=== PATIENT | female | born 1940 | race Caucasian/White ===

== ENCOUNTER 2016-08-05 13:33 | Outpatient (CLI) | payer MEDICARE, OTHER ==
[2016-08-05 14:03] LABS: #Basophils 0.1 thou/uL (0.0-0.2); #Eosinphils 0.2 thou/uL (0.0-0.7); #Lymphocytes 1.5 thou/uL (1.20-3.40); #Monocytes 0.4 thou/uL (0.11-0.59); #Neutrophils 3.6 thou/uL (1.40-6.50); %Basophils 1.1 % (0.0-1.0); %Eosinophils 3.8 % (0.0-10.0); %Lymphocytes 26.2 % (21.0-51.0); %Monocytes 6.4 % (0.0-10.0); Hematocrit 38.7 % (36.0-47.0); Mean Platelet Volume 9.3 fL (7.4-10.4); Red Blood Cell (RBC) Count 4.29 mill/uL (4.20-5.40); White Blood Cell (WBC) Count 5.8 thou/uL (4.8-10.8)
[2016-08-05 14:15] LABS: Hemoglobin A1c 6.7 % (4.0-6.0)
[2016-08-05 14:31] LABS: ALT (SGPT) 14 U/L (0-55); AST (SGOT) 14 U/L (5-34); Alkaline Phosphatase 155 U/L (40-150); Anion Gap 13 mmol/L (10-20); BUN (Urea Nitrogen) 18 mg/dL (9.8-20.1); Bilirubin, Total 0.6 mg/dL (0.2-1.2); Calc. Creatinine Clearance 0 mL/min (70-130); Calcium 8.8 mg/dL (7.8-10.44); Carbon Dioxide 26 mmol/L (23-31); Chloride 107 mmol/L (98-107); Estimated GFR-MDRD 50; Globulin 3.5 g/dL (2.4-3.5); Protein, Total 6.9 g/dL (5.8-8.1)
[2016-08-06 18:11] LABS: Microalbumin Urine 12.9 mg/dL (0.5-50.0)
== END 2016-08-05 13:34 | disposition home or self-care (01) ==
LOC: NAV LAB 13:33
PROVIDERS: ATTEND Internal Medicine Endocrinology, Diabetes & Metabolism
DX: E04.9 Nontoxic goiter, unspecified (principal); E11.9 Type 2 diabetes mellitus without complications; I10 Essential (primary) hypertension
CPT/HCPCS: 36415; 80053; 82043; 82570; 83036; 83880; 84439; 84443; 85025; 86376

== ENCOUNTER 2016-08-28 10:35 | Outpatient (CLI) | payer MEDICARE, OTHER ==
[2016-08-28 12:40] LABS: ALT (SGPT) 12 U/L (0-55); AST (SGOT) 12 U/L (5-34); Alkaline Phosphatase 148 U/L (40-150); Anion Gap 15 mmol/L (10-20); BUN (Urea Nitrogen) 23 mg/dL (9.8-20.1); Bilirubin, Direct 0.4 mg/dL (0.1-0.3); Bilirubin, Total 0.8 mg/dL (0.2-1.2); Calc. Creatinine Clearance 0 mL/min (70-130); Calcium 9.1 mg/dL (7.8-10.44); Carbon Dioxide 22 mmol/L (23-31); Chloride 107 mmol/L (98-107); Estimated GFR-MDRD 52; LDL Cholesterol, Calculated 77 mg/dL; Protein, Total 6.8 g/dL (5.8-8.1)
[2016-08-28 12:46] LABS: Hemoglobin A1c 6.8 % (4.0-6.0)
[2016-08-28 13:10] LABS: #Basophils 0.1 thou/uL (0.0-0.2); #Eosinphils 0.2 thou/uL (0.0-0.7); #Lymphocytes 1.7 thou/uL (1.20-3.40); #Monocytes 0.5 thou/uL (0.11-0.59); #Neutrophils 3.4 thou/uL (1.40-6.50); %Eosinophils 3.5 % (0.0-10.0); %Lymphocytes 28.9 % (21.0-51.0); %Monocytes 8.1 % (0.0-10.0); Hematocrit 38.7 % (36.0-47.0); Mean Platelet Volume 11.2 fL (7.4-10.4); Red Blood Cell (RBC) Count 4.37 mill/uL (4.20-5.40); White Blood Cell (WBC) Count 5.8 thou/uL (4.8-10.8)
== END 2016-08-28 10:36 | disposition home or self-care (01) ==
LOC: NAVSJIPCSP 10:35
PROVIDERS: ATTEND Family Medicine
DX: E78.5 Hyperlipidemia, unspecified (principal); I10 Essential (primary) hypertension; E11.65 Type 2 diabetes mellitus with hyperglycemia; Z79.899 Other long term (current) drug therapy
CPT/HCPCS: 36415; 80048; 80061; 80076; 83036; 84443; 85025

== ENCOUNTER 2016-09-01 14:57 | Outpatient (CLI) | payer MEDICARE, OTHER ==
[2016-09-01 22:20] LABS: Bilirubin Negative (Negative); Blood, Urine Trace (Negative); Glucose, Urine (Dipstick) Negative (Negative); Ketone, Urine Negative (Negative); Nitrite Positive (Negative); Protein, Urine (Dipstick) Negative (Neg-Trace)
[2016-09-01 22:30] LABS: Bacteria/HPF 4+ HPF (None Seen); RBC/HPF 0-3 HPF (0-3); WBC/HPF 0-3 HPF (0-3)
== END 2016-09-01 14:58 | disposition home or self-care (01) ==
LOC: NAVSJIPCSP 14:57
PROVIDERS: ATTEND Family Medicine
DX: E78.5 Hyperlipidemia, unspecified (principal); E11.65 Type 2 diabetes mellitus with hyperglycemia; I10 Essential (primary) hypertension; Z79.899 Other long term (current) drug therapy
CPT/HCPCS: 81003; 81015

== ENCOUNTER 2017-09-13 18:02 | Inpatient (IN) | payer MEDICARE, OTHER ==
[2017-09-13] MEDS ORDERED: Mag-Al 1200 mg/1200 mg/30 ML UDCUP PO PRN (20:32)
[2017-09-13] MEDS ORDERED: Loperamide HCl 2 MG CAP PO PRN (20:32)
[2017-09-13] MEDS ORDERED: Ondansetron ODT 4 MG TAB PO PRN (20:32)
[2017-09-13] MEDS ORDERED: Bisacodyl 10 MG SUPP PR PRN (20:32)
[2017-09-13] MEDS ORDERED: Nitroglycerin 0.4 MG TAB (25 Tab Bottle) SL PRN (20:32)
[2017-09-13] MEDS ORDERED: Milk Of Magnesia 30 ML UDCUP PO PRN (20:32)
[2017-09-13] MEDS ORDERED: Dextrose 5% in Water 1,000 ML IV PRN (20:48)
[2017-09-13] MEDS ORDERED: Dextrose 50% Abboject 50 ML SYRINGE SLOW IVP PRN (20:48)
[2017-09-13] MEDS ORDERED: Atorvastatin Calcium 10 MG TAB PO SCH (21:00)
[2017-09-13] MEDS: Levemir Flexpen 100 UNITS/ML PEN SC SCH (21:58)
[2017-09-13] MEDS: Atorvastatin Calcium 10 MG TAB PO SCH (22:00)
[2017-09-13] MEDS: Famotidine 20 MG TAB PO SCH (22:00)
[2017-09-13] MEDS: Ramipril 5 MG CAP PO SCH (22:00)
[2017-09-13] MEDS: Carvedilol 25 MG TAB PO SCH (22:03)
--- NOTE | 2017-09-14 00:19 | HP ---
DATE OF ADMISSION: Skilled Unit, 09/13/2017. HISTORY OF PRESENT ILLNESS: The patient is a very pleasant 77-year-old white female, patient of Dr. Michael with a history of hypertension, diabetes, and diastolic heart failure who presented to [facility] on 09/05/2017 with increasing shortness of breath, and was found to have a pulse ox of 84% at th e office and decreased to 75% when seen at home. She had not been using oxygen at home, but her husb and had noticed her sats to be this low previously. She also developed over the last month since the flu illness, increasing edema, increasing shortness of breath, inability to sleep, and constant leth argy. She was treated for diastolic heart failure with Lasix with diuresis, but required BiPAP to ma intain her saturations while this was being done. She did have an episode of bradycardia and subsequ ently was admitted to Medical Intensive Care Unit. There, she gently diuresed, was seen by Pulmonary and Cardiology, felt to have most likely obstructive sleep apnea, superimposed on diastolic heart fa ilure with subsequent pulmonary hypertension and most likely require constant CPAP; however, as she h as not had a sleep study, this was not able to be done and she was weaned down to just a nasal cannul a at 2 liters, was maintaining sat of 95-96% while awake. Her blood pressure remained stable at 148/ 57 with diuresis. She did develop subacute renal failure with creatinine increasing to 1.59, but thi s has normalized at 1.08 on discharge. At this time, she is taking medications of 40 mg of Lasix ora lly daily as well as ramipril 10 mg twice daily for longstanding hypertension, diastolic heart failur e, and carvedilol 12.5 mg twice daily. She also has a history of diabetes type 2, which has been wel l controlled in the hospital on her home medications of Levemir 28 units subcu twice daily and superi mposed mild sliding scale. She also has a history of occasional chest pain and angina, which has bee n followed by Dr. Dow and was seen by Dr. Black in the hospital and felt to be not related to a cute coronary artery syndrome with cardiac enzymes were normal. Her symptoms were more likely due to diastolic heart failure. She did have an elevated BNP of that time up to 533. She was treated empi rically for infection bronchial pneumonia, but it was felt this was not the case and that most likely underlying problems, which is just chronic hypoxic respiratory failure with subsequent pulmonary hyp ertension from obstructive sleep apnea, complicated by her chronic morbid obesity. She is transferre d to [facility] for PT and OT and hopefully wean off her oxygen and she did not require this p rior to 1 month ago and to eventually schedule her for an outpatient sleep study. PAST MEDICAL HISTORY: Remarkable also for history of hyperlipidemia, hypothyroidism, and distant his tory of a possible myocardial infarction. CURRENT MEDICATIONS: On transfer here include the above-mentioned carvedilol and ramipril, which she is also on amlodipine 10 mg daily, aspirin 81 daily, atorvastatin 10 daily, Plavix 75 daily, famotid ine 20 q.12 hours and also Lovenox 40 daily, hand-held nebulizer with DuoNeb as needed and routinely 4 times daily above-mentioned Levemir and KCl 10 mEq twice daily as well as Lasix 40 mg daily. ALLERGIES: PENICILLIN and SULFA. SOCIAL HISTORY: She lives with her . She is nonsmoker, nondrinker. PAST SURGICAL HISTORY: Positive for coronary artery bypass graft x3, bilateral total knee replacemen t, open reduction internal fixation of left femur fracture, cholecystectomy, and angiography prior to the in-stent coronary artery prior to the coronary artery bypass graft. REVIEW OF SYSTEMS: General: Her main complaints of lethargy and sleepiness with no change in her vi ayde or hearing, no hoarseness or sore throat. Pulmonary: She has had the above-mentioned cough and wheezing and probably infectious illness last month, but now is only having shortness of breath, whe ezing, cough with no fever or chills. Cardiovascular: She has had the above-mentioned chest pain wi th no palpitations, but does have dyspnea on exertion and orthopnea with dyspnea on exertion at proba fartun a half block. Gastrointestinal: She has good appetite. No abdominal pain, no nausea, vomiting, diarrhea. Genitourinary: Denies dysuria, hematuria, or nocturia. Musculoskeletal: Denies stiffne ss, swelling in joints or extremities. PHYSICAL EXAMINATION: GENERAL: Patient is an elderly white female, appears in no acute distress at this time on oxygen and oriented x3, cooperative. VITAL SIGNS: Blood pressure 167/77, respirations 21, pulse 64, O2 sats 96%, temperature 97.8. HEENT: Pupils are equal, round, and react to light and accommodation. Sclerae are anicteric, Conjun ctivae pale. Oral mucous membranes well hydrated. NECK: Obese, supple. No nodes or masses. JVP is not elevated. LUNGS: Show decreased breath sounds diffusely with no wheezes, rhonchi, or rales. CARDIAC: Shows regular rhythm, S4. No gallops or murmurs, otherwise. ABDOMEN: Obese and nontender. No masses or organomegaly. SKIN/EXTREMITIES: Show morbid obesity with only trace edema. No clubbing or cyanosis. NEUROLOGIC: Showed no focal findings. LABORATORY AND X-RAY FINDINGS: Most recent laboratory shows Accu-Cheks range from 165 to 209, BUN is 25, creatinine 1.08. Sodium 139, potassium 4.0, chloride 97, bicarbonate 36, white count 7400, chantelle tocrit 39, hemoglobin 12. ASSESSMENT AND PLAN: The patient is a 77-year-old white female with a long history of hypertension, hyperlipidemia, diabetes type 2, morbid obesity, who has apparently developed respiratory hypoxic hyp ercapnic failure over the last several months, possibly related to recent febrile illness causing exa cerbation, presenting to the hospital with severe respiratory failure. She was not oxygen dependent previously, but now is oxygen dependent and is admitted for PT and OT to hopefully be able to wean of f the oxygen and be able to maintain her activities of daily living at home where she can be set up f or outpatient sleep study. She is euvolemic at this time on 40 mg of Lasix will be continued on this with monitoring of the renal function closely as she did develop some acute renal failure with this. She will also be continued on her beta tommy, HUGH inhibitor, and amlodipine to control her blood pressure. She was hypertensive when she was hypoxic. She has chronic respiratory acidosis with meta bolic compensation with elevated bicarbonate and will need to be monitored closely for lethargy and i ncreased respiratory acidosis and hypercapnia. Finally, her diabetes has been fairly well controlled on her previous Levemir with mild sliding scale and this will be continued. Prognosis is somewhat g uarded because of her multiple underlying comorbidities, but she will be started on PT and OT and hop efully will improve enough to be discharged home.
[2017-09-14 05:48] LABS: ALT (SGPT) 13 U/L (8-55); AST (SGOT) 13 U/L (5-34); Alkaline Phosphatase 132 U/L (40-150); Anion Gap 11 mmol/L (10-20); BUN (Urea Nitrogen) 15 mg/dL (9.8-20.1); Bilirubin, Total 0.8 mg/dL (0.2-1.2); Calc. Creatinine Clearance 107 mL/min (70-130); Calcium 8.8 mg/dL (7.8-10.44); Carbon Dioxide 34 mmol/L (23-31); Chloride 100 mmol/L (98-107); Estimated GFR-MDRD 68; Glucose 91 mg/dL (83-110); Potassium 4.1 mmol/L (3.5-5.1); Sodium 141 mmol/L (136-145)
[2017-09-14 05:49] LABS: #Basophils 0.1 thou/uL (0.0-0.2); #Eosinphils 0.3 thou/uL (0.0-0.7); #Lymphocytes 1.3 thou/uL (1.20-3.40); #Monocytes 0.6 thou/uL (0.11-0.59); %Eosinophils 4.5 % (0.0-10.0); %Lymphocytes 20.8 % (21.0-51.0); %Monocytes 9.2 % (0.0-10.0); %Neutrophils 64.6 % (42.0-75.0); Hemoglobin 11.3 g/dL (12.0-16.0); Mean Corpuscular Volume 86.9 fl (81.0-99.0); Mean Platelet Volume 9.5 fL (7.4-10.4); PLT Morphology Comment Appears Decreased; Platelet Count 94 thou/uL (130-400); RBC Distribution Width 13.6 % (11.5-14.5); RBC Morphology Normal; Red Blood Cell (RBC) Count 4.18 mill/uL (4.20-5.40); White Blood Cell (WBC) Count 6.1 thou/uL (4.8-10.8)
[2017-09-14 05:54] LABS: MDiff Complete? YES; Manual Diff?? NO
[2017-09-14] MEDS: Enoxaparin Sodium 40 MG/0.4 ML SYRINGE SC SCH (09:02)
[2017-09-14] MEDS: Amlodipine 10 MG TAB PO SCH (09:02)
[2017-09-14] MEDS: Ramipril 5 MG CAP PO SCH ×2 (09:02→21:02)
[2017-09-14] MEDS: Aspirin 81 mg Enteric Coated Tablet PO SCH (09:03)
[2017-09-14] MEDS: Potassium Chloride 10 MEQ TAB PO SCH (09:03)
[2017-09-14] MEDS: Furosemide 40 MG TAB PO SCH (09:03)
[2017-09-14] MEDS: Famotidine 20 MG TAB PO SCH ×2 (09:03→21:01)
[2017-09-14] MEDS: FLUoxetine HCl 20 MG CAP PO SCH (09:03)
[2017-09-14] MEDS: Carvedilol 25 MG TAB PO SCH ×2 (09:04→21:01)
[2017-09-14] MEDS: Clopidogrel Bisulfate 75 MG TAB PO SCH (09:05)
[2017-09-14] MEDS: Levemir Flexpen 100 UNITS/ML PEN SC SCH ×2 (09:06→21:03)
--- NOTE | 2017-09-14 14:48 | PRG ---
DATE OF SERVICE: 09/14/2017 SUBJECTIVE: Ms. Gustafson is a pleasant 77-year-old white female, patient of mine, who presented to [facility] room with shortness of breath. She was noted to be hypoxic and had to be treated for heart fa ilure with Lasix, diuresis and BiPAP. She was admitted to the Intensive Care Unit, seen by Pulmonary and Cardiology and thought to have significant diastolic heart failure with pulmonary hypertension. She was diuresed and she did much better and was transferred to [facility] on 2 lite rs nasal cannula, maintaining O2 sats of 95% to 96%. PAST MEDICAL HISTORY: 1. Hypertension. 2. Diabetes type 2. 3. Diastolic heart failure. 4. Bradycardia. 5. Obstructive sleep apnea, most likely. 6. Pulmonary hypertension. 7. Subacute renal failure. 8. Angina. 9. Bronchopneumonia. 10. Chronic hypoxic respiratory failure. 11. Chronic morbid obesity. 12. Generalized weakness. 13. Hyperlipidemia. 14. Hypothyroidism. PRESENT MEDICATIONS: Reveal the patient is presently on the following: Carvedilol 6.25 mg b.i.d., R amipril every day, amlodipine 10 mg daily, atorvastatin 10 mg daily, Plavix 75 mg daily, famotidine 2 0 mg b.i.d., Lovenox 40 mg daily, aspirin 81 mg daily, hand-held nebulizer with DuoNebs q.i.d. and p. r.n., Lasix 40 mg every day, potassium chloride 10 mEq b.i.d., and Levemir 28 units subcutaneous b.i. d. and mild sliding scale. PHYSICAL EXAMINATION: GENERAL: This is a well-developed, well-nourished, morbidly obese white female in no apparent distre ss with respirations 20 at this time. She is getting a hand-held nebulizer and has slight wheeze. N o rales and no rhonchi are otherwise noted. HEENT: Reveals normocephalic, nontraumatic cranium. Pupils are equally round and reactive. Extraoc ular movements are intact. Nose and throat are well hydrated and moist. NECK: Supple, without masses, nodes or bruits. JVP is not able to be determined. LUNGS: Reveal distant breath sounds with occasional wheeze. No rhonchi, rales or crackles are heard at this time. CARDIOVASCULAR: Reveals a regular rate and rhythm. No murmurs, gallops or rubs are noted. ABDOMEN: Obese, soft, nontender. No organomegaly is noted. No rebound or guarding is noted. Gale l bowel sounds in all 4 quadrants. : Deferred. EXTREMITIES: Reveal morbid obesity with trace edema. ASSESSMENT: 1. Hypoxic hypercapnic failure. 2. Diabetes type 2. 3. Hypertension. 4. Hyperlipidemia. 5. Morbid obesity. 6. Diastolic heart failure. 7. Pulmonary hypertension. 8. Obstructive sleep apnea. PLAN: 1. Continue supportive care. 2. Continue slow diuresis. 3. Monitor the patient's respiratory status closely. 4. Monitor the patient's cardiac status and watch for signs and symptoms of congestive heart failure . 5. Stress ulcer prophylaxis. 6. Decubitus precautions. 7. Deep venous thrombosis prophylaxis. 8. Physical therapy and occupational therapy.
[2017-09-14] MEDS: Acetaminophen 325 MG TAB PO PRN (21:00)
[2017-09-14] MEDS: Senokot S 8.6-50 MG TAB PO PRN (21:00)
[2017-09-14] MEDS: Atorvastatin Calcium 10 MG TAB PO SCH (21:01)
[2017-09-15] MEDS: Enoxaparin Sodium 40 MG/0.4 ML SYRINGE SC SCH (08:10)
[2017-09-15] MEDS: Famotidine 20 MG TAB PO SCH ×2 (08:10→20:47)
[2017-09-15] MEDS: Potassium Chloride 10 MEQ TAB PO SCH (08:10)
[2017-09-15] MEDS: Ramipril 5 MG CAP PO SCH ×2 (08:11→20:46)
[2017-09-15] MEDS: Carvedilol 25 MG TAB PO SCH ×2 (08:11→20:46)
[2017-09-15] MEDS: FLUoxetine HCl 20 MG CAP PO SCH (08:11)
[2017-09-15] MEDS: Clopidogrel Bisulfate 75 MG TAB PO SCH (08:11)
[2017-09-15] MEDS: Furosemide 40 MG TAB PO SCH (08:11)
[2017-09-15] MEDS: Aspirin 81 mg Enteric Coated Tablet PO SCH (08:12)
[2017-09-15] MEDS: Amlodipine 10 MG TAB PO SCH (08:12)
[2017-09-15] MEDS: Levemir Flexpen 100 UNITS/ML PEN SC SCH ×2 (08:13→20:47)
[2017-09-15] MEDS: Senokot S 8.6-50 MG TAB PO PRN (20:46)
[2017-09-15] MEDS: Atorvastatin Calcium 10 MG TAB PO SCH (20:46)
--- NOTE | 2017-09-15 20:51 | PRG ---
DATE OF SERVICE: 09/15/2017 HISTORY OF PRESENT ILLNESS: Ms. Gustafson is a very pleasant, morbidly obese white female that had sign ificant hypoxemia and had to be treated with her heart failure with Lasix, diuresis and BiPAP. She e ventually stabilized by Pulmonary and Cardiology and was transferred to [facility] fo r physical therapy and occupational therapy. The patient states she did a little bit better today. She certainly looks a little better and has no raspy voice today. She has no complaints today. PHYSICAL EXAMINATION: VITAL SIGNS: Blood pressure this morning 160/72, pulse 66, respirations 19, O2 sat 95% on 2 liters n [place] cannula. T-max 96.1. LABORATORY DATA: This morning revealed a white count of 6100 with hemoglobin 11.3, hematocrit 36.3 a nd a platelet count of 94. Sodium 141, potassium 4.1, chloride 100, carbon dioxide 34. Creatinine is 0.82. The patient's point of care sugars ranged between 81 and 162. PHYSICAL EXAMINATION: GENERAL: This is a well-developed, well-nourished, morbidly obese white female in no apparent distre ss at this time. HEENT: Reveals normocephalic, nontraumatic cranium. Pupils are equally round and reactive. Extraoc ular movements are intact. Nose and throat are slightly dry. NECK: Supple, without masses, nodes or bruits. LUNGS: Chest is clear to auscultation. No rales, no rhonchi are heard today. The patient actually sounds much clear. No wheezes are heard. CARDIOVASCULAR: Reveals a regular rate and rhythm. No murmurs, gallops or rubs are noted. ABDOMEN: Soft, nontender, without organomegaly, normal bowel sounds are noted, is noted to be morbid ly obese. : Deferred. EXTREMITIES: Reveal trace edema, but morbid obesity. IMPRESSION: 1. Hypoxemic hypercapnic failure. 2. Diabetes type 2. 3. Hypertension. 4. Hyperlipidemia. 5. Morbid obesity. 6. Diastolic heart failure. 7. Pulmonary hypertension. 8. Obstructive sleep apnea. 9. Generalized weakness. PLAN: 1. Continue slow diuresis. 2. Monitor the patient's respiratory status closely. 3. Monitor the patient for signs and symptoms of congestive heart failure. 4. Stress ulcer prophylaxis. 5. Decubitus precautions. 6. Deep venous thrombosis prophylaxis. 7. Continue physical therapy and occupational therapy.
[2017-09-16] MEDS: Enoxaparin Sodium 40 MG/0.4 ML SYRINGE SC SCH (08:55)
[2017-09-16] MEDS: Potassium Chloride 10 MEQ TAB PO SCH (08:56)
[2017-09-16] MEDS: Ramipril 5 MG CAP PO SCH ×2 (08:56→21:44)
[2017-09-16] MEDS: Levemir Flexpen 100 UNITS/ML PEN SC SCH ×2 (08:56→21:45)
[2017-09-16] MEDS: FLUoxetine HCl 20 MG CAP PO SCH (08:57)
[2017-09-16] MEDS: Clopidogrel Bisulfate 75 MG TAB PO SCH (08:58)
[2017-09-16] MEDS: Famotidine 20 MG TAB PO SCH ×2 (08:58→21:42)
[2017-09-16] MEDS: Carvedilol 25 MG TAB PO SCH ×2 (08:58→21:42)
[2017-09-16] MEDS: Aspirin 81 mg Enteric Coated Tablet PO SCH (08:59)
[2017-09-16] MEDS: Amlodipine 10 MG TAB PO SCH (08:59)
[2017-09-16] MEDS: Furosemide 40 MG TAB PO SCH (08:59)
--- NOTE | 2017-09-16 19:23 | PRG ---
DATE OF SERVICE: 09/16/2017 HISTORY OF PRESENT ILLNESS: Ms. Gustafson is a 77-year-old white female with multiple medical problems when she presented to the emergency room with significant hypoxemia and treated with heart failure wi th Lasix, diuresis and BiPAP. She eventually was stabilized and transferred to [place] for physic al therapy and occupational therapy. SUBJECTIVE: The patient states she is doing well today. She is found lying in bed. I did encourage her to stay out of bed as much as possible. She states she did walk down the jain a little bit yest erday. Her voice is much clearer today. She seems somewhat stronger. She has no complaints of any shortness of breath. PHYSICAL EXAMINATION: VITAL SIGNS: Reveal blood pressure this morning was 177/71, pulse 64, respirations 20, O2 sat 93% on half liter to 2 liters. LABORATORY DATA: Laboratory yesterday revealed a white count of 6,000 with hemoglobin 11.3, hematocr it 36.3 and a platelet count of 94. Sugars have been actually much better ranging from 78 up to 152. PHYSICAL EXAMINATION: GENERAL: This is a well-developed, well-nourished, very pleasant, obese white female in no apparent distress at this time. HEENT: Reveals normocephalic, nontraumatic cranium. Pupils are equally round and reactive to light. Extraocular movements are intact. Nose and throat are slightly dry. NECK: Supple, without masses, nodes or bruits. CHEST: Clear to auscultation. No rales, no rhonchi are heard today. No wheezes are heard. Breath sounds are actually clear today. HEART: Reveals a regular rate and rhythm without murmurs, gallops or rubs. ABDOMEN: Obese, soft, nontender, without organomegaly, normal bowel sounds are noted. No rebound or guarding is noted. : Deferred. EXTREMITIES: Reveal trace edema. IMPRESSION: 1. Hypoxemic hypercapnic failure. 2. Diabetes type 2. 3. Hypertension. 4. Hyperlipidemia. 5. Morbid obesity. 6. Diastolic heart failure. 7. Pulmonary hypertension. 8. Obstructive sleep apnea. 9. Generalized weakness. PLAN: 1. Continue slow diuresis. 2. Monitor the patient's respiratory status slowly and closely. 3. Monitor the patient's signs and symptoms of congestive heart failure. 4. Stress ulcer prophylaxis. 5. Decubitus precautions. 6. Deep venous thrombosis prophylaxis. 7. Continue physical therapy and occupational therapy.
[2017-09-16] MEDS: Atorvastatin Calcium 10 MG TAB PO SCH (21:41)
[2017-09-17 06:15] LABS: ALT (SGPT) 12 U/L (8-55); AST (SGOT) 12 U/L (5-34); Alkaline Phosphatase 143 U/L (40-150); Anion Gap 10 mmol/L (10-20); BUN (Urea Nitrogen) 13 mg/dL (9.8-20.1); Bilirubin, Total 0.7 mg/dL (0.2-1.2); Calc. Creatinine Clearance 94 mL/min (70-130); Calcium 8.5 mg/dL (7.8-10.44); Carbon Dioxide 33 mmol/L (23-31); Chloride 103 mmol/L (98-107); Estimated GFR-MDRD 58; Globulin 2.9 g/dL (2.4-3.5); Glucose 94 mg/dL (83-110); Potassium 3.9 mmol/L (3.5-5.1); Protein, Total 5.9 g/dL (6.0-8.3); Sodium 142 mmol/L (136-145)
[2017-09-17 06:27] LABS: #Eosinphils 0.2 thou/uL (0.0-0.7); #Lymphocytes 1.1 thou/uL (1.20-3.40); #Monocytes 0.4 thou/uL (0.11-0.59); #Neutrophils 2.8 thou/uL (1.40-6.50); %Basophils 0.9 % (0.0-1.0); %Eosinophils 3.6 % (0.0-10.0); %Lymphocytes 25.1 % (21.0-51.0); %Monocytes 9.7 % (0.0-10.0); %Neutrophils 60.7 % (42.0-75.0); Hemoglobin 10.7 g/dL (12.0-16.0); Mean Corpuscular HGB CONC 31.4 g/dL (32.0-36.0); Mean Corpuscular Hemoglobin 27.1 pg (27.0-31.0); Mean Corpuscular Volume 86.2 fl (81.0-99.0); Mean Platelet Volume 12.4 fL (7.4-10.4); Platelet Count 83 thou/uL (130-400); RBC Distribution Width 13.4 % (11.5-14.5); Red Blood Cell (RBC) Count 3.94 mill/uL (4.20-5.40); White Blood Cell (WBC) Count 4.5 thou/uL (4.8-10.8)
[2017-09-17 06:28] LABS: Anisocytosis SLIGHT = 6-15 cells (100X) (0-5/hpf); Hypochromia SLIGHT = 6-15 cells (100X) (0-5/hpf); MDiff Complete? YES; PLT Morphology Comment Appears Decreased
[2017-09-17] MEDS: Levemir Flexpen 100 UNITS/ML PEN SC SCH ×2 (08:08→21:02)
[2017-09-17] MEDS: Enoxaparin Sodium 40 MG/0.4 ML SYRINGE SC SCH (08:09)
[2017-09-17] MEDS: Ramipril 5 MG CAP PO SCH ×2 (08:10→21:08)
[2017-09-17] MEDS: Amlodipine 10 MG TAB PO SCH (08:11)
[2017-09-17] MEDS: Clopidogrel Bisulfate 75 MG TAB PO SCH (08:11)
[2017-09-17] MEDS: Potassium Chloride 10 MEQ TAB PO SCH (08:11)
[2017-09-17] MEDS: Carvedilol 25 MG TAB PO SCH ×2 (08:12→21:07)
[2017-09-17] MEDS: Aspirin 81 mg Enteric Coated Tablet PO SCH (08:13)
[2017-09-17] MEDS: Furosemide 40 MG TAB PO SCH (08:13)
[2017-09-17] MEDS: Famotidine 20 MG TAB PO SCH ×2 (08:13→21:02)
[2017-09-17] MEDS: FLUoxetine HCl 20 MG CAP PO SCH (08:13)
[2017-09-17] MEDS: HumaLOG 300 UNITS/3 ML VIAL SC PRN (11:28)
--- NOTE | 2017-09-17 15:25 | PRG ---
DATE OF SERVICE: 09/17/2017 HISTORY OF PRESENT ILLNESS: Ms. Gustafson is a very pleasant 77-year-old white female who presented to emergency room with hypoxemia, treated for heart failure. She had diuresis and now had to be started on BiPAP. She eventually stabilized and then was gradually improved and was transferred to [facility] for physical therapy and occupational therapy. SUBJECTIVE: The patient is found sitting in her room which is the first time I have seen her out of bed. She states she is feeling much better and she is breathing much better. She states she has no complaints today. PHYSICAL EXAMINATION: VITAL SIGNS: Revealed blood pressure today was 144/66, pulse 65, respirations 18, O2 sat 94% on 2 li ters, T-max 98.1. GENERAL: This is a well-developed and well-nourished obese white female, in no apparent distress at this time. HEENT: Reveals normocephalic and nontraumatic cranium. Pupils are equal, round, and reactive. Extr aocular movements are intact. Nose and throat are slightly dry. NECK: Supple without masses or bruits. LUNGS: Chest is clear to auscultation. No rales, rhonchi, or wheezes are heard. CARDIOVASCULAR: Reveals a regular rate and rhythm without murmurs, gallops, or rubs. ABDOMEN: Obese, soft, nontender, without organomegaly. Normal bowel sounds are noted. No rebound o r guarding is noted. : Deferred. EXTREMITIES: Reveal no clubbing, cyanosis, or edema. LABORATORY DATA: Revealed white count this morning 4.5, hemoglobin 10.7, hematocrit 34.0, platelet c ount of 83,000. Chemistry revealed sodium 142, potassium 3.9, chloride 103, carbon dioxide 33 with a BUN of 13, creatinine 0.93 which is excellent for her. GFR is 58. Her point of care sugars are run letty from 125-195. Her BNP is down from 542 to 151. IMPRESSION: 1. Hypoxemic hypercapnic failure. 2. Diabetes type 2. 3. Hypertension. 4. Hyperlipidemia. 5. Morbid obesity. 6. Diastolic heart failure. 7. Pulmonary hypertension. 8. Obstructive sleep apnea. 9. Generalized weakness. PLAN: 1. Continue slow diuresis. 2. Continue to monitor the patient's respiratory status slowly and closely. 3. Continue to monitor patient's signs and symptoms of congestive heart failure. 4. Stress ulcer prophylaxis. 5. DVT prophylaxis. 6. Decubitus precautions. 7. Continue physical therapy and occupational therapy.
[2017-09-17] MEDS: Atorvastatin Calcium 10 MG TAB PO SCH (21:02)
[2017-09-18] MEDS: Enoxaparin Sodium 40 MG/0.4 ML SYRINGE SC SCH (08:43)
[2017-09-18] MEDS: Levemir Flexpen 100 UNITS/ML PEN SC SCH ×2 (08:43→21:23)
[2017-09-18] MEDS: Ramipril 5 MG CAP PO SCH ×2 (08:44→21:22)
[2017-09-18] MEDS: FLUoxetine HCl 20 MG CAP PO SCH (08:44)
[2017-09-18] MEDS: Famotidine 20 MG TAB PO SCH ×2 (08:45→21:23)
[2017-09-18] MEDS: Amlodipine 10 MG TAB PO SCH (08:46)
[2017-09-18] MEDS: Potassium Chloride 10 MEQ TAB PO SCH (08:46)
[2017-09-18] MEDS: Clopidogrel Bisulfate 75 MG TAB PO SCH (08:46)
[2017-09-18] MEDS: Furosemide 40 MG TAB PO SCH (08:46)
[2017-09-18] MEDS: Carvedilol 25 MG TAB PO SCH ×2 (08:47→21:23)
[2017-09-18] MEDS: Aspirin 81 mg Enteric Coated Tablet PO SCH (08:47)
--- NOTE | 2017-09-18 10:13 | PRG ---
DATE OF SERVICE: 09/18/2017 SUBJECTIVE: Ms. Gustafson is up in her chair. Denies any complaints. No family at the bedside. OBJECTIVE: VITAL SIGNS: She is afebrile, heart rate is 58, respirations are 21, oxygen saturation 93% on nasal cannula, blood pressure 158/67. CARDIOVASCULAR: S1, S2 plus. RESPIRATORY: Normal vesicular breath sounds. ABDOMEN: Soft, obese, nontender, bowel sounds heard in all quadrants. EXTREMITIES: Without cyanosis or clubbing. Chronic edema. CENTRAL NERVOUS SYSTEM: Generalized weakness. LABORATORY VALUES: Blood sugars are 159, 131, 133, and 96. IMPRESSION: 1. Resolving diastolic congestive heart failure. Her BNP is down to 151. 2. Diabetes mellitus type 2. 3. Hypertension. 4. Dyslipidemia. 5. Pulmonary hypertension and generalized weakness. PLAN: 1. Continue current medications. 2. An 1800 calorie Heart healthy ADA diet. 3. Accu-Cheks with sliding scale coverage. 4. Deep venous thrombosis and stress ulcer prophylaxis. 5. Decubitus precautions. 6. Monitor respiratory status. 7. Monitor cardiovascular status. 8. Routine laboratory values. Discussed with patient in detail and all questions answered.
[2017-09-18] MEDS: Acetaminophen 325 MG TAB PO PRN (10:37)
[2017-09-18] MEDS: HumaLOG 300 UNITS/3 ML VIAL SC PRN (12:07)
[2017-09-18] MEDS: Atorvastatin Calcium 10 MG TAB PO SCH (21:23)
[2017-09-19] MEDS: Enoxaparin Sodium 40 MG/0.4 ML SYRINGE SC SCH (08:31)
[2017-09-19] MEDS: Levemir Flexpen 100 UNITS/ML PEN SC SCH ×2 (08:31→20:50)
[2017-09-19] MEDS: Amlodipine 10 MG TAB PO SCH (08:32)
[2017-09-19] MEDS: Carvedilol 25 MG TAB PO SCH ×2 (08:32→20:49)
[2017-09-19] MEDS: Clopidogrel Bisulfate 75 MG TAB PO SCH (08:33)
[2017-09-19] MEDS: Ramipril 5 MG CAP PO SCH ×2 (08:33→20:50)
[2017-09-19] MEDS: FLUoxetine HCl 20 MG CAP PO SCH (08:33)
[2017-09-19] MEDS: Aspirin 81 mg Enteric Coated Tablet PO SCH (08:34)
[2017-09-19] MEDS: Famotidine 20 MG TAB PO SCH ×2 (08:34→20:50)
[2017-09-19] MEDS: Potassium Chloride 10 MEQ TAB PO SCH (08:34)
[2017-09-19] MEDS: Furosemide 40 MG TAB PO SCH (08:34)
[2017-09-19] MEDS: HumaLOG 300 UNITS/3 ML VIAL SC PRN ×2 (11:32→17:17)
--- NOTE | 2017-09-19 16:44 | PRG ---
DATE OF SERVICE: 09/19/2017 SUBJECTIVE: Ms. Gustafson is doing the same. Denies any complaints, resting comfortably. Discussed wi th nursing and no concerns. OBJECTIVE: VITAL SIGNS: She is afebrile, heart rate is 60, respirations 20, blood pressure 156/58, oxygen satur ation is 94% on 2 liters. CARDIOVASCULAR SYSTEM: S1, S2 plus. RESPIRATORY SYSTEM: Normal vesicular breath sounds heard in all lung vasquez. ABDOMEN: Soft, nontender, bowel sounds heard in all quadrants, obese. EXTREMITIES: Without cyanosis or clubbing. Chronic stasis dermatitis and venous insufficiency/lymph edema. LABORATORY VALUES: Blood sugars are 186, 135, 204, 120, and 207. IMPRESSION: 1. Resolving diastolic congestive heart failure. 2. Diabetes mellitus type 2, well controlled. 3. Hypertension, reasonable control. 4. Dyslipidemia. 5. Pulmonary hypertension. 6. Improving deconditioning. PLAN: 1. Continue current medications. 2. 1800-calorie heart healthy ADA diet. 3. Monitor cardiovascular status. 4. Monitor blood pressure and adjust medications. 5. DVT and stress ulcer prophylaxis. 6. Titrate oxygen. 7. Physical therapy. 8. No family at bedside.
[2017-09-19] MEDS: Atorvastatin Calcium 10 MG TAB PO SCH (20:50)
[2017-09-20] MEDS: Levemir Flexpen 100 UNITS/ML PEN SC SCH ×2 (08:33→20:44)
[2017-09-20] MEDS: Enoxaparin Sodium 40 MG/0.4 ML SYRINGE SC SCH (08:33)
[2017-09-20] MEDS: FLUoxetine HCl 20 MG CAP PO SCH (08:34)
[2017-09-20] MEDS: Carvedilol 25 MG TAB PO SCH ×2 (08:34→20:43)
[2017-09-20] MEDS: Potassium Chloride 10 MEQ TAB PO SCH (08:34)
[2017-09-20] MEDS: Furosemide 40 MG TAB PO SCH (08:35)
[2017-09-20] MEDS: Aspirin 81 mg Enteric Coated Tablet PO SCH (08:35)
[2017-09-20] MEDS: Clopidogrel Bisulfate 75 MG TAB PO SCH (08:35)
[2017-09-20] MEDS: Ramipril 5 MG CAP PO SCH ×2 (08:35→20:43)
[2017-09-20] MEDS: Amlodipine 10 MG TAB PO SCH (08:35)
[2017-09-20] MEDS: Famotidine 20 MG TAB PO SCH ×2 (08:35→20:43)
--- NOTE | 2017-09-20 11:15 | PRG ---
DATE OF SERVICE: 09/20/2017 Ms. Gustafson is doing well. Denies any complaints, resting comfortably, except for occasional cough. I advised her to use her incentive spirometer at least 10 times an hour. She denies any fever or chi lls. Denies any chest pain or shortness of breath. Denies any PND or orthopnea. OBJECTIVE: VITAL SIGNS: She is afebrile, heart rate 61, respirations 20, oxygen saturation 93% on 2 liters, blo od pressure 158/67. CARDIOVASCULAR SYSTEM: S1 and S2 plus. RESPIRATORY SYSTEM: Normal vesicular breath sounds. ABDOMEN: Soft, obese, nontender, bowel sounds heard in all quadrants. EXTREMITIES: Chronic venous insufficiency and lymphedema. CENTRAL NERVOUS SYSTEM: Generalized weakness. LABORATORY VALUES: Blood sugars are 120, 207, 196, 179, and 106. IMPRESSION: 1. Resolving diastolic congestive heart failure. 2. Diabetes mellitus, type 2, reasonable control. 3. Hypertension, reasonable control. 4. Dyslipidemia. 5. Pulmonary hypertension. 6. Deconditioning with slow improvement and hypoxemia. PLAN: 1. Continue current medications. 2. An 1800 calorie heart healthy ADA diet. 3. Titrate oxygen as tolerated. 4. Monitor for any decompensation of her heart failure. 5. DVT and stress ulcer prophylaxis. 6. Decubitus precautions. 7. Routine laboratory values. 8. Reinforced the need to use her incentive spirometry. 9. Dr. Angelina Michael back tonight.
[2017-09-20] MEDS: Atorvastatin Calcium 10 MG TAB PO SCH (20:43)
[2017-09-21] MEDS: Ramipril 5 MG CAP PO SCH ×2 (08:03→21:19)
[2017-09-21] MEDS: Carvedilol 25 MG TAB PO SCH ×2 (08:04→21:20)
[2017-09-21] MEDS: FLUoxetine HCl 20 MG CAP PO SCH (08:04)
[2017-09-21] MEDS: Furosemide 40 MG TAB PO SCH (08:05)
[2017-09-21] MEDS: Amlodipine 10 MG TAB PO SCH (08:05)
[2017-09-21] MEDS: Clopidogrel Bisulfate 75 MG TAB PO SCH (08:05)
[2017-09-21] MEDS: Famotidine 20 MG TAB PO SCH ×2 (08:05→21:19)
[2017-09-21] MEDS: Aspirin 81 mg Enteric Coated Tablet PO SCH (08:05)
[2017-09-21] MEDS: Enoxaparin Sodium 40 MG/0.4 ML SYRINGE SC SCH (08:06)
[2017-09-21] MEDS: Potassium Chloride 10 MEQ TAB PO SCH (08:06)
[2017-09-21] MEDS: Levemir Flexpen 100 UNITS/ML PEN SC SCH ×2 (08:08→21:21)
[2017-09-21] MEDS: Acetaminophen 325 MG TAB PO PRN (09:49)
--- NOTE | 2017-09-21 19:51 | PRG ---
DATE OF SERVICE: 09/21/2017 SUBJECTIVE: This patient is a very pleasant 77-year-old white female who presents to the emergency r oom with hypoxemia. She was treated for heart failure and was diuresed. She was started on BiPAP, e ventually stabilized and transferred to [facility] for physical therapy and occupatio nal therapy. The patient was found her in room sitting up and states she is somewhat tired this morning and did no t do very well. I did encourage her to get out of bed as much as possible to sit up in the chair so she would get stronger. PHYSICAL EXAMINATION: VITAL SIGNS: This morning reveal blood pressure 149/65, pulse 54, respirations 19, O2 sat 95% on 1-2 liters nasal cannula. GENERAL: This is a well-developed, well-nourished, morbidly obese white female, in no apparent distr ess at this time. HEENT: Reveals normocephalic, nontraumatic cranium. Pupils equally round and reactive. Extraocular movements intact. Nose and throat are slightly dry. NECK: Supple without masses, nodes or bruits. CHEST: Clear to auscultation. No rales, rhonchi or wheezes are heard. CARDIOVASCULAR: Reveals a regular rate and rhythm without murmurs, gallops or rubs. ABDOMEN: Obese, soft, nontender without organomegaly, normal bowel sounds are noted. No rebound or guarding is noted. : Deferred. EXTREMITIES: Reveal no clubbing, cyanosis, or edema. IMPRESSION: 1. Hypoxemic hypercapnic failure. 2. Diabetes type 2. 3. Hypertension. 4. Hyperlipidemia. 5. Morbid obesity. 6. Diastolic heart failure. 7. Pulmonary hypertension. 8. Obstructive sleep apnea. 9. Generalized weakness. 10. PICC line. PLAN: 1. Continue slow diuresis. 2. Continue to monitor the patient's respiratory status. 3. Monitor the patient's signs and symptoms of congestive heart failure. 4. Stress ulcer prophylaxis. 5. Deep venous thrombosis prophylaxis. 6. Decubitus precautions. 7. Continue physical therapy and occupational therapy. 8. We will continue PICC line at this time for a blood draw since the patient is a terrible hard sti ck. We will continue physical therapy and occupational therapy since the patient has continued to pr ogress.
[2017-09-21] MEDS: Atorvastatin Calcium 10 MG TAB PO SCH (21:20)
[2017-09-21] MEDS: Naproxen 500 MG TAB PO PRN (22:04)
[2017-09-21] MEDS: guaiFENesin ER 600 MG TAB PO SCH (22:05)
[2017-09-22] MEDS: Enoxaparin Sodium 40 MG/0.4 ML SYRINGE SC SCH (09:32)
[2017-09-22] MEDS: Levemir Flexpen 100 UNITS/ML PEN SC SCH ×2 (09:32→21:50)
[2017-09-22] MEDS: Ramipril 5 MG CAP PO SCH ×2 (09:34→21:48)
[2017-09-22] MEDS: FLUoxetine HCl 20 MG CAP PO SCH (09:34)
[2017-09-22] MEDS: guaiFENesin ER 600 MG TAB PO SCH ×2 (09:34→21:50)
[2017-09-22] MEDS: Clopidogrel Bisulfate 75 MG TAB PO SCH (09:34)
[2017-09-22] MEDS: Amlodipine 10 MG TAB PO SCH (09:35)
[2017-09-22] MEDS: Potassium Chloride 10 MEQ TAB PO SCH (09:35)
[2017-09-22] MEDS: Famotidine 20 MG TAB PO SCH ×2 (09:35→21:48)
[2017-09-22] MEDS: Furosemide 40 MG TAB PO SCH (09:35)
[2017-09-22] MEDS: Carvedilol 25 MG TAB PO SCH ×2 (09:36→21:49)
[2017-09-22] MEDS: Aspirin 81 mg Enteric Coated Tablet PO SCH (09:36)
[2017-09-22] MEDS: Acetaminophen 325 MG TAB PO PRN (12:43)
--- NOTE | 2017-09-22 19:09 | PRG ---
DATE OF SERVICE: 09/22/2017 SUBJECTIVE: Patient is a 77-year-old white female presented to the emergency room with hypoxemia. S he was treated with heart failure and diuresed. She was started on BiPAP, eventually stabilized, and transferred to [facility] for physical therapy and occupational therapy. The patient was found sitting in her chair this morning. She states she is a little tired, but she i s doing well. She did try to get up and do some walking this morning with therapy. She states she i s gradually getting a little stronger. Her sugar this morning was 99. Sugars yesterday were excelle nt. OBJECTIVE: VITAL SIGNS: Reveal blood pressure this morning was 142/62, pulse 55, respirations 17-18, O2 sat 94% on 2 liters nasal cannula. T-max was 97.8. GENERAL: This is a well-developed, well-nourished, very pleasant, obese white female in no apparent distress at this time. HEENT: Reveals normocephalic, nontraumatic cranium. Pupils are equal, round, and reactive. Extraoc ular muscle movements intact. Nose and throat are slightly dry, but clear. NECK: Supple without mass, nodes, or bruits. CHEST: Clear to auscultation. No rales, rhonchi, or wheezes are heard. CARDIOVASCULAR: Reveals a regular rate and rhythm without murmurs, gallops, or rubs. ABDOMEN: Obese, soft, nontender without organomegaly, normal bowel sounds are noted. No rebound or guarding is noted. : Deferred. EXTREMITIES: Reveal no clubbing, cyanosis, or edema. IMPRESSION: 1. Hypoxemic hypercapnic failure. 2. Diabetes, type 2. 3. Hypertension. 4. Hyperlipidemia. 5. Morbid obesity. 6. Diastolic congestive heart failure. 7. Pulmonary hypertension. 8. Obstructive sleep apnea. 9. Generalized weakness. 10. PICC line. PLAN: 1. Continue slow diuresis. 2. Continue to monitor patient's respiratory status. 3. Continue to monitor the patient for signs and symptoms of congestive heart failure. 4. Stress ulcer prophylaxis. 5. DVT prophylaxis. 6. Decubitus precautions. 7. Continue physical therapy and occupational therapy. 8. Continue PICC line for blood draws until closer to discharge.
[2017-09-22] MEDS: Atorvastatin Calcium 10 MG TAB PO SCH (21:48)
[2017-09-23] MEDS: Ramipril 5 MG CAP PO SCH ×2 (08:52→21:27)
[2017-09-23] MEDS: Carvedilol 25 MG TAB PO SCH ×2 (08:53→21:28)
[2017-09-23] MEDS: Potassium Chloride 10 MEQ TAB PO SCH (08:53)
[2017-09-23] MEDS: Famotidine 20 MG TAB PO SCH ×2 (08:53→21:28)
[2017-09-23] MEDS: Clopidogrel Bisulfate 75 MG TAB PO SCH (08:53)
[2017-09-23] MEDS: guaiFENesin ER 600 MG TAB PO SCH ×2 (08:53→21:28)
[2017-09-23] MEDS: Furosemide 40 MG TAB PO SCH (08:53)
[2017-09-23] MEDS: FLUoxetine HCl 20 MG CAP PO SCH (08:53)
[2017-09-23] MEDS: Aspirin 81 mg Enteric Coated Tablet PO SCH (08:53)
[2017-09-23] MEDS: Amlodipine 10 MG TAB PO SCH (08:53)
[2017-09-23] MEDS: Enoxaparin Sodium 40 MG/0.4 ML SYRINGE SC SCH (08:55)
[2017-09-23] MEDS: Levemir Flexpen 100 UNITS/ML PEN SC SCH ×2 (08:55→21:30)
--- NOTE | 2017-09-23 13:56 | PRG ---
DATE OF SERVICE: 09/23/2017 DATE OF ADMISSION: 09/13/2017 SUBJECTIVE: Ms. Gustafson is a very pleasant 77-year-old white female that was treated with heart failu re and pneumonia with diuresis and antibiotics. She eventually was stabilized and transferred to [facility] for physical therapy and occupational therapy. The patient is found lying in her room taking another nap. She states she is a little tired, but did very well. She complains that she continues to have cough. We will go ahead and get a chest x-ray on her. PHYSICAL EXAMINATION: VITAL SIGNS: This morning, revealed blood pressure was 132/58, pulse 61, respirations 16-19, O2 sat 95% on 2 liters, T-max 96.2. GENERAL: This is a well-developed, well-nourished, very pleasant, obese white female, in no apparent distress at this time. HEENT: Reveals normocephalic, nontraumatic cranium. Pupils equal, round, and reactive. Extraocular movements intact. Nose and throat are slightly dry. NECK: Supple, without mass, nodes, or bruits. CHEST: Clear to auscultation. No rales, rhonchi, or wheezes are heard. HEART: Reveals a regular rate and rhythm without murmurs, gallops, or rubs. ABDOMEN: Obese, soft, nontender, without organomegaly, normal bowel sounds are noted. No rebound or guarding is noted. EXAM: Deferred. EXTREMITIES: Reveal no clubbing, cyanosis, or edema. IMPRESSION: 1. Hypoxemic, hypercapnic failure, respiratory failure. 2. Diabetes, type 2, stable. 3. Hypertension. 4. Hyperlipidemia. 5. Diastolic congestive heart failure. 6. Pulmonary hypertension. 7. Obstructive sleep apnea. 8. PICC line present. 9. Generalized weakness. PLAN: 1. Continue slow diuresis. 2. Monitor patient's respiratory status. 3. Monitor the patient for signs and symptoms of congestive heart failure. 4. Stress ulcer prophylaxis. 5. DVT prophylaxis. 6. Decubitus precautions. 7. Continue physical therapy and occupational therapy. 8. Continue PICC line for blood draws as needed.
[2017-09-23] MEDS: Atorvastatin Calcium 10 MG TAB PO SCH (21:28)
[2017-09-23] MEDS: Naproxen 500 MG TAB PO PRN (21:31)
[2017-09-24 05:25] LABS: #Eosinphils 0.2 thou/uL (0.0-0.7); #Monocytes 0.3 thou/uL (0.11-0.59); #Neutrophils 1.6 thou/uL (1.40-6.50); %Basophils 0.9 % (0.0-1.0); %Eosinophils 5.7 % (0.0-10.0); %Lymphocytes 33.7 % (21.0-51.0); %Monocytes 8.2 % (0.0-10.0); %Neutrophils 51.5 % (42.0-75.0); Hemoglobin 10.9 g/dL (12.0-16.0); Large Platelets SLIGHT; MDiff Complete? YES; Mean Corpuscular HGB CONC 30.8 g/dL (32.0-36.0); Mean Corpuscular Hemoglobin 27.2 pg (27.0-31.0); Mean Corpuscular Volume 88.1 fl (81.0-99.0); Mean Platelet Volume 10.3 fL (7.4-10.4); PLT Morphology Comment Appears Decreased; Platelet Count 92 thou/uL (130-400); RBC Distribution Width 13.8 % (11.5-14.5); RBC Morphology Normal; Red Blood Cell (RBC) Count 4.02 mill/uL (4.20-5.40)
[2017-09-24 05:35] LABS: ALT (SGPT) 17 U/L (8-55); AST (SGOT) 15 U/L (5-34); Alkaline Phosphatase 168 U/L (40-150); Anion Gap 10 mmol/L (10-20); BUN (Urea Nitrogen) 20 mg/dL (9.8-20.1); Bilirubin, Total 0.5 mg/dL (0.2-1.2); Calc. Creatinine Clearance 92 mL/min (70-130); Calcium 8.8 mg/dL (7.8-10.44); Carbon Dioxide 34 mmol/L (23-31); Chloride 103 mmol/L (98-107); Estimated GFR-MDRD 58; Globulin 3.3 g/dL (2.4-3.5); Glucose 80 mg/dL (83-110); Potassium 4.2 mmol/L (3.5-5.1); Protein, Total 6.3 g/dL (6.0-8.3); Sodium 143 mmol/L (136-145)
[2017-09-24] MEDS: Levemir Flexpen 100 UNITS/ML PEN SC SCH ×2 (08:45→21:17)
[2017-09-24] MEDS: Enoxaparin Sodium 40 MG/0.4 ML SYRINGE SC SCH (08:47)
[2017-09-24] MEDS: Acetaminophen 325 MG TAB PO PRN (08:48)
[2017-09-24] MEDS: Carvedilol 25 MG TAB PO SCH ×2 (08:48→18:03)
[2017-09-24] MEDS: guaiFENesin ER 600 MG TAB PO SCH ×2 (08:49→21:17)
[2017-09-24] MEDS: FLUoxetine HCl 20 MG CAP PO SCH (08:49)
[2017-09-24] MEDS: Ramipril 5 MG CAP PO SCH ×2 (08:49→21:15)
[2017-09-24] MEDS: Aspirin 81 mg Enteric Coated Tablet PO SCH (08:50)
[2017-09-24] MEDS: Clopidogrel Bisulfate 75 MG TAB PO SCH (08:50)
[2017-09-24] MEDS: Famotidine 20 MG TAB PO SCH ×2 (08:50→21:16)
[2017-09-24] MEDS: Amlodipine 10 MG TAB PO SCH (08:50)
[2017-09-24] MEDS: Potassium Chloride 10 MEQ TAB PO SCH (08:50)
[2017-09-24] MEDS: Furosemide 40 MG TAB PO SCH (08:50)
--- NOTE | 2017-09-24 12:10 | RAD ---
CHEST ONE VIEW: History: Cough, fever, CHF. Comparison: 09-10-17 FINDINGS: There are extensive alveolar opacities throughout the lungs. There is a dense right basilar airspace opacity and a small to moderate right side effusion. Heart size is enlarged. Dense calcifications of the aorta. No acute osseous abnormality. IMPRESSION: Cardiomegaly with airspace opacities concerning for infection or congestive heart failure. Right basi lar airspace opacities become more confluent concerning for pneumonia superimposed on CHF. POS: [facility]
[2017-09-24] MEDS: Guaifenesin DM 100-10/5 ML UDCUP PO PRN (13:15)
--- NOTE | 2017-09-24 13:50 | PRG ---
DATE OF SERVICE: 09/24/2017 SUBJECTIVE: Ms. Gustafson is a 77-year-old white female that was initially admitted to [facility] with congestive heart failure, pneumonia, and had to be diuresed and placed on antibiotics. She eventually was stabilized and transferred to [facility] for physical therapy and occu pational therapy. The patient states she has begun to cough more and is concerned about her lungs. She states she is a little tired and she has a lot of congestion. We did get a chest x-ray and it reveals some opacitie s and may have some mild congestive heart failure. We will address that. OBJECTIVE: VITAL SIGNS: Reveal blood pressure this morning 161/75, pulse 52-59, respirations 18-20 and O2 sat 9 4% to 95% on 2 liters nasal cannula. I and O's reveal the patient has gained approximately 5 pounds of fluid weight since admission. GENERAL: Reveals a well-developed, well-nourished, somewhat obese white female in no apparent distre ss at this time. HEENT: Reveals normocephalic and nontraumatic cranium. Pupils are equal, round, and reactive. Extr aoculars movements are intact. Nose and throat are slightly dry, but clear. NECK: Supple, without mass, nodes or bruits. CHEST: Clear to auscultation. The patient does have coarse breath sounds, but no rales are heard. The patient has a loose cough. Occasional wheezes noted. HEART: Regular rate and rhythm without murmurs, gallops or rubs. ABDOMEN: Obese, soft and nontender, without organomegaly. Normal bowel sounds are noted. No reboun d or guarding is noted. GENITOURINARY: Deferred. EXTREMITIES: Reveal no clubbing, cyanosis or edema. IMPRESSION: 1. Hypoxemic hypercapnic failure with respiratory failure in the past. 2. Possible pneumonia according to a chest x-ray. 3. Congestive heart failure. 4. Diabetes type 2, stable. 5. Hypertension. 6. Hyperlipidemia. 7. History of diastolic congestive heart failure. 8. Pulmonary hypertension. 9. Obstructive sleep apnea. 10. PICC line present. 11. Generalized weakness. PLAN: 1. We would give the patient some IV Lasix at this time, 40 mg. 2. Monitor urinary output. 3. Continue daily weights. 4. DuoNebs q.4 hours p.r.n. 5. Start the patient most likely on Rocephin 1 gram IV q.24 hours. 6. Monitor the patient's respiratory status. Monitor the patient's signs and symptoms of congestive heart failure. 7. Stress ulcer prophylaxis. 8. Deep venous thrombosis prophylaxis. 9. Decubitus precautions. 10. Continue physical therapy and occupational therapy. 11. Continue PICC line.
[2017-09-24] MEDS ORDERED: cefTRIAXone\\ROCEPHIN 1 GM VIAL SLOW IVP SCH (15:00)
[2017-09-24] MEDS ORDERED: Furosemide 40 MG/4 ML VIAL SLOW IVP SCH (15:00)
[2017-09-24] MEDS: Sterile Water 10 ML VIAL FS SCH (15:08)
[2017-09-24] MEDS: Senokot S 8.6-50 MG TAB PO PRN (21:16)
[2017-09-24] MEDS: Atorvastatin Calcium 10 MG TAB PO SCH (21:16)
[2017-09-25] MEDS: Furosemide 40 MG/4 ML VIAL SLOW IVP SCH ×2 (06:09→12:58)
[2017-09-25] MEDS: Enoxaparin Sodium 40 MG/0.4 ML SYRINGE SC SCH (08:48)
[2017-09-25] MEDS: Carvedilol 25 MG TAB PO SCH ×2 (08:50→16:29)
[2017-09-25] MEDS: Potassium Chloride 10 MEQ TAB PO SCH (08:50)
[2017-09-25] MEDS: Amlodipine 10 MG TAB PO SCH (08:50)
[2017-09-25] MEDS: Famotidine 20 MG TAB PO SCH ×2 (08:50→20:44)
[2017-09-25] MEDS: FLUoxetine HCl 20 MG CAP PO SCH (08:51)
[2017-09-25] MEDS: Ramipril 5 MG CAP PO SCH ×2 (08:51→20:43)
[2017-09-25] MEDS: guaiFENesin ER 600 MG TAB PO SCH ×2 (08:51→20:44)
[2017-09-25] MEDS: Aspirin 81 mg Enteric Coated Tablet PO SCH (08:51)
[2017-09-25] MEDS: Clopidogrel Bisulfate 75 MG TAB PO SCH (08:51)
[2017-09-25] MEDS: Levemir Flexpen 100 UNITS/ML PEN SC SCH ×2 (08:52→20:43)
--- NOTE | 2017-09-25 09:51 | RAD ---
PORTABLE UPRIGHT FRONTAL CHEST RADIOGRAPH: Date: 09-25-17 Comparison: 09-24-17 History: Reevaluate lung parenchyma, pneumonia. FINDINGS: There is no pneumothorax. There is pulmonary vascular congestion and prominence of the cardiac silhou ette. There is focal density in the right lung base laterally with obscuration of the right hemidiaphragm a nd blunting of the right costophrenic angle. IMPRESSION: Focal opacity in the right lung base. This may signify pleural fluid with associated volume loss. Inf ectious pneumonitis or aspiration within the right lower lobe with associated pleural fluid is a poss ibility as well. Follow up following treatment to document resolution advised. POS: [facility]
--- NOTE | 2017-09-25 13:27 | PRG ---
DATE OF SERVICE: 09/25/2017 SUBJECTIVE: Ms. Gustafson is a very pleasant 77-year-old white female, who initially admitted to [facility] with congestive heart failure and pneumonia. She was diuresed and placed on IV antibio tics. She eventually was stabilized and transferred to [facility] for physical thera py and occupational therapy. The patient started coughing a couple days ago. We did a chest x-ray which revealed possible pneumon ia, but some pulmonary vascular congestion. She was given some IV Lasix and started on Rocephin. Sh e states she feels much improved today. She states she feels like she has pneumonia again. We will clinically continue her on the Rocephin for a full 10 days and we will continue her diuresis. We are getting daily weights also. OBJECTIVE: VITAL SIGNS: Today reveal blood pressure this morning 148/66, pulse 58-62, respirations 18-20, O2 sa t 93%-95% on 2 liters nasal cannula. T-max 96.4. Weight is 246 pounds which is down 6 pounds from . She put out 2675 mL with the Lasix. GENERAL: This is a well-developed, well-nourished, obese white female. HEENT: Reveals normocephalic, nontraumatic cranium. Pupils equal, round, reactive. Extraocular mov ements intact. Nose and throat are moist today and clear. The patient does have a loose type cough, but states she is not able to cough it up. NECK: Supple without masses, nodes or bruits. LUNGS: Chest is much clearer today. No rales are heard. The patient has a cough that sounds loose, but she states she is unable to cough anything up. She has no wheezes today. Still have a few crac kles in the left base. CARDIOVASCULAR: Heart reveals a regular rate and rhythm without murmurs, gallops or rubs. ABDOMEN: Obese, soft, nontender without organomegaly. Normal bowel sounds are noted. No rebound or guarding is noted. : Deferred. EXTREMITIES: Reveal no clubbing, cyanosis or edema. IMPRESSION: 1. Clinical pneumonia. 2. Hypoxemic hypercapnic failure with respiratory failure in the past. 3. Congestive heart failure. 4. Diabetes type 2, stable. 5. Hypertension. 6. Hyperlipidemia. 7. Diastolic congestive heart failure. 8. Pulmonary hypertension by history. 9. Obstructive sleep apnea. 10. PICC line still present. 11. Generalized weakness. PLAN: 1. Continue with IV Lasix at this time. 2. Rocephin. The patient has gotten 1 dose. We will continue for a full 10 days. 3. Continue monitoring output. 4. Continue to watch the patient's weight daily. 5. DuoNeb q.4 hours p.r.n. 6. Monitor the patient's respiratory status. 7. Stress ulcer prophylaxis. 8. DVT prophylaxis. 9. Decubitus precautions. 10. Continue PICC line flushes. 11. Physical therapy and occupational therapy.
[2017-09-25] MEDS: Acetaminophen 325 MG TAB PO PRN (13:42)
[2017-09-25] MEDS ORDERED: cefTRIAXone\\ROCEPHIN 1 GM in Sodium Chloride 0.9% 100 ML IVPB SCH (15:00)
[2017-09-25] MEDS: cefTRIAXone\\ROCEPHIN 1 GM VIAL SLOW IVP SCH (15:40)
[2017-09-25] MEDS: Sterile Water 10 ML VIAL FS SCH (15:40)
[2017-09-25] MEDS: HumaLOG 300 UNITS/3 ML VIAL SC PRN (16:25)
[2017-09-25] MEDS: Senokot S 8.6-50 MG TAB PO PRN (20:44)
[2017-09-25] MEDS: Atorvastatin Calcium 10 MG TAB PO SCH (20:44)
[2017-09-25] MEDS: guaiFENesin 100 MG/5 ML UDCUP PO PRN (23:21)
[2017-09-26] MEDS: Furosemide 40 MG/4 ML VIAL SLOW IVP SCH ×2 (05:36→14:52)
[2017-09-26] MEDS ORDERED: Dextrose 50% Abboject 50 ML SYRINGE SLOW IVP PRN (06:15)
[2017-09-26] MEDS ORDERED: Dextrose 5% in Water 1,000 ML IV PRN (06:15)
--- NOTE | 2017-09-26 07:49 | PRG ---
DATE OF SERVICE: 09/26/2017 DATE OF ADMISSION: 09/13/2017 HISTORY OF PRESENT ILLNESS: Ms. Gustafson is a very pleasant 77-year-old white female with congestive h eart failure and pneumonia. She was admitted and placed on IV antibiotics and diuresis at [facility]. She was eventually stabilized and transferred here to [facility] for PT and OT and to increase her strength and stamina. A couple of days ago, patient developed increased cough and congestion and we did a chest x-ray which revealed increased pulmonary vascular congestion and some infiltrates. She was diuresed and placed on Rocephin and has done she states fantastic. She states she is breathing somewhat better and feels so much better. She actually states she has no complaints today. PHYSICAL EXAMINATION: VITAL SIGNS: Reveal blood pressure 122/59, pulse 95-96, respirations 20, O2 sat 95%-96% on 2 liters nasal cannula, T-max 98.3. GENERAL: This is a well-developed, well-nourished, obese white female in no apparent distress at thi s time. HEENT: Reveals normocephalic, nontraumatic cranium. Pupils are equally round and reactive. Extraoc ular movements are intact. Nose and throat are slightly dry. NECK: Supple, without mass, nodes or bruits. CHEST: Clear to auscultation. No rales, rhonchi or wheezes are heard. HEART: Reveals a regular rate and rhythm without murmurs, gallops or rubs. ABDOMEN: Soft and nontender, without organomegaly. Normal bowel sounds are noted. No rebound or gu arding is noted. GENITOURINARY: Deferred. EXTREMITIES: Reveal no clubbing, cyanosis or edema. LABORATORY DATA: Today reveals blood sugar this morning 163, last night at bedtime 211, before suppe r 280, before lunch 178, fasting yesterday morning 101. I did have a long talk with the patient about her eating habits. We did increase her sliding scale H umalog to aggressive scale. She will remain on her Levemir b.i.d. IMPRESSION: 1. Clinical pneumonia, much improved. 2. Hypoxemic hypercapnic failure with respiratory failure in the recent past. 3. Congestive heart failure, diastolic, which is improved with diuresis. 4. Pulmonary hypertension. 5. Obstructive sleep apnea. 6. Diabetes type 2 which is slightly elevated and we did increase her to aggressive sliding scale. 7. Hypertension. 8. Hyperlipidemia. 9. Continue PICC line. 10. Generalized weakness. PLAN: 1. Continue Rocephin for 10 days. 2. Continue IV Lasix. 3. Continue to monitor output. 4. Watch patient's daily weights. 5. DuoNeb q.4 p.r.n. 6. Monitor the patient's respiratory status. 7. Increase the patient's sliding scale from mild to aggressive. 8. Stress ulcer prophylaxis. 9. DVT prophylaxis. 10. Decubitus precautions. 11. Physical therapy and occupational therapy.
[2017-09-26 07:55] LABS: #Eosinphils 0.2 thou/uL (0.0-0.7); #Lymphocytes 1.2 thou/uL (1.20-3.40); #Monocytes 0.3 thou/uL (0.11-0.59); #Neutrophils 2.1 thou/uL (1.40-6.50); %Basophils 0.6 % (0.0-1.0); %Eosinophils 4.8 % (0.0-10.0); %Lymphocytes 30.6 % (21.0-51.0); %Monocytes 8.6 % (0.0-10.0); %Neutrophils 55.3 % (42.0-75.0); Hemoglobin 11.1 g/dL (12.0-16.0); Mean Corpuscular HGB CONC 31.8 g/dL (32.0-36.0); Mean Corpuscular Hemoglobin 27.5 pg (27.0-31.0); Mean Corpuscular Volume 86.4 fl (81.0-99.0); Mean Platelet Volume 9.8 fL (7.4-10.4); PLT Morphology Comment Appears Decreased; Platelet Count 97 thou/uL (130-400); RBC Distribution Width 13.1 % (11.5-14.5); RBC Morphology Normal; Red Blood Cell (RBC) Count 4.05 mill/uL (4.20-5.40); White Blood Cell (WBC) Count 3.8 thou/uL (4.8-10.8)
[2017-09-26 07:56] LABS: MDiff Complete? YES; Manual Diff?? NO
[2017-09-26 08:01] LABS: Anion Gap 12 mmol/L (10-20); BUN (Urea Nitrogen) 27 mg/dL (9.8-20.1); Calc. Creatinine Clearance 68 mL/min (70-130); Calcium 8.9 mg/dL (7.8-10.44); Carbon Dioxide 36 mmol/L (23-31); Chloride 98 mmol/L (98-107); Estimated GFR-MDRD 42; Glucose 147 mg/dL (83-110); Potassium 3.9 mmol/L (3.5-5.1); Sodium 142 mmol/L (136-145)
[2017-09-26] MEDS: Aspirin 81 mg Enteric Coated Tablet PO SCH (09:00)
[2017-09-26] MEDS: Clopidogrel Bisulfate 75 MG TAB PO SCH (09:00)
[2017-09-26] MEDS: Levemir Flexpen 100 UNITS/ML PEN SC SCH ×2 (09:00→21:19)
[2017-09-26] MEDS: Amlodipine 10 MG TAB PO SCH (09:01)
[2017-09-26] MEDS: FLUoxetine HCl 20 MG CAP PO SCH (09:01)
[2017-09-26] MEDS: guaiFENesin ER 600 MG TAB PO SCH ×2 (09:01→21:18)
[2017-09-26] MEDS: Famotidine 20 MG TAB PO SCH ×2 (09:01→21:18)
[2017-09-26] MEDS: Ramipril 5 MG CAP PO SCH ×2 (09:01→21:19)
[2017-09-26] MEDS: Carvedilol 25 MG TAB PO SCH ×2 (09:02→17:45)
[2017-09-26] MEDS: Potassium Chloride 10 MEQ TAB PO SCH (09:02)
[2017-09-26] MEDS: Enoxaparin Sodium 40 MG/0.4 ML SYRINGE SC SCH (09:04)
[2017-09-26] MEDS: cefTRIAXone\\ROCEPHIN 1 GM VIAL SLOW IVP SCH (17:37)
[2017-09-26] MEDS: HumaLOG 300 UNITS/3 ML VIAL SC PRN (17:47)
[2017-09-26] MEDS: Atorvastatin Calcium 10 MG TAB PO SCH (21:18)
[2017-09-26] MEDS: Senokot S 8.6-50 MG TAB PO PRN (21:18)
[2017-09-27] MEDS: Furosemide 40 MG/4 ML VIAL SLOW IVP SCH (06:41)
--- NOTE | 2017-09-27 08:04 | PRG ---
DATE OF SERVICE: 09/27/2017 DATE OF ADMISSION: 09/13/2017 HISTORY OF PRESENT ILLNESS: Ms. Gustafson is a very pleasant 77-year-old white female that was admitted to the hospital with congestive heart failure and pneumonia. She was eventually stabilized on IV an tibiotics and diuresis at [facility]. She was then stabilized and transferred to [facility] for continued physical therapy and occupational therapy. She has no complaints toda y. She states she feels better and thinks the Rocephin and the IV Lasix have helped her tremendously . She has improved so much and we are ready to switch over her to oral Lasix today. PHYSICAL EXAMINATION: VITAL SIGNS: Reveal blood pressure this morning was 140/65, pulse 60-64, respirations 20, O2 sat 95% on 2 liters nasal cannula, T-max is 97.8. GENERAL: This is a well-developed, well-nourished, very pleasant, obese white female in no apparent distress at this time. HEENT: Reveals normocephalic, nontraumatic cranium. Pupils are equal, round, and reactive. Extraoc ular movements are intact. Nose and throat are slightly dry. NECK: Supple, without mass, nodes or bruits. CHEST: Clear with occasional raspy cough, but no rales are heard today. No rhonchi, no crackles are noted. HEART: Reveals a regular rate and rhythm without murmurs, gallops or rubs. ABDOMEN: Soft and nontender, without organomegaly. Normal bowel sounds are noted today. No rebound or guarding is noted. GENITOURINARY: Deferred. EXTREMITIES: Reveal no clubbing, cyanosis or edema. LABORATORY DATA: Reveal point of care sugars fasting yesterday morning was 63, before lunch 200, bef ore supper 201, before bedtime 124 and then fasting this morning is 113. IMPRESSION: 1. Clinical pneumonia, much improved. 2. Hypoxemic hypercapnic failure with respiratory failure in the recent past. 3. Congestive heart failure, diastolic, which is improved with diuresis. 4. Pulmonary hypertension. 5. Obstructive sleep apnea. 6. Diabetes type 2, which is elevated and we did increase her aggressive sliding scale which is slig htly improved. 7. Hypertension. 8. Hyperlipidemia. 9. Continue PICC line. 10. Generalized weakness. PLAN: 1. Continue Rocephin for a full 10 days. 2. IV Lasix has been stopped and we have switched the patient to 40 mg of Lasix orally each morning. 3. Continue to monitor the patient's output. 4. Daily weights. 5. DuoNeb q.4 hours. 6. Monitor the patient's respiratory status. 7. Increase the patient's sliding scale from mild to aggressive. 8. Stress ulcer prophylaxis. 9. DVT prophylaxis. 10. Decubitus precautions. 11. Physical therapy and occupational therapy.
[2017-09-27] MEDS: Aspirin 81 mg Enteric Coated Tablet PO SCH (08:38)
[2017-09-27] MEDS: guaiFENesin ER 600 MG TAB PO SCH ×2 (08:38→21:55)
[2017-09-27] MEDS: Ramipril 5 MG CAP PO SCH ×2 (08:39→21:55)
[2017-09-27] MEDS: Potassium Chloride 10 MEQ TAB PO SCH (08:39)
[2017-09-27] MEDS: Furosemide 40 MG TAB PO SCH (08:39)
[2017-09-27] MEDS: Carvedilol 25 MG TAB PO SCH ×2 (08:39→17:27)
[2017-09-27] MEDS: Amlodipine 10 MG TAB PO SCH (08:40)
[2017-09-27] MEDS: Clopidogrel Bisulfate 75 MG TAB PO SCH (08:40)
[2017-09-27] MEDS: FLUoxetine HCl 20 MG CAP PO SCH (08:40)
[2017-09-27] MEDS: Famotidine 20 MG TAB PO SCH ×2 (08:40→21:55)
[2017-09-27] MEDS: Enoxaparin Sodium 40 MG/0.4 ML SYRINGE SC SCH (08:43)
[2017-09-27] MEDS: Levemir Flexpen 100 UNITS/ML PEN SC SCH ×2 (08:44→21:55)
[2017-09-27] MEDS: cefTRIAXone\\ROCEPHIN 1 GM VIAL SLOW IVP SCH (15:37)
[2017-09-27] MEDS: Guaifenesin DM 100-10/5 ML UDCUP PO PRN (17:22)
[2017-09-27] MEDS: HumaLOG 300 UNITS/3 ML VIAL SC PRN (17:58)
[2017-09-27] MEDS: Senokot S 8.6-50 MG TAB PO PRN (21:54)
[2017-09-27] MEDS: Atorvastatin Calcium 10 MG TAB PO SCH (21:55)
[2017-09-28] MEDS: guaiFENesin ER 600 MG TAB PO SCH ×2 (08:53→21:04)
[2017-09-28] MEDS: Enoxaparin Sodium 40 MG/0.4 ML SYRINGE SC SCH (08:53)
[2017-09-28] MEDS: Aspirin 81 mg Enteric Coated Tablet PO SCH (08:53)
[2017-09-28] MEDS: Carvedilol 25 MG TAB PO SCH ×2 (08:54→17:14)
[2017-09-28] MEDS: FLUoxetine HCl 20 MG CAP PO SCH (08:54)
[2017-09-28] MEDS: Ramipril 5 MG CAP PO SCH ×2 (08:54→21:04)
[2017-09-28] MEDS: Famotidine 20 MG TAB PO SCH ×2 (08:55→21:05)
[2017-09-28] MEDS: Potassium Chloride 10 MEQ TAB PO SCH (08:55)
[2017-09-28] MEDS: Furosemide 40 MG TAB PO SCH (08:55)
[2017-09-28] MEDS: Amlodipine 10 MG TAB PO SCH (08:55)
[2017-09-28] MEDS: Clopidogrel Bisulfate 75 MG TAB PO SCH (08:55)
[2017-09-28] MEDS: Levemir Flexpen 100 UNITS/ML PEN SC SCH ×2 (08:56→21:03)
[2017-09-28] MEDS: Guaifenesin DM 100-10/5 ML UDCUP PO PRN (13:13)
[2017-09-28] MEDS: cefTRIAXone\\ROCEPHIN 1 GM VIAL SLOW IVP SCH (14:55)
[2017-09-28] MEDS: Atorvastatin Calcium 10 MG TAB PO SCH (21:05)
[2017-09-28] MEDS: Senokot S 8.6-50 MG TAB PO PRN (21:05)
--- NOTE | 2017-09-28 21:28 | PRG ---
DATE OF SERVICE: 09/28/2017 DATE OF ADMISSION: 09/13/2017 HISTORY OF PRESENT ILLNESS: Ms. Gustafson is a very pleasant 77-year-old white female that was admitted to the hospital with congestive heart failure and pneumonia. She eventually was stabilized and roche sferred to [facility], on IV antibiotics and diuresis. She was stabilized and was tr ansferred here for physical therapy and occupational therapy. The patient states she is doing well and has no complaints. She states she has less cough. She feel s like she is doing better and breathing better. She has no complaints today. PHYSICAL EXAMINATION: VITAL SIGNS: Reveal blood pressure this morning was 127/61, pulse 57, respirations 19, O2 sat 92% on 2 liters nasal cannula, T-max was 98.5. GENERAL: This is a well-developed, well-nourished, obese white female, in no apparent distress at th is time. HEENT: Reveals normocephalic, nontraumatic cranium. Pupils are equally round and reactive. Extraoc ular movements intact. Nose and throat are slightly dry. NECK: Supple, without mass, nodes, or bruits. LUNGS: The chest is clear to auscultation. No raspy cough is noted. No rales are heard today. No rhonchi or wheezes are heard. HEART: Reveals a regular rate and rhythm without murmurs, rubs, gallops, or rubs. ABDOMEN: Soft, nontender, without organomegaly, normal bowel sounds are noted. No rebound or guardi ng is noted. EXAM: Deferred. EXTREMITIES: Reveal no clubbing, cyanosis, or edema. IMPRESSION: 1. Clinical pneumonia, much improved. 2. Hypoxemic, hypercapnic respiratory failure in the past. 3. History of congestive heart failure, diastolic, which is improved with diuresis. 4. Pulmonary hypertension. 5. Obstructive sleep apnea. 6. Diabetes, type 2. 7. Hypertension. 8. Hyperlipidemia. 9. Continue PICC line. 10. Continue generalized weakness. PLAN: 1. Continue Rocephin for a full 10 days. 2. Continue IV Lasix. 3. Continue to monitor the patient's output. 4. Daily voids. 5. DuoNeb q.4 h. 6. Monitor the patient's respiratory status. 7. Increase the patient's sliding scale from mild to aggressive. 8. Stress ulcer prophylaxis. 9. DVT prophylaxis. 10. Decubitus precautions. 11. Continue physical therapy and occupational therapy.
[2017-09-29] MEDS: Carvedilol 25 MG TAB PO SCH ×2 (08:49→17:14)
[2017-09-29] MEDS: FLUoxetine HCl 20 MG CAP PO SCH (08:49)
[2017-09-29] MEDS: Levemir Flexpen 100 UNITS/ML PEN SC SCH ×2 (08:49→20:15)
[2017-09-29] MEDS: Potassium Chloride 10 MEQ TAB PO SCH (08:50)
[2017-09-29] MEDS: guaiFENesin ER 600 MG TAB PO SCH ×2 (08:50→20:14)
[2017-09-29] MEDS: Ramipril 5 MG CAP PO SCH ×2 (08:50→20:14)
[2017-09-29] MEDS: Clopidogrel Bisulfate 75 MG TAB PO SCH (08:50)
[2017-09-29] MEDS: Famotidine 20 MG TAB PO SCH ×2 (08:50→20:14)
[2017-09-29] MEDS: Furosemide 40 MG TAB PO SCH (08:50)
[2017-09-29] MEDS: Enoxaparin Sodium 40 MG/0.4 ML SYRINGE SC SCH (08:51)
[2017-09-29] MEDS: Amlodipine 10 MG TAB PO SCH (08:51)
[2017-09-29] MEDS: Aspirin 81 mg Enteric Coated Tablet PO SCH (08:51)
[2017-09-29] MEDS: Acetaminophen 325 MG TAB PO PRN (13:48)
[2017-09-29] MEDS: cefTRIAXone\\ROCEPHIN 1 GM VIAL SLOW IVP SCH (14:50)
--- NOTE | 2017-09-29 20:13 | PRG ---
DATE OF SERVICE: 09/29/2017 SUBJECTIVE: Ms. Gustafson is a very pleasant 77-year-old, obese white female that was admitted to [facility] with congestive heart failure and pneumonia. She eventually was started on IV Lasix a nd IV antibiotics. She was stabilized and transferred to [facility] to continue her IV antibiotics and diuresis. The patient states she feels better today. She has much less cough and although she was a little bit weaker and could not walk as far she did yesterday. She has no complaints today. Sugars, this morning fasting was 112; last night, it was 250. OBJECTIVE: VITAL SIGNS: Blood pressure was 118/59, pulse 64, respirations 19-20, O2 sat 94% on 2 liters. T-max is 97.0. GENERAL: Reveals a well-developed, obese white female in no apparent distress at this time. HEENT: Reveals normocephalic, nontraumatic cranium. Pupils equal, round, and reactive. Extraocular movements are intact. Nose and throat are slightly dry, but clear. NECK: Supple, without mass, nodes or bruits. LUNGS: Chest is clear to auscultation. No rales, rhonchi, wheezes or cough is heard. CARDIOVASCULAR: Reveals a regular rate and rhythm without murmurs, gallops or rubs. ABDOMEN: Soft, nontender, without organomegaly, normal bowel sounds are noted. No rebound or guardi ng is noted. : Deferred. EXTREMITIES: Reveal no clubbing, cyanosis or edema. IMPRESSION: 1. Clinical pneumonia, much improved. 2. Hypoxemic hypercapnic respiratory failure, stable. 3. History of congestive heart failure which is diastolic, improved. 4. Pulmonary hypertension. 5. Obstructive sleep apnea. 6. Diabetes type 2. 7. Hypertension. 8. Hyperlipidemia. 9. Continue PICC line. 10. Continued generalized weakness. PLAN: 1. Continue Rocephin for a full 10 days. 2. IV Lasix will be switched to oral each morning. 3. Continue to monitor the patient's output. 4. Daily voids. 5. DuoNebs q.4 hours p.r.n. 6. Monitor the patient's respiratory status. 7. Place the patient on sliding scale to aggressive which is improving. 8. Stress ulcer prophylaxis. 9. DVT prophylaxis. 10. Decubitus precautions. 11. Continue physical therapy and occupational therapy.
[2017-09-29] MEDS: Atorvastatin Calcium 10 MG TAB PO SCH (20:14)
[2017-09-29] MEDS: Senokot S 8.6-50 MG TAB PO PRN (20:14)
[2017-09-30] MEDS: Levemir Flexpen 100 UNITS/ML PEN SC SCH ×2 (09:06→20:27)
[2017-09-30] MEDS: FLUoxetine HCl 20 MG CAP PO SCH (09:07)
[2017-09-30] MEDS: Amlodipine 10 MG TAB PO SCH (09:08)
[2017-09-30] MEDS: Ramipril 5 MG CAP PO SCH ×2 (09:08→20:27)
[2017-09-30] MEDS: Famotidine 20 MG TAB PO SCH ×2 (09:08→20:26)
[2017-09-30] MEDS: Furosemide 40 MG TAB PO SCH (09:08)
[2017-09-30] MEDS: Carvedilol 25 MG TAB PO SCH ×2 (09:08→17:42)
[2017-09-30] MEDS: Clopidogrel Bisulfate 75 MG TAB PO SCH (09:08)
[2017-09-30] MEDS: guaiFENesin ER 600 MG TAB PO SCH ×2 (09:08→20:26)
[2017-09-30] MEDS: Aspirin 81 mg Enteric Coated Tablet PO SCH (09:08)
[2017-09-30] MEDS: Potassium Chloride 10 MEQ TAB PO SCH (09:08)
[2017-09-30] MEDS: Enoxaparin Sodium 40 MG/0.4 ML SYRINGE SC SCH (09:13)
[2017-09-30] MEDS: Acetaminophen 325 MG TAB PO PRN (11:37)
[2017-09-30] MEDS: cefTRIAXone\\ROCEPHIN 1 GM VIAL SLOW IVP SCH (15:52)
[2017-09-30] MEDS: Sterile Water 10 ML VIAL FS SCH (15:52)
--- NOTE | 2017-09-30 20:18 | PRG ---
DATE OF SERVICE: 09/30/2017 HISTORY OF PRESENT ILLNESS: Ms. Gustafson is a very pleasant 77-year-old morbidly obese white female that was initially seen at [facility] with congestive heart failure and pneumonia. She was started on IV Lasix and IV antibiotics. She eventually was stabilized and transferred to [facility] to continue IV antibiotics and diuresis and to participate in PT and OT.. Patient has been doing very well and was off antibiotics, but recently developed a cough and started to have some infiltrates in her lungs, so she was restarted on Rocephin this time and diuresis. She continues to do well and has no complaints today. She states her cough is much improved. She has not had any fever. She feels much better. Sugars reveal fasting this morning 109, last night 175, before supper 114. PHYSICAL EXAMINATION: VITAL SIGNS: This morning reveal blood pressure 133/62, pulse 64, respirations 24, O2 sat 95% on 2 liters. T-max 96.7. GENERAL: This is a well-developed, well-nourished, obese white female in no apparent distress. She states she is feeling much better today. She is sitting up in a wheelchair today. HEENT: Reveals normocephalic, nontraumatic cranium. Pupils are equally round and reactive. Extraocular movements are intact. Nose and throat are slightly dry, but clear. NECK: Supple, without mass, nodes or bruits. CHEST: Clear to auscultation. No rales, no rhonchi, no wheezes are heard. CARDIOVASCULAR: Reveals a regular rate and rhythm without murmurs, gallops or rubs. ABDOMEN: Soft, nontender, without organomegaly, normal bowel sounds are noted. No rebound or guarding is noted. : Deferred. EXTREMITIES: Reveal no clubbing, cyanosis or edema. IMPRESSION: 1. Clinical pneumonia, much improved. 2. Hypoxemic hypercapnic respiratory failure, stable. 3. History of congestive heart failure which is diastolic, which is improved. 4. Obstructive sleep apnea. 5. Diabetes type 2. 6. Hypertension. 7. Hyperlipidemia. 8. Pulmonary hypertension. 9. Generalized weakness. PLAN: 1. Continue Rocephin for a full 10 days. 2. Patient is presently on oral Lasix once a day. 3. Continue to monitor the patient's output. 4. DuoNeb continue that q.4 hours p.r.n. 5. Monitor the patient's respiratory status. 6. Continue aggressive sliding scale. 7. Stress ulcer prophylaxis. 8. DVT precautions. 9. Decubitus precautions. 10. Continue physical therapy and occupational therapy. MTDD
[2017-09-30] MEDS: Atorvastatin Calcium 10 MG TAB PO SCH (20:26)
[2017-09-30] MEDS: Guaifenesin DM 100-10/5 ML UDCUP PO PRN (20:28)
[2017-10-01] MEDS: Enoxaparin Sodium 40 MG/0.4 ML SYRINGE SC SCH (07:54)
[2017-10-01] MEDS: Levemir Flexpen 100 UNITS/ML PEN SC SCH ×2 (07:55→21:52)
[2017-10-01] MEDS: FLUoxetine HCl 20 MG CAP PO SCH (07:57)
[2017-10-01] MEDS: guaiFENesin ER 600 MG TAB PO SCH ×2 (07:57→21:51)
[2017-10-01] MEDS: Furosemide 40 MG TAB PO SCH (07:57)
[2017-10-01] MEDS: Famotidine 20 MG TAB PO SCH ×2 (07:57→21:51)
[2017-10-01] MEDS: Potassium Chloride 10 MEQ TAB PO SCH (07:58)
[2017-10-01] MEDS: Carvedilol 25 MG TAB PO SCH ×2 (07:58→17:39)
[2017-10-01] MEDS: Ramipril 5 MG CAP PO SCH ×2 (07:58→21:51)
[2017-10-01] MEDS: Aspirin 81 mg Enteric Coated Tablet PO SCH (07:59)
[2017-10-01] MEDS: Amlodipine 10 MG TAB PO SCH (07:59)
[2017-10-01] MEDS: Clopidogrel Bisulfate 75 MG TAB PO SCH (07:59)
[2017-10-01 11:34] LABS: Anion Gap 11 mmol/L (10-20); BUN (Urea Nitrogen) 20 mg/dL (9.8-20.1); Calc. Creatinine Clearance 94 mL/min (70-130); Calcium 8.5 mg/dL (7.8-10.44); Carbon Dioxide 31 mmol/L (23-31); Chloride 105 mmol/L (98-107); Estimated GFR-MDRD 61; Glucose 202 mg/dL (83-110); Potassium 4.6 mmol/L (3.5-5.1); Sodium 142 mmol/L (136-145)
[2017-10-01 11:36] LABS: #Eosinphils 0.2 thou/uL (0.0-0.7); #Monocytes 0.2 thou/uL (0.11-0.59); %Basophils 1.3 % (0.0-1.0); %Eosinophils 5.3 % (0.0-10.0); %Lymphocytes 29.9 % (21.0-51.0); %Monocytes 6.9 % (0.0-10.0); %Neutrophils 56.6 % (42.0-75.0); Hemoglobin 10.8 g/dL (12.0-16.0); Mean Corpuscular HGB CONC 31.8 g/dL (32.0-36.0); Mean Corpuscular Hemoglobin 27.8 pg (27.0-31.0); Mean Corpuscular Volume 87.3 fl (81.0-99.0); Mean Platelet Volume 12.3 fL (7.4-10.4); Platelet Count 42 thou/uL (130-400); RBC Distribution Width 13.3 % (11.5-14.5); Red Blood Cell (RBC) Count 3.89 mill/uL (4.20-5.40); White Blood Cell (WBC) Count 3.5 thou/uL (4.8-10.8)
[2017-10-01] MEDS: HumaLOG 300 UNITS/3 ML VIAL SC PRN (11:49)
--- NOTE | 2017-10-01 13:41 | PRG ---
DATE OF SERVICE: 10/01/2017 HISTORY OF PRESENT ILLNESS: Ms. Gustafson is a very pleasant 77-year-old morbidly obese white female se en at [facility] with congestive heart failure and pneumonia. She was started on IV antibio tics and IV Lasix. She eventually was stabilized and transferred to [facility] for c ontinued IV antibiotics and IV diuresis. She was transferred here mainly for physical therapy, occup ational therapy to increase her strength and her stamina. The patient developed acute onset of clini ruchi pneumonia and congestive heart failure again so she was reinitiated with increased IV diuretics a nd Rocephin. She has done very well since then today. Today, she states that cough is better, but s he feels for some reason more tired and she refused physical therapy this morning. She is lying in b ed which we encouraged her to get up and stay out of bed as much as possible so she can retain her st rength. VITAL SIGNS: This morning reveal blood pressure 161/68, pulse 67, respirations 22, O2 sat 93 95% on 2 liters, T-max 97.5. PHYSICAL EXAMINATION: GENERAL: This is a well-developed, well-nourished, obese white female in no apparent distress at thi s time. HEENT: Reveals normocephalic, nontraumatic cranium. Pupils equally round and reactive. Extraocular movements intact. Nose and throat are slightly dry. NECK: Supple, without mass, nodes or bruits. CHEST: Clear to auscultation. No rales, no rhonchi, no wheezes are heard. CARDIOVASCULAR: Reveals a regular rate and rhythm without murmurs, gallops or rubs. ABDOMEN: Soft, nontender, without organomegaly, normal bowel sounds are noted. No rebound or guardi ng is noted. : Deferred. EXTREMITIES: Reveal no clubbing, cyanosis or edema. IMPRESSION: 1. Clinical pneumonia, improved. 2. Hypoxemic hypercapnic respiratory failure, stable. 3. History of congestive heart failure, diastolic congestive heart failure, improved. 4. Obstructive sleep apnea, wears CPAP. 5. Diabetes type 2. 6. Hypertension. 7. Hyperlipidemia. 8. Pulmonary hypertension. 9. Generalized weakness. PLAN: 1. Continue Rocephin for a full 10 days. 2. Continue Lasix. 3. Continue to monitor the patient's output. 4. DuoNebs q.4h. p.r.n. 5. Daily weight. 6. Monitor patient's respiratory status. 7. Continue aggressive sliding scale. 8. Stress ulcer prophylaxis and DVT precautions. 9. Decubitus precautions. 10. Continue physical therapy and occupational therapy.
[2017-10-01] MEDS: Sterile Water 10 ML VIAL FS SCH (15:20)
[2017-10-01] MEDS: cefTRIAXone\\ROCEPHIN 1 GM VIAL SLOW IVP SCH (15:20)
[2017-10-01] MEDS: Atorvastatin Calcium 10 MG TAB PO SCH (21:51)
[2017-10-02] MEDS: guaiFENesin 100 MG/5 ML UDCUP PO PRN (02:00)
[2017-10-02] MEDS: Furosemide 40 MG TAB PO SCH (07:25)
[2017-10-02] MEDS: Potassium Chloride 10 MEQ TAB PO SCH (08:30)
[2017-10-02] MEDS: Carvedilol 25 MG TAB PO SCH ×2 (08:30→17:12)
[2017-10-02] MEDS: Acetaminophen 325 MG TAB PO PRN (08:30)
[2017-10-02] MEDS: Enoxaparin Sodium 40 MG/0.4 ML SYRINGE SC SCH (09:24)
[2017-10-02] MEDS: Levemir Flexpen 100 UNITS/ML PEN SC SCH ×2 (09:24→20:58)
[2017-10-02] MEDS: Ramipril 5 MG CAP PO SCH ×2 (09:26→20:56)
[2017-10-02] MEDS: Amlodipine 10 MG TAB PO SCH (09:27)
[2017-10-02] MEDS: FLUoxetine HCl 20 MG CAP PO SCH (09:27)
[2017-10-02] MEDS: Famotidine 20 MG TAB PO SCH ×2 (09:27→20:56)
[2017-10-02] MEDS: guaiFENesin ER 600 MG TAB PO SCH ×2 (09:27→20:57)
[2017-10-02] MEDS: Clopidogrel Bisulfate 75 MG TAB PO SCH (09:27)
[2017-10-02] MEDS: Aspirin 81 mg Enteric Coated Tablet PO SCH (09:28)
--- NOTE | 2017-10-02 10:16 | PRG ---
DATE OF SERVICE: 10/02/2017 SUBJECTIVE: The patient feels much better today with no dyspnea, shortness of breath and is asking w hen she can be discharged home. She has a history of recent pneumonia and hypoxic hypercapnic respir atory failure which has resolved as well as congestive heart failure which is greatly improved and st able obstructive sleep apnea. She is denying any shortness of breath or chest pain or cough at this time and has increased strength and will attempt physical therapy today. OBJECTIVE: VITAL SIGNS: Blood pressure 179/75, pulse 63, O2 sats 93% on 1 liter. LUNGS: Clear to auscultation and percussion. CARDIAC: Cardiac examination shows regular rhythm. SKIN AND EXTREMITIES: Skin and extremities showed no edema. ASSESSMENT: 1. Resolving congestive heart failure 2. Resolving pneumonia with antibiotics to finish 10/04/2017. 3. Stable obstructive sleep apnea. 4. Generalized weakness, improving greatly. PLAN: Discontinue [place]. Attempt to discontinue oxygen, continue PT, OT. Continue Rocephin until 0 10/04/2017.
[2017-10-02] MEDS: HumaLOG 300 UNITS/3 ML VIAL SC PRN (11:42)
[2017-10-02] MEDS: cefTRIAXone\\ROCEPHIN 1 GM VIAL SLOW IVP SCH (15:04)
[2017-10-02] MEDS: Atorvastatin Calcium 10 MG TAB PO SCH (20:56)
[2017-10-03] MEDS: Levemir Flexpen 100 UNITS/ML PEN SC SCH ×2 (08:06→21:30)
[2017-10-03] MEDS: Enoxaparin Sodium 40 MG/0.4 ML SYRINGE SC SCH (08:07)
[2017-10-03] MEDS: FLUoxetine HCl 20 MG CAP PO SCH (08:07)
[2017-10-03] MEDS: Ramipril 5 MG CAP PO SCH ×2 (08:07→21:27)
[2017-10-03] MEDS: Amlodipine 10 MG TAB PO SCH (08:08)
[2017-10-03] MEDS: Clopidogrel Bisulfate 75 MG TAB PO SCH (08:08)
[2017-10-03] MEDS: Carvedilol 25 MG TAB PO SCH ×2 (08:08→17:46)
[2017-10-03] MEDS: Aspirin 81 mg Enteric Coated Tablet PO SCH (08:09)
[2017-10-03] MEDS: Potassium Chloride 10 MEQ TAB PO SCH (08:09)
[2017-10-03] MEDS: Furosemide 40 MG TAB PO SCH (08:09)
[2017-10-03] MEDS: guaiFENesin ER 600 MG TAB PO SCH ×2 (08:09→21:27)
[2017-10-03] MEDS: Famotidine 20 MG TAB PO SCH ×2 (08:09→21:27)
--- NOTE | 2017-10-03 08:13 | PRG ---
DATE OF SERVICE: 10/03/2017 SUBJECTIVE: The patient is lying in bed, states that she is still coughing, feeling weak, not want t o discontinue her oxygen yesterday, had no fever, chills or chest pain. OBJECTIVE: LUNGS: Show few diffuse rhonchi. CARDIAC: Examination shows regular rhythm. VITAL SIGNS: Temperature is 96.6, pulse 62, respirations 24, O2 sats 96% on 2 liters, blood pressure 131/60. SKIN AND EXTREMITIES: Showed no edema. LABORATORY DATA: Accu-Cheks ranged 97-131. ASSESSMENT: 1. Resolving pneumonia, but with recurrent cough, weakness, and some dyspnea. We will get chest x-r ay and CBC again as well as BNP to evaluate for decompensation of congestive heart failure. 2. Diastolic heart failure, appears to be improving, but will check BNP today as well as chest x-ray . 3. Obstructive sleep apnea, on CPAP and we will stress compliance. 4. Diabetes type 2, controlled to goal. 5. Hypertension, controlled to followup goal. 6. Generalized weakness, persistent. PLAN: Chest x-ray, CBC, BMP, BNP today. Continue Rocephin, continue Lasix, continue DuoNebs. Monit or closely.
[2017-10-03 09:04] LABS: ALT (SGPT) 18 U/L (8-55); AST (SGOT) 18 U/L (5-34); Alkaline Phosphatase 161 U/L (40-150); Anion Gap 12 mmol/L (10-20); BUN (Urea Nitrogen) 19 mg/dL (9.8-20.1); Bilirubin, Total 0.4 mg/dL (0.2-1.2); Calc. Creatinine Clearance 95 mL/min (70-130); Calcium 8.8 mg/dL (7.8-10.44); Carbon Dioxide 29 mmol/L (23-31); Chloride 106 mmol/L (98-107); Estimated GFR-MDRD 62; Globulin 3.1 g/dL (2.4-3.5); Glucose 195 mg/dL (83-110); Potassium 4.6 mmol/L (3.5-5.1); Protein, Total 6.1 g/dL (6.0-8.3); Sodium 142 mmol/L (136-145)
[2017-10-03 09:11] LABS: #Eosinphils 0.1 thou/uL (0.0-0.7); #Lymphocytes 1.1 thou/uL (1.20-3.40); #Monocytes 0.3 thou/uL (0.11-0.59); #Neutrophils 2.1 thou/uL (1.40-6.50); %Basophils 1.4 % (0.0-1.0); %Eosinophils 3.6 % (0.0-10.0); %Lymphocytes 28.8 % (21.0-51.0); %Monocytes 8.5 % (0.0-10.0); %Neutrophils 57.6 % (42.0-75.0); Mean Corpuscular HGB CONC 30.8 g/dL (32.0-36.0); Mean Corpuscular Hemoglobin 26.9 pg (27.0-31.0); Mean Corpuscular Volume 87.5 fl (81.0-99.0); Mean Platelet Volume 10.9 fL (7.4-10.4); Platelet Count 61 thou/uL (130-400); RBC Distribution Width 13.4 % (11.5-14.5); Red Blood Cell (RBC) Count 4.08 mill/uL (4.20-5.40); White Blood Cell (WBC) Count 3.6 thou/uL (4.8-10.8)
[2017-10-03] MEDS: Naproxen 500 MG TAB PO PRN (10:07)
[2017-10-03] MEDS: Guaifenesin DM 100-10/5 ML UDCUP PO PRN ×2 (10:10→14:50)
[2017-10-03] MEDS: HumaLOG 300 UNITS/3 ML VIAL SC PRN (11:37)
[2017-10-03 12:12] LABS: Hypochromia SLIGHT = 6-15 cells (100X) (0-5/hpf); MDiff Complete? YES; PLT Morphology Comment Appears Adequate
[2017-10-03] MEDS: cefTRIAXone\\ROCEPHIN 1 GM VIAL SLOW IVP SCH (14:45)
--- NOTE | 2017-10-03 15:06 | RAD ---
PORTABLE CHEST: Date: 10/03/17 PROVIDED CLINICAL HISTORY: Pneumonia and CHF. COMPARISON: 10/01/17. FINDINGS: Evaluation is limited by patient body habitus. Cardiac silhouette remains enlarged. Lungs are hypoinf lated, accentuating pulmonary bronchovascular markings. Left lung base is poorly evaluated. Prominenc e of the pulmonary vasculature and pulmonary interstitium persists. Parenchymal opacity at the right lung base appears improved. IMPRESSION: Limited study with persistent vascular congestion. POS: MARCO ANTONIO
[2017-10-03] MEDS: Atorvastatin Calcium 10 MG TAB PO SCH (21:27)
[2017-10-04] MEDS: Potassium Chloride 10 MEQ TAB PO SCH (08:05)
[2017-10-04] MEDS: Ramipril 5 MG CAP PO SCH ×2 (08:05→21:05)
[2017-10-04] MEDS: Clopidogrel Bisulfate 75 MG TAB PO SCH (08:05)
[2017-10-04] MEDS: Furosemide 40 MG TAB PO SCH ×3 (08:05→13:43)
[2017-10-04] MEDS: Aspirin 81 mg Enteric Coated Tablet PO SCH (08:05)
[2017-10-04] MEDS: FLUoxetine HCl 20 MG CAP PO SCH (08:05)
[2017-10-04] MEDS: Amlodipine 10 MG TAB PO SCH (08:05)
[2017-10-04] MEDS: Famotidine 20 MG TAB PO SCH ×2 (08:06→21:06)
[2017-10-04] MEDS: Carvedilol 25 MG TAB PO SCH ×2 (08:06→16:39)
[2017-10-04] MEDS: guaiFENesin ER 600 MG TAB PO SCH ×2 (08:06→21:06)
[2017-10-04] MEDS: Levemir Flexpen 100 UNITS/ML PEN SC SCH ×2 (08:07→21:06)
[2017-10-04] MEDS: Enoxaparin Sodium 40 MG/0.4 ML SYRINGE SC SCH (08:08)
--- NOTE | 2017-10-04 10:05 | PRG ---
DATE OF SERVICE: 10/04/[address] Jim Michael. SUBJECTIVE: The patient lying in bed with breathing treatment and is asking why she is still coughin g and short of breath. I wonder she is still having pneumonia. Patient is still not able to ambulat e without significant dyspnea. OBJECTIVE: VITAL SIGNS: Shows blood pressure is 179/75, pulse 61, temperature 97, respirations 20, O2 sats 93% on 2 liters. LUNGS: Show diffuse inspiratory and expiratory wheezes with no rales. CARDIAC: Examination shows regular rhythm. No gallops or murmurs. ABDOMEN: Obese, nontender. SKIN AND EXTREMITIES: Showed no edema. ASSESSMENT AND PLAN: 1. Obstructive sleep apnea on continuous positive airway pressure with probable pulmonary hypertensi on, recurrent hypoxemia, respiratory distress requiring nebulizer treatments and chronic oxygen. 2. Diastolic heart failure, possible inadequate control on 40 of Lasix daily as chest x-ray still sh ows pulmonary congestion. BNP is elevated to 161 and we will increase furosemide to 40 twice daily a s her renal function is normal as are vital signs. 3. Morbid obesity, generalized weakness, improving only minimally. Continue stress therapy. 4. Diabetes type 2, controlled to goal. 5. Hypertension with inadequate control with recent elevated blood pressure on carvedilol, ramipril and amlodipine and hopefully we will improve with possible increased diuresis with furosemide.
[2017-10-04] MEDS: cefTRIAXone\\ROCEPHIN 1 GM VIAL SLOW IVP SCH (15:09)
[2017-10-04] MEDS: HumaLOG 300 UNITS/3 ML VIAL SC PRN (16:38)
[2017-10-04] MEDS: Atorvastatin Calcium 10 MG TAB PO SCH (21:06)
[2017-10-05 05:51] LABS: Anion Gap 12 mmol/L (10-20); BUN (Urea Nitrogen) 27 mg/dL (9.8-20.1); Calc. Creatinine Clearance 87 mL/min (70-130); Calcium 8.7 mg/dL (7.8-10.44); Carbon Dioxide 32 mmol/L (23-31); Chloride 103 mmol/L (98-107); Estimated GFR-MDRD 57; Glucose 158 mg/dL (83-110); Potassium 3.9 mmol/L (3.5-5.1); Sodium 143 mmol/L (136-145)
[2017-10-05] MEDS: Levemir Flexpen 100 UNITS/ML PEN SC SCH ×2 (08:51→21:20)
[2017-10-05] MEDS: Ramipril 5 MG CAP PO SCH ×2 (08:52→21:22)
[2017-10-05] MEDS: FLUoxetine HCl 20 MG CAP PO SCH (08:52)
[2017-10-05] MEDS: Enoxaparin Sodium 40 MG/0.4 ML SYRINGE SC SCH (08:52)
[2017-10-05] MEDS: Acetaminophen 325 MG TAB PO PRN ×2 (08:53→12:54)
[2017-10-05] MEDS: Famotidine 20 MG TAB PO SCH ×2 (08:53→21:22)
[2017-10-05] MEDS: guaiFENesin ER 600 MG TAB PO SCH ×2 (08:53→21:22)
[2017-10-05] MEDS: Clopidogrel Bisulfate 75 MG TAB PO SCH (08:53)
[2017-10-05] MEDS: Aspirin 81 mg Enteric Coated Tablet PO SCH (09:02)
[2017-10-05] MEDS: Furosemide 40 MG TAB PO SCH ×2 (09:02→12:52)
[2017-10-05] MEDS: Potassium Chloride 10 MEQ TAB PO SCH (09:02)
[2017-10-05] MEDS: Carvedilol 25 MG TAB PO SCH ×2 (09:03→17:53)
[2017-10-05] MEDS: Amlodipine 10 MG TAB PO SCH (09:04)
[2017-10-05] MEDS: guaiFENesin 100 MG/5 ML UDCUP PO PRN (12:55)
[2017-10-05] MEDS: HumaLOG 300 UNITS/3 ML VIAL SC PRN (12:55)
--- NOTE | 2017-10-05 14:00 | PRG ---
DATE OF SERVICE: 10/05/2017 HISTORY OF PRESENT ILLNESS: Ms. Gustafson is a well-developed, well-nourished, pleasant 77-year-old whi te female that was initially seen at [facility] with congestive heart failure and pneumonia. She was started on IV antibiotics and diuresed with IV Lasix. She was eventually stabilized and tr ansferred to [facility] for continued IV antibiotics and IV diuresis. She was also t ransferred here for physical therapy and occupational therapy. Over the weekend, she did fairly well. Dr. Tejada said she looked poorly on Thursday, but a little better on Thursday and better today. He thinks that she continues to have some difficulty with her pu lmonary hypertension. PHYSICAL EXAMINATION: OBJECTIVE: Vital signs this morning reveal blood pressure is 140/65, pulse 55-61, respirations 18, O 2 sat 94-95% on 2 liters nasal cannula. T-max is 98.4. GENERAL: This is a well-developed, well-nourished, very pleasant, obese white female in no apparent distress at this time. HEENT: Reveals normocephalic, nontraumatic cranium. Pupils equal, round, and reactive. Extraocular movements are intact. Nose and throat are slightly dry. NECK: Supple, without mass, nodes or bruits. LUNGS: Chest is clear to auscultation. No rales, no rhonchi, no wheezes are heard. The patient is still somewhat volume overload according to her chest x-ray. Her BNP is good for her at 161. ABDOMEN: Obese, soft, nontender, without organomegaly, normal bowel sounds are noted. HEART: Reveals a regular rate and rhythm without murmurs, gallops or rubs. : Deferred. EXTREMITIES: Reveal no clubbing, cyanosis or edema. ASSESSMENT: 1. Diastolic congestive heart failure. 2. Morbid obesity. 3. Diabetes type 2, well controlled. 4. Hypertension with slightly elevated blood pressure. 5. Obstructive sleep apnea on CPAP. 6. Hypertension. 7. Hyperlipidemia. 8. Pulmonary hypertension. 9. Generalized weakness. PLAN: 1. Lasix is now 40 mg b.i.d. 2. Continue to monitor the patient's blood pressure closely. 3. Continue to monitor the patient's renal indices. 4. Finish Rocephin in 10 days. 5. Monitor patient's respiratory status. 6. Continue aggressive sliding scale. 7. Stress ulcer prophylaxis and DVT precautions. 8. Decubitus precautions. 9. Continue physical therapy and occupational therapy.
[2017-10-05] MEDS: Atorvastatin Calcium 10 MG TAB PO SCH (21:22)
[2017-10-06] MEDS: Levemir Flexpen 100 UNITS/ML PEN SC SCH ×2 (08:28→20:59)
[2017-10-06] MEDS: Enoxaparin Sodium 40 MG/0.4 ML SYRINGE SC SCH (08:29)
[2017-10-06] MEDS: Carvedilol 25 MG TAB PO SCH ×2 (08:31→17:48)
[2017-10-06] MEDS: Furosemide 40 MG TAB PO SCH ×2 (08:31→12:32)
[2017-10-06] MEDS: Ramipril 5 MG CAP PO SCH ×2 (08:31→20:58)
[2017-10-06] MEDS: Potassium Chloride 10 MEQ TAB PO SCH (08:32)
[2017-10-06] MEDS: Clopidogrel Bisulfate 75 MG TAB PO SCH (08:32)
[2017-10-06] MEDS: FLUoxetine HCl 20 MG CAP PO SCH (08:32)
[2017-10-06] MEDS: Amlodipine 10 MG TAB PO SCH (08:32)
[2017-10-06] MEDS: Aspirin 81 mg Enteric Coated Tablet PO SCH (08:32)
[2017-10-06] MEDS: guaiFENesin ER 600 MG TAB PO SCH ×2 (08:32→20:58)
[2017-10-06] MEDS: Famotidine 20 MG TAB PO SCH ×2 (08:32→20:59)
[2017-10-06] MEDS: HumaLOG 300 UNITS/3 ML VIAL SC PRN (12:31)
[2017-10-06] MEDS: Acetaminophen 325 MG TAB PO PRN (13:46)
--- NOTE | 2017-10-06 19:15 | PRG ---
DATE OF SERVICE: 10/06/2017 SUBJECTIVE: Ms. Gustafson is a very pleasant 77-year-old white female initially seen at [facility] with congestive heart failure and pneumonia. She was diuresed with IV Lasix and started on IV a ntibiotics. She eventually was stabilized and transferred to [facility] for continue d antibiotics and Lasix. She has finished her IV antibiotics and IV Lasix and now she is on oral med ications. She was transferred here mainly for physical therapy and occupational therapy. This morning, the patient states she is very tired and feels like getting up and has not had a Physic al Therapy come in yet. She said she will try to get a little stronger. My concern is that she is lying in bed a lot and getting weaker, so we will have to make sure that ferny viramontes gets in a chair, sitting during the day and participates well with PT and OT. OBJECTIVE: VITAL SIGNS: This morning reveal blood pressure elevated 194/79 with a retake it was 140/66. Pulse 66-89, respirations 20, O2 sat 96-97% on 2 liters. LABORATORIES: Today reveal point of care sugar this morning was 125, last night 161, before supper 1 11, before lunch 228, before breakfast yesterday morning 157. Sodium yesterday was 143, potassium 3. 9, carbon dioxide 32 with a chloride 103, carbon dioxide 32. BUN was 27, creatinine 0.95. GFR is 57 . PHYSICAL EXAMINATION: GENERAL: This is a well-developed, well-nourished, obese white female in no apparent distress. She states she is tired, does not feel like waking up yet. HEENT: Reveals normocephalic, nontraumatic cranium. Pupils are equally round and reactive. Extraoc ular movements are intact. Nose and throat are slightly dry. NECK: Supple, without mass, nodes or bruits. LUNGS: Chest is clear to auscultation. No rales, no rhonchi, no wheezes are heard. The patient hancock s have a raspy type cough, which is somewhat loose, but she is unable to kick anything up. She denie s any fever or chills. HEART: Regular rate and rhythm without murmurs, gallops or rubs. ABDOMEN: Obese, soft, nontender, without organomegaly, normal bowel sounds are noted in all 4 quadra nts. GENITOURINARY: Deferred. EXTREMITIES: No clubbing, cyanosis or edema. ASSESSMENT: 1. Diastolic congestive heart failure. 2. Pulmonary hypertension. 3. Diabetes type 2, fairly well controlled. 4. Hypertension. 5. Obstructive sleep apnea on CPAP. 6. Hyperlipidemia. 7. Morbid obesity. 8. Generalized weakness. PLAN: 1. Continue Lasix 40 mg b.i.d. 2. Continue to monitor patient's blood pressure closely. 3. Continue to monitor he patient's renal indices. 4. Respiratory status. 5. Continue aggressive sliding scale. 6. Stress ulcer prophylaxis and DVT precautions. 7. Decubitus precautions. 8. Continue physical therapy and occupational therapy.
[2017-10-06] MEDS: Atorvastatin Calcium 10 MG TAB PO SCH (20:58)
[2017-10-07] MEDS: Ramipril 5 MG CAP PO SCH ×2 (08:53→20:56)
[2017-10-07] MEDS: Amlodipine 10 MG TAB PO SCH (08:53)
[2017-10-07] MEDS: Clopidogrel Bisulfate 75 MG TAB PO SCH (08:53)
[2017-10-07] MEDS: guaiFENesin ER 600 MG TAB PO SCH ×2 (08:53→20:56)
[2017-10-07] MEDS: Furosemide 40 MG TAB PO SCH ×2 (08:53→14:51)
[2017-10-07] MEDS: Naproxen 500 MG TAB PO PRN (08:54)
[2017-10-07] MEDS: Carvedilol 25 MG TAB PO SCH ×2 (08:54→17:11)
[2017-10-07] MEDS: Potassium Chloride 10 MEQ TAB PO SCH (08:54)
[2017-10-07] MEDS: FLUoxetine HCl 20 MG CAP PO SCH (08:54)
[2017-10-07] MEDS: Levemir Flexpen 100 UNITS/ML PEN SC SCH ×2 (08:55→20:57)
[2017-10-07] MEDS: Aspirin 81 mg Enteric Coated Tablet PO SCH (08:55)
[2017-10-07] MEDS: Famotidine 20 MG TAB PO SCH ×2 (08:55→20:56)
[2017-10-07] MEDS: Enoxaparin Sodium 40 MG/0.4 ML SYRINGE SC SCH (09:03)
[2017-10-07] MEDS: HumaLOG 300 UNITS/3 ML VIAL SC PRN (12:03)
--- NOTE | 2017-10-07 17:30 | PRG ---
DATE OF SERVICE: 10/07/2017 HISTORY OF PRESENT ILLNESS: Ms. Gustafson is a very pleasant 77-year-old morbidly obese white female th at had congestive heart failure and pneumonia. She was diuresed with IV Lasix and started on IV anti biotics. She eventually was stabilized and transferred to [facility] for continued a ntibiotics and Lasix. She has finished IV Lasix and IV antibiotics and she is on oral medications. The patient states she continues to feel tired. She states she did walk fairly well this morning, bu t she got tired, having a bowel movement this morning. PHYSICAL EXAMINATION: VITAL SIGNS: Blood pressure this morning was 127/59, pulse 60-65, respirations 16, O2 sat 95% on 1.5 liters. GENERAL: This is a well-developed, well-nourished, very obese white female in no apparent distress a t this time. HEENT: Reveals normocephalic, nontraumatic cranium. Pupils equal, round, reactive. Extraocular mov ements intact. Nose and throat are moist this morning. NECK: Supple, without mass, nodes or bruits. CHEST: Clear to auscultation. No rales, no rhonchi, no wheezes are heard. CARDIOVASCULAR: Heart reveals a regular rate and rhythm without murmurs, gallops or rubs. ABDOMEN: Obese, soft, nontender, without organomegaly, normal bowel sounds are noted. : Deferred. EXTREMITIES: Reveal no clubbing, cyanosis or edema. Weight this morning was 244 pounds and 4.8 ounc es; that is down 4 pounds in the last 4 days. ASSESSMENT: 1. Diastolic congestive heart failure. 2. Pulmonary hypertension. 3. Diabetes type 2. 4. Regular hypertension. 5. Obstructive sleep apnea on CPAP. 6. Hyperlipidemia. 7. Morbid obesity. 8. Generalized weakness. PLAN: 1. Continue Lasix orally 40 mg b.i.d. 2. Continue to monitor the patient's blood pressure closely. 3. Monitor the patient's renal indices. 4. Respiratory status. 5. We will continue aggressive sliding scale. 6. Stress ulcer prophylaxis and DVT precaution. 7. Decubitus precautions. 8. Continue physical therapy and occupational therapy.
[2017-10-07] MEDS: Atorvastatin Calcium 10 MG TAB PO SCH (20:56)
[2017-10-08 05:27] LABS: #Basophils 0.1 thou/uL (0.0-0.2); #Eosinphils 0.2 thou/uL (0.0-0.7); #Lymphocytes 1.2 thou/uL (1.20-3.40); #Monocytes 0.4 thou/uL (0.11-0.59); #Neutrophils 2.3 thou/uL (1.40-6.50); %Basophils 1.3 % (0.0-1.0); %Eosinophils 5.2 % (0.0-10.0); %Lymphocytes 28.8 % (21.0-51.0); %Monocytes 8.5 % (0.0-10.0); %Neutrophils 56.1 % (42.0-75.0); Hemoglobin 11.2 g/dL (12.0-16.0); Mean Corpuscular HGB CONC 32.2 g/dL (32.0-36.0); Mean Corpuscular Hemoglobin 27.7 pg (27.0-31.0); Mean Platelet Volume 11.9 fL (7.4-10.4); PLT Morphology Comment Appears Decreased; Platelet Count 77 thou/uL (130-400); RBC Distribution Width 13.3 % (11.5-14.5); RBC Morphology Normal; Red Blood Cell (RBC) Count 4.06 mill/uL (4.20-5.40); White Blood Cell (WBC) Count 4.2 thou/uL (4.8-10.8)
[2017-10-08 05:29] LABS: ALT (SGPT) 20 U/L (8-55); AST (SGOT) 18 U/L (5-34); Albumin 3.1 g/dL (3.4-4.8); Alkaline Phosphatase 160 U/L (40-150); Anion Gap 11 mmol/L (10-20); BUN (Urea Nitrogen) 34 mg/dL (9.8-20.1); Bilirubin, Total 0.4 mg/dL (0.2-1.2); Calc. Creatinine Clearance 71 mL/min (70-130); Calcium 8.9 mg/dL (7.8-10.44); Carbon Dioxide 33 mmol/L (23-31); Chloride 102 mmol/L (98-107); Estimated GFR-MDRD 45; Globulin 2.9 g/dL (2.4-3.5); Glucose 95 mg/dL (83-110); Potassium 3.8 mmol/L (3.5-5.1); Sodium 142 mmol/L (136-145)
[2017-10-08 05:40] LABS: MDiff Complete? YES; Manual Diff?? NO
[2017-10-08] MEDS: FLUoxetine HCl 20 MG CAP PO SCH (08:11)
[2017-10-08] MEDS: Levemir Flexpen 100 UNITS/ML PEN SC SCH ×2 (08:11→21:32)
[2017-10-08] MEDS: Carvedilol 25 MG TAB PO SCH ×2 (08:12→17:20)
[2017-10-08] MEDS: Furosemide 40 MG TAB PO SCH ×2 (08:12→14:22)
[2017-10-08] MEDS: Potassium Chloride 10 MEQ TAB PO SCH (08:12)
[2017-10-08] MEDS: Amlodipine 10 MG TAB PO SCH (08:12)
[2017-10-08] MEDS: Ramipril 5 MG CAP PO SCH ×2 (08:12→21:32)
[2017-10-08] MEDS: Aspirin 81 mg Enteric Coated Tablet PO SCH (08:12)
[2017-10-08] MEDS: guaiFENesin ER 600 MG TAB PO SCH ×2 (08:12→21:32)
[2017-10-08] MEDS: Famotidine 20 MG TAB PO SCH ×2 (08:12→21:32)
[2017-10-08] MEDS: Enoxaparin Sodium 40 MG/0.4 ML SYRINGE SC SCH (08:13)
[2017-10-08] MEDS: Clopidogrel Bisulfate 75 MG TAB PO SCH (08:13)
--- NOTE | 2017-10-08 19:52 | PRG ---
DATE OF ADMISSION: 09/13/2017 DATE OF SERVICE: 10/08/2017 HISTORY OF PRESENT ILLNESS: Ms. Gustafson is a very pleasant 77-year-old morbidly obese white female wi th congestive heart failure and pneumonia. She was diuresed at [facility] with IV Lasix and IV antibiotics were added because of her pneumonia. She eventually was stabilized and transferred t [facility] for continued care after physical therapy and occupational therapy. SUBJECTIVE: The patient states she feels a little bit better today and states she walked fairly well . She is actually fudges a little bit when she talks about how far she is walking. I did talk with physical therapy and they state that she is probably walking 40-60 feet with multiple rest, but has to have oxygen. We will have to get oxygen set up for her and okay for her to go home. Most likely she will be discharged Thursday or Thursday. We will discuss that with her and her tomorrow. OBJECTIVE: VITAL SIGNS: Reveal blood pressure this morning 168/73, pulse 60-66, respirations 18-20, O2 sat 95% to 96% on 2 liters nasal cannula. T-max 97.4. GENERAL: This is a well-developed, well-nourished, very pleasant, obese white female, in no apparent distress at this time. HEENT: Reveals normocephalic, nontraumatic cranium. Pupils are equally round and reactive. Extraoc ular movements are intact. Nose and throat are slightly dry. NECK: Supple, without mass, nodes or bruits. LUNGS: Chest is clear to auscultation. Coarse breath sounds, no cough is noted, but the patient has no rales, no rhonchi or no wheezes. CARDIOVASCULAR: Heart reveals a regular rate and rhythm without murmurs, gallops or rubs. ABDOMEN: Obese, soft, nontender, without organomegaly. Normal bowel sounds are noted. No rebound o r guarding is noted. : Deferred. LABORATORY DATA: Today reveals a white count of 4200 with hemoglobin 11.2, hematocrit 34.9 and no si gnificant shift. Sodium 142, potassium 3.8, chloride 102, carbon dioxide 33 with a BUN 34, creatinin e 1.16. A fasting sugar this morning of 100. Her BNP is 105.6. ASSESSMENT: 1. Diastolic congestive heart failure. 2. Pulmonary hypertension. 3. Diabetes, type 2. 4. Essential hypertension. 5. Obstructive sleep apnea on CPAP nightly. 6. Hyperlipidemia. 7. Morbid obesity. 8. Generalized weakness. 9. Oxygen-dependent. PLAN: 1. We need to set up oxygen for this patient. So, when she goes home, she will have it. 2. Continue Lasix orally 40 mg b.i.d. 3. Continue to monitor the patient's blood pressure closely. 4. Monitor the patient's renal indices. 5. Respiratory status needs to be monitored. 6. The patient will need to see her fibreglass lay up worker and meal cooker after discharge. 7. Continue aggressive sliding scale. 8. Stress ulcer prophylaxis. 9. DVT precautions. 10. Decubitus precautions. 11. Continue physical therapy and occupational therapy. 12. Expect discharge on Thursday or Thursday.
[2017-10-08] MEDS: Atorvastatin Calcium 10 MG TAB PO SCH (21:32)
--- NOTE | 2017-10-09 06:58 | PRG ---
DATE OF ADMISSION: 09/13/2017 DATE OF SERVICE: 10/09/2017 SUBJECTIVE: Ms. Gustafson is a very pleasant 77-year-old white female that was admitted to [facility] with congestive heart failure, COPD exacerbation and pneumonia. She was treated with IV Lasi x and antibiotics. She was also found to have significant pulmonary hypertension, diabetes type 2, o bstructive sleep apnea on CPAP nightly and morbid obesity. The patient was eventually stabilized and transferred to [facility] for physical education aide apy and occupational therapy and continue treatment. The patient has done very well and has reached maximum medical benefit. She is ready for discharge. We will have to set up for PT and OT and her home oxygen. She was to be discharged on Thursday romel viramontes her will have much more helped then. PHYSICAL EXAMINATION: VITAL SIGNS: This morning reveal blood pressure is pending, so last night, her blood pressure is 133 /62, pulse 63, respirations 18, O2 sat 95% on 2 liters nasal cannula. GENERAL: This is a well-developed, well-nourished, obese white female in no apparent distress at thi s time. HEENT: Reveals normocephalic, nontraumatic cranium. Pupils equally, round, and reactive. Extraocul ar movements intact. Nose and throat are slightly dry. NECK: Supple, without mass, nodes or bruits. CHEST: Clear to auscultation. No rales, rhonchi or wheezes are heard. CARDIOVASCULAR: Reveals a regular rate and rhythm without murmurs, gallops or rubs. ABDOMEN: Obese, soft, nontender, without organomegaly, normal bowel sounds are noted. No rebound or guarding is noted. : Deferred. EXTREMITIES: Reveal no clubbing, cyanosis or edema. ASSESSMENT: 1. Diastolic congestive heart failure. 2. Pulmonary hypertension. 3. Diabetes type 2. 4. Essential hypertension. 5. Chronic obstructive pulmonary disease. 6. Obstructive sleep apnea on CPAP nightly. 7. Hyperlipidemia. 8. Morbid obesity. 9. Generalized weakness. 10. Oxygen-dependent. PLAN: 1. Will wear the oxygen and will get that set up at home. 2. We have ordered PT and OT. We will get that set up. 3. The patient is expected to be discharged on Thursday. 4. Continue to monitor the patient's blood pressure closely. 5. Continue to monitor the patient's renal indices. 6. Monitor patient's respiratory status. 7. The patient will need to make appointment with the surface grinding machine hand, supervisor irrigation after discharge. 8. Continue aggressive sliding scale. 9. Stress ulcer prophylaxis. 10. Deep venous thrombosis precautions. 11. Decubitus precautions. 12. Continue physical therapy and occupational therapy. 13. Continue present medications.
[2017-10-09] MEDS: Carvedilol 25 MG TAB PO SCH ×2 (08:23→17:24)
[2017-10-09] MEDS: Famotidine 20 MG TAB PO SCH ×2 (08:24→21:08)
[2017-10-09] MEDS: Clopidogrel Bisulfate 75 MG TAB PO SCH (08:24)
[2017-10-09] MEDS: Enoxaparin Sodium 40 MG/0.4 ML SYRINGE SC SCH (08:24)
[2017-10-09] MEDS: Aspirin 81 mg Enteric Coated Tablet PO SCH (08:24)
[2017-10-09] MEDS: Furosemide 40 MG TAB PO SCH ×2 (08:24→13:09)
[2017-10-09] MEDS: FLUoxetine HCl 20 MG CAP PO SCH (08:24)
[2017-10-09] MEDS: Ramipril 5 MG CAP PO SCH ×2 (08:24→21:08)
[2017-10-09] MEDS: guaiFENesin ER 600 MG TAB PO SCH ×2 (08:24→21:08)
[2017-10-09] MEDS: Potassium Chloride 10 MEQ TAB PO SCH (08:24)
[2017-10-09] MEDS: Amlodipine 10 MG TAB PO SCH (08:25)
[2017-10-09] MEDS: Levemir Flexpen 100 UNITS/ML PEN SC SCH ×2 (08:25→21:09)
[2017-10-09] MEDS: Acetaminophen 325 MG TAB PO PRN ×2 (09:16→13:09)
[2017-10-09] MEDS: HumaLOG 300 UNITS/3 ML VIAL SC PRN (11:47)
[2017-10-09] MEDS: Atorvastatin Calcium 10 MG TAB PO SCH (21:08)
--- NOTE | 2017-10-10 07:50 | PRG ---
DATE OF SERVICE: 10/10/2017 DATE OF ADMISSION: 09/13/2017 HISTORY OF PRESENT ILLNESS: Ms. Gustafson is a very pleasant 77-year-old white female admitted to [facility] with congestive heart failure, COPD exacerbation, pulmonary hypertension, diabetes typ e 2, obstructive sleep apnea on CPAP nightly, morbid obesity, and pneumonia. She was started and bree ated with IV Lasix and antibiotics. She was transferred to [facility] for continued antibiotics, Lasix, and diuresis and physical therapy and occupational therapy. The patient has actually been doing very well and is walking much better. She is off of her IV antib iotics and IV Lasix. She has reached maximum medical benefit and be ready for discharge tomorrow debi saenz. We have a home oxygen setup for her, home PT and OT have been ordered. PHYSICAL EXAMINATION: VITAL SIGNS: Reveal blood pressure last night was 138/65, pulse 65, respirations 22, O2 sat 94% on 2 liters. GENERAL: This is a well-developed, well-nourished, morbidly obese white female in no apparent distre ss at this time. HEENT: Reveals normocephalic and nontraumatic cranium. Pupils are equally round and reactive. Extr aocular movements are intact. Nose and throat are moist this morning. NECK: Supple, without mass, nodes or bruits. CHEST: Clear to auscultation. No rales, no rhonchi, no wheezes are heard. No cough is noted. HEART: Reveals a regular rate and rhythm without murmurs, gallops or rubs. ABDOMEN: Obese, soft, nontender, without organomegaly, normal bowel sounds are noted. No rebound or guarding is noted. GENITOURINARY: Deferred. EXTREMITIES: Reveal no clubbing, cyanosis or edema. IMPRESSION: 1. Diastolic congestive heart failure. 2. Pulmonary hypertension. 3. Diabetes type 2. 4. Essential hypertension. 5. Chronic obstructive pulmonary disease. 6. Obstructive sleep apnea on continuous positive airway pressure every night. 7. Hyperlipidemia. 8. Oxygen-dependent. 9. Morbid obesity. 10. Generalized weakness. PLAN: 1. The patient is doing very well and has reached maximum medical benefit. 2. The patient will be discharged tomorrow morning. 3. Patient will have home oxygen which the patient states already delivered. 4. The patient will have home PT and OT. 5. The patient will continue to be monitored for respiratory status, renal indices and blood pressur e. 6. The patient is encouraged to make an appointment with their industrial waste treatment technician and machine strap buckler after discharge. 7. Continue aggressive sliding scale. 8. Stress ulcer prophylaxis. 9. Deep venous thrombosis precautions. 10. Decubitus precautions. 11. Continue physical therapy and occupational therapy. 12. Continue present medications.
[2017-10-10] MEDS: Levemir Flexpen 100 UNITS/ML PEN SC SCH ×2 (08:34→21:04)
[2017-10-10] MEDS: Enoxaparin Sodium 40 MG/0.4 ML SYRINGE SC SCH (08:34)
[2017-10-10] MEDS: Carvedilol 25 MG TAB PO SCH ×2 (08:36→17:49)
[2017-10-10] MEDS: Aspirin 81 mg Enteric Coated Tablet PO SCH (08:37)
[2017-10-10] MEDS: Amlodipine 10 MG TAB PO SCH (08:37)
[2017-10-10] MEDS: FLUoxetine HCl 20 MG CAP PO SCH (08:37)
[2017-10-10] MEDS: Potassium Chloride 10 MEQ TAB PO SCH (08:37)
[2017-10-10] MEDS: Ramipril 5 MG CAP PO SCH ×2 (08:37→21:04)
[2017-10-10] MEDS: Famotidine 20 MG TAB PO SCH ×2 (08:38→21:05)
[2017-10-10] MEDS: Clopidogrel Bisulfate 75 MG TAB PO SCH (08:38)
[2017-10-10] MEDS: guaiFENesin ER 600 MG TAB PO SCH ×2 (08:38→21:05)
[2017-10-10] MEDS: Furosemide 40 MG TAB PO SCH ×2 (08:38→13:33)
[2017-10-10] MEDS: Acetaminophen 325 MG TAB PO PRN (10:03)
[2017-10-10] MEDS: Atorvastatin Calcium 10 MG TAB PO SCH (21:05)
[2017-10-11 06:30] VITALS: BMI 39.6
--- NOTE | 2017-10-11 08:09 | PRG ---
DATE OF SERVICE: 10/11/2017 DATE OF ADMISSION: 09/13/2017 HISTORY OF PRESENT ILLNESS: Ms. Gustafson is a very pleasant 77-year-old female that presented to the e mergency room at [facility] with congestive heart failure, COPD, exacerbation, pulmonary hyp ertension, diabetes type 2 out of control, obstructive sleep apnea on CPAP nightly, morbid obesity, a nd pneumonia. She was treated emergently with IV Lasix and IV antibiotics. She eventually was stabi lized and then transferred to [facility] for continued antibiotics, continued Lasix d iuresis and physical therapy and occupational therapy. The patient has maxed out her medical benefits and has basically plateaued on her physical therapy an d occupational therapy. She is ready for discharge. DISCHARGE MEDICATIONS: Will include the following; 1. Tylenol 500 mg 1-2 q.4 p.r.n. 2. Maalox p.r.n. 3. DuoNebs 3 mL as needed shortness of breath and prescription for DuoNebs and nebulizer been given. 4. Amlodipine 10 mg daily. 5. Aspirin 81 mg daily. 6. Atorvastatin, which is a new drug. Prescription given 10 mg at bedtime. 7. Dulcolax p.r.n. 8. Carvedilol 12.5 mg twice a day which has been her old medication for a long time. 9. New medication, Plavix or Clopidogrel 75 mg daily. 10. Fluoxetine 40 mg daily. 11. Lasix 40 mg b.i.d., which is a new dosing schedule. 12. Robitussin DM p.r.n. cough and congestion. 13. Levemir 28 units subcutaneous b.i.d. 14. Sliding scale aggressive p.r.n. 15. Isosorbide mononitrate or Imdur ER 60 mg once a day and thus a new medication prescription has b een given. 16. Milk of Magnesia p.r.n. 17. Nitroglycerin which is a new medicine 0.4 mg sublingual p.r.n. chest pain. The patient has been given instruction on how to take that. 18. Potassium chloride 10 mEq each morning. 19. Ramipril 10 mg twice daily. 20. Senokot over the counter p.r.n. PHYSICAL EXAMINATION: VITAL SIGNS: This morning reveal blood pressure 141/64, pulse 66, respirations 18, O2 sat 93%-94% on room air, but at night it goes down to 88 and if she walks at all more than 10 feet, it goes down to 84-82. She qualifies for oxygen. GENERAL: This is a well-developed, well-nourished, morbidly obese white female in no apparent distre ss at this time. HEENT: Reveals normocephalic, nontraumatic cranium. Pupils are equal, round, reactive. Extraocular movements are intact. Nose and throat are moist this morning. NECK: Supple, without mass, nodes, bruits. CHEST: Clear to auscultation. No rales, no rhonchi, no wheezes are heard. No cough is noted. HEART: Reveals a regular rate and rhythm without murmurs, gallops or rubs. ABDOMEN: Obese, soft, nontender, without organomegaly. Bowel sounds are normal in all 4 quadrants. No rebound or guarding is noted. GENITOURINARY: Deferred. Ellington catheter is out. She is tolerating that well. EXTREMITIES: Reveal no clubbing, cyanosis or edema. IMPRESSION: 1. Diastolic congestive heart failure. 2. Pulmonary hypertension. 3. Diabetes type 2. 4. Chronic obstructive pulmonary disease. 5. Essential hypertension. 6. Obstructive sleep apnea on continuous positive airway pressure every night. 7. Hyperlipidemia. 8. Oxygen-dependent. 9. Morbid obesity. 10. Generalized weakness. PLAN: 1. The patient has done very well and is ready for discharge this morning. Her will be pick ing her up this morning. 2. Patient has home oxygen at home which was ordered several days ago. 3. Patient will have physical therapy and occupational therapy. 4. I have given the patient prescriptions for; nebulizer, albuterol hand-held nebulizer with DuoNebs , atorvastatin 10 mg at bedtime, Plavix 75 mg daily, Lasix 40 mg b.i.d., insulin 28 units b.i.d., iso sorbide 60 mg daily, Nitrostat 0.4 mg sublingual every 5 minutes p.r.n. We have gone over all the bouchra sandoval's medications with her. 5. The patient will be seen by me in follow up within the next week or so. 6. The patient is to call my office tomorrow morning for an appointment. 7. The patient will be discharged this morning where her can pick her up.
[2017-10-11 08:36] VITALS: BP 152/70; TEMP 96.3
[2017-10-11] MEDS: FLUoxetine HCl 20 MG CAP PO SCH (08:38)
[2017-10-11] MEDS: Amlodipine 10 MG TAB PO SCH (08:38)
[2017-10-11] MEDS: Ramipril 5 MG CAP PO SCH (08:39)
[2017-10-11] MEDS: Potassium Chloride 10 MEQ TAB PO SCH (08:39)
[2017-10-11] MEDS: Aspirin 81 mg Enteric Coated Tablet PO SCH (08:39)
[2017-10-11] MEDS: Clopidogrel Bisulfate 75 MG TAB PO SCH (08:39)
[2017-10-11] MEDS: guaiFENesin ER 600 MG TAB PO SCH (08:39)
[2017-10-11] MEDS: Furosemide 40 MG TAB PO SCH ×2 (08:39→15:00)
[2017-10-11] MEDS: Enoxaparin Sodium 40 MG/0.4 ML SYRINGE SC SCH (08:40)
[2017-10-11] MEDS: Carvedilol 25 MG TAB PO SCH (08:40)
[2017-10-11] MEDS: Famotidine 20 MG TAB PO SCH (08:42)
[2017-10-11] MEDS: Levemir Flexpen 100 UNITS/ML PEN SC SCH (08:47)
[2017-10-11] MEDS: HumaLOG 300 UNITS/3 ML VIAL SC PRN (12:28)
== END 2017-10-11 15:10 | disposition home health service (06) | DRG 189 ==
LOC: NAV ACUTE 18:02
PROVIDERS: ADMIT Internal Medicine; ATTEND Family Medicine
DX: J96.11 Chronic respiratory failure with hypoxia (principal); J18.9 Pneumonia, unspecified organism; E87.2 Acidosis; I27.20 Pulmonary hypertension, unspecified; I11.0 Hypertensive heart disease with heart failure; Z99.81 Dependence on supplemental oxygen; E66.01 Morbid (severe) obesity due to excess calories; I50.32 Chronic diastolic (congestive) heart failure; J96.12 Chronic respiratory failure with hypercapnia; E11.9 Type 2 diabetes mellitus without complications; G47.33 Obstructive sleep apnea (adult) (pediatric); E78.5 Hyperlipidemia, unspecified; E03.9 Hypothyroidism, unspecified; R53.1 Weakness; J44.9 Chronic obstructive pulmonary disease, unspecified; Z68.39 Body mass index [BMI] 39.0-39.9, adult; Z88.0 Allergy status to penicillin; Z88.2 Allergy status to sulfonamides; Z79.02 Long term (current) use of antithrombotics/antiplatelets; Z79.82 Long term (current) use of aspirin; Z79.4 Long term (current) use of insulin; Z79.899 Other long term (current) drug therapy; Z95.1 Presence of aortocoronary bypass graft; Z96.653 Presence of artificial knee joint, bilateral
CPT/HCPCS: 36415; 36416; 71045; 80048; 80053; 83880; 85025; 94640; A4216; G8978-GP-CJ; G8979-GP-CI; J0696; J1650; J1815; J1940; J7620

== ENCOUNTER 2018-02-22 19:41 | Inpatient (IN) | payer MEDICARE, OTHER ==
[2018-02-22] MEDS ORDERED: Nitroglycerin 0.4 MG TAB (25 Tab Bottle) SL PRN (20:31)
[2018-02-22] MEDS ORDERED: Milk Of Magnesia 30 ML UDCUP PO PRN (20:43)
[2018-02-22] MEDS ORDERED: Loperamide HCl 2 MG CAP PO PRN (20:43)
[2018-02-22] MEDS ORDERED: Dextrose 5% in Water 1,000 ML IV PRN (21:06)
[2018-02-22] MEDS ORDERED: Dextrose 50% Abboject 50 ML SYRINGE SLOW IVP PRN (21:06)
[2018-02-22] MEDS: Ramipril 5 MG CAP PO SCH (21:41)
[2018-02-22] MEDS: Carvedilol 6.25 MG TAB PO SCH (21:41)
[2018-02-22] MEDS: Atorvastatin Calcium 10 MG TAB PO SCH (21:41)
[2018-02-22] MEDS: Levemir Flexpen 100 UNITS/ML PEN SC SCH (22:11)
--- NOTE | 2018-02-23 04:45 | HP ---
DATE OF ADMISSION: 02/22/2018 HISTORY OF PRESENT ILLNESS: The patient is a very pleasant 77-year-old white female that became shor t of breath and was admitted to [facility] on 02/19/2018. She was placed on BiPA P and diuresed. She is thought to have pneumonia and started on IV antibiotics. Over the last coupl e days, she has diuresed well and is feeling much better. This reached it is felt that she met [facility] medical benefits, therefore transferred to [facility] for physical therapy, occupa tional therapy, adjustment of her medications and continuation of Levaquin 500 mg daily for 4 more da ys. PAST MEDICAL HISTORY: Positive for hypertension; diabetes, uncontrolled; hyperlipidemia; neuropathy; GERD; hypothyroidism; coronary artery disease; COPD; chronic diastolic congestive heart failure; hyp erlipidemia; arthritis; noncompliance. PAST SURGICAL HISTORY: 1. Bilateral total knee replacement. 2. Left femur ORIF. 3. Right foot surgery. 4. Cholecystectomy. 5. Coronary angiogram, status post PTCA and stents x3. 6. Cholecystectomy. FAMILY HISTORY: Reveals patient's father with diabetes. The patient has a son who has liver di sease. ALLERGIES: Reveal the patient is allergic to PENICILLIN, which gives her angioedema and BACTRIM, whi ch gives her a rash. She states she is also allergic to IODINE. SOCIAL HISTORY: The patient does not smoke, does not drink, is . Does not exercise. REVIEW OF SYSTEMS: The patient presently denies fever, chills, night sweats. She does state she is extremely weak and fatigued. She denies headaches, head injury. Denies any visual changes. Denies any hearing changes. States her cough is back to normal. Denies cough, cold, congestion, hemoptysis or sputum changes. Denies any chest pain, dyspnea on exertion, orthopnea, or claudication. She hancock s admit to edema. Denies any nausea, vomiting, diarrhea or constipation, bloody or black or tarry st ools. Denies nocturia, hematuria, urgency, frequency, dysuria, or incontinence. Denies any musculos keletal problems besides weakness. She does not have any significant joint swelling or joint pains o r lesions. Denies any rashes, jaundice. She has not done very well with her endocrine system includ ing not caring for her diabetes, which she is supposed to be on sliding scale. She takes 28 units of long-acting insulin and only checks her sugars a couple of times a week if that. She does not utili ze her sliding scale. Denies any neurological problems including dizziness, syncope, paralysis, atax ia. She just has generalized weakness. Denies any past mental illness, but admits to fluoxetine for depression. PHYSICAL EXAMINATION: VITAL SIGNS: Reveal blood pressure 142/63, pulse 61, respirations 18, O2 sat 93% on 2 liters, weight has not been done yet. GENERAL: This is a well-developed, well-nourished, morbidly obese white female, in no apparent distr ess at this time. HEENT: Reveals normocephalic, nontraumatic cranium. Pupils are equally round and reactive. Extraoc ular movements intact. Nose and throat are dry, but clear. NECK: Supple, without masses, nodes or bruits. Trachea is midline. Thyroid within normal limits. LUNGS: Chest is clear to auscultation, but the breath sounds are distant. She has no rales, rhonchi , wheezes or rubs at this time. HEART: Reveals a regular rate and rhythm without murmurs, gallops or rubs. ABDOMEN: Soft, morbidly obese. Nontender. Normal bowel sounds are noted in all 4 quadrants. Organ omegaly is not able to be distinguished because of her morbid obesity. No CVA tenderness is noted. : Deferred. EXTREMITIES: Reveal no clubbing, cyanosis with 1+ edema. NEUROLOGIC: She is grossly unremarkable. ASSESSMENT: 1. History of pneumonia with 4 more days of Levaquin. 2. History of recent diastolic chronic congestive heart failure with good diuresis. 3. Hypertension. 4. Diabetes, uncontrolled. 5. Hyperlipidemia. 6. Noncompliance. 7. Neuropathy. 8. Gastroesophageal reflux disease. 9. Hypothyroidism. 10. Generalized weakness. PLAN: 1. The patient has been admitted to swing bed. We will consult physical therapy and occupational th monika to increase her strength and stamina. We will monitor her diabetes with Accu-Cheks a.c. and at bedtime. 2. We will monitor her congestive heart failure for signs and symptoms of congestive heart failure. 3. Continue to monitor blood pressure closely. 4. Monitor the labs. 5. Stress ulcer prophylaxis. 6. Decubitus precautions. 7. DVT prophylaxis per primary. 8. Physical therapy and occupational therapy.
[2018-02-23] MEDS: Furosemide 40 MG TAB PO SCH ×2 (05:37→13:04)
[2018-02-23 05:47] LABS: ALT (SGPT) 26 U/L (8-55); AST (SGOT) 19 U/L (5-34); Albumin 2.9 g/dL (3.4-4.8); Alkaline Phosphatase 118 U/L (40-150); Anion Gap 13 mmol/L (10-20); BUN (Urea Nitrogen) 24 mg/dL (9.8-20.1); Bilirubin, Total 0.5 mg/dL (0.2-1.2); Calc. Creatinine Clearance 90 mL/min (70-130); Calcium 8.5 mg/dL (7.8-10.44); Carbon Dioxide 28 mmol/L (23-31); Chloride 103 mmol/L (98-107); Estimated GFR-MDRD 56; Globulin 2.6 g/dL (2.4-3.5); Glucose 97 mg/dL (83-110); Potassium 3.5 mmol/L (3.5-5.1); Protein, Total 5.5 g/dL (6.0-8.3); Sodium 140 mmol/L (136-145)
[2018-02-23 06:09] LABS: #Eosinphils 0.2 thou/uL (0.0-0.7); #Lymphocytes 1.2 thou/uL (1.20-3.40); #Monocytes 0.4 thou/uL (0.11-0.59); #Neutrophils 2.5 thou/uL (1.40-6.50); %Eosinophils 3.6 % (0.0-10.0); %Lymphocytes 28.6 % (21.0-51.0); %Monocytes 8.6 % (0.0-10.0); %Neutrophils 58.3 % (42.0-75.0); Hemoglobin 10.5 g/dL (12.0-16.0); Mean Corpuscular HGB CONC 31.4 g/dL (32.0-36.0); Mean Corpuscular Hemoglobin 27.3 pg (27.0-31.0); Mean Corpuscular Volume 86.7 fL (78.0-98.0); Mean Platelet Volume 8.8 fL (7.4-10.4); PLT Morphology Comment Appears Decreased; Platelet Count 81 thou/uL (130-400); RBC Distribution Width 11.6 % (11.5-14.5); RBC Morphology Normal; Red Blood Cell (RBC) Count 3.84 mill/uL (4.20-5.40); White Blood Cell (WBC) Count 4.3 thou/uL (4.8-10.8)
[2018-02-23] MEDS: Potassium Chloride 10 MEQ TAB PO SCH (09:00)
[2018-02-23] MEDS: Aspirin 81 mg Enteric Coated Tablet PO SCH (09:01)
[2018-02-23] MEDS: Amlodipine 10 MG TAB PO SCH (09:01)
[2018-02-23] MEDS: FLUoxetine HCl 20 MG CAP PO SCH (09:02)
[2018-02-23] MEDS: Clopidogrel Bisulfate 75 MG TAB PO SCH (09:02)
[2018-02-23] MEDS: Carvedilol 6.25 MG TAB PO SCH ×2 (09:02→20:29)
[2018-02-23] MEDS: Levemir Flexpen 100 UNITS/ML PEN SC SCH ×2 (09:03→20:29)
[2018-02-23] MEDS: Ramipril 5 MG CAP PO SCH ×2 (09:04→20:29)
[2018-02-23] MEDS: NABUMETONE 500 MG PO SCH (11:05)
[2018-02-23] MEDS: HumaLOG 300 UNITS/3 ML VIAL SC PRN ×2 (11:46→16:20)
[2018-02-23 12:49] LABS: Bilirubin Negative (Negative); Blood, Urine Negative (Negative); Clarity Clear (Clear); Glucose, Urine (Dipstick) Negative (Negative); Leukocyte Small (Negative); Nitrite Negative (Negative); Protein, Urine (Dipstick) Negative (Neg-Trace); Specific Gravity, Urine 1.015 (1.005-1.030); Urobilinogen 0.2 mg/dL (0.2-1.0)
[2018-02-23 12:58] VITALS: BMI 42.8
[2018-02-23] MEDS: Acetaminophen 325 MG TAB PO PRN (13:04)
[2018-02-23 13:13] LABS: Bacteria/HPF 1+ HPF (None Seen); RBC/HPF 0-3 HPF (0-3); Squamous Epithelial 0-3 HPF (0-3)
[2018-02-23] MEDS: Atorvastatin Calcium 10 MG TAB PO SCH (20:29)
--- NOTE | 2018-02-23 22:16 | PRG ---
DATE OF SERVICE: 02/23/2018 DATE OF ADMISSION: 02/22/2018 HISTORY OF PRESENT ILLNESS: Ms. Gustafson is a very pleasant 77-year-old white female that was short of breath and seen in the emergency room at [facility]. She had to be placed on Bi PAP and was diuresed with IV diuretics. She was thought to have pneumonia and started on IV antibiot ics. She diuresed well and is feeling much better and was transferred to [facility] because she was so weak. She was transferred here for physical therapy and occupational therapy. Sh e is to continue on Levaquin 500 mg for 3 more days. SUBJECTIVE: The patient states she feels really good this morning, but this afternoon she was very w eak and ached all over. PHYSICAL EXAMINATION: VITAL SIGNS: Today reveal blood pressure 133/60, pulse 67-94, respirations 18, O2 sat 94% on 2 liter s, T-max 97.7. GENERAL: She is a well-developed, well-nourished, morbidly obese white female in no apparent distres s at this time. HEENT: Reveals normocephalic, nontraumatic cranium. The pupils equal, round, and reactive. Extraoc ular movements are intact. Nose and throat are clear and moist. NECK: Supple, without mass, nodes or bruits. LUNGS: Chest is clear to auscultation. Breath sounds are distant. The patient has no rales, rhonch i, wheezes heard today. HEART: Reveals a regular rate and rhythm without murmurs, gallops or rubs. ABDOMEN: Obese, soft, and nontender. Normal bowel sounds are noted. No rebound or guarding is note d. : Deferred. EXTREMITIES: Reveal no clubbing, cyanosis with 1+ edema still. NEUROLOGIC: The patient is grossly intact. ASSESSMENT: 1. Pneumonia with 3 more days of Levaquin. 2. Diastolic congestive heart failure with diuresis. 3. Hypertension. 4. Diabetes, uncontrolled, much improved today. 5. Hyperlipidemia. 6. Noncompliance. 7. Neuropathy. 8. Gastroesophageal reflux disease. 9. Hypothyroidism. 10. Generalized weakness. PLAN: 1. Continue 3 more days of Levaquin. 2. Follow patient for signs and symptoms of congestive heart failure. 3. Continue to monitor the patient diabetes closely. 4. Monitor the patient's hypertension closely. 5. Monitor the patient's labs which are actually very good. 6. Stress ulcer prophylaxis. 7. Decubitus precautions. 8. Deep venous thrombosis prophylaxis. 9. Continue physical therapy and occupational therapy.
[2018-02-24] MEDS: Furosemide 40 MG TAB PO SCH ×2 (05:54→19:27)
[2018-02-24] MEDS: Levemir Flexpen 100 UNITS/ML PEN SC SCH ×2 (08:47→21:03)
[2018-02-24] MEDS: Aspirin 81 mg Enteric Coated Tablet PO SCH (08:48)
[2018-02-24] MEDS: Ramipril 5 MG CAP PO SCH ×2 (08:48→21:04)
[2018-02-24] MEDS: Carvedilol 6.25 MG TAB PO SCH ×2 (08:48→21:03)
[2018-02-24] MEDS: Clopidogrel Bisulfate 75 MG TAB PO SCH (08:49)
[2018-02-24] MEDS: Potassium Chloride 10 MEQ TAB PO SCH (08:49)
[2018-02-24] MEDS: Amlodipine 10 MG TAB PO SCH (08:49)
[2018-02-24] MEDS: FLUoxetine HCl 20 MG CAP PO SCH (08:49)
[2018-02-24] MEDS: NABUMETONE 500 MG PO SCH (08:50)
[2018-02-24] MEDS: Acetaminophen 325 MG TAB PO PRN ×2 (08:57→21:04)
[2018-02-24] MEDS: Atorvastatin Calcium 10 MG TAB PO SCH (21:03)
--- NOTE | 2018-02-24 21:07 | PRG ---
DATE OF SERVICE: 02/24/2018 DATE OF ADMISSION: 02/22/2018 HISTORY OF PRESENT ILLNESS: Patient is a 77-year-old white female that presented to the [facility] ER with shortness of breath. She was placed on BiPAP and diuresed with IV antibio tics. She was found to have congestive heart failure along with pneumonia. She has diuresed well. Eventually stabilized and transferred to [facility] because of her weakness. She was transferred here for PT and OT. She has 2 more days of Levaquin. SUBJECTIVE: Patient states she feels much better today. She had a much better day today than she di d yesterday. She is not as achy or having as much pain in her upper extremities. PHYSICAL EXAMINATION: VITAL SIGNS: Today reveal blood pressure this morning 153/68. Second blood pressure 147/65. Pulse 63 to 65, respirations 16, O2 sat 97% on 2 liters. T-max afebrile. GENERAL: She is a well-developed, well-nourished, morbidly obese white female in no apparent distres s at this time. HEENT: Reveals normocephalic, nontraumatic cranium. Pupils equal, round, and reactive. Extraocular movements intact. Nose and throat are moist today. NECK: Supple, without mass, nodes, bruits. LUNGS: Chest is clear. Breath sounds are distant. No rales, rhonchi, or wheezes are heard today. No cough is noted today. CARDIOVASCULAR: Reveals a regular rate and rhythm without murmurs, gallops, or rubs. ABDOMEN: Obese, soft, nontender. Normal bowel sounds are noted in all 4 quadrants. No rebound or g uarding is noted. : Deferred. EXTREMITIES: Reveal no clubbing, cyanosis with trace edema today. NEUROLOGIC: Patient is grossly intact. IMPRESSION: 1. Pneumonia with 2 more days of Levaquin to finish out. 2. Diastolic congestive heart failure. Continue diuresis. 3. Hypertension. 4. Diabetes uncontrolled, which is much improved today. 5. Hyperlipidemia. 6. Noncompliance. 7. Diabetic neuropathy. 8. Gastroesophageal reflux disease. 9. Hypothyroidism. 10. Generalized weakness. PLAN: 1. Continue 2 more days of Levaquin 500 mg daily. 2. Continue to follow the patient closely for signs and symptoms of congestive heart failure. 3. Continue to monitor patient's diabetes with Accu-Cheks a.c. and at bedtime. 4. Continue to monitor the patient's blood pressure closely. 5. Follow patient's labs and her sugars are much improved with all the sugars today being less than 200. 6. Stress ulcer prophylaxis. 7. Decubitus precautions. 8. Deep venous thrombosis prophylaxis. 9. Continue physical therapy and occupational therapy.
[2018-02-25] MEDS: Acetaminophen 325 MG TAB PO PRN ×3 (05:30→20:04)
[2018-02-25] MEDS: Furosemide 40 MG TAB PO SCH ×2 (06:26→14:20)
[2018-02-25] MEDS: HumaLOG 300 UNITS/3 ML VIAL SC PRN (06:26)
[2018-02-25] MEDS: Potassium Chloride 10 MEQ TAB PO SCH (08:13)
[2018-02-25] MEDS: FLUoxetine HCl 20 MG CAP PO SCH (09:12)
[2018-02-25] MEDS: Levemir Flexpen 100 UNITS/ML PEN SC SCH ×2 (09:12→20:03)
[2018-02-25] MEDS: Carvedilol 6.25 MG TAB PO SCH ×2 (09:12→20:03)
[2018-02-25] MEDS: Ramipril 5 MG CAP PO SCH ×2 (09:13→20:04)
[2018-02-25] MEDS: Clopidogrel Bisulfate 75 MG TAB PO SCH (09:13)
[2018-02-25] MEDS: Amlodipine 10 MG TAB PO SCH (09:13)
[2018-02-25] MEDS: Aspirin 81 mg Enteric Coated Tablet PO SCH (09:13)
[2018-02-25] MEDS: NABUMETONE 500 MG PO SCH (09:14)
--- NOTE | 2018-02-25 10:05 | PRG ---
DATE OF SERVICE: 02/25/2018 DATE OF ADMISSION: 02/22/2018 HISTORY OF PRESENT ILLNESS: Ms. Gustafson is a very pleasant 77-year-old white female that presented to the emergency room at [facility] with shortness of breath. She was placed on Bi PAP and diuresed with IV Lasix and IV antibiotics. She was found to have congestive heart failure al devaughn with pneumonia. Eventually, she was stabilized and transferred to [facility] for physical therapy and occupational therapy. She is also on antibiotics and has 1 more day of Levaqui n. SUBJECTIVE: The patient states she is doing well and is actually walking very well. She walked 40 f eet before she had to stop and rest. OBJECTIVE: VITAL SIGNS: This morning reveal blood pressure 147/65, pulse 58-60, O2 sat 88%-99%, T-max 97.7. GENERAL: This is a well-developed, well-nourished, obese white female in no apparent distress at thi s time. HEENT: Reveals normocephalic, nontraumatic cranium. Pupils are equally round and reactive. Extraoc ular movements are intact. Nose and throat are slightly dry. NECK: Supple, without mass, nodes or bruits. CHEST: Clear but breath sounds are distant. No rales, rhonchi, wheezes or cough is heard today. HEART: Reveals a regular rate and rhythm without murmurs, gallops or rubs. ABDOMEN: Obese, soft, nontender. Normal bowel sounds are noted in all 4 quadrants. The patient has no rebound or guarding noted. GENITOURINARY: Deferred. EXTREMITIES: Reveal no clubbing, cyanosis with 1+ edema today. IMPRESSION: 1. Pneumonia. Will have 1 more day of Levaquin to finish out. 2. Diastolic congestive heart failure. Continue diuresis. 3. Hypertension. 4. Diabetes, uncontrolled. We did increase her Levemir to 32 units b.i.d. 5. Hyperlipidemia. 6. Noncompliance. 7. Diabetic neuropathy. 8. Gastroesophageal reflux disease. 9. Hypothyroidism. 10. Generalized weakness. PLAN: 1. We will give the patient another day of Levaquin 500 mg. 2. Continue to monitor the patient closely for signs and symptoms of congestive heart failure. 3. Continue to monitor the patient's diabetes with Accu-Cheks a.c. and at bedtime. 4. Monitor the patient's blood pressure closely. 5. Follow the patient's labs and sugars, which are not as good today. 6. Stress ulcer prophylaxis. 7. Decubitus precautions. 8. Deep venous thrombosis prophylaxis. 9. Continue physical therapy and occupational therapy.
[2018-02-25] MEDS: Atorvastatin Calcium 10 MG TAB PO SCH (20:03)
[2018-02-26] MEDS: Furosemide 40 MG TAB PO SCH ×2 (05:57→13:16)
[2018-02-26] MEDS: Acetaminophen 325 MG TAB PO PRN ×3 (05:57→14:34)
[2018-02-26] MEDS: HumaLOG 300 UNITS/3 ML VIAL SC PRN ×3 (05:58→16:33)
[2018-02-26] MEDS: Levemir Flexpen 100 UNITS/ML PEN SC SCH ×2 (08:33→20:42)
[2018-02-26] MEDS: Carvedilol 6.25 MG TAB PO SCH ×2 (08:38→20:40)
[2018-02-26] MEDS: Aspirin 81 mg Enteric Coated Tablet PO SCH (08:43)
[2018-02-26] MEDS: Ramipril 5 MG CAP PO SCH ×2 (08:43→20:39)
[2018-02-26] MEDS: Amlodipine 10 MG TAB PO SCH (08:47)
[2018-02-26] MEDS: Potassium Chloride 10 MEQ TAB PO SCH (08:48)
[2018-02-26] MEDS: Clopidogrel Bisulfate 75 MG TAB PO SCH (08:58)
[2018-02-26] MEDS: FLUoxetine HCl 20 MG CAP PO SCH (08:58)
[2018-02-26] MEDS: NABUMETONE 500 MG PO SCH (09:50)
[2018-02-26] MEDS ORDERED: Nabumetone 500 MG TAB PO SCH (15:45)
--- NOTE | 2018-02-26 19:56 | PRG ---
DATE OF SERVICE: 02/26/2018 DATE OF ADMISSION: 02/22/2018 HISTORY OF PRESENT ILLNESS: Ms. Gustafson is a 77-year-old white female that presented to the Emergency Room at [facility] with a chief complaint of shortness of breath. She immediate ly was placed on BiPAP and x-rays were done which revealed possible pneumonia, but also congestive he art failure. She was IV diuresed with Lasix and she received IV antibiotics. She eventually was sta bilized and then she was transferred down to [facility] for PT and OT. The patient is on IV antibiotics and her last dose I believe tomorrow morning. SUBJECTIVE: The patient states she is doing well. She did well with physical therapy this morning, but this afternoon she had too much pain. She is supposed to start on Relafen tomorrow. OBJECTIVE: VITAL SIGNS: Reveal blood pressure this morning was 133/59, pulse 62-72, respirations 20, O2 sat 97% to 98% on 2 liters nasal cannula. GENERAL: Reveals a well-developed, well-nourished, somewhat obese white female, in no apparent distr ess at this time. She has found standing at her bedside, getting ready to lie down in bed. HEENT: Reveals normocephalic, nontraumatic cranium. The pupils are equally round and reactive. Ext raocular movements are intact. Nose and throat this evening are moist. NECK: Supple, without mass, nodes or bruits. LUNGS: The chest is clear, but the breath sounds are distant. No rales, rhonchi, wheezes or cough i s heard. CARDIOVASCULAR: Heart reveals a regular rate and rhythm without murmurs, gallops or rubs. ABDOMEN: Obese and nontender. Normal bowel sounds are noted. No rebound or guarding is noted. : Deferred. EXTREMITIES: Reveal no clubbing, cyanosis with still 1+ edema. IMPRESSION: 1. Pneumonia, finish the last day of Levaquin tomorrow. 2. Diastolic congestive heart failure. 3. Continue diuresis. 4. Hypertension. 5. Diabetes, still uncontrolled. We will increase her Levemir to 40 units b.i.d. 6. Hyperlipidemia. 7. Noncompliance. 8. Diabetic neuropathy. 9. Gastroesophageal reflux disease. 10. Hypothyroidism. 11. Generalized weakness. PLAN: 1. The patient is to finish her Levaquin 500 mg daily. 2. Continue to monitor the patient closely for signs and symptoms of congestive heart failure. 3. We will continue to monitor the patient diabetes with Accu-Cheks a.c. and at bedtime. 4. We will increase her Levemir to 40 units b.i.d. 5. Continue to monitor the patient's blood pressure closely. 6. Stress ulcer prophylaxis. 7. Decubitus precautions. 8. Deep venous thrombosis prophylaxis. 9. Continue physical therapy and occupational therapy.
[2018-02-26] MEDS: Atorvastatin Calcium 10 MG TAB PO SCH (20:40)
[2018-02-27] MEDS: Furosemide 40 MG TAB PO SCH ×2 (05:20→14:09)
[2018-02-27] MEDS: HumaLOG 300 UNITS/3 ML VIAL SC PRN ×3 (05:20→17:20)
--- NOTE | 2018-02-27 07:06 | PRG ---
DATE OF SERVICE: 02/27/2018 DATE OF ADMISSION: 02/22/2018 HISTORY OF PRESENT ILLNESS: Ms. Gustafson is a very pleasant 77-year-old white female that presented to the [facility] with shortness of breath. She was found to need immediate BiPAP. X-rays were done which revealed possible pneumonia and congestive heart failure. She had IV diures is and IV antibiotics, eventually she was stabilized and transferred to [facility]. She is here for physical therapy and occupational therapy. The patient is sleepy this morning. She does arouse and I told her that she was doing well with her sugars, but they could be better. I did increase her insulin yesterday. She is sleeping, said she j ust wanted to sleep today. She knows it is Thursday and she likes to sleep in. PHYSICAL EXAMINATION: VITAL SIGNS: Today reveal blood pressure pending, pulse 68, respirations 20, O2 saturation 97% on ro om air, T-max 97.9. GENERAL: This is a well-developed, well-nourished, obese white female in no apparent distress at thi s time. She is resting well. HEENT: Reveals normocephalic, nontraumatic cranium. Nose and throat are slightly dry. NECK: Supple, without mass, nodes or bruits. LUNGS: Chest is clear to auscultation. Breath sounds are distant. No rales, rhonchi, wheezes or co ugh is heard. HEART: Reveals a regular rate and rhythm without murmurs, gallops or rubs. ABDOMEN: Soft, nontender, without organomegaly. Obese. Normal bowel sounds are noted. No rebound or guarding is noted. Organomegaly cannot be appreciated because of obesity. : Deferred. EXTREMITIES: Reveal no clubbing, cyanosis. Trace edema. IMPRESSION: 1. Pneumonia, finished her last dose of Levaquin today. 2. Diastolic congestive heart failure. 3. Continued Lasix. 4. Hypertension. 5. Diabetes, still uncontrolled, Levemir is at 40. We will watch at day and then probably increase this morning. 6. Hyperlipidemia. 7. Noncompliance. 8. Diabetic neuropathy. 9. Gastroesophageal reflux disease. 10. Hypothyroidism. 11. Generalized weakness. PLAN: 1. Patient has finished with her Levaquin. 2. Monitor the patient for signs and symptoms of congestive heart failure. 3. Monitor the patient's diabetes with Accu-Cheks a.c. and at bedtime. 4. Continue Levemir at 40 b.i.d., may increase that tomorrow or the next day. 5. Continue to monitor the patient's blood pressure closely. 6. Stress ulcer prophylaxis. 7. Decubitus precautions. 8. Deep venous thrombosis prophylaxis. 9. Continue physical therapy and occupational therapy.
[2018-02-27] MEDS: Potassium Chloride 10 MEQ TAB PO SCH (08:47)
[2018-02-27] MEDS: Amlodipine 10 MG TAB PO SCH (08:48)
[2018-02-27] MEDS: Carvedilol 6.25 MG TAB PO SCH ×2 (08:48→20:55)
[2018-02-27] MEDS: Aspirin 81 mg Enteric Coated Tablet PO SCH (08:48)
[2018-02-27] MEDS: Clopidogrel Bisulfate 75 MG TAB PO SCH (08:48)
[2018-02-27] MEDS: FLUoxetine HCl 20 MG CAP PO SCH (08:49)
[2018-02-27] MEDS: Levemir Flexpen 100 UNITS/ML PEN SC SCH (08:50)
[2018-02-27] MEDS: Ramipril 5 MG CAP PO SCH ×2 (08:50→20:55)
[2018-02-27] MEDS: Nabumetone 500 MG TAB PO SCH (08:50)
[2018-02-27] MEDS: Atorvastatin Calcium 10 MG TAB PO SCH (20:55)
[2018-02-27] MEDS: Insulin Glargine 100 UNIT/ML 3 ML PEN SQ SCH (20:57)
[2018-02-28] MEDS: HumaLOG 300 UNITS/3 ML VIAL SC PRN ×4 (06:07→20:49)
[2018-02-28] MEDS: Furosemide 40 MG TAB PO SCH ×2 (06:07→14:08)
[2018-02-28] MEDS ORDERED: Dextrose 5% in Water 1,000 ML IV PRN (06:45)
[2018-02-28] MEDS ORDERED: Dextrose 50% Abboject 50 ML SYRINGE SLOW IVP PRN (06:45)
--- NOTE | 2018-02-28 07:56 | PRG ---
DATE OF SERVICE: 02/28/2018 DATE OF ADMISSION: 02/22/2018 HISTORY OF PRESENT ILLNESS: Janay is a 77-year-old white female that presented to the emergency suresh m at [facility] with shortness of breath. She was immediately placed on BiPAP. X-rays were done which revealed possible pneumonia and CHF. She had IV diuresis and IV antibiotics a nd was admitted to the hospital. She eventually was stabilized and transferred to [facility] for physical therapy and occupational therapy to increase her strength and her stamina. The patient is awake this morning, states she is achy in her shoulders because she had to pull hersel f up in bed yesterday. Her sugars are higher again always in the 200s and so therefore we increased her insulin again today. PHYSICAL EXAMINATION: VITAL SIGNS: Reveal blood pressure 134/63, pulse 61, respirations 20, O2 sat 98% on 2 liters, T-max 98.0. GENERAL: This is a well-developed, well-nourished, obese white female that complains of shoulder ach iness today. HEENT: Reveals normocephalic, nontraumatic cranium. The pupils are equally round and reactive. Ext raocular movements are intact. Nose and throat are slightly moist this morning. NECK: Supple, without mass, nodes or bruits. CHEST: Clear to auscultation. No rales, no rhonchi, no wheezes are heard. No cough is noted. The breath sounds are distant. HEART: Reveals a regular rate and rhythm without murmurs, gallops or rubs. ABDOMEN: Soft, obese, nontender, without organomegaly. Normal bowel sounds are noted in all 4 quadr ants. No rebound or guarding is noted. GENITOURINARY: Deferred. EXTREMITIES: Reveal no clubbing, cyanosis with trace edema again. IMPRESSION: 1. Pneumonia. The patient has finished her Levaquin, resolved. 2. Diastolic congestive heart failure. 3. Continue Lasix. 4. Hypertension. 5. Diabetes, uncontrolled. We bumped her Levemir to 45 units b.i.d. 6. Hyperlipidemia. 7. Noncompliance. 8. Diabetic neuropathy. 9. Esophageal reflux disease. 10. Hypothyroidism. 11. Generalized weakness. 12. Encourage the patient not to snack. She has a load of peanut butter crackers and other snacks i n the room. PLAN: 1. Patient has finished with Levaquin. 2. Encourage the patient to get out of bed as much as possible today. 3. Continue to watch the patient for signs and symptoms of congestive heart failure. 4. Accu-Cheks a.c. and at bedtime. 5. Levemir has been increased to 45 units b.i.d. 6. Monitor the patient's blood pressure closely. 7. Stress ulcer prophylaxis. 8. Decubitus precautions. 9. Deep venous thrombosis prophylaxis. 10. Continue PT and OT.
[2018-02-28] MEDS: Potassium Chloride 10 MEQ TAB PO SCH (08:44)
[2018-02-28] MEDS: Carvedilol 6.25 MG TAB PO SCH ×2 (08:44→20:44)
[2018-02-28] MEDS: Amlodipine 10 MG TAB PO SCH (08:44)
[2018-02-28] MEDS: Aspirin 81 mg Enteric Coated Tablet PO SCH (08:44)
[2018-02-28] MEDS: Clopidogrel Bisulfate 75 MG TAB PO SCH (08:45)
[2018-02-28] MEDS: FLUoxetine HCl 20 MG CAP PO SCH (08:45)
[2018-02-28] MEDS: Insulin Glargine 100 UNIT/ML 3 ML PEN SQ SCH ×2 (08:46→20:45)
[2018-02-28] MEDS: Levemir Flexpen 100 UNITS/ML PEN SC SCH ×2 (08:48→20:46)
[2018-02-28] MEDS: Nabumetone 500 MG TAB PO SCH (08:49)
[2018-02-28] MEDS: Ramipril 5 MG CAP PO SCH ×2 (08:49→20:44)
[2018-02-28] MEDS: Acetaminophen 325 MG TAB PO PRN (10:39)
[2018-02-28] MEDS: Nystatin Powder 15 GM BOT TOP PRN ×2 (12:53→20:56)
[2018-02-28] MEDS: Atorvastatin Calcium 10 MG TAB PO SCH (20:44)
[2018-03-01] MEDS: Furosemide 40 MG TAB PO SCH ×2 (05:34→12:55)
[2018-03-01] MEDS: Nabumetone 500 MG TAB PO SCH (09:08)
[2018-03-01] MEDS: FLUoxetine HCl 20 MG CAP PO SCH (09:08)
[2018-03-01] MEDS: Carvedilol 6.25 MG TAB PO SCH ×2 (09:08→20:09)
[2018-03-01] MEDS: Nystatin Powder 15 GM BOT TOP PRN (09:08)
[2018-03-01] MEDS: Aspirin 81 mg Enteric Coated Tablet PO SCH (09:09)
[2018-03-01] MEDS: Ramipril 5 MG CAP PO SCH ×2 (09:09→20:10)
[2018-03-01] MEDS: Potassium Chloride 10 MEQ TAB PO SCH (09:09)
[2018-03-01] MEDS: Clopidogrel Bisulfate 75 MG TAB PO SCH (09:09)
[2018-03-01] MEDS: Amlodipine 10 MG TAB PO SCH (09:09)
[2018-03-01] MEDS: Insulin Glargine 100 UNIT/ML 3 ML PEN SQ SCH ×2 (09:10→20:09)
--- NOTE | 2018-03-01 10:07 | PRG ---
DATE OF SERVICE: 03/01/2018 HISTORY OF PRESENT ILLNESS: Ms. Gustafson is a 77-year-old white female who presented to the emergency room at [facility] with shortness of breath. She was evaluated and placed on BiP AP. She was found to have a possible pneumonia along with acute congestive heart failure. She was d iuresed and started on IV antibiotics. She was eventually stabilized and then transferred to [facility]. She is here for physical therapy and occupational therapy to increase her stren gth and stamina. The patient states she did very well this morning, walked a long way. She could not remember how jade g. She is actually doing very well. She has no complaints today. VITAL SIGNS: Today reveal blood pressure this morning was 144/65, pulse 67, respirations 20, O2 sat on room air was 94%. PHYSICAL EXAMINATION: GENERAL: This is a well-developed, well-nourished, obese white female in no apparent distress at thi s time. HEENT: Reveals normocephalic, nontraumatic cranium. Pupils are equal, round, reactive. Extraocular movements intact. Nose and throat are dry this morning. NECK: Supple, without mass, nodes or bruits. LUNGS: Chest is clear to auscultation. No rales, no rhonchi, no wheezes are heard. No cough is hea rd. Breath sounds are very distant. CARDIOVASCULAR: Heart reveals a regular rate and rhythm without murmurs, gallops or rubs. ABDOMEN: Soft, nontender, without organomegaly. Normal bowel sounds are noted in all 4 quadrants. No rebound or guarding is noted. GENITOURINARY: Deferred. EXTREMITIES: Reveal no clubbing, cyanosis with continued trace edema. IMPRESSION: 1. Pneumonia, resolved. 2. Diastolic congestive heart failure, much improved. 3. Hypertension. 4. Diabetes, uncontrolled, which is much better this morning with a fasting sugar 105. 5. Hyperlipidemia. 6. Noncompliance. 7. Diabetic neuropathy. 8. Gastroesophageal reflux. 9. Hypothyroidism. 10. Generalized weakness. PLAN: 1. The patient's Accu-Cheks are most likely out of balance because she continues with peanut butter crackers snacks all day. 2. Continue to encourage the patient to participate well with physical therapy and occupational therapy teacher apy. 3. Continue to watch for signs and symptoms of congestive heart failure. 4. Accu-Cheks a.c. and at bedtime. 5. Levemir is presently 45 units b.i.d. We will continue to follow that as it is. 6. Monitor the patient's blood pressure closely. 7. Stress ulcer prophylaxis. 8. Decubitus precautions. 9. Deep venous thrombosis prophylaxis. 10. Continue physical therapy and occupational therapy.
[2018-03-01] MEDS: HumaLOG 300 UNITS/3 ML VIAL SC PRN (11:07)
[2018-03-01] MEDS: Acetaminophen 325 MG TAB PO PRN ×2 (12:55→20:10)
[2018-03-01] MEDS: Atorvastatin Calcium 10 MG TAB PO SCH (20:09)
[2018-03-02] MEDS: Furosemide 40 MG TAB PO SCH ×2 (05:31→13:01)
[2018-03-02 05:57] LABS: #Eosinphils 0.1 thou/uL (0.0-0.7); #Monocytes 0.3 thou/uL (0.11-0.59); #Neutrophils 2.6 thou/uL (1.40-6.50); %Basophils 1.2 % (0.0-1.0); %Eosinophils 2.3 % (0.0-10.0); %Lymphocytes 25.7 % (21.0-51.0); %Monocytes 6.7 % (0.0-10.0); %Neutrophils 64.1 % (42.0-75.0); Hemoglobin 10.6 g/dL (12.0-16.0); Mean Corpuscular HGB CONC 32.2 g/dL (32.0-36.0); Mean Corpuscular Volume 86.7 fL (78.0-98.0); Mean Platelet Volume 10.1 fL (7.4-10.4); PLT Morphology Comment Appears Decreased; Platelet Count 87 thou/uL (130-400); RBC Distribution Width 12.4 % (11.5-14.5); RBC Morphology Normal
[2018-03-02 06:05] LABS: ALT (SGPT) 25 U/L (8-55); AST (SGOT) 15 U/L (5-34); Alkaline Phosphatase 151 U/L (40-150); Anion Gap 11 mmol/L (10-20); BUN (Urea Nitrogen) 24 mg/dL (9.8-20.1); Bilirubin, Total 0.5 mg/dL (0.2-1.2); Calc. Creatinine Clearance 94 mL/min (70-130); Calcium 8.8 mg/dL (7.8-10.44); Carbon Dioxide 31 mmol/L (23-31); Chloride 105 mmol/L (98-107); Estimated GFR-MDRD 59; Globulin 2.7 g/dL (2.4-3.5); Glucose 218 mg/dL (83-110); Potassium 3.8 mmol/L (3.5-5.1); Protein, Total 5.7 g/dL (6.0-8.3); Sodium 143 mmol/L (136-145)
[2018-03-02 06:14] LABS: MDiff Complete? YES; Manual Diff?? NO
[2018-03-02] MEDS: HumaLOG 300 UNITS/3 ML VIAL SC PRN ×3 (06:23→20:48)
[2018-03-02] MEDS: Nystatin Powder 15 GM BOT TOP PRN (09:19)
[2018-03-02] MEDS: Insulin Glargine 100 UNIT/ML 3 ML PEN SQ SCH ×2 (09:20→20:45)
[2018-03-02] MEDS: Clopidogrel Bisulfate 75 MG TAB PO SCH (09:21)
[2018-03-02] MEDS: FLUoxetine HCl 20 MG CAP PO SCH (09:21)
[2018-03-02] MEDS: Nabumetone 500 MG TAB PO SCH (09:22)
[2018-03-02] MEDS: Ramipril 5 MG CAP PO SCH ×2 (09:22→20:46)
[2018-03-02] MEDS: Amlodipine 10 MG TAB PO SCH (09:22)
[2018-03-02] MEDS: Acetaminophen 325 MG TAB PO PRN ×3 (09:23→20:46)
[2018-03-02] MEDS: Potassium Chloride 10 MEQ TAB PO SCH (09:23)
[2018-03-02] MEDS: Carvedilol 6.25 MG TAB PO SCH ×2 (09:23→17:40)
[2018-03-02] MEDS: Aspirin 81 mg Enteric Coated Tablet PO SCH (09:23)
--- NOTE | 2018-03-02 09:55 | PRG ---
DATE OF SERVICE: 03/02/2018 HISTORY OF PRESENT ILLNESS: Ms. Gustafson is a very pleasant 77-year-old white female that presented wi th shortness of breath to [facility] Emergency Room. She was evaluated and found to have acute congestive heart failure on top of possible pneumonia. She was treated with IV diures is and IV antibiotics. She eventually was stabilized and then was transferred to [facility]. She was here for PT, OT to increase her strength and her stamina. The patient states she is doing well and has no complaints today. VITAL SIGNS: Today reveal blood pressure this morning was 152/65, pulse 61, respirations 20, O2 sat 95% on 2 liters, T-max 97.8. LABORATORY: Today reveals sodium 143, potassium 3.8, chloride 105, carbon dioxide 31 with a BUN of 2 4 and creatinine 0.92. Her point of care sugars reveal yesterday morning fasting 105, before lunch 2 19, before supper 143, before bedtime 258, which are all much improved. Sugar this morning was 218. BNP was 149, which is much improved. The patient typically runs between 100 and 800. Mainly in the 160s. CBC reveals a white count 4000 with hemoglobin 10.6, hematocrit 32.9 and a platelet count of 87,000, which were all stable or improved. PHYSICAL EXAMINATION: GENERAL: This is a well-developed, somewhat obese white female in no apparent distress at this time. HEENT: Reveals normocephalic, nontraumatic cranium. The pupils are equally round and reactive. Ext raocular movements intact. Nose and throat are slightly dry. NECK: Supple, without mass, nodes or bruits. CHEST: Clear to auscultation. CARDIOVASCULAR: Reveals a regular rate and rhythm without murmurs, gallops or rubs. ABDOMEN: Soft, nontender, without organomegaly. Normal bowel sounds are noted. No rebound or guard ing is noted. : Deferred. EXTREMITIES: Reveal no clubbing, cyanosis or edema. NEUROLOGIC: The patient is getting stronger. IMPRESSION: 1. Pneumonia, resolved. 2. Diastolic congestive heart failure, much improved. 3. Hypertension. 4. Diabetes, still uncontrolled. Continue to increase her Lantus. 5. Hyperlipidemia. 6. Noncompliance. 7. Diabetic neuropathy. 8. Gastroesophageal reflux. 9. Hypothyroidism. 10. Generalized weakness. PLAN: 1. Continue Accu-Cheks a.c. and at bedtime. 2. Continue to encourage the patient to participate well with therapy. 3. Watch for signs and symptoms of congestive heart failure. 4. Continue Levemir at 50 units b.i.d. 5. Monitor the patient's blood pressure closely. 6. Stress ulcer prophylaxis. 7. Decubitus precautions. 8. Deep venous thrombosis prophylaxis. 9. Continue PT and OT.
[2018-03-02] MEDS: Atorvastatin Calcium 10 MG TAB PO SCH (20:45)
[2018-03-03] MEDS: Furosemide 40 MG TAB PO SCH ×2 (05:54→13:06)
[2018-03-03] MEDS: HumaLOG 300 UNITS/3 ML VIAL SC PRN ×3 (06:04→17:17)
[2018-03-03] MEDS: Acetaminophen 325 MG TAB PO PRN ×3 (06:08→20:21)
[2018-03-03] MEDS: Carvedilol 6.25 MG TAB PO SCH ×2 (08:43→17:17)
[2018-03-03] MEDS: Aspirin 81 mg Enteric Coated Tablet PO SCH (08:43)
[2018-03-03] MEDS: Amlodipine 10 MG TAB PO SCH (08:43)
[2018-03-03] MEDS: Potassium Chloride 10 MEQ TAB PO SCH (08:43)
[2018-03-03] MEDS: Insulin Glargine 100 UNIT/ML 3 ML PEN SQ SCH ×2 (08:44→20:20)
[2018-03-03] MEDS: FLUoxetine HCl 20 MG CAP PO SCH (08:44)
[2018-03-03] MEDS: Clopidogrel Bisulfate 75 MG TAB PO SCH (08:44)
[2018-03-03] MEDS: Ramipril 5 MG CAP PO SCH ×2 (08:45→20:21)
[2018-03-03] MEDS: Nabumetone 500 MG TAB PO SCH (08:45)
[2018-03-03] MEDS: Atorvastatin Calcium 10 MG TAB PO SCH (20:20)
--- NOTE | 2018-03-03 21:21 | PRG ---
DATE OF SERVICE: 03/03/2018 SUBJECTIVE: Ms. Gustafson is a 77-year-old white female who presented with shortness of breath to [facility] Emergency Room. She was found to have acute congestive heart failure on to p of pneumonia. She was treated with IV diuretics and IV antibiotics. She eventually stabilized and transferred to [facility]. She was here for PT and OT to increase her strength and her stamina. The patient states she is doing well and has no complaints, and she walked well yesterday. OBJECTIVE: VITAL SIGNS: Today reveal, blood pressure 137/62, pulse 80-93, respirations 18, O2 sat 93% on room a ir, T-max 98.1. GENERAL: This is a well-developed, well-nourished, very pleasant white female in no apparent distres s at this time. HEENT: Reveals normocephalic, nontraumatic cranium. The pupils are equally round and reactive to li ght. Extraocular movements are intact. Nose and throat are moist this morning. NECK: Supple without masses, nodes, or bruits. Good range of motion is noted. CHEST: Clear to auscultation. HEART: Reveals a regular rate and rhythm without murmurs, gallops, or rubs. ABDOMEN: Soft and nontender without organomegaly. Normal bowel sounds are noted. No rebound or gua rding is noted. GENITOURINARY: Deferred. EXTREMITIES: Revealed no clubbing, cyanosis, or edema. NEUROLOGIC: The patient neurologically is getting somewhat stronger. IMPRESSION: 1. Diastolic congestive heart failure, stable. 2. Pneumonia, resolved. 3. Hypertension. 4. Diabetes control is slightly better with her sugars down a little bit, but we did increase her in sulin to 50 b.i.d. 5. Hyperlipidemia. 6. Diabetic neuropathy. 7. Gastroesophageal reflux disease. 8. Hypothyroidism. 9. Noncompliance. 10. Generalized weakness. PLAN: 1. Continue Accu-Chek before meals and at bedtime. 2. Encourage the patient to participate with therapy. 3. Continue to watch the patient for signs and symptoms of congestive heart failure. 4. Continue Levemir 50 b.i.d. 5. Monitor the patient's blood pressure closely. 6. Stress ulcer prophylaxis. 7. Decubitus precautions. 8. Deep venous thrombosis prophylaxis. 9. Continue physical therapy and occupational therapy.
[2018-03-04] MEDS: Furosemide 40 MG TAB PO SCH ×2 (05:02→13:16)
[2018-03-04] MEDS: HumaLOG 300 UNITS/3 ML VIAL SC PRN ×3 (05:02→17:50)
[2018-03-04] MEDS: Acetaminophen 325 MG TAB PO PRN ×2 (05:06→14:10)
[2018-03-04] MEDS: Carvedilol 6.25 MG TAB PO SCH ×2 (09:01→17:37)
[2018-03-04] MEDS: Potassium Chloride 10 MEQ TAB PO SCH (09:02)
[2018-03-04] MEDS: Aspirin 81 mg Enteric Coated Tablet PO SCH (09:02)
[2018-03-04] MEDS: Clopidogrel Bisulfate 75 MG TAB PO SCH (09:03)
[2018-03-04] MEDS: Insulin Glargine 100 UNIT/ML 3 ML PEN SQ SCH ×2 (09:03→20:11)
[2018-03-04] MEDS: FLUoxetine HCl 20 MG CAP PO SCH (09:03)
[2018-03-04] MEDS: Nabumetone 500 MG TAB PO SCH (09:04)
[2018-03-04] MEDS: Ramipril 5 MG CAP PO SCH ×2 (09:05→20:11)
[2018-03-04] MEDS: Amlodipine 10 MG TAB PO SCH (10:02)
--- NOTE | 2018-03-04 10:45 | PRG ---
DATE OF SERVICE: 03/04/2018 DATE OF ADMISSION: 02/23/2018 HISTORY OF PRESENT ILLNESS: Ms. Gustafson is a 77-year-old white female who presented with shortness of breath to [facility] Emergency Room. She was found to have acute congestive hea rt failure on top of pneumonia. She was treated with IV diuretics and IV antibiotics. She was stabi lized, did very well and was transferred to [facility] to help increase her strength and stamina with physical therapy and occupational therapy. The patient is actually doing very well. She walked the loop inside the hospital yesterday and her b alance is much improved. She is scheduled to go home tomorrow after lunch. PHYSICAL EXAMINATION: VITAL SIGNS: Today reveal blood pressure this morning is 126/59, pulse 60, respirations 22, O2 sat 9 3% on nasal cannula, temperature 97.7. GENERAL: This is a well-developed, well-nourished, very pleasant white female in no apparent distres s at this time. HEENT: Reveals normocephalic, nontraumatic cranium. Pupils are equally round and reactive. Extraoc ular movements are intact. Nose and throat are slightly dry. NECK: Supple, without mass, nodes or bruits. CHEST: Clear to auscultation. No rales, rhonchi or wheezes are heard. HEART: Reveals a regular rate and rhythm without murmurs, gallops or rubs. ABDOMEN: Soft, nontender, without organomegaly. Normal bowel sounds are noted. No rebound or guard ing is noted. : Deferred. EXTREMITIES: Reveal no clubbing, cyanosis or edema. NEUROLOGIC: Patient is stable and has no neurological deficits. IMPRESSION: 1. Diastolic congestive heart failure, stable. 2. Pneumonia, resolved. 3. Hypertension. 4. Diabetes control, continues to slowly improve. 5. Hyperlipidemia. 6. Diabetic neuropathy. 7. Gastroesophageal reflux disease. 8. Hypothyroidism. 9. Noncompliance. 10. Generalized weakness. PLAN: 1. Continue Accu-Cheks a.c. and at bedtime. 2. Continue to monitor the patient's blood pressure. 3. Watch the patient for signs and symptoms of congestive heart failure. 4. Continue Levemir 50 mg twice a day. 5. Stress ulcer prophylaxis. 6. Decubitus precautions. 7. Deep venous thrombosis prophylaxis. 8. Continue physical therapy and occupational therapy. 9. Plan on discharge tomorrow after lunch.
[2018-03-04] MEDS: Atorvastatin Calcium 10 MG TAB PO SCH (20:12)
[2018-03-05] MEDS: HumaLOG 300 UNITS/3 ML VIAL SC PRN ×2 (06:19→11:59)
[2018-03-05] MEDS: Furosemide 40 MG TAB PO SCH ×2 (06:20→13:40)
[2018-03-05] MEDS: Carvedilol 6.25 MG TAB PO SCH (08:55)
[2018-03-05] MEDS: Clopidogrel Bisulfate 75 MG TAB PO SCH (09:45)
[2018-03-05] MEDS: Amlodipine 10 MG TAB PO SCH (09:50)
[2018-03-05] MEDS: Ramipril 5 MG CAP PO SCH (09:50)
[2018-03-05] MEDS: Potassium Chloride 10 MEQ TAB PO SCH (09:50)
[2018-03-05] MEDS: Aspirin 81 mg Enteric Coated Tablet PO SCH (09:55)
[2018-03-05] MEDS: Nabumetone 500 MG TAB PO SCH (09:55)
[2018-03-05] MEDS: FLUoxetine HCl 20 MG CAP PO SCH (09:55)
[2018-03-05] MEDS: Acetaminophen 325 MG TAB PO PRN (10:22)
[2018-03-05] MEDS: Insulin Glargine 100 UNIT/ML 3 ML PEN SQ SCH (10:23)
[2018-03-05 10:51] VITALS: BP 130/62
[2018-03-05 15:05] VITALS: TEMP 98
--- NOTE | 2018-03-05 20:16 | DIS ---
DATE OF ADMISSION: 02/22/2018 DATE OF DISCHARGE: 03/05/2018 HOSPITAL COURSE: Ms. Gustafson is a 77-year-old white female that presented herself to the [facility] Emergency Room with shortness of breath. She was found to be in acute on chronic congestive heart failure along with pneumonia. She was treated with IV diuretics and IV antibiotics. She was stabilized, did very well, and was transferred to [facility]. She was roche sferred here to increase her strength and stamina. She has been partaking in physical therapy and oc cupational therapy here. The patient has actually done very well, has reached maximum medical benefit at this time. She is re kiesha for discharge. PHYSICAL EXAMINATION: VITAL SIGNS: This morning revealed blood pressure 130/62, pulse 73 to 62, respirations 16, O2 sat 97 % on room air. GENERAL: This is a well-developed, well-nourished, somewhat obese white female in no apparent distre ss at this time. HEENT: Normocephalic, nontraumatic cranium. Pupils are equally round and reactive. Extraocular mov ements intact. Nose and throat are slightly dry. NECK: Supple without mass, nodes, or bruits. CHEST: Clear to auscultation. No rales, no rhonchi, no wheezes are heard. HEART: Regular rate and rhythm without murmurs, gallops, or rubs. ABDOMEN: Soft, nontender without organomegaly. Normal bowel sounds are noted. No rebound or guardi ng is noted. GENITOURINARY: Deferred. EXTREMITIES: No clubbing, cyanosis, or edema. NEUROLOGIC: The patient is stable. She has no neurological deficits. DISCHARGE MEDICATIONS: 1. Nitroglycerin 0.4 mg sublingual q.5 minutes p.r.n. 2. Ipratropium 3 mL nebulizer q.i.d. 3. Relafen 500 mg daily with food. 4. Lasix 40 mg b.i.d. 5. Isosorbide mononitrate, which is Imdur 60 mg daily, which the patient is not sure if she has, so I wrote her a prescription. 6. Carvedilol 12.5 mg b.i.d. 7. Amlodipine 10 mg p.o. daily. 8. Ramipril 10 mg b.i.d. 9. Levemir 50 units subcutaneously b.i.d. 10. Prozac 40 mg a day. 11. Atorvastatin 10 mg at bedtime. 12. Aspirin 81 mg a day. 13. Potassium chloride 10 mEq once a day with meals. 14. Plavix 75 mg daily, which the patient is not sure if she has, so I wrote her a prescription for that. IMPRESSION: 1. Diastolic congestive heart failure, stable. 2. Pneumonia, resolved. 3. Hypertension. 4. Diabetes control, which is much improved. 5. Hyperlipidemia. 6. Diabetic neuropathy. 7. Gastroesophageal reflux disease. 8. Hypothyroidism. 9. Noncompliance. 10. Generalized weakness. PLAN: 1. The patient has been discharged and we have gone over all of her medicines personally with this p atient and I have reconciled her medications. 2. Continue Accu-Cheks before meals and at bedtime at home. To follow her sugars closely. 3. Continue to monitor the patient's blood pressure closely. 4. Continue to watch the patient for signs and symptoms of congestive heart failure, which mainly in clude shortness of breath. 5. Continue Levemir 50 units subcutaneously twice a day. 6. Stress ulcer prophylaxis. 7. Decubitus precautions. 8. Deep venous thrombosis prophylaxis. 9. Continue outpatient physical therapy and home health through either [facility] or [facility], which the patient has already had. 10. Discharge.
== END 2018-03-05 18:50 | disposition home health service (06) | DRG 948 ==
LOC: NAV ACUTE 19:41
PROVIDERS: ADMIT Family Medicine; ATTEND Family Medicine
DX: R53.1 Weakness (principal); I50.32 Chronic diastolic (congestive) heart failure; Z87.01 Personal history of pneumonia (recurrent); I11.0 Hypertensive heart disease with heart failure; E78.5 Hyperlipidemia, unspecified; E11.40 Type 2 diabetes mellitus with diabetic neuropathy, unspecified; K21.9 Gastro-esophageal reflux disease without esophagitis; E03.9 Hypothyroidism, unspecified; I25.10 Atherosclerotic heart disease of native coronary artery without angina pectoris; J44.9 Chronic obstructive pulmonary disease, unspecified; M19.90 Unspecified osteoarthritis, unspecified site; Z91.19 Patient's noncompliance with other medical treatment and regimen; Z95.5 Presence of coronary angioplasty implant and graft
CPT/HCPCS: 36415; 36416; 80053; 81001; 83880; 85025; 94640; J1815; J7620

== ENCOUNTER 2018-12-22 14:25 | Inpatient (IN) | payer MEDICARE, OTHER ==
[2018-12-22] MEDS ORDERED: Budesonide 0.5 MG/2 ML NEB NEB PRN (17:51)
[2018-12-22] MEDS ORDERED: Nitroglycerin 0.4 MG TAB (25 Tab Bottle) SL PRN (17:51)
[2018-12-22] MEDS: Carvedilol 3.125 MG TAB PO SCH (20:14)
[2018-12-22] MEDS: Ramipril 5 MG CAP PO SCH (20:14)
[2018-12-22] MEDS: Atorvastatin Calcium 10 MG TAB PO SCH (20:14)
[2018-12-22] MEDS: HumaLOG 300 UNITS/3 ML VIAL SC PRN (20:14)
--- NOTE | 2018-12-22 21:25 | HP ---
HISTORY OF PRESENT ILLNESS: Ms. Gustafson is a pleasant 78-year-old white female who initially presented to [facility] with epistaxis. She was noted to be extremely ill and anemic and she had nasal bleeding for several days. She required a unit of blood and had an ENT for cauterization of her nasal bleed. She was stabilized and now is transferred to [facility] for physical therapy and occupational therapy to increase her strength and her stamina. PAST MEDICAL HISTORY: Positive for; 1. Chronic diastolic congestive heart failure. 2. Coronary artery disease. 3. Diabetes type 2, uncontrolled. 4. Hyperlipidemia. 5. Edema. 6. Hypothyroidism. 7. Myalgia. 8. Arthritis. 9. Epistaxis. 10. Acute on chronic renal insufficiency. 11. Hypertension. 12. Obstructive sleep apnea. 13. Chronic respiratory failure with hypoxemia. 14. Noncompliance PAST SURGICAL HISTORY: 1. Bilateral total knee replacements. 2. Left femur ORIF. 3. Right foot surgery. 4. Cholecystectomy. 5. PTCA with stents x3. 6. Bilateral cataract surgery. FAMILY HISTORY: Reveals the patient's father is and had significant diabetes. SOCIAL HISTORY: Reveals the patient does not smoke, does not drink, does not use drugs. She is to her . She gets no exercise and lays around the house mostly. She has a scooter and a lift chair. ALLERGIES: REVEAL THE PATIENT IS ALLERGIC TO PENICILLIN WITH ANGIOEDEMA AND BACTRIM DS GIVES HER A RASH. MEDICATIONS: Present medications or transfer medications reveal she is on the following. 1. Tylenol 650 q.8 hours p.r.n. 2. DuoNeb p.r.n. 3. Aspirin 81 mg a day. 4. Lipitor 10 mg at bedtime. 5. Pulmicort neb treatment p.r.n. 6. Carvedilol 3.25 b.i.d. 7. Lasix 40 b.i.d. 8. 26 units of 70/30 insulin. 9. Sliding scale lispro. 10. Isosorbide mononitrate 120 mg daily. 11. Zaroxolyn 2.5 mg daily. 12. Nitrostat 0.4 mg sublingual q.5 minutes p.r.n. chest pain. 13. Protonix 40 mg a day. 14. Potassium chloride 20 mEq daily. 15. Ramipril 10 mg b.i.d. 16. Zoloft 50 mg a day. REVIEW OF SYSTEMS: CONSTITUTIONAL: The patient is positive for weakness and fatigue and noncompliance. Negative for fever, chills, night sweats, headache, and weight change. HEAD: Reveals negative for headaches and head injury. EYES: Reveal negative for visual changes. ENT: Negative for hearing loss and positive for congestion and rhinorrhea. RESPIRATORY: Negative for cough, dyspnea, hemoptysis, or sputum changes. CARDIOVASCULAR: Negative for chest pain, dyspnea on exertion, PND, or claudication. Positive for edema. GASTROENTEROLOGY: Negative for nausea, vomiting, diarrhea, melena, or dysphagia. : Negative for nocturia, hematuria, urgency, frequency, or dysuria. MUSCULOSKELETAL: Positive for muscle weakness, stiffness, and generalized weakness. SKIN: Negative for skin rashes, skin lesions, or jaundice. PHYSICAL EXAMINATION: GENERAL: This is a well-developed, morbidly obese, 78-year-old white female, who is found lying in bed. She denies and states she cannot get up to go to the bathroom to go urinate by herself. HEENT: Reveals normocephalic and nontraumatic cranium. Pupils are equal, round , and reactive. Extraocular movements are intact. Nose and throat are dry. NECK: Supple without masses, nodes, or bruits. CHEST: Clear to auscultation with distant breath sounds secondary to obesity. HEART: Reveals a regular rate and rhythm, which is also distant. No murmurs, gallops, or rubs are noted. ABDOMEN: Morbidly obese, soft, nontender with normal bowel sounds. Masses are unable to be palpated. No guarding or rebound are noted. No CVA tenderness noted. : Unremarkable. EXTREMITY: Reveals no clubbing or cyanosis. The patient's pulses are distant. The patient has 1+ pedal edema. generalized weakness. NEUROLOGIC: Grossly unremarkable. ASSESSMENT: 1. Generalized weakness. 2. Epistaxis with bleed out requiring 1 unit of transfused packed red blood cells and ear, nose, and throat consultation for cauterization of her nasal bleed. 3. Acute on chronic renal insufficiency. 4. Hyperlipidemia. 5. Restrictive lung disease. 6. Acute on chronic diastolic congestive heart failure. 7. Diabetes type 2, uncontrolled. 8. Hypertension. 9. Coronary artery disease. 10. Obstructive sleep apnea. 11. Chronic respiratory failure. 12. Neuropathy. 13. Gastroesophageal reflux disease. 14. Noncompliance. PLAN: 1. The patient will continue on her present medications. 2. Continue to encourage the patient to participate well with physical therapy and occupational therapy. 3. Continue to monitor the patient for anemia. 4. Continue to monitor the patient's diabetes with Accu-Cheks a.c. and at bedtime and adjust as needed. 5. Continue to monitor the patient's blood pressure and adjust medications as needed. 6. Supportive care. 7. Physical therapy and occupational therapy. Job ID: [id number] MTDD
[2018-12-23] MEDS: Acetaminophen 325 MG TAB PO PRN ×2 (00:29→10:29)
[2018-12-23] MEDS: HumaLOG 300 UNITS/3 ML VIAL SC PRN ×2 (05:03→11:24)
[2018-12-23] MEDS: Furosemide 40 MG TAB PO SCH ×2 (05:03→13:52)
[2018-12-23] MEDS: HumuLIN 70/30 (300 UNITS/3 ML VIAL) SC SCH ×2 (08:20→17:16)
[2018-12-23] MEDS: Potassium Chloride 20 MEQ TAB PO SCH (08:20)
[2018-12-23] MEDS: Carvedilol 3.125 MG TAB PO SCH ×2 (08:21→20:32)
[2018-12-23] MEDS: Metolazone 5 MG TAB PO SCH ×2 (08:21→08:52)
[2018-12-23] MEDS: Ramipril 5 MG CAP PO SCH ×2 (08:22→20:31)
--- NOTE | 2018-12-23 10:35 | PRG ---
DATE OF SERVICE: 12/23/2018 SUBJECTIVE: Ms. Gustafson is a very pleasant 78-year-old white female, who presented to [facility] with epistaxis. She had been having nosebleed for several days and required a unit of blood. It did not stop and her ENT saw her in the hospital and cauterized her nose. Since then, she has done much better. She did receive a unit of blood and was transferred to [facility] for PT and OT to increase her strength and stamina. The patient states she did well last night, slept well, and ate a good breakfast this morning. She had Occupational Therapy evaluate her yesterday and Physical Therapy evaluate her this morning. She states she is going to try to work hard to get stronger, so she will become more independent at home. OBJECTIVE: VITAL SIGNS: Today reveal blood pressure this morning slightly elevated at 181/72. She has not had her blood pressure medicine yet. Pulse is 63, respirations 16, O2 saturation 99% to 100% on 2 L and we will try to wean that, and T-max is 96.4. GENERAL: This is a well-developed, well-nourished, morbidly obese white female, in no apparent distress at this time. HEENT: Reveals normocephalic and nontraumatic cranium. Pupils are equally round and reactive. Extraocular movements are intact. Nose and throat are clear and moist. NECK: Supple without masses, nodes, or bruits. CHEST: Clear to auscultation. Breath sounds are noted to be distant. No rales, no rhonchi, no wheezes, and no cough is noted. HEART: Reveals a regular rate and rhythm, which is also distant. No murmurs, gallops, or rubs are able to be noted. ABDOMEN: Morbidly obese, soft, and nontender without organomegaly. Normal bowel sounds are noted. No rebound or guarding is noted. GENITOURINARY: Deferred. EXTREMITIES: Reveal no clubbing or cyanosis with 1+ edema. The patient complains of generalized weakness and would not get out of bed last night to go to the bathroom. NEUROLOGIC: She is grossly unremarkable and no focal deficits. LABORATORY DATA: Her laboratories so far are not back, but her point of care sugars revealed at supper last night 286, at bedtime 299, and this morning 256. We will follow that for another day and then adjust her insulin as needed. ASSESSMENT: 1. Generalized weakness. 2. Recent epistaxis of blood, requiring 1 unit transfused packed red blood cells. 3. Recent ENT consultation for cauterization of the nasal bleed. 4. Acute on chronic renal insufficiency. 5. Hyperlipidemia. 6. Restrictive lung disease. 7. Acute on chronic diastolic congestive heart failure. 8. Diabetes type 2, uncontrolled. 9. Hypertension. 10. Coronary artery disease. 11. Obstructive sleep apnea on continuous positive airway pressure. 12. Chronic respiratory failure. 13. Neuropathy. 14. Gastroesophageal reflux disease. 15. Noncompliance. PLAN: 1. The patient will continue present medications. 2. We will encourage her to get some diabetic teaching while she is here. Encouraged her to correct her diet. 3. Encourage the patient to be compliant with the therapy and her medications. 4. Continue to monitor the patient for anemia. 5. Continue to monitor the patient's renal indices. 6. Continue to monitor the patient's diabetes with Accu-Cheks before meals and at bedtime. 7. Monitor the patient's blood pressure and adjust medications as needed. 8. Supportive care. 9. Continue physical therapy and occupational therapy. 10. Labs for this morning are already pending. Job ID: [id number]
[2018-12-23] MEDS: Atorvastatin Calcium 10 MG TAB PO SCH (20:32)
[2018-12-24 06:08] LABS: ALT (SGPT) 14 U/L (8-55); AST (SGOT) 19 U/L (5-34); Albumin 3.2 g/dL (3.4-4.8); Alkaline Phosphatase 128 U/L (40-150); Anion Gap 17 mmol/L (10-20); BUN (Urea Nitrogen) 28 mg/dL (9.8-20.1); Bilirubin, Total 0.5 mg/dL (0.2-1.2); Calc. Creatinine Clearance 60 mL/min (70-130); Calcium 9.4 mg/dL (7.8-10.44); Carbon Dioxide 28 mmol/L (23-31); Chloride 100 mmol/L (98-107); Estimated GFR-MDRD 35; Glucose 213 mg/dL (83-110); Potassium 3.8 mmol/L (3.5-5.1); Protein, Total 6.2 g/dL (6.0-8.3); Sodium 141 mmol/L (136-145)
[2018-12-24] MEDS: HumaLOG 300 UNITS/3 ML VIAL SC PRN ×4 (06:15→20:33)
[2018-12-24] MEDS: Furosemide 40 MG TAB PO SCH ×2 (06:15→14:16)
[2018-12-24 06:49] LABS: #Basophils 0.1 thou/uL (0.0-0.2); #Eosinphils 0.2 thou/uL (0.0-0.7); #Lymphocytes 1.3 thou/uL (1.20-3.40); #Monocytes 0.4 thou/uL (0.11-0.59); #Neutrophils 3.3 thou/uL (1.40-6.50); %Basophils 1.2 % (0.0-1.0); %Eosinophils 3.7 % (0.0-10.0); %Lymphocytes 24.8 % (21.0-51.0); %Monocytes 7.2 % (0.0-10.0); %Neutrophils 63.1 % (42.0-75.0); Hypochromia MODERATE=16-30 cells (100X) (0-5/hpf); MDiff Complete? YES; Mean Corpuscular HGB CONC 29.9 g/dL (32.0-36.0); Mean Corpuscular Volume 83.6 fL (78.0-98.0); Mean Platelet Volume 7.5 fL (7.4-10.4); Platelet Count 94 thou/uL (130-400); Platelet Morphology Comment Appears Decreased; RBC Distribution Width 14.9 % (11.5-14.5); Red Blood Cell (RBC) Count 3.19 mill/uL (4.20-5.40); White Blood Cell (WBC) Count 5.3 thou/uL (4.8-10.8)
[2018-12-24] MEDS: HumuLIN 70/30 (300 UNITS/3 ML VIAL) SC SCH ×2 (07:48→17:25)
[2018-12-24] MEDS: Potassium Chloride 20 MEQ TAB PO SCH (07:51)
[2018-12-24] MEDS: Acetaminophen 325 MG TAB PO PRN (08:49)
[2018-12-24] MEDS: Carvedilol 3.125 MG TAB PO SCH ×2 (09:02→20:31)
[2018-12-24] MEDS: Metolazone 5 MG TAB PO SCH (09:04)
[2018-12-24] MEDS: Ramipril 5 MG CAP PO SCH ×2 (09:05→20:31)
[2018-12-24] MEDS: Aspirin 81 mg Enteric Coated Tablet PO SCH (09:13)
[2018-12-24 13:12] VITALS: BMI 42.7
--- NOTE | 2018-12-24 14:15 | PRG ---
DATE OF SERVICE: 12/24/2018 SUBJECTIVE: Ms. Gustafson is a pleasant 78-year-old white female, who had epistaxis and had to have 2 units of blood and had her nose cauterized while she is at [facility]. She complained of increased weakness and so she was transferred to [facility] for PT and OT to increase her strength and stamina. The patient states she did well, but her left foot is hurting, and she says it is a diabetic pain. She was unable to do very much therapy today and I told her it is important that she does some therapy, because if she refuses 3 times, she may not be able to stay and may have to be transferred to elsewhere. OBJECTIVE: VITAL SIGNS: Today reveal blood pressure 107/58 and 146/68. Pulse 65, respirations 16, and O2 sat 96% on 1.5 L. T-max 97.8. GENERAL: This is a well-developed, morbidly obese white female, in no apparent distress at this time. HEENT: Normocephalic and nontraumatic cranium. Pupils equally round and reactive. Extraocular movements are intact. Nose and throat are slightly dry. NECK: Supple without masses, nodes or bruits. CHEST: Clear to auscultation. No rales, rhonchi, wheezes or cough is heard. HEART: Regular rate and rhythm without murmurs, gallops or rubs. It is noted to be distant. ABDOMEN: Morbidly obese, soft, nontender without organomegaly. Normal bowel sounds are noted. No rebound or guarding is noted. : Deferred. EXTREMITIES: No clubbing or cyanosis with 1+ edema. The patient complains of left foot pain, but is not red, it is not warm, it is not inflamed, and she says it is a diabetic pain, but she does not describe it as a neuropathy type pain. LABORATORY DATA: Laboratories are back and they are excellent, much improved from the hospital. ASSESSMENT: 1. Generalized weakness. 2. Recent epistaxis, with a unit of transfused packed red blood cells. 3. ENT consultation for cauterization of the nasal bleed. 4. Acute on chronic renal insufficiency. 5. Hyperlipidemia. 6. Restrictive lung disease. 7. Acute on chronic diastolic congestive heart failure. 8. Diabetes type 2, uncontrolled. 9. Hypertension. 10. Coronary artery disease. 11. Obstructive sleep apnea with CPAP. 12. Chronic respiratory failure. 13. Neuropathy. 14. Gastroesophageal reflux disease. 15. Noncompliance. PLAN: 1. The patient will continue present medications. 2. Encourage the patient to work hard with therapy and do the best she can. 3. Continue to monitor the patient for anemia. 4. Monitor the patient's renal disease. 5. Continue to monitor the patient's diabetes with Accu-Cheks a.c. and at bedtime. 6. Monitor the patient's blood pressure and adjust medications as needed. 7. Encourage the patient to do her physical therapy. Job ID: [id number]
[2018-12-24] MEDS: Atorvastatin Calcium 10 MG TAB PO SCH (20:31)
[2018-12-25] MEDS: Furosemide 40 MG TAB PO SCH ×2 (06:06→13:58)
[2018-12-25] MEDS: HumuLIN 70/30 (300 UNITS/3 ML VIAL) SC SCH ×2 (08:37→17:14)
[2018-12-25] MEDS: Gabapentin 100 MG CAP PO SCH ×2 (08:38→21:14)
[2018-12-25] MEDS: Acetaminophen 325 MG TAB PO PRN (08:39)
[2018-12-25] MEDS: Aspirin 81 mg Enteric Coated Tablet PO SCH (08:40)
[2018-12-25] MEDS: Carvedilol 3.125 MG TAB PO SCH ×2 (08:40→21:14)
[2018-12-25] MEDS: Potassium Chloride 20 MEQ TAB PO SCH (08:40)
[2018-12-25] MEDS: Metolazone 5 MG TAB PO SCH (08:40)
[2018-12-25] MEDS: Ramipril 5 MG CAP PO SCH ×2 (08:43→21:14)
--- NOTE | 2018-12-25 10:28 | PRG ---
DATE OF SERVICE: 12/25/2018 SUBJECTIVE: Ms. Gustafson is a 78-year-old morbidly obese, white female, who have epistaxis and received blood transfusions. She was seen in consultation by ENT and had her nose cauterized. She was noted to be very weak and was transferred to [facility] for PT and OT to increase her strength and stamina. Also, her is not at home because he is having urology surgery. The patient states she is feeling good, but she complains of left diabetic foot pain and we will start her on low dose of gabapentin 100 mg twice a day this morning. She is reluctant to do her therapy because of her foot pain. We will try to address that with her gabapentin this weekend and hopefully she will be able to participate in therapy much better next week. OBJECTIVE: VITAL SIGNS: Today reveal blood pressure 131/58, pulse 70, respirations 20, O2 saturation 96% on 1 L, T-max 97.6. GENERAL: This is a well-developed, morbidly obese, white female, in no apparent distress at this time. HEENT: Reveals a normocephalic and nontraumatic cranium. Pupils are equal, round, reactive. Extraocular movements are intact. Nose and throat are dry. NECK: Supple without masses, nodes, or bruits. CHEST: Clear to auscultation. No rales, rhonchi, or wheezes are heard. No cough is noted. HEART: Reveals a regular rate and rhythm without murmurs, gallops, or rubs. ABDOMEN: Morbidly obese. Soft, nontender. Normal bowel sounds are noted. No rebound or guarding is noted. : Deferred. EXTREMITIES: Reveal trace edema this morning. The patient continues to complain of some left neuropathy type pain again. Her foot is not red, warm, or inflamed. ASSESSMENT: 1. Recent epistaxis with transfused blood. 2. ENT consultation for cauterization of nasal bleed. 3. Pxdky-vb-rchjzks renal insufficiency. 4. Hyperlipidemia. 5. Restrictive lung disease. 6. Mlzas-km-xlpcklm diastolic congestive heart failure. 7. Diabetes type 2, uncontrolled. We will increase Novolin 70/30 from 26 units b.i.d. to 28 units. 8. Hypertension. 9. Coronary artery disease. 10. Obstructive sleep apnea, on CPAP. 11. Chronic respiratory failure. 12. Neuropathy. 13. Gastroesophageal reflux disease. 14. Noncompliance. PLAN: 1. Encourage the patient to be out of bed, sitting in a wheelchair today as much as possible. 2. Continue to monitor the patient for anemia. We will do labs tomorrow. 3. Monitor the patient's renal disease. 4. Monitor the patient's diabetes with Accu-Cheks a.c. and at bedtime. 5. Monitor the patient's blood pressure. Adjust medications as needed. 6. Continue to encourage the patient to participate in therapy. 7. Stress ulcer prophylaxis. 8. Decubitus precautions. 9. DVT prophylaxis. Job ID: [id number]
[2018-12-25] MEDS: HumaLOG 300 UNITS/3 ML VIAL SC PRN ×2 (10:33→17:14)
[2018-12-25] MEDS: Atorvastatin Calcium 10 MG TAB PO SCH (21:14)
[2018-12-26] MEDS: Furosemide 40 MG TAB PO SCH ×2 (04:52→14:34)
[2018-12-26] MEDS: Acetaminophen 325 MG TAB PO PRN ×2 (04:52→17:00)
[2018-12-26] MEDS: Metolazone 5 MG TAB PO SCH (08:45)
[2018-12-26] MEDS: Potassium Chloride 20 MEQ TAB PO SCH (08:45)
[2018-12-26] MEDS: Ramipril 5 MG CAP PO SCH ×2 (08:46→20:51)
[2018-12-26] MEDS: Gabapentin 100 MG CAP PO SCH ×2 (08:46→20:51)
[2018-12-26] MEDS: Aspirin 81 mg Enteric Coated Tablet PO SCH (08:46)
[2018-12-26] MEDS: Carvedilol 3.125 MG TAB PO SCH ×2 (08:46→20:51)
[2018-12-26] MEDS: HumuLIN 70/30 (300 UNITS/3 ML VIAL) SC SCH ×2 (08:47→16:59)
--- NOTE | 2018-12-26 10:10 | PRG ---
DATE OF SERVICE: 12/26/2018 SUBJECTIVE: Ms. Gustafson is a 78-year-old morbidly obese white female, who had significant epistaxis and had to go to [facility] in [place] for cauterization by ENT and blood transfusion. She was stable, but very weak and transferred to [facility] for PT and OT to increase her strength and stamina. Her has had urological surgery and is unable to care for her at home. The patient states she had a fair day yesterday, but slept most of the day. She states she did not get in a wheelchair or sit in a chair, but sat on the side of the bed for short period of time. She states her foot pain is stable. I encouraged her to get out of bed and to sit up in a wheelchair as much as possible. I feel like she is not motivated and not willing to work much in physical therapy as is her custom. OBJECTIVE: VITAL SIGNS: Reveal blood pressure 121/57, and at late last night, she was slightly agitated and was 181/72. Pulse was 68, respirations 18, O2 saturation 97% to 100% on 1 L nasal cannula, and T-max was 98. GENERAL: This is a well-developed, well-nourished, morbidly obese white female, lying in bed and eating her breakfast. HEENT: Reveals normocephalic and nontraumatic cranium. Pupils equally round. Extraocular movements are intact. Nose and throat are moist. NECK: Supple without masses, nodes, or bruits. CHEST: Clear to auscultation. No rales, rhonchi, wheezes, or cough is heard. HEART: Reveals a regular rate and rhythm without murmurs, gallops, or rubs. ABDOMEN: Morbidly obese, soft, and nontender. No rebound or guarding is noted. : Deferred. EXTREMITIES: Reveal again trace edema. The patient's foot is not red, warm, inflamed, or tender to touch. She complains of diabetic pain in that foot still. ASSESSMENT: 1. Recent severe epistaxis with blood transfuse. 2. ENT consultation, cauterized for nasal bleed. 3. Acute on chronic renal insufficiency. 4. Hyperlipidemia. 5. Restrictive lung disease. 6. Acute on chronic diastolic congestive heart failure. 7. Diabetes type 2, uncontrolled at home in the past. 8. Hypertension. 9. Coronary artery disease. 10. Obstructive sleep apnea, on CPAP at night. 11. Chronic respiratory failure. 12. Neuropathy. 13. Gastroesophageal reflux. 14. Noncompliance. PLAN: 1. The patient's 70/30 has been increased to 28 units b.i.d. and her sugar this morning is 117. 2. Continue to monitor the patient for anemia. 3. Continue to monitor the patient's diabetes with Accu-Cheks a.c. and at bedtime. 4. Continue to encourage the patient to get out of bed and sit in a wheelchair today as much as possible. 5. Continue to monitor the patient's blood pressure and adjust medications as needed. 6. Encourage the patient to participate in therapy. 7. Stress ulcer prophylaxis. 8. Decubitus precautions. 9. DVT prophylaxis. 10. Continue PT and OT. Job ID: [id number]
[2018-12-26] MEDS: HumaLOG 300 UNITS/3 ML VIAL SC PRN ×2 (11:43→16:59)
[2018-12-26] MEDS: Atorvastatin Calcium 10 MG TAB PO SCH (20:51)
[2018-12-27] MEDS: Furosemide 40 MG TAB PO SCH ×2 (06:10→14:22)
[2018-12-27] MEDS: HumuLIN 70/30 (300 UNITS/3 ML VIAL) SC SCH ×2 (08:20→17:02)
[2018-12-27] MEDS: Potassium Chloride 20 MEQ TAB PO SCH (08:21)
[2018-12-27] MEDS: Carvedilol 3.125 MG TAB PO SCH ×2 (08:21→21:16)
[2018-12-27] MEDS: Gabapentin 100 MG CAP PO SCH ×2 (08:21→21:16)
[2018-12-27] MEDS: Aspirin 81 mg Enteric Coated Tablet PO SCH (08:21)
[2018-12-27] MEDS: Metolazone 5 MG TAB PO SCH (08:22)
[2018-12-27] MEDS: Ramipril 5 MG CAP PO SCH ×2 (08:22→21:16)
[2018-12-27] MEDS: Acetaminophen 325 MG TAB PO PRN (09:15)
[2018-12-27] MEDS ORDERED: HumuLIN 70/30 (300 UNITS/3 ML VIAL) SC SCH (10:30)
--- NOTE | 2018-12-27 10:33 | PRG ---
DATE OF SERVICE: 12/27/2018 SUBJECTIVE: Ms. Gustafson is a well-developed, well-nourished, morbidly obese 78-year-old white female, who has significant epistaxis somewhat in [facility]. She had to have an ENT cauterize that area and she had to have blood transfusion. Postoperatively, she is very weak, transferred to [facility] for PT and OT. She is here to increase her strength and stamina. The patient states she is too weak to get up and stand, although she is able to stand, but she is not motivated at all. She will take 2 steps and then states I cannot do anymore. Unfortunately, she has had problems with motivation in the past. If she is not able to do any better, then PT and OT are not able to help her here. We will have to find a nursing care facility for her. I will call her and discuss this problem with him. OBJECTIVE: VITAL SIGNS: Today reveal blood pressure 136/75, pulse 78, respirations 18, and O2 saturation 96% to 100% on 1 L nasal cannula. GENERAL: This is a well-developed, well-nourished, morbidly obese white female, in no apparent distress at this time. HEENT: Reveals normocephalic and nontraumatic cranium. Pupils equal, round, and reactive. Extraocular movements are intact. Nose and throat are slightly dry. NECK: Supple without masses, nodes, or bruits. CHEST: Clear to auscultation. No rales, rhonchi, wheezes, or cough is heard. HEART: Reveals a regular rate and rhythm without murmurs, gallops, or rubs. ABDOMEN: Morbidly obese, soft, and nontender. No rebound or guarding is noted. : Deferred. EXTREMITIES: Reveal trace edema. The patient states she is just too weak to do anything. She has no complaints of pain today. ASSESSMENT: 1. Recent severe epistaxis with blood transfusion. 2. ENT consultation, cauterization. 3. Acute on chronic renal insufficiency. 4. Hyperlipidemia. 5. Restrictive lung disease. 6. Acute on chronic diastolic congestive heart failure. 7. Diabetes type 2, uncontrolled in the past. 8. Hypertension. 9. Coronary artery disease. 10. Obstructive sleep apnea with CPAP at night. 11. Chronic respiratory failure. 12. Neuropathy. 13. Gastroesophageal reflux disease. 14. Noncompliance. PLAN: 1. The patient's sugars are fair, but could be a bit better. We increased her 70/30 to 30 units b.i.d. 2. Continue to monitor the patient for anemia. 3. Encourage the patient to participate better with PT and OT. 4. Monitor the patient's diabetes with Accu-Cheks before meals and at bedtime. 5. Keep the patient out of bed as much as possible in the wheelchair. 6. Monitor the patient's blood pressure and adjust medications as needed. 7. Again encourage the patient to participate in therapy. 8. Stress ulcer prophylaxis. 9. Decubitus precautions. 10. Continue PT and OT. Job ID: [id number]
[2018-12-27] MEDS: HumaLOG 300 UNITS/3 ML VIAL SC PRN ×2 (11:16→17:03)
[2018-12-27] MEDS: Atorvastatin Calcium 10 MG TAB PO SCH (21:16)
[2018-12-28] MEDS: Furosemide 40 MG TAB PO SCH ×2 (05:50→14:50)
[2018-12-28] MEDS: Acetaminophen 325 MG TAB PO PRN ×2 (07:36→17:09)
[2018-12-28] MEDS: Potassium Chloride 20 MEQ TAB PO SCH (08:32)
[2018-12-28] MEDS: HumuLIN 70/30 (300 UNITS/3 ML VIAL) SC SCH ×2 (08:32→17:09)
[2018-12-28] MEDS: Aspirin 81 mg Enteric Coated Tablet PO SCH (08:33)
[2018-12-28] MEDS: Carvedilol 3.125 MG TAB PO SCH ×2 (08:33→21:04)
[2018-12-28] MEDS: Gabapentin 100 MG CAP PO SCH ×2 (08:33→21:04)
[2018-12-28] MEDS: Ramipril 5 MG CAP PO SCH ×2 (08:34→21:04)
[2018-12-28] MEDS: Metolazone 5 MG TAB PO SCH (08:34)
--- NOTE | 2018-12-28 10:46 | PRG ---
DATE OF SERVICE: 12/28/2018 SUBJECTIVE: Ms. Gustafson is a very pleasant 78-year-old white female, who had significant nosebleed. Presented to the ER at [facility] and had to have ENT cauterized. She had to receive a unit of packed red blood cells. Postoperatively, she has been very weak and transferred to [facility] for PT and OT. She is here to increase her strength and stamina. The patient had OT this morning and had to have a shower, but again was barely able to stand and cannot take any steps. She had to be moved up from her bed to the shower in a wheelchair and transferred. She had a shower now. She states she is exhausted. She complains of pain in her left foot, but it is not red, not swollen, does not look like gout. She states she did not hurt it or twist it. OBJECTIVE: VITAL SIGNS: This morning reveal blood pressure 126/59, pulse 89 to 93, respirations 16, O2 saturation 93% on 1.5 L nasal cannula, and T-max 100.8. GENERAL: This is a well-developed, well-nourished, very pleasant, morbidly obese white female, in no apparent distress at this time. HEENT: Reveals normocephalic and nontraumatic cranium. Pupils equal, round, and reactive. Extraocular movements are intact. Nose and throat are clear and moist. NECK: Supple without masses, nodes, or bruits. CHEST: Clear to auscultation. No rales, rhonchi, or wheezes are heard. HEART: Reveals a regular rate and rhythm without murmurs, gallops, or rubs. ABDOMEN: Morbidly obese, soft, and nontender. No rebound or guarding is noted today. : Deferred. EXTREMITIES: Reveal continued trace edema. Left foot is the patient states painful, but she can flex it and extend it without pain. It is not red. It is not warm. It is not fluctuant. It has no signs of swelling. ASSESSMENT: 1. Severe epistaxis with blood transfusion. 2. Anemia. 3. ENT consultation to cauterize. 4. Acute on chronic renal insufficiency. 5. Hyperlipidemia. 6. Restrictive lung disease. 7. Acute on chronic diastolic congestive heart failure. 8. Diabetes type 2, uncontrolled in the past. 9. Hypertension. 10. Coronary artery disease. 11. Obstructive sleep apnea with CPAP at night. 12. Neuropathy. 13. Gastroesophageal reflux. 14. Noncompliance. PLAN: 1. The patient is encouraged to participate well in therapy, but she is somewhat lackadaisical about that. 2. We did increase her insulin 70/30 to 30 units b.i.d. 3. Continue to monitor the patient's anemia. 4. Continue to monitor patient's sugars. 5. Continue to encourage the patient to participate well PT and OT. 6. Keep the patient out of bed as much as possible. 7. Monitor the patient's blood pressure and adjust medications as needed. 8. Encourage the patient to again participate in therapy. 9. Stress ulcer prophylaxis. 10. Decubitus precautions. 11. Continue PT and OT. Job ID: [id number]
[2018-12-28] MEDS: Atorvastatin Calcium 10 MG TAB PO SCH (21:04)
[2018-12-29] MEDS: Furosemide 40 MG TAB PO SCH ×2 (06:05→14:21)
[2018-12-29] MEDS: HumuLIN 70/30 (300 UNITS/3 ML VIAL) SC SCH ×2 (08:41→17:15)
[2018-12-29] MEDS: Ramipril 5 MG CAP PO SCH ×2 (08:42→21:35)
[2018-12-29] MEDS: Metolazone 5 MG TAB PO SCH (08:42)
[2018-12-29] MEDS: Carvedilol 3.125 MG TAB PO SCH ×2 (08:42→21:35)
[2018-12-29] MEDS: Aspirin 81 mg Enteric Coated Tablet PO SCH (08:43)
[2018-12-29] MEDS: Gabapentin 100 MG CAP PO SCH ×2 (08:43→21:35)
[2018-12-29] MEDS: Potassium Chloride 20 MEQ TAB PO SCH (08:44)
--- NOTE | 2018-12-29 19:48 | PRG ---
DATE OF SERVICE: 12/29/2018 SUBJECTIVE: Ms. Gustafson is a very pleasant 78-year-old morbidly obese, white female, who presented to the ER with epistaxis. She had an ENT called out for consultation that cauterized her bleeder. She ended up having a packed unit of red blood cells. Postoperatively, she was very weak and was transferred to [facility] for physical therapy and occupational therapy. She is here to increase her strength and stamina. The patient has been followed by PT and OT and has difficulty doing any PT and OT, states she is just too weak and her arms are too heavy and she cannot do it. Unfortunately, if she is unable to participate in therapy, she is unable to stay here. The patient's came today and he did get training on how to transfer her. After discussion, the patient states she would like to go home on Thursday because her family can pick her up and help her into the house. OBJECTIVE: VITAL SIGNS: Today reveal blood pressure 108/52, pulse 98, respirations 18, O2 saturation 95% on room air, 98% on 2 L nasal cannula. T-max 97.4. GENERAL: This is a well-developed, morbidly obese, white female, in no apparent distress at this time. HEENT: Reveals normocephalic, nontraumatic cranium. Pupils are equal, round, and reactive. Extraocular movements are intact. Nose and throat are slightly dry. NECK: Supple without masses, nodes, or bruits. CHEST: Clear to auscultation. No rales, no rhonchi, no wheezes are heard. HEART: Reveals a regular rate and rhythm without murmurs, gallops, or rubs. ABDOMEN: Morbidly obese, soft, nontender. No rebound or guarding is noted. : Deferred. EXTREMITIES: Reveal trace edema, left foot. She is not complaining of any pain today, but states she is just weak and cannot lift her arms. ASSESSMENT: 1. Severe epistaxis with blood transfusion. 2. Anemia. 3. ENT consultation to cauterize her nose. 4. Zxjhd-pm-osijabs renal insufficiency. 5. Hyperlipidemia. 6. Restrictive lung disease. 7. Hvguq-tv-viuatof diastolic congestive heart failure. 8. Diabetes type 2, uncontrolled in the past. 9. Hypertension. 10. Coronary artery disease. 11. Obstructive sleep apnea with CPAP at night. 12. Neuropathy. 13. Gastroesophageal reflux. 14. Noncompliance. PLAN: 1. Unfortunately, the patient is unable to participate well in therapy to continue her therapy here. She states that if she has to go home, she would like to go home on Thursday because her family from [place] are used to come and help her to get her into the house. 2. Continue to monitor the patient for anemia. 3. Lab work tomorrow morning. 4. Continue to monitor the patient's sugars. 5. Encourage the patient to participate well with PT and OT if possible. 6. Encourage the patient to stay out of bed as much as possible. She spends 99% of her time in bed and will not come out of bed and sit in a chair. 7. Encourage the patient to follow her blood pressure at home. 8. Stress ulcer prophylaxis. 9. Decubitus precautions. 10. Continue physical therapy and occupational therapy. 11. Expect discharge on Thursday. Job ID: [id number]
[2018-12-29] MEDS: Atorvastatin Calcium 10 MG TAB PO SCH (21:35)
[2018-12-30 05:32] LABS: Chloride 94 mmol/L (98-107); Potassium 3.9 mmol/L (3.5-5.1); Sodium 139 mmol/L (136-145)
[2018-12-30 05:41] LABS: #Eosinphils 0.1 thou/uL (0.0-0.7); #Lymphocytes 1.2 thou/uL (1.20-3.40); #Monocytes 0.4 thou/uL (0.11-0.59); #Neutrophils 2.7 thou/uL (1.40-6.50); %Eosinophils 3.3 % (0.0-10.0); %Lymphocytes 26.4 % (21.0-51.0); %Neutrophils 61.3 % (42.0-75.0); Anisocytosis SLIGHT = 6-15 cells (100X) (0-5/hpf); Hemoglobin 7.4 g/dL (12.0-16.0); Hypochromia SLIGHT = 6-15 cells (100X) (0-5/hpf); MDiff Complete? YES; Mean Corpuscular HGB CONC 30.4 g/dL (32.0-36.0); Mean Corpuscular Hemoglobin 25.1 pg (27.0-31.0); Mean Corpuscular Volume 82.4 fL (78.0-98.0); Mean Platelet Volume 9.7 fL (7.4-10.4); Microcytosis SLIGHT = 6-15 cells (100X) (0-5/hpf); Platelet Count 92 thou/uL (130-400); Platelet Morphology Comment Appears Decreased; RBC Distribution Width 15.3 % (11.5-14.5); Red Blood Cell (RBC) Count 2.93 mill/uL (4.20-5.40); White Blood Cell (WBC) Count 4.4 thou/uL (4.8-10.8)
[2018-12-30 05:45] LABS: ALT (SGPT) 18 U/L (8-55); AST (SGOT) 20 U/L (5-34); Albumin 3.1 g/dL (3.4-4.8); Alkaline Phosphatase 195 U/L (40-150); BUN (Urea Nitrogen) 69 mg/dL (9.8-20.1); Bilirubin, Total 0.3 mg/dL (0.2-1.2); Calc. Creatinine Clearance 40 mL/min (70-130); Calcium 8.9 mg/dL (7.8-10.44); Carbon Dioxide 31 mmol/L (23-31); Estimated GFR-MDRD 22; Globulin 3.8 g/dL (2.4-3.5); Glucose 115 mg/dL (83-110); Protein, Total 6.9 g/dL (6.0-8.3)
[2018-12-30 06:09] LABS: Anion Gap 18 mmol/L (10-20)
[2018-12-30] MEDS: HumuLIN 70/30 (300 UNITS/3 ML VIAL) SC SCH ×2 (08:35→17:28)
[2018-12-30] MEDS: Potassium Chloride 20 MEQ TAB PO SCH (08:36)
[2018-12-30] MEDS: Metolazone 5 MG TAB PO SCH (08:36)
[2018-12-30] MEDS: Ramipril 5 MG CAP PO SCH ×2 (08:36→20:39)
[2018-12-30] MEDS: Carvedilol 3.125 MG TAB PO SCH ×2 (08:37→20:38)
[2018-12-30] MEDS: Aspirin 81 mg Enteric Coated Tablet PO SCH (08:37)
[2018-12-30] MEDS: Gabapentin 100 MG CAP PO SCH ×2 (08:37→13:41)
--- NOTE | 2018-12-30 15:21 | PRG ---
DATE OF SERVICE: 12/30/2018 ADDENDUM: Mr. Gustafson was concerned about the patient's somnolence and I reviewed her medications and the only medicine that popped up, which was not in her home med list was gabapentin, and I checked with the spouse and he said that she does not take it at home. I did advise him that sometimes can cause somnolence, so he wanted it discontinued. I also informed him now about her renal function is getting worse and her Lasix was discontinued yesterday. I advised him to encourage p.o. liquid intake and may be worthwhile for him to not give her the metolazone when he takes her home tomorrow through the weekend and resume it on Thursday. I also advised him to recheck her kidney functions with her PCP on Thursday. The patient's spouse voiced understanding. Job ID: [id number]
--- NOTE | 2018-12-30 20:29 | PRG ---
DATE OF SERVICE: 12/30/2018 SUBJECTIVE: Ms. Gustafson is sitting up in her chair. She hardly ate any of her lunch. Her spouse is in the room. She apparently has not participated with therapy or done any activity since admission, but therapy has discharged her, and states if she can take her home tomorrow. He is not sure how long he will be able to take care of her at home, and I advised him to discuss with her PCP as to future plans and possible placement issues. He states that currently he does not want to consider [facility] placement and wants to take her home. OBJECTIVE: VITAL SIGNS: She is afebrile. Heart rate 84, respirations 20, oxygen saturation 93% on 2 L, and blood pressure is 127/60. CARDIOVASCULAR SYSTEM: S1 and S2 plus. RESPIRATORY SYSTEMS: Normal vesicular breath sounds. ABDOMEN: Soft, obese, nontender. Bowel sounds in all quadrants. EXTREMITIES: Chronic lymphedema. CENTRAL NERVOUS SYSTEM: Awake and responsive. Cranial nerves 2 through 12 grossly intact. Significant deconditioning. LABORATORY VALUES: Show white count of 4.4, H/H 7.4/24.2. Sodium 139, potassium 3.9, and BUN and creatinine 69 and 2.16. Blood sugars are 136, 113, and 165. Her BUN and creatinine were 28 and 1.43 about a week ago. Her diuretic Lasix was discontinued on 12/29. Due to worsening renal insufficiency, I will hold her metolazone. If it does not continue to improve, I will recheck it again tomorrow. Also advised to make sure he has it rechecked on Thursday with Dr. Michael. PLAN: 1. Continue current medications. 2. Nutritional support. 3. Encourage the patient to participate with therapy. 4. Discharge planning. 5. Poor long-term prognosis. Job ID: [id number]
[2018-12-30] MEDS: Atorvastatin Calcium 10 MG TAB PO SCH (20:38)
[2018-12-31 06:15] LABS: Anion Gap 17 mmol/L (10-20); BUN (Urea Nitrogen) 76 mg/dL (9.8-20.1); Calc. Creatinine Clearance 40 mL/min (70-130); Calcium 8.7 mg/dL (7.8-10.44); Carbon Dioxide 29 mmol/L (23-31); Chloride 95 mmol/L (98-107); Estimated GFR-MDRD 22; Glucose 117 mg/dL (83-110); Sodium 137 mmol/L (136-145)
[2018-12-31] MEDS: Potassium Chloride 20 MEQ TAB PO SCH (08:55)
[2018-12-31] MEDS: HumuLIN 70/30 (300 UNITS/3 ML VIAL) SC SCH ×2 (08:59→17:44)
[2018-12-31] MEDS: Metolazone 5 MG TAB PO SCH (09:02)
[2018-12-31] MEDS: Ramipril 5 MG CAP PO SCH ×2 (09:06→20:39)
[2018-12-31] MEDS: Carvedilol 3.125 MG TAB PO SCH ×2 (09:08→20:39)
[2018-12-31] MEDS: Aspirin 81 mg Enteric Coated Tablet PO SCH (09:08)
--- NOTE | 2018-12-31 09:51 | DIS ---
DATE OF ADMISSION: 12/22/2018 DATE OF DISCHARGE: 12/31/2018 PRINCIPAL DIAGNOSES: 1. Chronic diastolic congestive heart failure. 2. Coronary artery disease. 3. Uncontrolled diabetes mellitus, type 2. 4. Dyslipidemia. 5. Hypothyroidism. 6. Hypertension. 7. Obstructive sleep apnea. 8. Chronic respiratory failure with hypoxemia. 9. Longstanding history of medical noncompliance. COMPLICATIONS: None. ADVERSE REACTIONS: None. PROCEDURES: None. CONSULTATIONS: PT and OT. HOSPITAL COURSE: The patient was admitted by Dr. Tommy Michael on 12/22, after having episodes of epistaxis requiring a unit of blood and cauterization. She was felt to be a candidate for therapy and transferred here. Unfortunately, she really has not participate with therapy and has been discharged from therapy. She does not meet criteria to stay in [facility], and wants to take her home. He apparently has been trained on assisting her with transfers. She was somnolent yesterday, and was concerned. When I reviewed the medications, the only new medicine I found was gabapentin, so I discontinued it this morning. The patient is looking and feeling much better. is not here. Discussed with nursing. I advised her that when the comes and if he is comfortable taking her home, he can take her today or he can wait till tomorrow, but I do not think that is going to make any difference. PHYSICAL EXAMINATION: VITAL SIGNS: She is afebrile. Heart rate 64, respirations 19, oxygen saturation 98% on room air, blood pressure 150/68. CARDIOVASCULAR: S1 and S2 plus. RESPIRATORY: Normal vesicular breath sounds. ABDOMEN: Soft, obese, and nontender. Bowel sounds heard in all quadrants EXTREMITIES: Chronic venous insufficiency and possible lymphedema. CENTRAL NERVOUS SYSTEM: Awake and responsive. Cranial nerves 2 through 12 intact and generalized weakness. LABORATORY VALUES: Laboratory values done today show a sodium of 137, potassium 4.0, BUN and creatinine are 76 and 2.13. Blood sugars are 118, 134, and 124. DISCHARGE MEDICATIONS: Discharge medications are same as admission except I advised the to hold her metolazone for the next 3 days as her renal functions are worsening and to recheck her renal functions on Thursday. Discharge medications are: 1. Tylenol 650 q.8 p.r.n. 2. Ecotrin 81 mg daily. 3. Lipitor 10 mg daily. 4. Pulmicort nebulized solution p.r.n. 5. Carvedilol 3.125 mg b.i.d. 6. Humulin 70/30 of 30 units b.i.d. 7. Imdur ER 120 daily. 8. Zaroxolyn 2.5 mg daily, which is going to be held till Thursday. 9. Protonix 40 mg daily. 10. Potassium 20 mEq daily. Advised her spouse to hold the potassium too while the metolazone is being held. 11. Altace 10 mg b.i.d. 12. Zoloft 50 mg daily. DIET: Heart-healthy 1800-calorie ADA diet. ACTIVITY: As tolerated. Fall precautions. Recheck BMP on Thursday. Hold both metolazone and potassium Thursday, Thursday, and Thursday. The patient was advised to contact us through the on-call line with any concerns. She is to follow up with her PCP in 5 to 7 days. She states that she does not need any prescriptions, and I checked with her spouse as well yesterday. Job ID: [id number]
[2018-12-31] MEDS: HumaLOG 300 UNITS/3 ML VIAL SC PRN (12:48)
[2018-12-31] MEDS: Atorvastatin Calcium 10 MG TAB PO SCH (20:39)
[2019-01-01] MEDS: HumuLIN 70/30 (300 UNITS/3 ML VIAL) SC SCH (08:28)
[2019-01-01] MEDS: Aspirin 81 mg Enteric Coated Tablet PO SCH (08:29)
[2019-01-01] MEDS: Potassium Chloride 20 MEQ TAB PO SCH (08:29)
[2019-01-01] MEDS: Carvedilol 3.125 MG TAB PO SCH (08:29)
[2019-01-01] MEDS: Metolazone 5 MG TAB PO SCH (08:30)
[2019-01-01] MEDS: Ramipril 5 MG CAP PO SCH (08:30)
[2019-01-01 09:35] VITALS: BP 144/67; TEMP 96.9
--- NOTE | 2019-01-03 07:29 | DIS ---
DATE OF ADMISSION: 12/22/2018 DATE OF DISCHARGE: 01/01/2019 ADDENDUM: The patient was supposed to be discharged home, but apparently spouse could not make it. He came back today and picked her up. The patient is doing well, much more awake and alert, same as yesterday since stopping the gabapentin. No other concerns or questions. was advised to hold her metolazone and potassium until he rechecks the lab work tomorrow. PHYSICAL EXAMINATION: VITAL SIGNS: On the day of discharge, she is afebrile, heart rate 67, respirations 20, oxygen saturation 95% on 2 L, and blood pressure 144/67. CARDIOVASCULAR SYSTEM: S1 and S2 plus. RESPIRATORY SYSTEM: Normal vesicular breath sounds. ABDOMEN: Soft, obese, and nontender. Bowel sounds heard in all quadrants. EXTREMITIES: Without cyanosis or clubbing. Chronic lymphedema and stasis dermatitis. CENTRAL NERVOUS SYSTEM: AAO x3. Generalized weakness. Medications and instructions all remain the same. Job ID: [id number]
== END 2019-01-01 12:30 | disposition home health service (06) | DRG 151 ==
LOC: NAV ACUTE 14:25
PROVIDERS: ADMIT Family Medicine; ATTEND Family Medicine
DX: R04.0 Epistaxis (principal); I50.32 Chronic diastolic (congestive) heart failure; I13.0 Hypertensive heart and chronic kidney disease with heart failure and stage 1 through stage 4 chronic kidney disease, or unspecified chronic kidney disease; J96.11 Chronic respiratory failure with hypoxia; N18.9 Chronic kidney disease, unspecified; E78.5 Hyperlipidemia, unspecified; E11.22 Type 2 diabetes mellitus with diabetic chronic kidney disease; I25.10 Atherosclerotic heart disease of native coronary artery without angina pectoris; G47.33 Obstructive sleep apnea (adult) (pediatric); E11.40 Type 2 diabetes mellitus with diabetic neuropathy, unspecified; K21.9 Gastro-esophageal reflux disease without esophagitis; J98.4 Other disorders of lung; M19.90 Unspecified osteoarthritis, unspecified site; D64.9 Anemia, unspecified; E03.9 Hypothyroidism, unspecified; Z96.653 Presence of artificial knee joint, bilateral; Z90.49 Acquired absence of other specified parts of digestive tract; Z91.19 Patient's noncompliance with other medical treatment and regimen; Z98.41 Cataract extraction status, right eye; Z98.42 Cataract extraction status, left eye; Z88.0 Allergy status to penicillin; Z88.1 Allergy status to other antibiotic agents; Z79.82 Long term (current) use of aspirin
CPT/HCPCS: 36415; 36416; 80048; 80053; 83880; 85025; J1815

== ENCOUNTER 2019-01-26 18:11 | Inpatient (IN) | payer MEDICARE, OTHER ==
[2019-01-26] MEDS ORDERED: ACETAMINOPHEN 650 MG PO PRN (18:55)
[2019-01-26] MEDS ORDERED: Nitroglycerin 0.4 MG TAB (25 Tab Bottle) SL PRN (18:55)
[2019-01-26] MEDS ORDERED: HumaLOG 300 UNITS/3 ML VIAL SC PRN ×2 (18:55→19:45)
[2019-01-26] MEDS ORDERED: Budesonide 0.5 MG/2 ML NEB NEB PRN (18:55)
[2019-01-26] MEDS ORDERED: Dextrose 5% in Water 1,000 ML IV PRN (19:01)
[2019-01-26] MEDS ORDERED: Loperamide HCl 2 MG CAP PO PRN ×2 (19:01)
[2019-01-26] MEDS ORDERED: Senokot S 8.6-50 MG TAB PO PRN (19:01)
[2019-01-26] MEDS ORDERED: Ondansetron ODT 4 MG TAB PO PRN (19:01)
[2019-01-26] MEDS ORDERED: Dextrose 50% Abboject 50 ML SYRINGE SLOW IVP PRN (19:01)
[2019-01-26] MEDS: Amiodarone 200 MG TAB PO SCH (20:50)
[2019-01-26] MEDS: Carvedilol 6.25 MG TAB PO SCH (20:51)
[2019-01-26] MEDS: Atorvastatin Calcium 10 MG TAB PO SCH (20:51)
[2019-01-26] MEDS ORDERED: Ibuprofen 200 MG TAB PO SCH (21:00)
[2019-01-27 05:29] LABS: #Basophils 0.1 thou/uL (0.0-0.2); #Eosinphils 0.1 thou/uL (0.0-0.7); #Lymphocytes 1.1 thou/uL (1.20-3.40); #Monocytes 0.4 thou/uL (0.11-0.59); #Neutrophils 3.2 thou/uL (1.40-6.50); %Lymphocytes 22.5 % (21.0-51.0); %Monocytes 8.6 % (0.0-10.0); Hemoglobin 8.6 g/dL (12.0-16.0); Mean Corpuscular HGB CONC 31.2 g/dL (32.0-36.0); Mean Corpuscular Hemoglobin 25.4 pg (27.0-31.0); Mean Corpuscular Volume 81.4 fL (78.0-98.0); Platelet Count 84 thou/uL (130-400); RBC Distribution Width 15.9 % (11.5-14.5)
[2019-01-27 05:38] LABS: ALT (SGPT) 12 U/L (8-55); AST (SGOT) 12 U/L (5-34); Albumin 3.4 g/dL (3.4-4.8); Alkaline Phosphatase 136 U/L (40-150); Anion Gap 13 mmol/L (10-20); BUN (Urea Nitrogen) 54 mg/dL (9.8-20.1); Bilirubin, Total 0.5 mg/dL (0.2-1.2); Calc. Creatinine Clearance 37 mL/min (70-130); Calcium 9.1 mg/dL (7.8-10.44); Carbon Dioxide 28 mmol/L (23-31); Chloride 99 mmol/L (98-107); Estimated GFR-MDRD 21; Globulin 2.5 g/dL (2.4-3.5); Glucose 158 mg/dL (83-110); Potassium 4.3 mmol/L (3.5-5.1); Protein, Total 5.9 g/dL (6.0-8.3); Sodium 136 mmol/L (136-145)
[2019-01-27 05:47] LABS: Bilirubin Small (Negative); Blood, Urine Trace (Negative); Clarity Clear (Clear); Glucose, Urine (Dipstick) Negative (Negative); Leukocyte Trace (Negative); Nitrite Negative (Negative); Protein, Urine (Dipstick) Negative (Neg-Trace)
[2019-01-27 05:51] LABS: RBC/HPF 0-3 HPF (0-3)
[2019-01-27 05:52] LABS: Bacteria/HPF 1+ HPF (None Seen)
--- NOTE | 2019-01-27 07:41 | PRG ---
DATE OF SERVICE: 01/27/2019 Ms. Gustafson is a 78-year-old morbidly obese white female with multiple problems including congestive heart failure, restrictive lung disease, anemia, diabetes mellitus 2, and chronic kidney disease, stage 4. Unfortunately, she was at home when she fell off her bedside commode, hitting her left hip. She was taken to the emergency room and found to be anemic. She was given a unit of blood but refused colonoscopy. It was felt that she may be able to rehabilitate and go back home. Otherwise, she will have to have fpc placement. She was transferred to [facility] for physical therapy and occupational therapy. SUBJECTIVE: The patient states she had a good night, is not having problems today. She states that she feels pretty good and has no complaints today. OBJECTIVE: VITAL SIGNS: Today reveal blood pressure 119/53, pulse 54, respirations 18, O2 saturation 99% on room air, temperature max is 97.8. GENERAL: This is a well-developed, well-nourished, morbidly obese white female, in no apparent distress at this time. HEENT: Reveals normocephalic and nontraumatic cranium. Pupils are equally round and reactive. Extraocular movements are intact. Nose and throat are slightly dry. NECK: Supple without masses, nodes, or bruits. CHEST: Clear to auscultation. No rales, no rhonchi, no wheezes. No cough is noted. HEART: Reveals a regular rate and rhythm without murmurs, gallops, or rubs. ABDOMEN: Soft, nontender, morbidly obese. No masses can be appreciated. No rebound or guarding is noted. GENITOURINARY: Deferred. EXTREMITIES: Reveal no clubbing, cyanosis, with no edema. The patient has decreased motor strength probably 3/5 bilaterally. LABORATORY DATA: Lab from this morning reveals white count is 5000 with a hemoglobin 8.6, hematocrit 27.7, and platelet count 84,000. Sodium is 136, potassium 4.3, chloride 99, and carbon dioxide 28. BUN is 54 and creatinine is 2.27, which is increased from yesterday. The patient has not been drinking very much, and she has been instructed to drink more liquids. Sugar this morning was 158. Urinalysis was unremarkable with 4 to 6 wbc's per high-power field. ASSESSMENT: 1. Dehydration, acute renal dehydration on chronic kidney disease, stage 4. 2. Anemia. 3. Diabetes type 2. 4. Congestive heart failure. 5. Restrictive lung disease. 6. Hypercholesterolemia. 7. Hypertension. 8. Coronary artery disease. 9. Acute on chronic diastolic congestive heart failure. 10. Acute respiratory failure with hypoxemia and hypercapnia. 11. Chronic respiratory failure. 12. Hyperlipidemia. 13. Morbid obesity. PLAN: 1. We will encourage the patient to drink more liquids. 2. We will continue to encourage the patient to eat a healthy heart diet. 3. Continue to monitor the patient's electrolytes, renal indices, and anemia indices. 4. Continue supportive care. 5. Physical therapy and occupational therapy. Job ID: [id number]
[2019-01-27] MEDS: Amiodarone 200 MG TAB PO SCH ×2 (08:32→20:29)
[2019-01-27] MEDS: Metolazone 5 MG TAB PO SCH (08:33)
[2019-01-27] MEDS: Potassium Chloride 20 MEQ TAB PO SCH (08:33)
[2019-01-27] MEDS: Amlodipine 5 MG TAB PO SCH (08:36)
[2019-01-27] MEDS: Ibuprofen 200 MG TAB PO SCH ×2 (08:36→17:37)
[2019-01-27] MEDS: Aspirin 81 mg Enteric Coated Tablet PO SCH (08:37)
[2019-01-27] MEDS: Carvedilol 6.25 MG TAB PO SCH (08:38)
[2019-01-27] MEDS: Folic Acid 1 MG TAB PO SCH (08:39)
[2019-01-27] MEDS: HumuLIN 70/30 (300 UNITS/3 ML VIAL) SC SCH ×2 (08:47→17:39)
[2019-01-27] MEDS ORDERED: RAMIPRIL 2.5 MG PO SCH (09:00)
[2019-01-27] MEDS: HumaLOG 300 UNITS/3 ML VIAL SC PRN ×2 (11:53→17:35)
[2019-01-27] MEDS: Carvedilol 3.125 MG TAB PO SCH (20:30)
[2019-01-27] MEDS: Atorvastatin Calcium 10 MG TAB PO SCH (20:30)
[2019-01-28 05:17] LABS: #Eosinphils 0.2 thou/uL (0.0-0.7); #Lymphocytes 0.9 thou/uL (1.20-3.40); #Monocytes 0.4 thou/uL (0.11-0.59); #Neutrophils 2.9 thou/uL (1.40-6.50); %Basophils 1.1 % (0.0-1.0); %Eosinophils 3.9 % (0.0-10.0); %Lymphocytes 21.1 % (21.0-51.0); %Neutrophils 65.9 % (42.0-75.0); Hemoglobin 8.3 g/dL (12.0-16.0); Mean Corpuscular HGB CONC 31.3 g/dL (32.0-36.0); Mean Corpuscular Hemoglobin 25.5 pg (27.0-31.0); Mean Corpuscular Volume 81.5 fL (78.0-98.0); Mean Platelet Volume 8.3 fL (7.4-10.4); Platelet Count 91 thou/uL (130-400); Platelet Morphology Comment Appears Decreased; RBC Distribution Width 15.7 % (11.5-14.5); RBC Morphology Normal; Red Blood Cell (RBC) Count 3.24 mill/uL (4.20-5.40); White Blood Cell (WBC) Count 4.4 thou/uL (4.8-10.8)
[2019-01-28 05:18] LABS: Manual Diff?? NO
[2019-01-28 05:19] LABS: MDiff Complete? YES
[2019-01-28 05:31] LABS: Anion Gap 15 mmol/L (10-20); BUN (Urea Nitrogen) 66 mg/dL (9.8-20.1); Calc. Creatinine Clearance 33 mL/min (70-130); Carbon Dioxide 26 mmol/L (23-31); Chloride 100 mmol/L (98-107); Estimated GFR-MDRD 18; Glucose 139 mg/dL (83-110); Potassium 4.5 mmol/L (3.5-5.1); Sodium 136 mmol/L (136-145)
[2019-01-28] MEDS: HumuLIN 70/30 (300 UNITS/3 ML VIAL) SC SCH ×2 (07:48→17:01)
[2019-01-28] MEDS: pyridOXINE 50 MG (B6) TAB PO SCH (07:50)
[2019-01-28] MEDS: Lisinopril 5 MG TAB PO SCH (07:50)
[2019-01-28] MEDS: Cyanocobalamin (Vitamin B-12) 1,000 MCG TAB PO SCH (07:50)
[2019-01-28] MEDS: Folic Acid 1 MG TAB PO SCH ×2 (07:50→07:53)
[2019-01-28] MEDS: Potassium Chloride 20 MEQ TAB PO SCH (07:51)
[2019-01-28] MEDS: Amiodarone 200 MG TAB PO SCH ×2 (07:53→20:52)
[2019-01-28] MEDS: Carvedilol 3.125 MG TAB PO SCH ×2 (07:54→20:52)
[2019-01-28] MEDS: Amlodipine 5 MG TAB PO SCH (07:57)
[2019-01-28] MEDS: Metolazone 5 MG TAB PO SCH ×2 (07:57→10:46)
[2019-01-28] MEDS: Aspirin 81 mg Enteric Coated Tablet PO SCH (07:58)
--- NOTE | 2019-01-28 08:02 | HP ---
HISTORY OF PRESENT ILLNESS: The patient is a very pleasant 78-year-old white female, who was sitting on a bedside commode and fell over. She injured her hip, and she was brought to the hospital. She was found to be very anemic and admitted. She was worked up, but declined to have colonoscopy. She did receive a unit of blood and was stabilized and now was transferred to inpatient rehab for physical therapy and occupational therapy. The patient states she has not gotten out of bed since she has been in the hospital. She states she is basically bed bound. She was able to get up and transfer last time she was here. PAST MEDICAL HISTORY: Significant for, 1. Chronic diastolic congestive heart failure. 2. Coronary artery disease. 3. Diabetes, type 2, uncontrolled. 4. Hyperlipidemia. 5. Edema. 6. Hypothyroidism. 7. History of myalgias. 8. Arthritis. 9. History of recent epistaxis that required hospitalization. 10. Acute on chronic renal insufficiency. 11. Hypertension. 12. Obstructive sleep apnea. 13. Chronic respiratory failure with hypoxemia. 14. Folic acid deficiency. 15. B12 deficiency. 16. Noncompliant with medical regimen. PAST SURGICAL HISTORY: 1. Bilateral total knee replacement. 2. Left femur ORIF. 3. Right foot surgery. 4. Cholecystectomy. 5. PTCA with stents x3. 6. Bilateral cataract surgery. FAMILY HISTORY: Reveals the patient's father in his 70s of a stroke. The patient's mother at age 71 with diabetes and complication. The patient had a brother, who with stomach problems at age 75. The patient had a sister, who with cancer in her 40s, thought to be female cancer. The patient has actually three sons and one daughter. The patient's children are healthy, except one son, who had to have a liver transplant for nonalcoholic cirrhosis of the liver. SOCIAL HISTORY: Reveals the patient does not smoke and does not drink. She has her for enumerable years. She does not exercise and pretty much laze around the house mostly. She has a scooter and a lift chair at home. 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 ALLERGIES: REVEAL THE PATIENT IS ALLERGIC TO FOLLOWING, 1. PENICILLIN. 2. BACTRIM. MEDICATIONS: The patient is on the following medications and was transferred to [facility] with the following medications; 1. Acetaminophen 650 q.8 hours p.r.n. 2. Amiodarone 400 mg b.i.d. 3. Amlodipine 5 mg daily. 4. Aspirin 81 mg a day. 5. Atorvastatin 10 mg a day. 6. B12 with Levomefolate calcium and B6 one tablet each day, which is FOLBIC RF. 7. Budesonide in a handheld nebulizer p.r.n. 8. Carvedilol 6.25 b.i.d. 9. Folic acid 1 mg daily. 10. Humalog sliding scale a.c. and at bedtime. 11. Humulin 70/30, 26 units b.i.d. 12. DuoNebs one ampule p.r.n. 13. Isosorbide mononitrate 60 mg pills, the patient takes 120 mg once a day. 14. Metolazone daily. 15. Nitroglycerin 0.4 sublingual q.5 minutes p.r.n. chest pain. 16. Pantoprazole 40 mg daily. 17. Potassium chloride 20 mEq once a day with meals. 18. Ramipril 2.5 mg daily. 19. Sertraline 50 mg daily. REVIEW OF SYSTEMS: CONSTITUTIONAL: The patient states she has weakness, but no fever, chills, or night sweats. HEAD: The patient denies headaches or head injury. EYES: The patient denies any significant visual changes. ENT: The patient denies any hearing changes, but she does admit to allergy problems and nasal congestion. RESPIRATORY: The patient denies cough, cold, congestion, shortness of breath, coughing up blood, or any changes in her sputum. HEART: Reveals the patient denies chest pain, shortness of breath, dyspnea on exertion, PND, or claudication. The patient does admit to having edema quite frequently. GI: Reveals the patient denies nausea, vomiting, diarrhea, or constipation. Denies melena or dysphagia. : The patient denies nocturia, hematuria, frequency, urgency, or dysuria. MUSCULOSKELETAL: The patient admits to muscle weakness and stiffness and generalized achiness in all of her joints. SKIN: Denies skin rashes, skin lesions, or jaundice. PHYSICAL EXAMINATION: GENERAL: This is a well-developed, morbidly obese, 78-year-old white female, in no apparent distress at this time. She is found lying in bed and states she is bed bound. She states she cannot get up to go and urinate by herself. HEENT: Reveals normocephalic and nontraumatic cranium. Pupils are equally round and reactive. Extraocular movements are intact. Nose and throat are dry. NECK: Supple without masses, nodes, or bruits. CHEST: Clear to auscultation without rales, rhonchi, or wheezes. Breath sounds are distant. HEART: Reveals a regular rate and rhythm without murmurs, gallops, or rubs. They are also distant. ABDOMEN: Morbidly obese, soft, nontender. I cannot palpate any organomegaly. No guarding or rebound is noted. No CVA tenderness is noted. : Deferred. EXTREMITIES: Reveal no clubbing or cyanosis. The patient does have 1+ edema. NEUROLOGIC: The patient is oriented x3, and the patient has no focal deficits. ASSESSMENT: 1. Anemia secondary to gastrointestinal bleed and the patient refused and denied colonoscopy. 2. Acute on chronic renal insufficiency. 3. Hyperlipidemia. 4. Restrictive lung disease. 5. Acute on chronic diastolic congestive heart failure. 6. Diabetes, typically out of control. 7. Hypertension. 8. Coronary artery disease. 9. Obstructive sleep apnea. 10. Chronic respiratory problems, failure. 11. Neuropathy. 12. Gastroesophageal reflux. 13. B12 deficiency. 14. Folic acid deficiency. 15. Anemia. 16. Noncompliance. PLAN: 1. The patient is admitted. We will adjust her medications. We will consult Physical Therapy and Occupational Therapy. 2. We will try to get the patient motivated to get out of bed and to be able to walk and transfer. 3. If that does not happen, we will get the patient referred to a placement facility. Job ID: [id number]
--- NOTE | 2019-01-28 08:09 | PRG ---
DATE OF SERVICE: 01/28/2019 Ms. Gustafson is a 78-year-old morbidly obese white female with multiple problems including CHF, restrictive lung disease, anemia, diabetes, chronic kidney disease, stage 4. She was at home when she fell off her bedside, hitting her left hip and she was taken to the emergency room and found to be very anemic. She was given a unit of blood, but refused a colonoscopy. She was stabilized and felt that she would benefit from rehab, so she was transferred to [facility] for PT and OT. SUBJECTIVE: The patient states she slept well, and had a good night yesterday. I did address her increasing creatinine, which yesterday was 2.27, this morning was 2.53. I asked her to drink a lot more liquids yesterday and she said she forgot. She also was not doing much in physical therapy and if she refuses, she most likely will have to be placed in a nursing care facility. OBJECTIVE: VITAL SIGNS: Today reveal blood pressure 101/52, pulse 59, respirations 20, O2 saturation 100% on 2 L nasal cannula. LABORATORY DATA: Today reveals WBC 4,400 with a hemoglobin that has dropped from 8.6 to 8.3 today and from hematocrit 27.7 to 26.4 today. I also told her that if she continues to drop her H and H, we end up giving her blood. We most likely will send her back to [facility] because she really does need a colonoscopy, which she has refused in the recent past. GENERAL: On physical exam, this is a well-developed, well-nourished, morbidly obese white female, who has no complaints today. HEENT: Reveals normocephalic and nontraumatic cranium. Pupils are equal, round, and reactive. Extraocular movements are intact. Nose and throat are still dry. NECK: Supple without masses, nodes, or bruits. CHEST: Clear to auscultation. No rales, rhonchi, or wheezes. No cough is heard. HEART: Reveals a regular rate and rhythm without murmurs, gallops, or rubs. ABDOMEN: Soft, nontender, morbidly obese. No rebound or guarding. GENITOURINARY: Deferred. EXTREMITIES: Reveal no clubbing, cyanosis, or edema. The patient has decreased motor strength, but states she stood yesterday and transferred to the wheelchair. ASSESSMENT: 1. Acute renal secondary to dehydration and poor oral intake. 2. Chronic kidney disease, stage 4. 3. Anemia, increasing. 4. Diabetes type 2, stable. 5. Congestive heart failure. 6. Obstructive lung disease. 7. Hypercholesterolemia. 8. Hypertension. 9. Coronary artery disease. 10. Acute on chronic diastolic congestive heart failure. 11. Hyperlipidemia. 12. Morbid obesity. 13. Generalized weakness. PLAN: 1. We will encourage the patient to drink 60 to 80 ounces liquids today. 2. We will encourage the patient to eat a healthy heart diet. 3. Continue to monitor the patient's electrolytes, renal indices, and anemia indices. 4. Labs tomorrow. 5. Supportive care. 6. Continue physical therapy and occupational therapy. Job ID: [id number]
[2019-01-28] MEDS: Acetaminophen 325 MG TAB PO PRN (10:34)
[2019-01-28] MEDS: HumaLOG 300 UNITS/3 ML VIAL SC PRN ×2 (12:42→17:03)
[2019-01-28] MEDS: Atorvastatin Calcium 10 MG TAB PO SCH (20:51)
[2019-01-29 05:49] LABS: Anion Gap 15 mmol/L (10-20); BUN (Urea Nitrogen) 57 mg/dL (9.8-20.1); Calc. Creatinine Clearance 40 mL/min (70-130); Calcium 9.3 mg/dL (7.8-10.44); Carbon Dioxide 26 mmol/L (23-31); Chloride 103 mmol/L (98-107); Estimated GFR-MDRD 23; Glucose 145 mg/dL (83-110); Potassium 4.7 mmol/L (3.5-5.1); Sodium 139 mmol/L (136-145)
[2019-01-29 05:50] LABS: Band 2 % (5-11); Eosinophils 2 % (0-10); Hemoglobin 8.6 g/dL (12.0-16.0); Hypochromia SLIGHT = 6-15 cells (100X) (0-5/hpf); Lymphocytes 30 % (21-51); MDiff Complete? YES; Mean Corpuscular HGB CONC 30.5 g/dL (32.0-36.0); Mean Corpuscular Hemoglobin 25.1 pg (27.0-31.0); Mean Corpuscular Volume 82.2 fL (78.0-98.0); Mean Platelet Volume 8.6 fL (7.4-10.4); Monocytes 4 % (0-10); Neutrophil 62 % (42-75); Platelet Count 91 thou/uL (130-400); Platelet Morphology Comment Appears Decreased; RBC Distribution Width 15.7 % (11.5-14.5); Red Blood Cell (RBC) Count 3.45 mill/uL (4.20-5.40); Target Cells SLIGHT = 2-5 cells (100X) (0-1/hpf); White Blood Cell (WBC) Count 4.1 thou/uL (4.8-10.8)
[2019-01-29] MEDS: Acetaminophen 325 MG TAB PO PRN (06:38)
[2019-01-29] MEDS: Metolazone 5 MG TAB PO SCH (08:36)
[2019-01-29] MEDS: Potassium Chloride 20 MEQ TAB PO SCH (08:36)
[2019-01-29] MEDS: Amlodipine 5 MG TAB PO SCH (08:38)
[2019-01-29] MEDS: Lisinopril 5 MG TAB PO SCH (08:39)
[2019-01-29] MEDS: Folic Acid 1 MG TAB PO SCH ×2 (08:40)
[2019-01-29] MEDS: pyridOXINE 50 MG (B6) TAB PO SCH (08:41)
[2019-01-29] MEDS: Amiodarone 200 MG TAB PO SCH ×2 (08:42→21:05)
[2019-01-29] MEDS: Cyanocobalamin (Vitamin B-12) 1,000 MCG TAB PO SCH (08:43)
[2019-01-29] MEDS: Aspirin 81 mg Enteric Coated Tablet PO SCH (08:43)
[2019-01-29] MEDS: Carvedilol 3.125 MG TAB PO SCH ×2 (08:43→21:05)
[2019-01-29] MEDS: HumuLIN 70/30 (300 UNITS/3 ML VIAL) SC SCH ×2 (08:44→16:35)
[2019-01-29] MEDS: HumaLOG 300 UNITS/3 ML VIAL SC PRN ×2 (12:20→16:38)
--- NOTE | 2019-01-29 14:10 | PRG ---
DATE OF SERVICE: 01/29/2019 SUBJECTIVE: Ms. Gustafson is doing the same. Denies any complaints. Her son is in the room. OBJECTIVE: VITAL SIGNS: She is afebrile. Heart rate is 60, respirations 20, oxygen saturation 98% on 2 L, and blood pressure 175/71. CARDIOVASCULAR SYSTEM: S1 and S2 plus. RESPIRATORY SYSTEM: Normal vesicular breath sounds, ABDOMEN: Soft, obese, and nontender. Bowel sounds heard in all quadrants. EXTREMITIES: Without cyanosis or clubbing. Peripheral pulses are palpable, but decreased. CENTRAL NERVOUS SYSTEM: Awake and responsive. Cranial nerves 2 through 12 intact. Generalized weakness. LABORATORY DATA: White count is 4.1, H and H are 8.6 and 28.3. Sodium 139, potassium 4.7, BUN and creatinine are 57 and 2.09. Blood sugars are 195, 153, 145, and 196. IMPRESSION: 1. History of gastrointestinal bleed with stable hemoglobin. 2. Worsening renal function, but improved today, likely prerenal since she has been drinking plenty of water, again encouraged her to continue to drink more water. 3. Morbid obesity. 4. Diabetes mellitus, type 2. 5. Hypertension. 6. Dyslipidemia. 7. Coronary artery disease. 8. Chronic diastolic congestive heart failure. PLAN: 1. Continue current medications. 2. 1800 calorie heart healthy ADA diet. 3. Encourage p.o. fluid intake. 4. Monitor for any decomposition of heart failure. 5. Monitor for any recurrence of GI bleeding. 6. Routine laboratory values. 7. Physical therapy. 8. Accu-Cheks with sliding scale coverage. Job ID: [id number]
[2019-01-29] MEDS: Atorvastatin Calcium 10 MG TAB PO SCH (21:05)
[2019-01-30] MEDS: Folic Acid 1 MG TAB PO SCH ×2 (08:30→08:31)
[2019-01-30] MEDS: Cyanocobalamin (Vitamin B-12) 1,000 MCG TAB PO SCH (08:32)
[2019-01-30] MEDS: Lisinopril 5 MG TAB PO SCH (08:32)
[2019-01-30] MEDS: Amlodipine 5 MG TAB PO SCH (08:32)
[2019-01-30] MEDS: Amiodarone 200 MG TAB PO SCH ×2 (08:33→21:13)
[2019-01-30] MEDS: Metolazone 5 MG TAB PO SCH (08:33)
[2019-01-30] MEDS: Potassium Chloride 20 MEQ TAB PO SCH (08:34)
[2019-01-30] MEDS: pyridOXINE 50 MG (B6) TAB PO SCH (08:35)
[2019-01-30] MEDS: Aspirin 81 mg Enteric Coated Tablet PO SCH (08:35)
[2019-01-30] MEDS: Carvedilol 3.125 MG TAB PO SCH ×2 (08:36→21:13)
[2019-01-30] MEDS: HumuLIN 70/30 (300 UNITS/3 ML VIAL) SC SCH ×2 (08:36→17:28)
[2019-01-30] MEDS: Acetaminophen 325 MG TAB PO PRN (11:39)
[2019-01-30] MEDS: HumaLOG 300 UNITS/3 ML VIAL SC PRN (11:39)
--- NOTE | 2019-01-30 14:41 | PRG ---
DATE OF SERVICE: 01/30/2019 SUBJECTIVE: Ms. Gustafson is sleeping in bed, but arousable. She just finished her lunch. She denies any questions or concerns. No family at bedside. OBJECTIVE: VITAL SIGNS: She is afebrile. Heart rate is 51, respirations are 16, oxygen saturation 99% on 2 L, blood pressure 167/67. CARDIOVASCULAR SYSTEM: S1 and S2 plus. RESPIRATORY SYSTEM: Normal vesicular breath sounds. ABDOMEN: Soft, obese, nontender. Bowel sounds heard in all quadrants. EXTREMITIES: Without cyanosis or clubbing. CENTRAL NERVOUS SYSTEM: Awake and responsive. Cranial nerves 2 through 12 grossly intact. Generalized weakness. IMPRESSION: 1. Gastrointestinal bleed with stable hemoglobin. 2. Diabetes mellitus type 2. 3. Hypertension. 4. Dyslipidemia. 5. Coronary artery disease. 6. Chronic diastolic congestive heart failure. 7. Renal insufficiency. LABORATORY DATA: Her blood sugars are 196, 182, 93, 142, 173. PLAN: 1. Recheck BMP in the morning. 2. Continue current medications. 3. Nutritional support with heart healthy ADA diet. 4. Accu-Cheks with sliding scale coverage. 5. DVT and stress ulcer prophylaxis. 6. Physical Therapy. 7. Dr. Tommy Michael will assume care at 9:00 p.m. lawrence. Job ID: [id number]
[2019-01-30] MEDS: Atorvastatin Calcium 10 MG TAB PO SCH (21:13)
[2019-01-31 05:19] LABS: #Eosinphils 0.1 thou/uL (0.0-0.7); #Lymphocytes 1.1 thou/uL (1.20-3.40); #Monocytes 0.4 thou/uL (0.11-0.59); #Neutrophils 2.2 thou/uL (1.40-6.50); %Basophils 0.9 % (0.0-1.0); %Eosinophils 3.1 % (0.0-10.0); %Lymphocytes 29.7 % (21.0-51.0); %Monocytes 9.6 % (0.0-10.0); %Neutrophils 56.7 % (42.0-75.0); Hemoglobin 8.6 g/dL (12.0-16.0); Manual Diff?? NO; Mean Corpuscular HGB CONC 30.4 g/dL (32.0-36.0); Mean Corpuscular Hemoglobin 25.1 pg (27.0-31.0); Mean Corpuscular Volume 82.7 fL (78.0-98.0); Mean Platelet Volume 7.7 fL (7.4-10.4); Platelet Count 111 thou/uL (130-400); RBC Distribution Width 15.5 % (11.5-14.5); White Blood Cell (WBC) Count 3.8 thou/uL (4.8-10.8)
[2019-01-31 05:20] LABS: MDiff Complete? YES
[2019-01-31 05:32] LABS: Anion Gap 13 mmol/L (10-20); BUN (Urea Nitrogen) 52 mg/dL (9.8-20.1); Calc. Creatinine Clearance 47 mL/min (70-130); Carbon Dioxide 28 mmol/L (23-31); Chloride 104 mmol/L (98-107); Estimated GFR-MDRD 28; Glucose 113 mg/dL (83-110); Potassium 5.2 mmol/L (3.5-5.1); Sodium 140 mmol/L (136-145)
[2019-01-31] MEDS: HumuLIN 70/30 (300 UNITS/3 ML VIAL) SC SCH ×2 (08:35→17:38)
[2019-01-31] MEDS: Amlodipine 5 MG TAB PO SCH (08:37)
[2019-01-31] MEDS: Folic Acid 1 MG TAB PO SCH ×2 (08:38→08:39)
[2019-01-31] MEDS: Metolazone 5 MG TAB PO SCH (08:39)
[2019-01-31] MEDS: Carvedilol 3.125 MG TAB PO SCH ×2 (08:40→21:02)
[2019-01-31] MEDS: pyridOXINE 50 MG (B6) TAB PO SCH (08:40)
[2019-01-31] MEDS: Aspirin 81 mg Enteric Coated Tablet PO SCH (08:41)
[2019-01-31] MEDS: Amiodarone 200 MG TAB PO SCH ×2 (08:41→21:02)
[2019-01-31] MEDS: Potassium Chloride 20 MEQ TAB PO SCH (08:41)
[2019-01-31] MEDS: Lisinopril 5 MG TAB PO SCH (08:42)
[2019-01-31] MEDS: Cyanocobalamin (Vitamin B-12) 1,000 MCG TAB PO SCH (08:42)
[2019-01-31] MEDS: Acetaminophen 325 MG TAB PO PRN (09:21)
--- NOTE | 2019-01-31 10:45 | PRG ---
DATE OF SERVICE: 01/31/2019 SUBJECTIVE: Ms. Gustafson is a 78-year-old white female, who presented to the ER with multiple problems including congestive heart failure, restrictive lung disease, anemia, diabetes, and chronic kidney disease which was stage 4. She was taken to the emergency room, was very anemic, was given a couple units of blood. She did refuse colonoscopy. She was stabilized and felt that she would benefit from rehab, so she was transferred to [facility] for PT and OT. The patient states she has felt well and she walked 17 feet this morning with PT and OT. We did increase her oral intake and her creatinine is pending. OBJECTIVE: VITAL SIGNS: Today reveal blood pressure 132/63, pulse 56, respirations 20, O2 saturation 98% to 99% on 2 L nasal cannula, T-max 97.6. Creatinine improved to 1.76. GENERAL: This is a well-developed, morbidly obese, white female, in no apparent distress at this time. HEENT: Normocephalic, nontraumatic cranium. Pupils are equal, round, reactive. Extraocular movements are intact. Nose and throat are slightly dry, but clear. NECK: Supple without masses, nodes, or bruits. CHEST: Clear to auscultation. No rales, no rhonchi, no wheezes are heard. ABDOMEN: Morbidly obese, soft, nontender without organomegaly. Normal bowel sounds are noted in all 4 quadrants. No rebound or guarding is noted. : Deferred. EXTREMITIES: Revealed no clubbing, cyanosis, or edema. The patient is oriented to person, place, and time. IMPRESSION: 1. Gastrointestinal bleed with stable hemoglobin. 2. Diabetes type 2, improved. 3. Hypertension. 4. Hyperlipidemia. 5. Coronary artery disease. 6. Chronic diastolic congestive heart failure. 7. Renal insufficiency. 8. [id number] diastolic congestive heart failure. 9. Morbid obesity. 10. Generalized weakness. PLAN: 1. Continue present medications. 2. Continue to monitor the patient's electrolytes, renal indices, anemia indices. 3. Stress ulcer prophylaxis. 4. Decubitus precautions. 5. Encourage the patient to be out of bed as much as possible. 6. Continue PT and OT. Job ID: [id number]
[2019-01-31] MEDS: HumaLOG 300 UNITS/3 ML VIAL SC PRN (12:56)
[2019-01-31] MEDS: Acetaminophen 500 MG TAB PO PRN (17:38)
[2019-01-31] MEDS: Atorvastatin Calcium 10 MG TAB PO SCH (21:02)
[2019-02-01] MEDS: HumuLIN 70/30 (300 UNITS/3 ML VIAL) SC SCH ×2 (08:09→16:56)
[2019-02-01] MEDS: Metolazone 5 MG TAB PO SCH (08:10)
[2019-02-01] MEDS: Potassium Chloride 20 MEQ TAB PO SCH (08:10)
[2019-02-01] MEDS: Carvedilol 3.125 MG TAB PO SCH ×2 (08:10→21:14)
[2019-02-01] MEDS: Folic Acid 1 MG TAB PO SCH ×2 (08:11→08:14)
[2019-02-01] MEDS: Amlodipine 5 MG TAB PO SCH (08:11)
[2019-02-01] MEDS: Aspirin 81 mg Enteric Coated Tablet PO SCH (08:12)
[2019-02-01] MEDS: Lisinopril 5 MG TAB PO SCH (08:12)
[2019-02-01] MEDS: Amiodarone 200 MG TAB PO SCH ×2 (08:12→21:14)
[2019-02-01] MEDS: pyridOXINE 50 MG (B6) TAB PO SCH (08:13)
[2019-02-01] MEDS: Acetaminophen 500 MG TAB PO PRN ×2 (08:13→16:55)
[2019-02-01] MEDS: Cyanocobalamin (Vitamin B-12) 1,000 MCG TAB PO SCH (08:13)
[2019-02-01] MEDS ORDERED: Melatonin 3 MG TAB PO PRN (10:12)
[2019-02-01] MEDS: HumaLOG 300 UNITS/3 ML VIAL SC PRN ×2 (13:44→16:56)
--- NOTE | 2019-02-01 19:33 | PRG ---
DATE OF SERVICE: 02/01/2019 SUBJECTIVE: Ms. Gustafson is a very pleasant 78-year-old white female who was brought to the emergency room with multiple problems. She was found to be in congestive heart failure with restrictive lung disease, anemia, diabetes, chronic kidney disease, stage 4. She was taken to the emergency room, noted to be very anemic and required 2 units of packed red blood cells. She refused colonoscopy. She was stabilized and felt that she would benefit from rehab, so she was transferred to [facility] for PT and OT. The patient states she has walked 17 feet yesterday, but therapy has not been in yet today. The nurses state she did not sleep very well last night and they are surprised that she got up and ate breakfast. OBJECTIVE: VITAL SIGNS: Today reveal blood pressure 132/63, pulse 58, respirations 22, O2 saturation 98% to 100% on 2 L, and T-max 97.9. GENERAL: This is a well-developed, morbidly obese white female, in no apparent distress at this time. HEENT: Reveals normocephalic, nontraumatic cranium. Pupils are equally round and reactive. Extraocular movements are intact. Nose and throat are dry, but clear. NECK: Supple without masses, nodes, or bruits. CHEST: Clear to auscultation. No rales, no rhonchi, no wheezes are heard. HEART: Reveals a regular rate and rhythm without murmurs, gallops, or rubs. ABDOMEN: Morbidly obese, soft, nontender without organomegaly. Normal bowel sounds are noted. No rebound or guarding is noted. : Deferred. EXTREMITIES: Reveal no clubbing or cyanosis with trace edema. NEUROLOGIC: The patient is oriented to person, place, and time today. LABORATORY DATA: Accu-Cheks reveal this morning, fasting 131, before lunch 164, before supper 156. Her sugars are much improved. IMPRESSION: 1. Gastrointestinal bleed with stable hemoglobin. 2. Diabetes type 2. 3. Hypertension. 4. Hyperlipidemia. 5. Coronary artery disease. 6. Chronic diastolic congestive heart failure. 7. Renal insufficiency. 8. Morbid obesity. 9. Generalized weakness. PLAN: 1. Continue present medication. 2. Continue to encourage the patient to participate fully in physical therapy and occupational therapy. 3. Stress ulcer prophylaxis. 4. Decubitus precautions. 5. Encourage the patient to be out of bed as much as possible. 6. Continue PT and OT. Job ID: [id number]
[2019-02-01] MEDS: Atorvastatin Calcium 10 MG TAB PO SCH (21:14)
[2019-02-02] MEDS: Metolazone 5 MG TAB PO SCH (08:29)
[2019-02-02] MEDS: Potassium Chloride 20 MEQ TAB PO SCH (08:33)
[2019-02-02] MEDS: pyridOXINE 50 MG (B6) TAB PO SCH (08:34)
[2019-02-02] MEDS: Amiodarone 200 MG TAB PO SCH ×2 (08:34→21:41)
[2019-02-02] MEDS: Folic Acid 1 MG TAB PO SCH ×2 (08:35→08:36)
[2019-02-02] MEDS: Cyanocobalamin (Vitamin B-12) 1,000 MCG TAB PO SCH (08:35)
[2019-02-02] MEDS: Amlodipine 5 MG TAB PO SCH (08:37)
[2019-02-02] MEDS: Carvedilol 3.125 MG TAB PO SCH ×2 (08:38→21:42)
[2019-02-02] MEDS: Aspirin 81 mg Enteric Coated Tablet PO SCH (08:38)
[2019-02-02] MEDS: Lisinopril 5 MG TAB PO SCH (08:38)
[2019-02-02] MEDS: HumuLIN 70/30 (300 UNITS/3 ML VIAL) SC SCH ×2 (08:41→17:38)
[2019-02-02] MEDS ORDERED: Nitroglycerin 0.4 MG TAB (25 Tab Bottle) SL PRN (11:34)
[2019-02-02] MEDS ORDERED: Budesonide 0.5 MG/2 ML NEB NEB PRN (11:34)
[2019-02-02] MEDS ORDERED: Dextrose 5% in Water 1,000 ML IV PRN (11:35)
[2019-02-02] MEDS ORDERED: Dextrose 50% Abboject 50 ML SYRINGE SLOW IVP PRN (11:35)
[2019-02-02] MEDS ORDERED: Senokot S 8.6-50 MG TAB PO PRN (11:36)
[2019-02-02] MEDS ORDERED: Ondansetron ODT 4 MG TAB PO PRN (11:36)
[2019-02-02] MEDS ORDERED: Loperamide HCl 2 MG CAP PO PRN (11:36)
[2019-02-02] MEDS ORDERED: HumaLOG 300 UNITS/3 ML VIAL SC PRN (11:36)
[2019-02-02] MEDS ORDERED: Melatonin 3 MG TAB PO PRN (11:38)
--- NOTE | 2019-02-02 19:56 | PRG ---
DATE OF SERVICE: 02/02/2019 Ms. Gustafson is a very pleasant 78-year-old white female, who was brought to the emergency room with multiple problems. She was found to be in congestive heart failure, had respiratory failure with restrictive lung disease, had anemia, had diabetes out of control, had chronic kidney disease stage 4. She was very anemic and had 2 units of packed red blood cells transfused. She refused colonoscopy because she thought it maybe dangerous. She felt that she would benefit from rehab, so she was transferred to [facility] for PT and OT. SUBJECTIVE: The patient states she had a good day yesterday and she walked a little bit. She is feeling a little bit stronger. She did not sleep very well last night again, but she was up eating her breakfast. OBJECTIVE: VITAL SIGNS: Today reveal blood pressure 131/60, pulse 54 to 61, respirations 16, O2 saturation 94% to 98% on room air, and on nasal cannula. GENERAL: This is a well-developed, well-nourished, morbidly obese white female, in no apparent distress at this time. HEENT: Reveals normocephalic and nontraumatic cranium. Pupils are equal, round, reactive. Extraocular movements are intact. Nose and throat are slightly dry. NECK: Supple without masses, nodes, or bruits. CHEST: Clear to auscultation. No rales, no rhonchi, no wheezes are heard. HEART: Reveals a regular rate and rhythm without murmurs, gallops, or rubs. ABDOMEN: Morbidly obese. It is nontender without organomegaly. It is soft. Normal bowel sounds are noted in all 4 quadrants. No rebound or guarding is noted. GENITOURINARY: Deferred. EXTREMITIES: Reveal no clubbing, cyanosis, or edema. The patient is oriented to person, place, and time today. IMPRESSION: 1. Gastrointestinal bleed with stable hemoglobin at this time. 2. Diabetes type 2. 3. Hypertension. 4. Hyperlipidemia. 5. Coronary artery disease. 6. Chronic diastolic congestive heart failure. 7. Renal insufficiency. 8. Morbid obesity. 9. Generalized weakness. PLAN: 1. Continue present medications. 2. Encourage the patient to participate fully in PT and OT. 3. Stress ulcer prophylaxis. 4. Decubitus precautions. 5. Encourage the patient to be out of bed as much as possible. 6. Continue PT and OT. Job ID: [id number]
[2019-02-02] MEDS: Atorvastatin Calcium 10 MG TAB PO SCH (21:41)
[2019-02-03 05:59] LABS: #Eosinphils 0.1 thou/uL (0.0-0.7); #Lymphocytes 1.2 thou/uL (1.20-3.40); #Monocytes 0.4 thou/uL (0.11-0.59); #Neutrophils 2.7 thou/uL (1.40-6.50); %Eosinophils 2.5 % (0.0-10.0); %Lymphocytes 27.2 % (21.0-51.0); %Neutrophils 61.2 % (42.0-75.0); Hemoglobin 8.7 g/dL (12.0-16.0); Mean Corpuscular HGB CONC 30.6 g/dL (32.0-36.0); Mean Corpuscular Hemoglobin 25.2 pg (27.0-31.0); Mean Corpuscular Volume 82.2 fL (78.0-98.0); Mean Platelet Volume 8.4 fL (7.4-10.4); Platelet Count 108 thou/uL (130-400); Platelet Morphology Comment Appears Adequate; RBC Morphology Normal; Red Blood Cell (RBC) Count 3.45 mill/uL (4.20-5.40); White Blood Cell (WBC) Count 4.4 thou/uL (4.8-10.8)
[2019-02-03 06:02] LABS: MDiff Complete? YES; Manual Diff?? NO
[2019-02-03 06:20] LABS: ALT (SGPT) 20 U/L (8-55); AST (SGOT) 21 U/L (5-34); Albumin 3.4 g/dL (3.4-4.8); Alkaline Phosphatase 182 U/L (40-150); Anion Gap 13 mmol/L (10-20); BUN (Urea Nitrogen) 42 mg/dL (9.8-20.1); Bilirubin, Total 0.4 mg/dL (0.2-1.2); Calc. Creatinine Clearance 55 mL/min (70-130); Calcium 9.4 mg/dL (7.8-10.44); Carbon Dioxide 25 mmol/L (23-31); Chloride 106 mmol/L (98-107); Estimated GFR-MDRD 33; Glucose 97 mg/dL (83-110); Potassium 5.1 mmol/L (3.5-5.1); Protein, Total 6.4 g/dL (6.0-8.3); Sodium 139 mmol/L (136-145)
[2019-02-03] MEDS: HumuLIN 70/30 (300 UNITS/3 ML VIAL) SC SCH ×2 (08:38→17:31)
[2019-02-03] MEDS: Potassium Chloride 20 MEQ TAB PO SCH (08:39)
[2019-02-03] MEDS: pyridOXINE 50 MG (B6) TAB PO SCH (08:41)
[2019-02-03] MEDS: Folic Acid 1 MG TAB PO SCH ×2 (08:45)
[2019-02-03] MEDS: Metolazone 5 MG TAB PO SCH (08:54)
[2019-02-03] MEDS: Amlodipine 5 MG TAB PO SCH (08:56)
[2019-02-03] MEDS: Lisinopril 5 MG TAB PO SCH (08:57)
[2019-02-03] MEDS: Cyanocobalamin (Vitamin B-12) 1,000 MCG TAB PO SCH (09:30)
[2019-02-03] MEDS: Carvedilol 3.125 MG TAB PO SCH ×2 (09:30→21:37)
[2019-02-03] MEDS: Aspirin 81 mg Enteric Coated Tablet PO SCH (09:30)
[2019-02-03] MEDS: Amiodarone 200 MG TAB PO SCH ×2 (09:30→21:37)
[2019-02-03] MEDS: Atorvastatin Calcium 10 MG TAB PO SCH (21:37)
[2019-02-04] MEDS: Amiodarone 200 MG TAB PO SCH ×2 (08:14→21:48)
[2019-02-04] MEDS: Potassium Chloride 20 MEQ TAB PO SCH (08:14)
[2019-02-04] MEDS: Metolazone 5 MG TAB PO SCH (08:14)
[2019-02-04] MEDS: Folic Acid 1 MG TAB PO SCH ×2 (08:15)
[2019-02-04] MEDS: Lisinopril 5 MG TAB PO SCH (08:15)
[2019-02-04] MEDS: Aspirin 81 mg Enteric Coated Tablet PO SCH (08:16)
[2019-02-04] MEDS: Carvedilol 3.125 MG TAB PO SCH ×2 (08:16→21:48)
[2019-02-04] MEDS: pyridOXINE 50 MG (B6) TAB PO SCH (08:16)
[2019-02-04] MEDS: Cyanocobalamin (Vitamin B-12) 1,000 MCG TAB PO SCH (08:16)
[2019-02-04] MEDS: Amlodipine 5 MG TAB PO SCH (08:16)
[2019-02-04] MEDS: HumuLIN 70/30 (300 UNITS/3 ML VIAL) SC SCH ×2 (12:16→16:14)
--- NOTE | 2019-02-04 13:05 | PRG ---
DATE OF SERVICE: 02/04/2019 SUBJECTIVE: Ms. Gustafson is a very pleasant 78-year-old white female, brought to the emergency room with multiple problems. She was found to be in significant congestive heart failure and had respiratory failure with restrictive lung disease. She also had anemia; diabetes, out of control; and chronic kidney disease stage 4. She received 2 units of packed red blood cells, but refused colonoscopy to find the etiology of her bleeding. It was felt that she would benefit from rehab, so she was transferred to [facility] for PT and OT. The patient has had a good day again yesterday. She did walk 20 feet, then 10 feet, then 20 feet. She states she is doing better and is eating a little bit better. She has no complaints today. OBJECTIVE: VITAL SIGNS: Revealed blood pressure 147/65, pulse 54, respirations 20, O2 saturation 99% on 2 L nasal cannula, and T-max 97.6. GENERAL: This is a well-developed, well-nourished, very pleasant, obese, white female, in no apparent distress at this time. HEENT: Reveals normocephalic and nontraumatic cranium. Pupils are equal, round, and reactive. Extraocular movements are intact. Nose and throat are slightly dry. NECK: Supple without masses, nodes, or bruits. CHEST: Clear to auscultation. No rales, rhonchi, wheezes, or cough is heard. HEART: Reveals a regular rate and rhythm without murmurs, gallops, or rubs. ABDOMEN: Morbidly obese. Abdomen is also soft and nontender without organomegaly. Normal bowel sounds are noted. No rebound or guarding is noted. GENITOURINARY: Deferred. EXTREMITIES: Revealed no clubbing or cyanosis with trace edema. The patient is oriented to person, place, and time today. IMPRESSION: 1. Gastrointestinal bleed. We will check hemoglobin sometime this week. 2. Diabetes type 2. 3. Hypertension. 4. Hyperlipidemia. 5. Coronary artery disease. 6. Chronic diastolic congestive heart failure. 7. Renal insufficiency. 8. Morbid obesity. 9. Generalized weakness. PLAN: 1. Continue present medication. 2. Continue monitoring the patient's anemia closely. 3. Stress ulcer prophylaxis. 4. Decubitus precautions. 5. Encourage the patient to be out of bed as much as possible. 6. Continue PT and OT. Job ID: [id number]
[2019-02-04] MEDS: Atorvastatin Calcium 10 MG TAB PO SCH (21:47)
[2019-02-05] MEDS: Acetaminophen 500 MG TAB PO PRN (08:57)
[2019-02-05] MEDS: Aspirin 81 mg Enteric Coated Tablet PO SCH (08:59)
[2019-02-05] MEDS: Amiodarone 200 MG TAB PO SCH ×2 (08:59→21:08)
[2019-02-05] MEDS: Metolazone 5 MG TAB PO SCH (08:59)
[2019-02-05] MEDS: Lisinopril 5 MG TAB PO SCH (09:00)
[2019-02-05] MEDS: Folic Acid 1 MG TAB PO SCH ×2 (09:01→09:03)
[2019-02-05] MEDS: Amlodipine 5 MG TAB PO SCH (09:01)
[2019-02-05] MEDS: pyridOXINE 50 MG (B6) TAB PO SCH (09:02)
[2019-02-05] MEDS: Potassium Chloride 20 MEQ TAB PO SCH (09:02)
[2019-02-05] MEDS: Carvedilol 3.125 MG TAB PO SCH ×2 (09:02→21:08)
[2019-02-05] MEDS: Cyanocobalamin (Vitamin B-12) 1,000 MCG TAB PO SCH (09:02)
[2019-02-05] MEDS: HumuLIN 70/30 (300 UNITS/3 ML VIAL) SC SCH ×2 (09:03→17:34)
[2019-02-05] MEDS: Atorvastatin Calcium 10 MG TAB PO SCH (21:08)
[2019-02-06 05:50] LABS: #Basophils 0.1 thou/uL (0.0-0.2); #Eosinphils 0.1 thou/uL (0.0-0.7); #Lymphocytes 1.3 thou/uL (1.20-3.40); #Monocytes 0.3 thou/uL (0.11-0.59); #Neutrophils 2.6 thou/uL (1.40-6.50); %Basophils 1.3 % (0.0-1.0); %Eosinophils 3.3 % (0.0-10.0); %Lymphocytes 28.6 % (21.0-51.0); %Monocytes 7.7 % (0.0-10.0); Hemoglobin 8.2 g/dL (12.0-16.0); Mean Corpuscular HGB CONC 29.7 g/dL (32.0-36.0); Mean Corpuscular Hemoglobin 25.2 pg (27.0-31.0); Mean Corpuscular Volume 84.7 fL (78.0-98.0); Platelet Count 64 thou/uL (130-400); RBC Distribution Width 16.4 % (11.5-14.5); Red Blood Cell (RBC) Count 3.26 mill/uL (4.20-5.40); White Blood Cell (WBC) Count 4.4 thou/uL (4.8-10.8)
[2019-02-06 05:58] LABS: ALT (SGPT) 20 U/L (8-55); AST (SGOT) 19 U/L (5-34); Albumin 3.2 g/dL (3.4-4.8); Alkaline Phosphatase 165 U/L (40-150); Anion Gap 13 mmol/L (10-20); BUN (Urea Nitrogen) 37 mg/dL (9.8-20.1); Bilirubin, Total 0.4 mg/dL (0.2-1.2); Calc. Creatinine Clearance 56 mL/min (70-130); Calcium 8.7 mg/dL (7.8-10.44); Carbon Dioxide 25 mmol/L (23-31); Chloride 107 mmol/L (98-107); Estimated GFR-MDRD 34; Globulin 2.7 g/dL (2.4-3.5); Glucose 101 mg/dL (83-110); Potassium 4.7 mmol/L (3.5-5.1); Protein, Total 5.9 g/dL (6.0-8.3); Sodium 140 mmol/L (136-145)
[2019-02-06 06:04] LABS: MDiff Complete? YES
[2019-02-06] MEDS: Amiodarone 200 MG TAB PO SCH ×2 (08:28→20:15)
[2019-02-06] MEDS: HumuLIN 70/30 (300 UNITS/3 ML VIAL) SC SCH ×2 (08:28→17:31)
[2019-02-06] MEDS: Folic Acid 1 MG TAB PO SCH ×2 (08:29)
[2019-02-06] MEDS: Aspirin 81 mg Enteric Coated Tablet PO SCH (08:30)
[2019-02-06] MEDS: pyridOXINE 50 MG (B6) TAB PO SCH (08:30)
[2019-02-06] MEDS: Cyanocobalamin (Vitamin B-12) 1,000 MCG TAB PO SCH (08:31)
[2019-02-06] MEDS: Metolazone 5 MG TAB PO SCH (08:31)
[2019-02-06] MEDS: Lisinopril 5 MG TAB PO SCH (08:31)
[2019-02-06] MEDS: Amlodipine 5 MG TAB PO SCH (08:31)
[2019-02-06] MEDS: Potassium Chloride 20 MEQ TAB PO SCH (08:32)
[2019-02-06] MEDS: Acetaminophen 500 MG TAB PO PRN (08:32)
[2019-02-06] MEDS: Carvedilol 3.125 MG TAB PO SCH ×2 (09:14→20:15)
--- NOTE | 2019-02-06 20:15 | PRG ---
DATE OF SERVICE: 02/06/2019 SUBJECTIVE: The patient lying in bed, feels well with no complaints and resting, watching TV, having no shortness of breath, chest pain at rest. She has been eating well and maintaining her diet, had no evidence of melena, hematemesis, nausea, or vomiting. OBJECTIVE: VITAL SIGNS: Shows blood pressure of 130/60, temperature is 98, pulse 48, respirations 18, and O2 saturation is 97% on room air. LUNGS: Clear. CARDIAC: Examination showed regular rhythm. ABDOMEN: Obese and nontender. No masses or organomegaly. SKIN/EXTREMITIES: Displayed no edema, clubbing, or cyanosis. NEUROLOGICAL: Shows no focal findings. LABORATORY DATA: White count is 4400, hematocrit 27, and hemoglobin 8.2. Sodium is 140, potassium 4.7, chloride 107, bicarb 25, BUN 37, and creatinine 1.48, which is improved from admission of 1.76, and glucose is 101. Accu-Cheks range from 75 to 176. Albumin went up to 3.2. ASSESSMENT: 1. Resolved gastrointestinal bleed of unknown source. We will repeat CBC in the a.m. 2. Diabetes type 2, controlled to goal. 3. Hypertension, controlled to goal. 4. Coronary artery disease, asymptomatic. 5. Diastolic congestive heart failure, compensated. 6. Chronic kidney disease stage 3, improved since admission. PLAN: Repeat CBC and basic metabolic profile in the a.m. Continue monitoring vital signs closely. Continue stress ulcer prophylaxis. Continue PT, OT. Job ID: [id number]
[2019-02-06] MEDS: Atorvastatin Calcium 10 MG TAB PO SCH (20:16)
--- NOTE | 2019-02-07 08:06 | PRG ---
DATE OF SERVICE: 02/05/2019 SUBJECTIVE: The patient is a very pleasant 78-year-old white female with a past history of congestive heart failure, respiratory failure, restrictive lung disease, anemia, diabetes, chronic kidney disease stage 4, who has been found to have significant anemia requiring transfusion of 2 units of packed cells. She has refused evaluation with colonoscopy, but has improved with the transfusion and therefore is admitted into [facility] for PT and OT. She is doing fairly well, feeling well at rest, cooperating with therapy, has noticed no further bleeding, weakness, or anemia. As mentioned above, her diabetes has been poorly controlled in the past as she has developed complications of chronic kidney disease stage 4, but Accu-Cheks have been stable here with 78 to 181. LABORATORY DATA: Also shows her creatinine improved to 1.51 from 2.53 earlier in admission with a GFR of 33. Sodium is 139, potassium 5.1, chloride 106, bicarb 25, BUN 42. OBJECTIVE: LUNGS: Clear. CARDIAC: Showed regular rhythm. ABDOMEN: Soft and nontender. NEUROLOGIC: Intact. ASSESSMENT: The patient is a 78-year-old white female with multiple medical problems including chronic kidney disease stage 4, diabetes type 2, uncontrolled coronary artery disease, chronic diastolic congestive heart failure, hypertension, obstructive sleep apnea with respiratory failure and hypoxemia and noncompliance, who presented with anemia of unknown etiology, but with refusal of evaluation but improvement in her symptoms after transfusion. She is now at her baseline with no symptoms of dyspnea, chest pain, shortness of breath at rest, and is cooperating with therapy. She has noticed no change in her bowel movements. No nausea, vomiting, melena. 1. Anemia of unknown etiology. We will monitor closely for recurrent bleed. 2. Diabetes type 2 with previous poor control, now controlled to goal in the hospital. 3. Hypertension, controlled to goal. 4. Diastolic heart failure appears to be compensated. 5. Obstructive sleep apnea with noncompliance to medication. 6. Restrictive lung disease, possibly due from the obstructive sleep apnea. 7. Chronic kidney disease stage 4 stable. 8. Coronary artery disease, asymptomatic. PLAN: 1. Continue PT/OT. 2. Monitor vital signs with therapy. 3. Continue to monitor for signs of GI bleed and repeat CBC in the a.m. 4. Continue Accu-Cheks to monitor and titrate and control diabetes. 5. Continue prehospitalization medications. Job ID: [id number]
[2019-02-07] MEDS: HumuLIN 70/30 (300 UNITS/3 ML VIAL) SC SCH ×2 (08:35→17:30)
[2019-02-07] MEDS: Folic Acid 1 MG TAB PO SCH ×2 (08:37)
[2019-02-07] MEDS: Amiodarone 200 MG TAB PO SCH ×2 (08:38→21:31)
[2019-02-07] MEDS: Potassium Chloride 20 MEQ TAB PO SCH (08:39)
[2019-02-07] MEDS: Aspirin 81 mg Enteric Coated Tablet PO SCH (08:40)
[2019-02-07] MEDS: Carvedilol 3.125 MG TAB PO SCH ×2 (08:40→21:31)
[2019-02-07] MEDS: Metolazone 5 MG TAB PO SCH (08:41)
[2019-02-07] MEDS: Cyanocobalamin (Vitamin B-12) 1,000 MCG TAB PO SCH (08:41)
[2019-02-07] MEDS: Acetaminophen 500 MG TAB PO PRN (08:51)
[2019-02-07] MEDS: Amlodipine 5 MG TAB PO SCH (08:54)
[2019-02-07] MEDS: Lisinopril 5 MG TAB PO SCH (08:55)
[2019-02-07] MEDS: pyridOXINE 50 MG (B6) TAB PO SCH (09:00)
[2019-02-07] MEDS: Atorvastatin Calcium 10 MG TAB PO SCH (21:31)
--- NOTE | 2019-02-07 21:46 | PRG ---
DATE OF SERVICE: 02/07/2019 SUBJECTIVE: Ms. Gutsafson is a 78-year-old white female brought to the emergency room with multiple problems. She was found to have respiratory failure with restrictive lung disease, congestive heart failure, anemia, diabetes, out of control, and chronic kidney disease, stage 4. She did receive 2 units of packed red blood cells, but refused colonoscopy because of her anemia. It was felt that the patient will most likely benefit from rehab, so she was transferred to [facility] for PT and OT. The patient states she had a fairly good weekend. Her came to visit her. She is gradually doing better, walking. She has no concerns or complaints today. OBJECTIVE: VITAL SIGNS: Today revealed blood pressure 139/61, pulse 52 to 60, respirations 20, O2 saturation 96% to 97% on room air, and T-max 98.3. GENERAL: On physical exam, this is a well-developed, well-nourished, morbidly obese white female, in no apparent distress at this time. HEENT: Reveals normocephalic and nontraumatic cranium. Pupils are equal, round, and reactive. Extraocular movements are intact. Nose and throat are slightly dry. NECK: Supple without masses, nodes, or bruits. CHEST: Clear to auscultation. No rales, rhonchi, wheezes, or rebound is noted. HEART: Reveals a regular rate and rhythm without murmurs, gallops, or rubs. ABDOMEN: Soft, nontender without organomegaly. Normal bowel sounds are noted. No rebound or guarding is noted. GENITOURINARY: Deferred. EXTREMITIES: Revealed no clubbing or cyanosis with still trace edema. The patient is oriented to person, place, and time again. IMPRESSION: 1. Gastrointestinal bleed. 2. Diabetes type 2. 3. Hypertension. 4. Hyperlipidemia. 5. Coronary artery disease. 6. Chronic diastolic congestive heart failure. 7. Renal insufficiency. 8. Morbid obesity. 9. Generalized weakness. PLAN: 1. Continue present medications. 2. Continue monitoring the patient's anemia closely. 3. Stress ulcer prophylaxis. 4. Decubitus precautions. 5. Encourage the patient to be out of bed as much as possible. 6. Continue physical therapy and occupational therapy. Job ID: [id number]
[2019-02-08] MEDS: Metolazone 5 MG TAB PO SCH (08:18)
[2019-02-08] MEDS: Folic Acid 1 MG TAB PO SCH ×2 (08:20)
[2019-02-08] MEDS: Potassium Chloride 20 MEQ TAB PO SCH (08:20)
[2019-02-08] MEDS: Carvedilol 3.125 MG TAB PO SCH ×2 (08:21→20:46)
[2019-02-08] MEDS: pyridOXINE 50 MG (B6) TAB PO SCH (08:22)
[2019-02-08] MEDS: Amlodipine 5 MG TAB PO SCH (08:22)
[2019-02-08] MEDS: Cyanocobalamin (Vitamin B-12) 1,000 MCG TAB PO SCH (08:22)
[2019-02-08] MEDS: Amiodarone 200 MG TAB PO SCH ×2 (08:23→20:46)
[2019-02-08] MEDS: Lisinopril 5 MG TAB PO SCH (08:23)
[2019-02-08] MEDS: Aspirin 81 mg Enteric Coated Tablet PO SCH (08:23)
[2019-02-08] MEDS: HumuLIN 70/30 (300 UNITS/3 ML VIAL) SC SCH ×2 (08:28→16:41)
[2019-02-08] MEDS: Acetaminophen 500 MG TAB PO PRN (09:52)
--- NOTE | 2019-02-08 19:34 | PRG ---
DATE OF SERVICE: 02/08/2019 SUBJECTIVE: Ms. Gustafson is a 78-year-old white female, brought to the emergency room with multiple problems. She was found to have respiratory failure with restrictive lung disease; congestive heart failure; anemia; diabetes, out of control; and chronic kidney disease, stage 4. She received 2 units of packed red blood cells for her anemia. She refused colonoscopy. It was felt that the patient would benefit from rehab, so she was transferred to [facility] in [place] for PT and OT. The patient has actually been participating fairly well with therapy, but this morning complained of foot pain and basically did not have any therapy this morning. OBJECTIVE: VITAL SIGNS: Today, reveal blood pressure 131/72, pulse 58 to 60, respirations 22, O2 saturation 98% on 2 L nasal cannula, and T-max 98.3. GENERAL: This is a well-developed, well-nourished, morbidly obese white female, in no apparent distress at this time. HEENT: Reveals normocephalic and nontraumatic cranium. Pupils are equal, round, and reactive. Extraocular movements are intact. Nose and throat are slightly dry, but clear. NECK: Supple without masses, nodes, or bruits. CHEST: Clear to auscultation. No rales, no rhonchi, no wheezes are noted. Cough is not noted. HEART: Reveals a regular rate and rhythm without murmurs, gallops, or rubs. ABDOMEN: Soft and nontender without organomegaly. Normal bowel sounds are noted in all 4 quadrants. No rebound or guarding is noted. : Deferred. EXTREMITIES: Reveal no clubbing or cyanosis with continued trace edema. NEUROLOGIC: The patient is oriented to person, place, and time. ASSESSMENT: 1. Gastrointestinal bleed, unknown etiology. 2. Diabetes, type 2. 3. Hypertension. 4. Hyperlipidemia. 5. Coronary artery disease. 6. Chronic diastolic congestive heart failure. 7. Renal insufficiency. 8. Morbid obesity. 9. Generalized weakness. PLAN: 1. Continue present medications. 2. Continue to encourage the patient to participate in PT and OT. 3. Continue stress ulcer prophylaxis. 4. Decubitus precautions. 5. Continue to monitor the patient's anemia closely. 6. Encourage the patient to be out of bed as much as possible. 7. The patient will drop out of OT on [place], but hopefully will continue to PT if she is able to participate. Job ID: [id number]
[2019-02-08] MEDS: Atorvastatin Calcium 10 MG TAB PO SCH (20:46)
[2019-02-09] MEDS: Acetaminophen 500 MG TAB PO PRN ×2 (02:31→10:00)
[2019-02-09] MEDS: HumuLIN 70/30 (300 UNITS/3 ML VIAL) SC SCH ×2 (08:42→17:53)
[2019-02-09] MEDS: Lisinopril 5 MG TAB PO SCH (08:43)
[2019-02-09] MEDS: Metolazone 5 MG TAB PO SCH (08:43)
[2019-02-09] MEDS: Folic Acid 1 MG TAB PO SCH ×2 (08:44)
[2019-02-09] MEDS: Potassium Chloride 20 MEQ TAB PO SCH (08:45)
[2019-02-09] MEDS: Aspirin 81 mg Enteric Coated Tablet PO SCH (08:45)
[2019-02-09] MEDS: Amiodarone 200 MG TAB PO SCH ×2 (08:45→19:45)
[2019-02-09] MEDS: Amlodipine 5 MG TAB PO SCH (08:45)
[2019-02-09] MEDS: Cyanocobalamin (Vitamin B-12) 1,000 MCG TAB PO SCH (08:45)
[2019-02-09] MEDS: pyridOXINE 50 MG (B6) TAB PO SCH (08:45)
[2019-02-09] MEDS: Carvedilol 3.125 MG TAB PO SCH ×2 (08:46→19:45)
--- NOTE | 2019-02-09 16:19 | PRG ---
DATE OF SERVICE: 02/09/2019 SUBJECTIVE: Ms. Gustafson is a very pleasant 78-year-old white female brought to the emergency room with multiple problems. She was found to have respiratory failure with restrictive lung disease, congestive heart failure, anemia, diabetes out of control, and chronic kidney disease, stage 4. She received 2 units of packed red blood cells for her anemia, but refused colonoscopy. It was felt that the patient would benefit from rehab, so she was transferred to [facility] in [place] for PT and OT. She has been participating very well except the last couple of days. She is not wanting to get out of the bed, is now peeing in her diaper and also pooping in her diaper. She got to where she does not want to do anything as much with her therapy. Occupational Therapy will be signing off on Thursday. I told her that most likely we would send her home on Thursday. OBJECTIVE: VITAL SIGNS: This morning reveals blood pressure 163/66, pulse 52 to 54, respirations 16 to 22, O2 saturation 97% to 98% on room air, and T-max 97.8. GENERAL: This is a well-developed, well-nourished, morbidly obese white female, in no apparent distress at this time. HEENT: Reveals normocephalic and nontraumatic cranium. Pupils are equal, round, and reactive. Extraocular movements are intact. Nose and throat are clear and still dry. NECK: Supple without masses, nodes, or bruits. CHEST: Clear to auscultation. No rales, rhonchi, wheezes, or cough is heard. HEART: Reveals a regular rate and rhythm without murmurs, gallops, or rubs. ABDOMEN: Soft, nontender without organomegaly. Normal bowel sounds are noted. No rebound or guarding is noted. GENITOURINARY: Deferred. EXTREMITIES: Reveal no clubbing, cyanosis, or edema. The patient does have significant weakness bilaterally but is not working well with that. NEUROLOGIC: The patient is oriented to person, place, and time. ASSESSMENT: 1. Gastrointestinal bleed, unknown etiology without esophagogastroduodenoscopy or colonoscopy. 2. Diabetes, type 2. 3. Hypertension. 4. Hyperlipidemia. 5. Coronary artery disease. 6. Chronic diastolic congestive heart failure. 7. Renal insufficiency. 8. Morbid obesity. 9. Generalized weakness. PLAN: 1. Continue present medication. 2. Encourage the patient to participate better in PT and OT. 3. Continue stress ulcer prophylaxis. 4. Decubitus precautions. 5. Monitor the patient's anemia closely. 6. Help the patient to get out of bed as much as possible. 7. The patient will finish OT on Thursday. 8. If the patient does not improve her participation, she would most likely be discharged on Thursday. Job ID: [id number]
[2019-02-09] MEDS: Atorvastatin Calcium 10 MG TAB PO SCH (19:45)
[2019-02-10 05:57] LABS: ALT (SGPT) 18 U/L (8-55); AST (SGOT) 21 U/L (5-34); Albumin 3.1 g/dL (3.4-4.8); Alkaline Phosphatase 176 U/L (40-150); Anion Gap 16 mmol/L (10-20); BUN (Urea Nitrogen) 38 mg/dL (9.8-20.1); Bilirubin, Total 0.3 mg/dL (0.2-1.2); Calc. Creatinine Clearance 51 mL/min (70-130); Calcium 8.6 mg/dL (7.8-10.44); Carbon Dioxide 19 mmol/L (23-31); Chloride 110 mmol/L (98-107); Estimated GFR-MDRD 33; Globulin 2.9 g/dL (2.4-3.5); Glucose 70 mg/dL (83-110); Potassium 5.3 mmol/L (3.5-5.1); Sodium 140 mmol/L (136-145)
[2019-02-10 06:08] LABS: #Basophils 0.1 thou/uL (0.0-0.2); #Eosinphils 0.1 thou/uL (0.0-0.7); #Monocytes 0.4 thou/uL (0.11-0.59); %Basophils 1.4 % (0.0-1.0); %Eosinophils 2.1 % (0.0-10.0); %Lymphocytes 22.5 % (21.0-51.0); %Monocytes 7.9 % (0.0-10.0); %Neutrophils 66.1 % (42.0-75.0); Hemoglobin 8.1 g/dL (12.0-16.0); Hypochromia SLIGHT = 6-15 cells (100X) (0-5/hpf); MDiff Complete? YES; Mean Corpuscular HGB CONC 30.1 g/dL (32.0-36.0); Mean Corpuscular Hemoglobin 25.2 pg (27.0-31.0); Mean Corpuscular Volume 83.5 fL (78.0-98.0); Mean Platelet Volume 8.2 fL (7.4-10.4); Platelet Clumps MODERATE; Platelet Count 16 thou/uL (130-400); Platelet Morphology Comment Appears Decreased; RBC Distribution Width 16.8 % (11.5-14.5); White Blood Cell (WBC) Count 4.6 thou/uL (4.8-10.8)
[2019-02-10 07:13] LABS: Platelet Count 105 thou/uL (130-400)
[2019-02-10] MEDS: HumuLIN 70/30 (300 UNITS/3 ML VIAL) SC SCH ×2 (08:05→17:17)
[2019-02-10] MEDS: pyridOXINE 50 MG (B6) TAB PO SCH (08:34)
[2019-02-10] MEDS: Aspirin 81 mg Enteric Coated Tablet PO SCH (08:35)
[2019-02-10] MEDS: Potassium Chloride 20 MEQ TAB PO SCH (08:36)
[2019-02-10] MEDS: Lisinopril 5 MG TAB PO SCH (08:37)
[2019-02-10] MEDS: Carvedilol 3.125 MG TAB PO SCH ×2 (08:39→20:52)
[2019-02-10] MEDS: Cyanocobalamin (Vitamin B-12) 1,000 MCG TAB PO SCH (08:39)
[2019-02-10] MEDS: Amlodipine 5 MG TAB PO SCH (08:40)
[2019-02-10] MEDS: Acetaminophen 500 MG TAB PO PRN (08:41)
[2019-02-10] MEDS: Metolazone 5 MG TAB PO SCH (08:42)
[2019-02-10] MEDS: Amiodarone 200 MG TAB PO SCH ×2 (08:43→20:51)
[2019-02-10] MEDS: Folic Acid 1 MG TAB PO SCH ×2 (08:44)
--- NOTE | 2019-02-10 10:17 | PRG ---
DATE OF SERVICE: 02/10/2019 HISTORY OF PRESENT ILLNESS: Ms. Gustafson is a very pleasant 78-year-old white female who presented to the emergency room with respiratory failure with restrictive lung disease; congestive heart failure; anemia; diabetes, out of control; and chronic kidney disease, stage 4. She received 2 units of packed red blood cells for her anemia, but refused colonoscopy. It was felt that the patient would benefit from rehab, so she was transferred to [facility] and now started for PT and OT. SUBJECTIVE: The patient states yesterday she had a little therapy in the morning, but then sat up for several hours, became extremely cold. She went back to bed, could not warm up, so Therapy, came in. She was unable to do therapy because she was too cold and shaking. OBJECTIVE: VITAL SIGNS: Today reveal blood pressure 139/57, pulse 53, respirations 16, O2 saturation 99% on 2L nasal cannula, and T-max was 98.1. GENERAL: This is a well-developed, well-nourished, very pleasant, obese white female, in no apparent distress at this time. HEENT: Normocephalic and nontraumatic cranium. Pupils are equal, round, and reactive. Extraocular movements are intact. Nose and throat are slightly dry. NECK: Supple without masses, nodes, or bruits. CHEST: Clear to auscultation. No rales, rhonchi, wheezes, or cough is heard. HEART: Regular rate and rhythm without murmurs, gallops, or rubs. ABDOMEN: Soft and nontender without organomegaly. Normal bowel sounds are noted. No rebound or guarding is noted. : Deferred. EXTREMITIES: No clubbing, cyanosis, or edema. The patient is oriented to person, place, and time. ASSESSMENT: 1. Gastrointestinal bleed. 2. Esophagogastroduodenoscopy, not done. 3. Diabetes, type 2. 4. Hypertension. 5. Hyperlipidemia. 6. Coronary artery disease. 7. Chronic diastolic congestive heart failure. 8. Renal insufficiency. 9. Morbid obesity. 10. Generalized weakness. PLAN: 1. Continue present medications. 2. Continue to urge the patient to participate better in PT and OT. 3. Stress ulcer prophylaxis. 4. Decubitus precautions. 5. Monitor the patient's anemia. 6. Get the patient out of bed as much as possible. 7. The patient will sign out on occupational therapy on Thursday, and the patient wishes to go home on Thursday. Job ID: [id number]
[2019-02-10] MEDS: Atorvastatin Calcium 10 MG TAB PO SCH (20:52)
[2019-02-11] MEDS: HumuLIN 70/30 (300 UNITS/3 ML VIAL) SC SCH ×2 (08:30→17:20)
[2019-02-11] MEDS: Potassium Chloride 20 MEQ TAB PO SCH (08:32)
[2019-02-11] MEDS: Folic Acid 1 MG TAB PO SCH ×2 (09:38)
[2019-02-11] MEDS: Acetaminophen 500 MG TAB PO PRN ×2 (09:39→20:46)
[2019-02-11] MEDS: Carvedilol 3.125 MG TAB PO SCH ×2 (09:40→20:47)
[2019-02-11] MEDS: Amiodarone 200 MG TAB PO SCH ×2 (09:41→20:47)
[2019-02-11] MEDS: Metolazone 5 MG TAB PO SCH (09:41)
[2019-02-11] MEDS: Amlodipine 5 MG TAB PO SCH (09:42)
[2019-02-11] MEDS: Aspirin 81 mg Enteric Coated Tablet PO SCH (09:43)
[2019-02-11] MEDS: Cyanocobalamin (Vitamin B-12) 1,000 MCG TAB PO SCH (09:44)
[2019-02-11] MEDS: pyridOXINE 50 MG (B6) TAB PO SCH (09:45)
[2019-02-11] MEDS: Lisinopril 5 MG TAB PO SCH (09:46)
--- NOTE | 2019-02-11 15:00 | PRG ---
DATE OF SERVICE: 02/11/2019 The patient is a 78-year-old white female, who presented to emergency room with respiratory failure, restrictive lung disease. She also had congestive heart failure, anemia, diabetes out of control, and chronic kidney disease stage 4. She received 2 units of packed red blood cells for her anemia, but refused colonoscopy. The patient was sent to [facility] for Physical Therapy and Occupational Therapy to increase her strength and her stamina. SUBJECTIVE: The patient states she is doing fairly well and is just tired. She did not do her therapy this morning and refused it. She has not been doing much in therapy in the last couple of days, would rather just stay in bed. We had a long discussion. She will be discharged tomorrow. Her will pick her up sometimes tomorrow afternoon. OBJECTIVE: VITAL SIGNS: Blood pressure 145/63, pulse 56, respirations 16 to 20, O2 saturation 96% to 98% on nasal cannula, and T-max 98.1. PHYSICAL EXAMINATION: GENERAL: This is a well-developed, well-nourished, morbidly obese white female, who is just tired. She states she just wants to stay in bed. HEENT: Reveals normocephalic and nontraumatic cranium. Pupils are equal, round, and reactive. Extraocular movements are intact. Nose and throat are moist. NECK: Supple without masses, nodes, or bruits. CHEST: Clear to auscultation. No rales, rhonchi, wheezes, or cough is heard. HEART: Reveals a regular rate and rhythm without murmurs, gallops, or rubs. ABDOMEN: Morbidly obese, soft, nontender. Normal bowel sounds are noted in all 4 quadrants. No rebound or guarding is noted. : Deferred. EXTREMITIES: Reveal no clubbing, cyanosis, or edema. NEUROLOGIC: The patient is oriented to person, place, and time. ASSESSMENT: 1. History of gastrointestinal bleed. 2. EGD not done. 3. Diabetes, type 2. 4. Hypertension. 5. Hyperlipidemia. 6. Coronary artery disease. 7. Chronic diastolic congestive heart failure. 8. Renal insufficiency. 9. Morbid obesity. 10. Generalized weakness. PLAN: 1. The patient will be discharged tomorrow to the care of her . 2. Continue to urge the patient to participate with PT and OT. 3. Outpatient physical therapy with whomever the patient had therapy with previously. 4. Stress ulcer prophylaxis. 5. Decubitus precautions. 6. Monitor the patient's anemia. 7. Get the patient out of bed as much as possible. 8. The patient will be discharged sometimes in Thursday, where her will pick her up. 9. Continue outpatient therapy if she is able to tolerate. Job ID: [id number]
[2019-02-11] MEDS: Atorvastatin Calcium 10 MG TAB PO SCH (20:47)
[2019-02-12 05:46] VITALS: BMI 425023.7
[2019-02-12] MEDS: Metolazone 5 MG TAB PO SCH (08:31)
[2019-02-12] MEDS: pyridOXINE 50 MG (B6) TAB PO SCH (08:32)
[2019-02-12] MEDS: Cyanocobalamin (Vitamin B-12) 1,000 MCG TAB PO SCH (08:32)
[2019-02-12] MEDS: Aspirin 81 mg Enteric Coated Tablet PO SCH (08:32)
[2019-02-12] MEDS: Amiodarone 200 MG TAB PO SCH (08:32)
[2019-02-12] MEDS: Potassium Chloride 20 MEQ TAB PO SCH (08:33)
[2019-02-12] MEDS: Folic Acid 1 MG TAB PO SCH ×2 (08:33→08:34)
[2019-02-12] MEDS: Amlodipine 5 MG TAB PO SCH (08:34)
[2019-02-12] MEDS: Lisinopril 5 MG TAB PO SCH (08:34)
[2019-02-12] MEDS: Carvedilol 3.125 MG TAB PO SCH (08:35)
[2019-02-12] MEDS: HumuLIN 70/30 (300 UNITS/3 ML VIAL) SC SCH ×2 (08:37→17:09)
[2019-02-12 17:31] VITALS: BP 149/65; TEMP 98.1
== END 2019-02-12 17:36 | disposition home or self-care (01) | DRG 377 ==
LOC: NAV ACUTE 18:11
PROVIDERS: ADMIT Family Medicine; ATTEND Family Medicine
DX: K92.2 Gastrointestinal hemorrhage, unspecified (principal); I50.33 Acute on chronic diastolic (congestive) heart failure; J96.01 Acute respiratory failure with hypoxia; J96.02 Acute respiratory failure with hypercapnia; N18.4 Chronic kidney disease, stage 4 (severe); Z68.41 Body mass index [BMI] 40.0-44.9, adult; D64.9 Anemia, unspecified; N28.9 Disorder of kidney and ureter, unspecified; E78.5 Hyperlipidemia, unspecified; J98.4 Other disorders of lung; E11.22 Type 2 diabetes mellitus with diabetic chronic kidney disease; I12.9 Hypertensive chronic kidney disease with stage 1 through stage 4 chronic kidney disease, or unspecified chronic kidney disease; I25.10 Atherosclerotic heart disease of native coronary artery without angina pectoris; G47.33 Obstructive sleep apnea (adult) (pediatric); E11.40 Type 2 diabetes mellitus with diabetic neuropathy, unspecified; K21.9 Gastro-esophageal reflux disease without esophagitis; E53.8 Deficiency of other specified B group vitamins; Z96.653 Presence of artificial knee joint, bilateral; E66.01 Morbid (severe) obesity due to excess calories; E86.0 Dehydration; E78.00 Pure hypercholesterolemia, unspecified; Z90.49 Acquired absence of other specified parts of digestive tract; Z98.41 Cataract extraction status, right eye; Z98.42 Cataract extraction status, left eye; Z88.0 Allergy status to penicillin; Z88.1 Allergy status to other antibiotic agents; Z79.82 Long term (current) use of aspirin; Z79.4 Long term (current) use of insulin; Z91.14 Patient's other noncompliance with medication regimen
CPT/HCPCS: 36415; 36416; 80048; 80053; 81001; 83880; 85025; A4353; J1815; J7620

== ENCOUNTER 2019-03-11 16:13 | Inpatient (IN) | payer MEDICARE, OTHER ==
[2019-03-11 17:21] VITALS: BMI 41.4
[2019-03-11] MEDS ORDERED: Nitroglycerin 0.4 MG TAB (25 Tab Bottle) SL PRN (17:54)
[2019-03-11] MEDS ORDERED: Budesonide 0.5 MG/2 ML NEB NEB PRN (17:54)
[2019-03-11] MEDS ORDERED: Senokot S 8.6-50 MG TAB PO PRN (17:54)
[2019-03-11] MEDS ORDERED: Melatonin 3 MG TAB PO PRN (17:54)
[2019-03-11] MEDS ORDERED: CEFAZOLIN IVPB SCH (21:00)
[2019-03-11] MEDS ORDERED: D5W 1 GM IVPB SCH (21:00)
[2019-03-11] MEDS ORDERED: HumuLIN 70/30 (300 UNITS/3 ML VIAL) SC SCH (21:00)
[2019-03-11] MEDS: Atorvastatin Calcium 10 MG TAB PO SCH (21:12)
[2019-03-11] MEDS: CEFAZOLIN 1 GM in Sodium Chloride 0.9% 100 ML IVPB SCH (21:12)
[2019-03-12 05:50] LABS: #Eosinphils 0.2 thou/uL (0.0-0.7); #Lymphocytes 0.8 thou/uL (1.20-3.40); #Monocytes 0.3 thou/uL (0.11-0.59); #Neutrophils 2.1 thou/uL (1.40-6.50); %Basophils 1.2 % (0.0-1.0); %Eosinophils 5.8 % (0.0-10.0); %Lymphocytes 22.9 % (21.0-51.0); %Monocytes 8.2 % (0.0-10.0); %Neutrophils 61.9 % (42.0-75.0); Hemoglobin 7.9 g/dL (12.0-16.0); Mean Corpuscular HGB CONC 31.2 g/dL (32.0-36.0); Mean Corpuscular Hemoglobin 27.2 pg (27.0-31.0); Mean Corpuscular Volume 87.1 fL (78.0-98.0); Mean Platelet Volume 9.3 fL (7.4-10.4); Platelet Count 37 thou/uL (130-400); RBC Distribution Width 17.5 % (11.5-14.5); Red Blood Cell (RBC) Count 2.91 mill/uL (4.20-5.40); White Blood Cell (WBC) Count 3.4 thou/uL (4.8-10.8)
[2019-03-12 06:02] LABS: ALT (SGPT) 19 U/L (8-55); AST (SGOT) 19 U/L (5-34); Albumin 3.2 g/dL (3.4-4.8); Alkaline Phosphatase 89 U/L (40-150); Anion Gap 13 mmol/L (10-20); BUN (Urea Nitrogen) 54 mg/dL (9.8-20.1); Bilirubin, Total 0.3 mg/dL (0.2-1.2); Calc. Creatinine Clearance 52 mL/min (70-130); Calcium 9.1 mg/dL (7.8-10.44); Carbon Dioxide 30 mmol/L (23-31); Chloride 104 mmol/L (98-107); Estimated GFR-MDRD 31; Globulin 2.8 g/dL (2.4-3.5); Glucose 221 mg/dL (83-110); Sodium 143 mmol/L (136-145)
[2019-03-12] MEDS: Amlodipine 5 MG TAB PO SCH (08:45)
[2019-03-12] MEDS: Folic Acid 1 MG TAB PO SCH (08:46)
[2019-03-12] MEDS: CEFAZOLIN 1 GM in Sodium Chloride 0.9% 100 ML IVPB SCH ×2 (08:46→21:15)
[2019-03-12] MEDS: Potassium Chloride 20 MEQ TAB PO SCH (08:46)
[2019-03-12] MEDS: Folic Acid/Vit B Comp W-C PO SCH (08:47)
[2019-03-12] MEDS: HumuLIN 70/30 (300 UNITS/3 ML VIAL) SC SCH ×2 (08:48→21:17)
[2019-03-12] MEDS ORDERED: Sodium Chloride 0.9% 10 ML ONE (08:56)
[2019-03-12] MEDS: Polyethylene Glycol 3350 17 GM Packet PO SCH (08:56)
[2019-03-12] MEDS: pyridOXINE 50 MG (B6) TAB PO SCH (08:57)
[2019-03-12] MEDS ORDERED: Prevnar 13-Val Conj/PF 0.5 ML SYRINGE IM ONE (09:00)
[2019-03-12] MEDS ORDERED: Amiodarone 200 MG TAB PO SCH (09:00)
--- NOTE | 2019-03-12 10:58 | HP ---
Patient of Dr. Diaz Michael. HISTORY OF PRESENT ILLNESS: The patient is a 78-year-old morbidly obese white female with a long history of type 2 diabetes with diabetic nephropathy as well as chronic diastolic congestive heart failure with oxygen dependence, who has recently been discharged from [facility], where she was undergoing therapy for deconditioning. She states that she never was able to get around very well and was working with therapy, however, at the house. She had recently had her insulin doses increased, and on the date of admission to [place], was found to be significantly bradycardic and hypoglycemic. She was admitted with metabolic encephalopathy as she was altered and confused. She was also found to have urinary tract infection secondary to Klebsiella and to have acute on chronic renal failure with a BUN up to 116, creatinine up to 3.58 as compared to BUN of 70 and creatinine of 2.0 previously. She responded well, however, to IV fluids and to IV Ancef. Her insulin doses were decreased from 26 units subcu twice daily that she was taken on admission there. Her metolazone diuretic was held. Her carvedilol that she had been taking previously was discontinued. She was continued on her Imdur 30 mg daily and atorvastatin 10 nightly, but her lisinopril was discontinued also because of acute renal failure. She initially was given Levaquin in the emergency room for possible community-acquired pneumonia, but this was discontinued. Ischemic etiology was ruled out with negative troponins. She was also found to be significantly anemic and apparently this is a recurrent problem as she has had guaiac-positive stools in the past and has refused colonoscopy, although she has a family history of a brother recently being dying of cancer of the colon. She is a chemical code only and will be continued on this. She slowly but surely improved, returned to her baseline mental status as well as her baseline renal status with most recent creatinine of 2.18 with a BUN of 72 close to her baseline. Her Accu-Cheks range from 181 to 312 on doses of Humulin N 13 units twice daily. As mentioned above, she was continued on Ancef, but the Levaquin was discontinued. She was continued on amlodipine 5 daily, but the HUGH inhibitor was discontinued as was the beta-tommy. She was continued on amiodarone 100 mg daily as she has a past history of ischemic cardiomyopathy with angioplasty x2, and she has a history of ischemic cardiomyopathy, but cannot determine she has had ventricular tachycardia or atrial fibrillation. She does have a history of morbid obesity and probably component of Pickwickian syndrome with hypoventilation as she is chronically hypoxic and does have restrictive lung disease documented with cardiomegaly, but no fluid overload. ALLERGIES: SHE IS ALLERGIC TO PENICILLIN, IS ABLE TO TOLERATE THE ANCEF. SHE IS ALLERGIC TO SULFA, FISH, AND IODINE. MEDICATIONS: Her medications at this time of transfer to the hospital include, 1. The above-mentioned amiodarone 100 mg daily. 2. Amlodipine 5 daily. 3. Atorvastatin 10 nightly. 4. Ancef 1 g daily. 5. Pulmicort handheld nebulizer daily p.r.n. 6. Folic acid 1 mg daily. 7. Humulin 70/30, 13 units subcu twice daily. 8. Isosorbide 120 mg daily. 9. Protonix 40 mg daily. 10. Potassium chloride 40 mEq daily. 11. Sertraline 50 mg daily. She is a chemical code only. PAST MEDICAL HISTORY: Remarkable for the above-mentioned diabetes, diastolic heart failure, gastroesophageal reflux, hyperlipidemia, chronic renal failure stage 3, probable Pickwickian syndrome, obstructive sleep apnea, and pulmonary hypertension. PAST SURGICAL HISTORY: Positive for cholecystectomy, bilateral knee replacements, lower back surgery, left femur open reduction and internal fixation fracture, coronary angioplasty and stent in 2013. FAMILY HISTORY: Positive for a brother with pancreatic cancer. Mother with unknown cancer. SOCIAL HISTORY: She lives with her , who is attempting to care for and is having difficulty. She is a nonsmoker and nondrinker. She has been noncompliant to medication in the past. REVIEW OF SYSTEMS: HEENT: She denies any headaches, dizziness, change in vision or hearing, hoarseness, dysphagia. PULMONARY: She denies any cough, sputum production or wheezing. CARDIOVASCULAR: She has 1 to 2 pillow orthopnea. She has no edema. She has shortness of breath on minimal exertion. She has had no chest pain. She is chronically on oxygen for the last year. GASTROINTESTINAL: She denies nausea, vomiting, diarrhea or constipation, but has had dark stools, which have been guaiac positive and has refused further evaluation. GENITOURINARY: She has had no dysuria, although recent Klebsiella urinary tract infection documented. MUSCULOSKELETAL: She complains of weakness and tenderness in both arms and legs, but no specific pain in any joints. NEUROLOGIC: She denies localized numbness or weakness in arms or extremities. PHYSICAL EXAMINATION: GENERAL: The patient is an elderly and morbidly obese white female, lying in bed on oxygen, in no acute distress. Alert and oriented, lucid. VITAL SIGNS: Showed to have a blood pressure of 142/64, temperature 96.1, pulse 55, respirations 16, and O2 saturation 100% on 2 L. HEENT: Pupils are equal, round, and reactive to light and accommodation. Sclerae anicteric. Conjunctivae pale. Oral mucous membranes well hydrated. NECK: Supple, obese. JVP is not elevated. Carotids 2+ and equal without bruits. LUNGS: Decreased breath sounds in the bases, but no rales, rhonchi, rubs or wheezes. CARDIAC: Regular rhythm. No gallops or murmurs. ABDOMEN: Obese and nontender with no masses or organomegaly. SKIN/EXTREMITIES: Obesity, but no edema, clubbing or cyanosis. NEUROLOGICAL: No focal findings. LABORATORY DATA: White count 3600, hematocrit 23, and hemoglobin 7.8. Sodium 138, potassium 3.8, chloride 102, bicarb 29, BUN 72, creatinine 2.18, glucose 155, and calcium 8.8. Most recent chest x-rays shows cardiomegaly with no pulmonary edema. ASSESSMENT: 1. Morbidly obese white female with type 2 diabetes and severe deconditioning, who has been working with Physical Therapy and has had increased insulin since being discharged from [facility] weeks ago and has developed significant hypoglycemia and bradycardia, responded with a decrease in her Humulin 70/30 dose from 26 units twice daily to 13 units twice daily and now is running slightly elevated Accu-Cheks. 2. Urinary tract infection secondary Klebsiella, asymptomatic, being treated with Ancef. This may be felt to be the cause of somewhat of her metabolic encephalopathy, now resolved. We will finish a week course. 3. Chronic diastolic heart failure, stable, with no edema or fluid overload, off all diuretics because of the acute on chronic renal failure. 4. Severe deconditioning with inability to maintain ADLs since discharge in the hospital and prior to that, and we will start on PT/OT, but may need placement. 5. Chemical code only per previous hospitalization. We will change this. 6. Chronic hypoxemia, possibly due to pulmonary hypertension, Pickwickian syndrome, and possible hypoventilation, but with normal saturations on 2 L and we will decrease to 1 L and monitor. 7. Bradycardia despite discontinuation of beta-tommy, but still on amiodarone and cannot determine reason for this. We will discontinue amiodarone and monitor closely, and may be able to restart beta-tommy if pulse increases. Job ID: [id number]
--- NOTE | 2019-03-12 10:58 | PRG ---
DATE OF SERVICE: 03/12/2019 SUBJECTIVE: The patient is lying in bed, resting well. No complaints. Slept fairly well through the night, but is asking for a laxative. She is having no shortness of breath, chest pain, weakness, confusion or dysuria. OBJECTIVE: VITAL SIGNS: Shows her blood pressure is 132/59, temperature is 97.3, pulse 52, respirations 18, O2 sats 99% on 2 L. LUNGS: Clear. CARDIAC: Showed regular rhythm. ABDOMEN: Soft and nontender. SKIN/EXTREMITIES: Showed no edema. ASSESSMENT: 1. Resolving Klebsiella urinary tract infection, on IV Ancef. 2. Resolved hypoglycemia, but now with hyperglycemia with Accu-Cheks above 200, so we will increase Humulin 70/30 to 15 units twice daily. 3. Persistent bradycardia despite discontinuation of beta tommy, and we will get EKG and discontinue amiodarone. 4. Chronic hypoxic respiratory failure, on oxygen, but with 99% to 100% on 2 L, and we will decrease to 1 L and monitor. 5. Severe deconditioning. We will start PT and OT as soon as available and we will discuss ability to maintain ADLs or need for placement. Job ID: [id number]
[2019-03-12 12:54] LABS: Bilirubin Negative (Negative); Blood, Urine Moderate (Negative); Clarity Clear (Clear); Glucose, Urine (Dipstick) 100 mg/dL (Negative); Leukocyte Trace (Negative); Nitrite Negative (Negative); Protein, Urine (Dipstick) Negative (Neg-Trace); Urobilinogen 0.2 mg/dL (Less than 2)
[2019-03-12 13:59] LABS: Bacteria/HPF Rare-Few HPF (None Seen); WBC/HPF 0-3 HPF (0-3)
[2019-03-12] MEDS: Atorvastatin Calcium 10 MG TAB PO SCH (21:17)
[2019-03-13 05:34] LABS: #Eosinphils 0.2 thou/uL (0.0-0.7); #Lymphocytes 0.8 thou/uL (1.20-3.40); #Monocytes 0.3 thou/uL (0.11-0.59); #Neutrophils 2.7 thou/uL (1.40-6.50); %Eosinophils 4.3 % (0.0-10.0); %Monocytes 7.9 % (0.0-10.0); %Neutrophils 66.7 % (42.0-75.0); Hemoglobin 7.5 g/dL (12.0-16.0); Mean Corpuscular HGB CONC 31.5 g/dL (32.0-36.0); Mean Corpuscular Hemoglobin 27.1 pg (27.0-31.0); Mean Corpuscular Volume 86.2 fL (78.0-98.0); Mean Platelet Volume 8.2 fL (7.4-10.4); Platelet Count 67 thou/uL (130-400); RBC Distribution Width 17.6 % (11.5-14.5); Red Blood Cell (RBC) Count 2.76 mill/uL (4.20-5.40); White Blood Cell (WBC) Count 4.1 thou/uL (4.8-10.8)
[2019-03-13 05:48] LABS: Anion Gap 13 mmol/L (10-20); BUN (Urea Nitrogen) 38 mg/dL (9.8-20.1); Calc. Creatinine Clearance 63 mL/min (70-130); Carbon Dioxide 30 mmol/L (23-31); Chloride 103 mmol/L (98-107); Estimated GFR-MDRD 39; Glucose 235 mg/dL (83-110); Potassium 4.7 mmol/L (3.5-5.1); Sodium 141 mmol/L (136-145)
[2019-03-13] MEDS ORDERED: Sodium Chloride 0.9% 10 ML ONE (07:32)
[2019-03-13] MEDS: Folic Acid 1 MG TAB PO SCH (08:20)
[2019-03-13] MEDS: Folic Acid/Vit B Comp W-C PO SCH (08:21)
[2019-03-13] MEDS: Potassium Chloride 20 MEQ TAB PO SCH (08:21)
[2019-03-13] MEDS: HumuLIN 70/30 (300 UNITS/3 ML VIAL) SC SCH ×2 (08:22→20:51)
[2019-03-13] MEDS: pyridOXINE 50 MG (B6) TAB PO SCH (08:22)
[2019-03-13] MEDS: Amlodipine 5 MG TAB PO SCH (08:23)
[2019-03-13] MEDS: CEFAZOLIN 1 GM in Sodium Chloride 0.9% 100 ML IVPB SCH ×2 (08:23→20:51)
[2019-03-13] MEDS: Polyethylene Glycol 3350 17 GM Packet PO SCH (08:33)
[2019-03-13] MEDS: Acetaminophen 500 MG TAB PO PRN (14:41)
[2019-03-13] MEDS: Atorvastatin Calcium 10 MG TAB PO SCH (20:51)
--- NOTE | 2019-03-13 22:13 | PRG ---
DATE OF SERVICE: 03/13/2019 SUBJECTIVE: The patient is complaining of neck pain today, severe enough she wished an x-ray, which only showed mild DJD and was resolved with Tylenol. She also states today that she feels much better, but is still very weak and is wishing therapy and is still showing shortness of breath on exertion. OBJECTIVE: VITAL SIGNS: Shows, however, that her vitals have improved with temperature 97.5, pulse 60, respirations 20, O2 sats 97% on room air, and blood pressure 151/66. LUNGS: Show decreased breath sounds diffusely, but with no rales, rhonchi, rubs or wheezes. CARDIAC: Examination displayed regular rhythm. ABDOMEN: Soft and nontender. LABORATORY DATA: Show white count 4100, hematocrit 23, hemoglobin 7.5. Sodium was 141, potassium 4.7, chloride 103, bicarb 30, BUN 38, creatinine 1.3, glucose 235, calcium 9.0. Urinalysis showing moderate blood, but only 4-6 white red cells. ASSESSMENT: 1. Resolving Klebsiella urinary tract infection, on IV Ancef. 2. Resolved hypoglycemia with improved hyperglycemia, on increased Humulin 70/30 to 15 units twice daily with Accu-Cheks now running 240 to 280, but may need to increase further tomorrow. 3. Persistent bradycardia. Off amiodarone and we will monitor closely. 4. Chronic hypoxic respiratory failure, improving with 97% O2 on 1 L. 5. Severe deconditioning and patient will hopefully cooperate with therapy tomorrow. 6. Recurrent anemia in a patient with guaiac stools, who has refused colonoscopy secondary to cancer of the colon in a brother. PLAN: 1. Set colonoscopy if the patient will agree and we will discuss with Dr. Michael. 2. Continue to wean off oxygen. 3. Continue PT/OT. 4. Increase Humulin 70/30 to possibly 20 units twice daily if Accu-Cheks do not improve. Job ID: [id number]
--- NOTE | 2019-03-14 00:24 | RAD ---
RADIOGRAPH CERVICAL SPINE 3 VIEWS: DATE: 03/13/2019 HISTORY: 78-year-old female with nontraumatic cervicalgia FINDINGS: Diffuse osteopenia. On the lateral view, the levels inferior to the C5-6 level are obscured by the sh oulders. Alignment is normal from C2-3 through C5-6. No prevertebral soft tissue swelling. No high-grade DJD at atlantoaxial joints. Diffuse biapical interstitial pulmonary densities. IMPRESSION: 1. Osteopenia. 2. Incomplete visualization of the cervical spine. The lower portion is obscured by the shoulders on the lateral view. 3. Consider CT or MRI. 4. No major pathology identified in upper cervical spine.
[2019-03-14 05:22] LABS: #Basophils 0.1 thou/uL (0.0-0.2); #Eosinphils 0.2 thou/uL (0.0-0.7); #Lymphocytes 0.8 thou/uL (1.20-3.40); #Monocytes 0.3 thou/uL (0.11-0.59); #Neutrophils 2.3 thou/uL (1.40-6.50); %Basophils 1.7 % (0.0-1.0); %Lymphocytes 21.2 % (21.0-51.0); %Monocytes 8.5 % (0.0-10.0); %Neutrophils 63.5 % (42.0-75.0); Hemoglobin 8.3 g/dL (12.0-16.0); Mean Corpuscular HGB CONC 31.7 g/dL (32.0-36.0); Mean Corpuscular Hemoglobin 27.9 pg (27.0-31.0); Mean Corpuscular Volume 88.1 fL (78.0-98.0); Platelet Count 39 thou/uL (130-400); RBC Distribution Width 17.7 % (11.5-14.5); Red Blood Cell (RBC) Count 2.97 mill/uL (4.20-5.40); White Blood Cell (WBC) Count 3.7 thou/uL (4.8-10.8)
--- NOTE | 2019-03-14 07:46 | PRG ---
DATE OF SERVICE: 03/12/2019 ADDENDUM: ASSESSMENT: Acute on chronic renal failure, appeared to be resolving with stable maintenance of renal function with a creatinine of 2.18 and GFR of 36 on admission and we will monitor closely off diuretics and off HUGH inhibitors in the [facility]. Job ID: [id number]
[2019-03-14] MEDS: Acetaminophen 500 MG TAB PO PRN (08:31)
[2019-03-14] MEDS: Potassium Chloride 20 MEQ TAB PO SCH (08:32)
[2019-03-14] MEDS: Folic Acid 1 MG TAB PO SCH (08:33)
[2019-03-14] MEDS: pyridOXINE 50 MG (B6) TAB PO SCH (08:35)
[2019-03-14] MEDS: Polyethylene Glycol 3350 17 GM Packet PO SCH (08:36)
[2019-03-14] MEDS: Folic Acid/Vit B Comp W-C PO SCH (08:37)
[2019-03-14] MEDS: CEFAZOLIN 1 GM in Sodium Chloride 0.9% 100 ML IVPB SCH ×2 (08:37→20:31)
[2019-03-14] MEDS: Amlodipine 5 MG TAB PO SCH (08:50)
[2019-03-14] MEDS: HumuLIN 70/30 (300 UNITS/3 ML VIAL) SC SCH ×2 (08:54→20:32)
[2019-03-14] MEDS: Atorvastatin Calcium 10 MG TAB PO SCH (20:31)
[2019-03-15] MEDS: CEFAZOLIN 1 GM in Sodium Chloride 0.9% 100 ML IVPB SCH ×2 (08:39→20:41)
[2019-03-15] MEDS: Isosorbide Mononitrate (ER) 30 MG TAB PO SCH (08:47)
[2019-03-15] MEDS: Polyethylene Glycol 3350 17 GM Packet PO SCH (08:47)
[2019-03-15] MEDS: Folic Acid 1 MG TAB PO SCH (08:48)
[2019-03-15] MEDS: Potassium Chloride 20 MEQ TAB PO SCH (08:52)
[2019-03-15] MEDS: pyridOXINE 50 MG (B6) TAB PO SCH (08:54)
[2019-03-15] MEDS: Amlodipine 5 MG TAB PO SCH (08:56)
[2019-03-15] MEDS: Folic Acid/Vit B Comp W-C PO SCH (08:56)
[2019-03-15] MEDS ORDERED: HumuLIN 70/30 (300 UNITS/3 ML VIAL) SC SCH ×2 (09:00→10:15)
[2019-03-15] MEDS: HumuLIN 70/30 (300 UNITS/3 ML VIAL) SC SCH ×2 (09:05→20:42)
--- NOTE | 2019-03-15 10:18 | PRG ---
DATE OF SERVICE: 03/14/2019 SUBJECTIVE: The patient is a well-developed, well-nourished 78-year-old white female, well known to me with multiple medical problems. She was admitted to the hospital at [facility] with hypoglycemia after skipping a meal and getting her insulin. She is also noted to be extremely weak and anemic. The patient was eventually stabilized and transferred back down to [facility] for correction of her hypoglycemia and titrating of her insulins. She is also here for physical therapy and occupational therapy to increase her strength and her stamina. OBJECTIVE: VITAL SIGNS: Reveal blood pressure yesterday morning 126/58, pulse 63, respirations 20, O2 saturation 99% on 2 L nasal cannula, and T-max 97.5. Sugars yesterday reveal fasting 142, before lunch 183, before supper 263, and before bedtime 282. GENERAL: This is a well-developed, well-nourished, morbidly obese white female, has not very motivated. HEENT: Reveals normocephalic and nontraumatic cranium. Pupils are equally round and reactive. Extraocular movements intact. Nose and throat are clear and moist. NECK: Supple without masses, nodes, or bruits. CHEST: Reveals decreased breath sounds, but no rales, rhonchi, wheezes, or cough is noted. HEART: Reveals a regular rate and rhythm, but heart sounds are distant. ABDOMEN: Morbidly obese, soft, and nontender. No rebound or guarding is noted. Normal bowel sounds are noted in all 4 quadrants. : Deferred. EXTREMITIES: Reveal no clubbing or cyanosis with trace edema. ASSESSMENT: 1. Klebsiella urinary tract infection present on IV Ancef. 2. Hypoglycemia with hyperglycemia. Presently on Humulin 70/30 of 15 units, and they continue to remain high, so we will increase that to 20 units b.i.d. 3. Bradycardia, off amiodarone. Continue to monitor. 4. Chronic hypoxic respiratory failure, improved with 97% oxygen on 1 to 2 L. 5. Severe generalized weakness and deconditioning. 6. Recurrent anemia with guaiacs stools. The patient has refused colonoscopy in the past. 7. The patient has a brother, who had colon cancer. PLAN: 1. After significant discussion with colonoscopy, I did review Dr. Quijano's notes from her previous hospitalization in [place]. a. His concern was that with her heart and respiratory problems, he was reticent to do a colonoscopy or EGD. He felt that she would need to have cardiac clearance and probably respiratory clearance. b. His other point was that if we did find something most likely, she would not be able to tolerate any type of invasive surgical procedures. 2. Continue to increase Humulin 70/30 of 20 units b.i.d., which will be done today. 3. Continue physical therapy and occupational therapy. 4. Encourage the patient to participate well on PT and OT. 5. Continue Ancef for full course of therapy. 6. Monitor the patient's anemia. 7. Monitor the patient's diabetes with Accu-Cheks before meals and at bedtime. 8. Monitor the patient's blood pressure. 9. Monitor the patient's rate. Job ID: [id number]
--- NOTE | 2019-03-15 10:20 | PRG ---
DATE OF SERVICE: 03/15/2019 SUBJECTIVE: Ms. Gustafson is a 78-year-old morbidly obese white female with a long history of diabetes, diabetic nephropathy, chronic diastolic congestive heart failure, oxygen dependent, and anemia. A couple hospitalizations ago, she had anemia, and was seen in consultation by Dr. Quijano, who felt that she needed to have cardiac clearance and prior respiratory clearance before she had an EGD and colonoscopy. That was never done, because she refused to do the colonoscopy anyway. She remained anemic and actually became hypoglycemic at home, because she skipped a meal and then went to the hospital and was found to be hypoglycemic, anemic and just generalized weakness. She was stabilized and now transferred to [facility] for physical therapy and occupational therapy and continued management of her diabetes. Today, the patient states she is doing well. She states that yesterday for physical therapy, she sat in a wheelchair for 4 hours. She did not attempt to stand up or walk. She states she is just tired. Her shoulders and neck and back hurt and she is satisfied for what she is doing. OBJECTIVE: VITAL SIGNS: Reveal blood pressure this morning was somewhat elevated at 175/72, pulse 61 to 69, respirations 18 to 20, and O2 saturation 98% to 99% on 2 L nasal cannula. T-max 98.4. GENERAL: This is a well-developed, well-nourished, morbidly obese white female, in no apparent distress at this time. HEENT: Reveals normocephalic and nontraumatic cranium. Pupils are equally round and reactive. Extraocular movements are intact. Nose and throat are dry, but clear. NECK: Supple without masses, nodes, or bruits. JVP is not able to be elicited. CHEST: Clear to auscultation. No rales. No rhonchi. No wheezes are heard. Breath sounds are distant. HEART: Reveals a regular rate and rhythm without murmurs, gallops, or rubs. ABDOMEN: Morbidly obese, soft, and nontender. No rebound or guarding is noted. Normal bowel sounds are noted in all 4 quadrants. : Deferred. EXTREMITIES: Today, reveal no clubbing, cyanosis, or edema. NEUROLOGIC: The patient has no focal findings, just generalized weakness. PSYCHOLOGICAL: The patient is not motivated really to do her therapy. ASSESSMENT: 1. Type 2 diabetes, which is out of control. We will increase her 70/30 to 20 units b.i.d. 2. Urinary tract infection with Klebsiella, present on Ancef. We will finish this 7-day course. 3. Chronic diastolic heart failure. 4. Severe generalized weakness and deconditioning. 5. Chemical code per previous hospitalization. 6. Chronic hypoxemia secondary to pulmonary hypertension, Pickwickian syndrome, and hypoventilation. 7. Bradycardia. 8. Generalized weakness. PLAN: 1. Continue to monitor the patient's diabetes closely and adjust medications as needed. 2. We will increase her Humulin 70/30 to 20 units at this time b.i.d. 3. Continue full 7-day course of Ancef. 4. Monitor the patient for signs and symptoms of congestive heart failure. 5. Encourage the patient to actively participate in physical therapy and occupational therapy. 6. Continue to monitor the patient's bradycardia. Job ID: [id number]
[2019-03-15] MEDS: Atorvastatin Calcium 10 MG TAB PO SCH (20:42)
[2019-03-16] MEDS: Potassium Chloride 20 MEQ TAB PO SCH (08:40)
[2019-03-16] MEDS: Polyethylene Glycol 3350 17 GM Packet PO SCH (08:40)
[2019-03-16] MEDS: CEFAZOLIN 1 GM in Sodium Chloride 0.9% 100 ML IVPB SCH ×2 (08:40→21:00)
[2019-03-16] MEDS: Sodium Chloride 0.9% 10 ML ONE (08:40)
[2019-03-16] MEDS: Isosorbide Mononitrate (ER) 30 MG TAB PO SCH (08:41)
[2019-03-16] MEDS: Folic Acid 1 MG TAB PO SCH (08:42)
[2019-03-16] MEDS: pyridOXINE 50 MG (B6) TAB PO SCH (08:42)
[2019-03-16] MEDS: Amlodipine 5 MG TAB PO SCH (08:42)
[2019-03-16] MEDS: Folic Acid/Vit B Comp W-C PO SCH (08:43)
[2019-03-16] MEDS: HumuLIN 70/30 (300 UNITS/3 ML VIAL) SC SCH ×2 (08:49→20:59)
[2019-03-16] MEDS: Acetaminophen 500 MG TAB PO PRN ×2 (08:50→18:04)
--- NOTE | 2019-03-16 11:15 | PRG ---
DATE OF SERVICE: 03/16/2019 SUBJECTIVE: Ms. Gustafson is a very pleasant 78-year-old white female, who took her insulin and did not eat her lunch. She became very hypoglycemic, was brought to the ER and found to also have increased anemia, hyponatremia, and generalized weakness. She was admitted, stabilized, and then was transferred to [facility] for PT and OT and continue management of her diabetes. Today, the patient states she did well. She walked a little bit out of her room towards the nurse's station, which is much improved over yesterday. She has no concerns or complaints and states her neck and back are feeling a little bit better. OBJECTIVE: VITAL SIGNS: Reveal blood pressure 139/65, pulse 64 to 74, respirations 20 to 22, and O2 saturations 97% to 99% on 1.5 L nasal cannula. T-max 98.3. GENERAL: This is a well-developed, well-nourished, morbidly obese, white female, in no apparent distress at this time. HEENT: Reveals normocephalic and nontraumatic cranium. Pupils are equally round and reactive. Extraocular movements are intact. Nose and throat are moist. NECK: Supple without masses, nodes, or bruits. CHEST: Clear to auscultation. No rales, no rhonchi, no wheezes, and no cough is heard. HEART: Reveals a regular rate and rhythm without murmurs, gallops, or rubs. ABDOMEN: Morbidly obese, soft, nontender. No rebound or guarding is noted. Normal bowel sounds are noted. : Deferred. EXTREMITIES: Reveal no clubbing, cyanosis, or edema. NEUROLOGIC: The patient has no focal findings. Only generalized weakness. PSYCHOLOGIC: The patient is not well motivated, but she is happy today and a little motivated. ASSESSMENT: 1. Diabetes, type 2, out of control. We did increase her insulin to 70/30 for 20 units b.i.d. Sugars are slightly better today. We will give her for another day and see. 2. Urinary tract infection with Klebsiella, and the patient is on cefazolin for full 7 days, 1 g IV b.i.d. 3. Chronic diastolic heart failure. 4. Chronic hypoxemia secondary to pulmonary hypertension, Pickwickian syndrome, and hypoventilation. 5. History of bradycardia, which is improving. 6. Severe generalized weakness and deconditioning. PLAN: 1. Continue to monitor the patient's diabetes and adjust medications as needed. 2. Continue full 7-day course of Ancef. 3. Continue physical therapy and occupational therapy. 4. Stress ulcer prophylaxis. 5. Decubitus precautions. 6. DVT prophylaxis. 7. Continue to monitor the patient's bradycardia and adjust medications as needed. Job ID: [id number]
[2019-03-16] MEDS: Atorvastatin Calcium 10 MG TAB PO SCH (21:00)
[2019-03-17] MEDS: Potassium Chloride 20 MEQ TAB PO SCH (08:23)
[2019-03-17] MEDS: Isosorbide Mononitrate (ER) 30 MG TAB PO SCH (08:24)
[2019-03-17] MEDS: Folic Acid 1 MG TAB PO SCH (08:24)
[2019-03-17] MEDS: pyridOXINE 50 MG (B6) TAB PO SCH (08:26)
[2019-03-17] MEDS: CEFAZOLIN 1 GM in Sodium Chloride 0.9% 100 ML IVPB SCH ×2 (08:27→20:39)
[2019-03-17] MEDS: Folic Acid/Vit B Comp W-C PO SCH (08:27)
[2019-03-17] MEDS: Amlodipine 5 MG TAB PO SCH (08:31)
[2019-03-17] MEDS: HumuLIN 70/30 (300 UNITS/3 ML VIAL) SC SCH ×2 (08:31→20:45)
[2019-03-17] MEDS: Polyethylene Glycol 3350 17 GM Packet PO SCH (08:31)
[2019-03-17] MEDS ORDERED: Sodium Chloride 0.9% 10 ML ONE (08:36)
[2019-03-17] MEDS: Sodium Chloride 0.9% 10 ML ONE (08:37)
[2019-03-17] MEDS: Acetaminophen 500 MG TAB PO PRN ×3 (08:37→20:42)
--- NOTE | 2019-03-17 19:51 | PRG ---
DATE OF SERVICE: 03/17/2019 SUBJECTIVE: Ms. Gustafson is a pleasant 78-year-old white female. Unfortunately, she took her insulin and did not eat lunch. She became very hypoglycemic and was brought to the ER and found to have increasing anemia, hyponatremia, and generalized weakness. She was admitted to [facility] and eventually stabilized. She was then transferred to [facility] because of her generalized weakness. She is here for physical therapy, occupational therapy, and continued maintenance and management of her diabetes. The patient states she had a pretty good day yesterday, walked around, and is feeling better. Her neck and her back are not feeling so bad. She states she walked to the nurse's station yesterday. OBJECTIVE: VITAL SIGNS: Reveal blood pressure this morning 152/67, pulse 66, respirations 22, and O2 saturation 99% on 1.5 L. T-max is 97.7. GENERAL: This is a well-developed, well-nourished, very pleasant, morbidly obese white female, who is in a good mood this morning. HEENT: Normocephalic and nontraumatic cranium. Pupils are equal, round, and reactive. Extraocular movements are intact. Nose and throat are dry. NECK: Supple without masses, nodes, or bruits. CHEST: Clear to auscultation. No rales, rhonchi, or wheezes are heard. HEART: Reveals a regular rate and rhythm without murmurs, gallops, or rubs. ABDOMEN: Soft, morbidly obese, nontender. Normal bowel sounds are noted. No rebound or guarding is noted. GENITOURINARY: Deferred. EXTREMITIES: Reveal no clubbing, cyanosis, or edema. NEUROLOGIC: The patient has no focal findings. ASSESSMENT: 1. Diabetes type 2, slowly improving. Presently on 70/30. We will consider increasing. 2. Urinary tract infection with Klebsiella. The patient is on cefazolin for full 7 days. 3. Chronic diastolic heart failure. 4. Chronic hypoxemia secondary to pulmonary hypertension, Pickwickian syndrome, and hypoventilation. 5. History of bradycardia. 6. Severe generalized weakness and deconditioning. PLAN: 1. Continue to monitor the patient's diabetes and adjust medications as needed. 2. Continue to monitor the patient's blood pressure closely. 3. Continue full 7 days course of NSAIDs. 4. Continue stress ulcer prophylaxis. 5. Decubitus precautions. 6. DVT prophylaxis. 7. Monitor the patient's bradycardia. 8. Physical therapy and occupational therapy. Job ID: [id number]
[2019-03-17] MEDS ORDERED: Sodium Chloride 0.9% 20 ML ONE (20:37)
[2019-03-17] MEDS: Atorvastatin Calcium 10 MG TAB PO SCH (20:42)
[2019-03-18] MEDS: CEFAZOLIN 1 GM in Sodium Chloride 0.9% 100 ML IVPB SCH ×2 (09:42→20:19)
[2019-03-18] MEDS: Potassium Chloride 20 MEQ TAB PO SCH (09:43)
[2019-03-18] MEDS: Folic Acid 1 MG TAB PO SCH (09:45)
[2019-03-18] MEDS: Amlodipine 5 MG TAB PO SCH (09:45)
[2019-03-18] MEDS: Isosorbide Mononitrate (ER) 30 MG TAB PO SCH (09:46)
[2019-03-18] MEDS: Sodium Chloride 0.9% 10 ML ONE (09:47)
[2019-03-18] MEDS: HumuLIN 70/30 (300 UNITS/3 ML VIAL) SC SCH ×2 (09:47→20:20)
[2019-03-18] MEDS: Polyethylene Glycol 3350 17 GM Packet PO SCH (09:51)
[2019-03-18] MEDS: Acetaminophen 500 MG TAB PO PRN (09:56)
[2019-03-18] MEDS: pyridOXINE 50 MG (B6) TAB PO SCH (10:00)
[2019-03-18] MEDS: Folic Acid/Vit B Comp W-C PO SCH (10:10)
--- NOTE | 2019-03-18 11:43 | PRG ---
DATE OF SERVICE: 03/18/2019 SUBJECTIVE: Ms. Gustafson is a very pleasant 78-year-old white female. She has not been very compliant with her medications, her diet, and unfortunately, skipped a meal, but did take her insulin. She became hypoglycemic and was brought to the ER and found to have also anemia along with hyponatremia and generalized weakness. She was stabilized at [facility] and then eventually transferred to [facility] for continued physical therapy and occupational therapy. The patient states she is doing really well today. The occupational therapist and physical therapist were in the room, working with her, and states she is much improved today and over the last couple of days. She has no complaints today. OBJECTIVE: VITAL SIGNS: This morning reveal blood pressure 159/65, pulse 60 to 65, respirations 20 to 22, O2 saturation 99% on 2 L nasal cannula. She does wear CPAP at night. T-max 98.2. GENERAL: This is a well-developed, well-nourished, morbidly obese white female, in no apparent distress at this time. She is laughing and joking with the therapist. HEENT: Normocephalic and nontraumatic cranium. Pupils equally round and reactive. Extraocular movements are intact. Nose and throat are moist today. NECK: Supple without masses, nodes, or bruits. CHEST: Distant, but clear. No rales, rhonchi, wheezes, or cough is heard. HEART: Reveals a regular rate and rhythm without murmurs, gallops, or rubs. ABDOMEN: Soft, morbidly obese, nontender without organomegaly. Normal bowel sounds are noted. No rebound or guarding is noted. : Deferred. EXTREMITIES: Reveal no clubbing, cyanosis, or edema. NEUROLOGIC: The patient has no focal findings, just generalized weakness. ASSESSMENT: 1. Generalized weakness, requires continued physical therapy and occupational therapy. 2. Diabetes type 2, slowly improving. 3. Urinary tract infection with Klebsiella. The patient is on cefazolin for full 7 days. 4. Chronic diastolic heart failure. 5. Chronic hypoxic respiratory failure secondary to pulmonary hypertension, Pickwickian syndrome, and hypoventilation. 6. History of bradycardia. 7. Severe generalized weakness. PLAN: 1. Continue to monitor the patient's diabetes with Accu-Cheks a.c. and at bedtime. 2. Monitor the patient's blood pressure and adjust medications as needed. 3. Full 7-day course of Ancef. 4. Stress ulcer prophylaxis. 5. Decubitus precautions. 6. DVT prophylaxis. 7. Continue to monitor the patient's heart rate for bradycardia. 8. PT and OT. Job ID: [id number]
[2019-03-18] MEDS: Atorvastatin Calcium 10 MG TAB PO SCH (20:19)
--- NOTE | 2019-03-19 08:45 | PRG ---
DATE OF SERVICE: 03/19/2019 SUBJECTIVE: Ms. Gustafson is a very pleasant 78-year-old white female, who unfortunately is not compliant with her diet medications. She skipped a meal, but did take her insulin. She became hypoglycemic and ended up to the emergency room and admitted to [facility]. She eventually was stabilized and transferred to [facility], because of generalized weakness for continued physical therapy and occupational therapy. The patient states she did well yesterday, walked from her room to the front entrance of the hospital. She states she is getting better, but she continues to have neck and back aches. OBJECTIVE: VITAL SIGNS: Today reveal blood pressure 163/70, pulse 65-70, respirations 20, O2 saturation 96% to 99% on 2 L nasal cannula, T max 98.0. PHYSICAL EXAMINATION: GENERAL: This is a well-developed, morbidly obese white female, in no apparent distress at this time. HEENT: Normocephalic and nontraumatic cranium. Pupils are equal, round, reactive. Extraocular movements are intact. Nose and throat are slightly dry. NECK: Supple without masses, nodes, or bruits. CHEST: Clear to auscultation. No rales, rhonchi, or wheezes are heard today. Chest sounds are distant. HEART: Reveals a regular rate and rhythm without murmurs, gallops or rubs. ABDOMEN: Soft, nontender, morbidly obese. Normal bowel sounds noted in all 4 quadrants. No rebound or guarding is noted. : Deferred. EXTREMITIES: Reveal no clubbing, cyanosis, and no edema. NEUROLOGIC: The patient has no focal findings. She has generalized weakness. ASSESSMENT: 1. Type 2 diabetes. 2. Urinary tract infection with Klebsiella, presently on cefazolin for full 7 days. 3. Chronic diastolic heart failure. 4. Chronic hypoxic respiratory failure secondary to pulmonary hypertension, Pickwickian syndrome, and hypoventilation. 5. History of bradycardia. 6. Severe generalized weakness. PLAN: 1. Continue to monitor the patient's diabetes with Accu-Cheks a.c. and at bedtime. 2. Continue to monitor the patient's blood pressure and adjust medications as needed. 3. Stress ulcer prophylaxis. 4. Decubitus precautions. 5. DVT prophylaxis. 6. Full 7-day course of Ancef. 7. Continue to monitor the patient's heart rate for bradycardia. 8. Continue physical therapy and occupational therapy. Job ID: [id number]
[2019-03-19] MEDS: Potassium Chloride 20 MEQ TAB PO SCH (08:59)
[2019-03-19] MEDS: pyridOXINE 50 MG (B6) TAB PO SCH (09:01)
[2019-03-19] MEDS: Folic Acid 1 MG TAB PO SCH (09:01)
[2019-03-19] MEDS: HumuLIN 70/30 (300 UNITS/3 ML VIAL) SC SCH ×2 (09:02→20:32)
[2019-03-19] MEDS: Isosorbide Mononitrate (ER) 30 MG TAB PO SCH (09:08)
[2019-03-19] MEDS: Folic Acid/Vit B Comp W-C PO SCH (09:09)
[2019-03-19] MEDS: Amlodipine 5 MG TAB PO SCH (09:09)
[2019-03-19] MEDS: CEFAZOLIN 1 GM in Sodium Chloride 0.9% 100 ML IVPB SCH ×2 (09:11→20:31)
[2019-03-19] MEDS: Polyethylene Glycol 3350 17 GM Packet PO SCH (09:13)
[2019-03-19] MEDS: Acetaminophen 500 MG TAB PO PRN (09:20)
[2019-03-19] MEDS: Atorvastatin Calcium 10 MG TAB PO SCH (20:31)
[2019-03-19] MEDS: Sodium Chloride 0.9% 10 ML ONE (20:32)
[2019-03-19] MEDS ORDERED: Sodium Chloride 0.9% 10 ML ONE (20:55)
[2019-03-20 06:54] LABS: #Eosinphils 0.1 thou/uL (0.0-0.7); #Lymphocytes 1.1 thou/uL (1.20-3.40); #Monocytes 0.3 thou/uL (0.11-0.59); #Neutrophils 2.1 thou/uL (1.40-6.50); %Basophils 1.3 % (0.0-1.0); %Eosinophils 2.9 % (0.0-10.0); %Lymphocytes 30.8 % (21.0-51.0); %Monocytes 8.9 % (0.0-10.0); %Neutrophils 56.2 % (42.0-75.0); Anisocytosis SLIGHT = 6-15 cells (100X) (0-5/hpf); Hemoglobin 7.5 g/dL (12.0-16.0); Hypochromia MODERATE=16-30 cells (100X) (0-5/hpf); MDiff Complete? YES; Mean Corpuscular HGB CONC 30.8 g/dL (32.0-36.0); Mean Corpuscular Hemoglobin 27.3 pg (27.0-31.0); Mean Corpuscular Volume 88.6 fL (78.0-98.0); Mean Platelet Volume 7.4 fL (7.4-10.4); Microcytosis SLIGHT = 6-15 cells (100X) (0-5/hpf); Platelet Count 81 thou/uL (130-400); Platelet Morphology Comment Appears Decreased; RBC Distribution Width 17.9 % (11.5-14.5); Red Blood Cell (RBC) Count 2.76 mill/uL (4.20-5.40); White Blood Cell (WBC) Count 3.7 thou/uL (4.8-10.8)
[2019-03-20 07:00] LABS: ALT (SGPT) 15 U/L (8-55); AST (SGOT) 27 U/L (5-34); Alkaline Phosphatase 182 U/L (40-150); Anion Gap 12 mmol/L (10-20); BUN (Urea Nitrogen) 16 mg/dL (9.8-20.1); Bilirubin, Total 0.3 mg/dL (0.2-1.2); Calc. Creatinine Clearance 83 mL/min (70-130); Calcium 8.6 mg/dL (7.8-10.44); Carbon Dioxide 23 mmol/L (23-31); Chloride 110 mmol/L (98-107); Estimated GFR-MDRD 55; Globulin 2.6 g/dL (2.4-3.5); Glucose 109 mg/dL (83-110); Potassium 4.4 mmol/L (3.5-5.1); Protein, Total 5.6 g/dL (6.0-8.3); Sodium 141 mmol/L (136-145)
[2019-03-20] MEDS: Potassium Chloride 20 MEQ TAB PO SCH (08:49)
[2019-03-20] MEDS: Acetaminophen 500 MG TAB PO PRN ×2 (08:49→20:52)
[2019-03-20] MEDS: Isosorbide Mononitrate (ER) 30 MG TAB PO SCH (08:51)
[2019-03-20] MEDS: pyridOXINE 50 MG (B6) TAB PO SCH (08:53)
[2019-03-20] MEDS: Polyethylene Glycol 3350 17 GM Packet PO SCH (08:54)
[2019-03-20] MEDS: Folic Acid 1 MG TAB PO SCH (08:57)
[2019-03-20] MEDS: Amlodipine 5 MG TAB PO SCH (08:57)
[2019-03-20] MEDS: CEFAZOLIN 1 GM in Sodium Chloride 0.9% 100 ML IVPB SCH ×2 (08:58→20:50)
[2019-03-20] MEDS: Folic Acid/Vit B Comp W-C PO SCH (09:08)
[2019-03-20] MEDS: HumuLIN 70/30 (300 UNITS/3 ML VIAL) SC SCH ×2 (09:37→20:49)
--- NOTE | 2019-03-20 09:49 | PRG ---
DATE OF SERVICE: 03/20/2019 SUBJECTIVE: Ms. Gustafson is a very pleasant 79-year-old white female, who unfortunately skipped a meal, but gave herself her insulin. She became hypoglycemic in the emergency room, admitted to [facility]. She eventually was stabilized and transferred to [facility] because of generalized weakness. She is here for her physical therapy and occupational therapy. The patient states she had a wonderful day yesterday and enjoyed it immensely and knows that she has today off today. She has no complaints today. I did tell her that we would draw some blood this morning. She did complain of a little cough this morning with a little shortness of breath, but a breathing treatment completely cleared that. OBJECTIVE: VITAL SIGNS: Today reveal blood pressure a little elevated 170/70 last night and this morning, blood pressure is not on the computer yet. Pulse 76, respirations 20, O2 saturation of 97% on 2 L, and T-max 97.0. GENERAL: This is a well-developed, well-nourished, very pleasant 79-year-old white female, in no apparent distress at this time. HEENT: Normocephalic and nontraumatic cranium. The pupils are equally round and reactive. Extraocular movements intact. Nose and throat are slightly dry. NECK: Supple without masses, nodes, or bruits. CHEST: Clear to auscultation. HEART: Reveals a regular rate and rhythm without murmurs, gallops, or rubs. ABDOMEN: Morbidly obese, soft, and nontender without organomegaly. Normal bowel sounds are noted. No rebound or guarding is noted. : Deferred. EXTREMITIES: Reveal no clubbing, cyanosis, or edema. The patient has no focal findings. She has generalized weakness. LABORATORY DATA: This morning revealed white count of 3700. Her hemoglobin is down to 7.5 and hematocrit 24.5, which is slightly down. Platelet count is 81,000. Sodium is 141, potassium 4.4, chloride 110, carbon dioxide 23 with a BUN of 16, creatinine 0.98, and GFR 55. Sugars reveal fasting yesterday morning 132, before lunch 172, before supper 189, and before bedtime 180. Fasting this morning was 109. Alkaline phosphatase of 182. BNP was 150. Urine was not done. ASSESSMENT: 1. Anemia, which is unable to be further evaluated because of the patient's poor cardiac and respiratory status. Dr. Quijano has seen the patient in the past and states that the patient had to be cleared by Dr. Black, her brush stainer, but he is hesitant to do anything because if we did find something states she would not be able to tolerate any surgical further evaluation. 2. Diabetes type 2. 3. Urinary tract infection with Klebsiella and we will stop her Ancef today. 4. Chronic diastolic heart failure. 5. Chronic hypoxic respiratory failure secondary to pulmonary hypertension. 6. Pickwickian syndrome and hypoventilation. 7. History of bradycardia. 8. Severe generalized weakness. PLAN: 1. Continue to monitor the patient's diabetes with Accu-Cheks before meals and at bedtime. 2. Continue to monitor the patient's blood pressure closely. 3. Continue to monitor the patient's respiratory status and handheld nebulizers q.i.d. p.r.n. 4. Stress ulcer prophylaxis. 5. Decubitus precautions. 6. DVT prophylaxis. 7. Stop Ancef. 8. Continue to monitor the patient's heart rate for bradycardia. 9. Continue physical therapy and occupational therapy. Job ID: [id number]
[2019-03-20] MEDS: Atorvastatin Calcium 10 MG TAB PO SCH (20:50)
[2019-03-21] MEDS: Potassium Chloride 20 MEQ TAB PO SCH (08:10)
[2019-03-21] MEDS: Folic Acid 1 MG TAB PO SCH (08:11)
[2019-03-21] MEDS: Isosorbide Mononitrate (ER) 30 MG TAB PO SCH (08:11)
[2019-03-21] MEDS: Amlodipine 5 MG TAB PO SCH (08:11)
[2019-03-21] MEDS: pyridOXINE 50 MG (B6) TAB PO SCH (08:12)
[2019-03-21] MEDS: Folic Acid/Vit B Comp W-C PO SCH (08:12)
[2019-03-21] MEDS: HumuLIN 70/30 (300 UNITS/3 ML VIAL) SC SCH ×2 (08:15→21:36)
[2019-03-21] MEDS: Polyethylene Glycol 3350 17 GM Packet PO SCH (09:03)
[2019-03-21 10:02] LABS: Bilirubin Negative (Negative); Blood, Urine Moderate (Negative); Clarity Clear (Clear); Glucose, Urine (Dipstick) Negative (Negative); Leukocyte Small (Negative); Nitrite Negative (Negative); Protein, Urine (Dipstick) 30 mg/dL (Neg-Trace); Urobilinogen 0.2 mg/dL (Less than 2)
[2019-03-21] MEDS: Acetaminophen 500 MG TAB PO PRN ×2 (10:03→21:36)
[2019-03-21 10:25] LABS: Bacteria/HPF 1+ HPF (None Seen)
--- NOTE | 2019-03-21 21:08 | PRG ---
DATE OF SERVICE: 03/21/2019 SUBJECTIVE: Ms. Gustafson is a well-developed, well-nourished, very pleasant, morbidly obese white female, who was admitted to [facility] after she had a hypoglycemic episode of taking her insulin and not eating her lunch. She was also found to be extremely noncompliant along with having acute congestive heart failure and volume overload. She eventually was stabilized and transferred to [facility] for physical therapy and occupational therapy. The patient states she has already had some therapy early this morning and she walked around the [facility], but she did say how home many times she had to stop. OBJECTIVE: VITAL SIGNS: Reveal blood pressure 151/69, pulse 67 to 66, respirations 22, O2 saturation of 97% on 2 L nasal cannula, and T-max 97.8. GENERAL: This is a well-developed, well-nourished, very pleasant 79-year-old white female, in no apparent distress. She states she thinks she is doing fairly well. HEENT: Normocephalic and nontraumatic cranium. Pupils equal, round, and reactive. Extraocular movements are intact. Nose and throat are slightly dry. NECK: Supple without masses, nodes, or bruits. CHEST: Clear to auscultation. HEART: Reveals a regular rate and rhythm without murmurs, gallops, or Rubs. ABDOMEN: Morbidly obese, soft, and nontender. Normal bowel sounds are noted. No rebound or guarding is noted. GENITOURINARY: Deferred. EXTREMITIES: Reveal no clubbing, cyanosis, or edema. The patient has generalized weakness. LABORATORY DATA: No labs were done today. ASSESSMENT: 1. Anemia with prior consultation by Dr. Quijano, who felt that the patient was not a good candidate for a colonoscopy because of her multiple comorbidities. 2. Diabetes type 2. 3. Urinary tract infection with Klebsiella, and the patient has finished her Ancef. 4. Chronic diastolic heart failure. 5. Chronic hypoxic respiratory failure secondary to pulmonary hypertension, Pickwickian syndrome, and hypoventilation. 6. History of bradycardia. 7. Severe generalized weakness. PLAN: 1. Continue to monitor the patient's diabetes with Accu-Cheks before meals and at bedtime. 2. Continue to monitor the patient's blood pressure closely and adjust medications as needed. 3. Continue to monitor the patient's respiratory status. 4. Stress ulcer prophylaxis. 5. Decubitus precautions. 6. DVT prophylaxis. 7. Stop Ancef. 8. Continue to monitor the patient's heart rate for bradycardia. 9. Continue physical therapy and occupational therapy. Job ID: [id number]
[2019-03-21] MEDS: Atorvastatin Calcium 10 MG TAB PO SCH (21:36)
[2019-03-22] MEDS: Acetaminophen 500 MG TAB PO PRN ×2 (08:32→20:54)
[2019-03-22] MEDS: pyridOXINE 50 MG (B6) TAB PO SCH (08:35)
[2019-03-22] MEDS: Isosorbide Mononitrate (ER) 30 MG TAB PO SCH (08:35)
[2019-03-22] MEDS: Amlodipine 5 MG TAB PO SCH (08:36)
[2019-03-22] MEDS: Potassium Chloride 20 MEQ TAB PO SCH (08:36)
[2019-03-22] MEDS: Folic Acid/Vit B Comp W-C PO SCH (08:37)
[2019-03-22] MEDS: Folic Acid 1 MG TAB PO SCH (08:37)
[2019-03-22] MEDS: HumuLIN 70/30 (300 UNITS/3 ML VIAL) SC SCH ×2 (08:37→20:51)
[2019-03-22] MEDS: Polyethylene Glycol 3350 17 GM Packet PO SCH (08:47)
--- NOTE | 2019-03-22 20:10 | PRG ---
DATE OF SERVICE: 03/22/2019 SUBJECTIVE: Ms. Gustafson is a very pleasant 79-year-old white female, admitted to [facility] after hypoglycemic episode where she took her insulin, but did not eat lunch. She was found to have extremely noncompliance along with having acute congestive heart failure and volume overload. She was stabilized at the hospital, then transferred to [facility] for physical therapy and occupational therapy. The patient states she did not have a very good day today because she kind of ate lower and did not do as well in therapy. OBJECTIVE: VITAL SIGNS: Today reveal blood pressure 147/65, pulse 68, respirations 22, O2 saturation 96% to 99% on room air. T-max 98.0. PHYSICAL EXAMINATION: GENERAL: This is a well-developed, well-nourished, very pleasant, morbidly obese white female, in no apparent distress at this time. HEENT: Reveals normocephalic and nontraumatic cranium. The pupils are equally round and reactive. Extraocular movements are intact. Nose and throat are moist tonight. NECK: Supple without masses, nodes, or bruits. CHEST: Clear to auscultation. HEART: Reveals a regular rate and rhythm without murmurs, gallops, or rubs. ABDOMEN: Obese, soft, nontender without organomegaly. Normal bowel sounds are noted. No rebound or guarding is noted. : Exam is deferred. EXTREMITIES: Reveal no clubbing or cyanosis with trace edema. The patient does have generalized weakness. LABORATORY DATA: The labs are done today. ASSESSMENT: 1. Anemia with prior consultation by Dr. Quijano, the vehicle operator felt the patient was probably not a good candidate for colonoscopy because of her multiple medical comorbidities, especially her heart and respiratory status. 2. Diabetes type 2. 3. Urinary tract infection with Klebsiella, and the patient has finished her Ancef. 4. Chronic diastolic heart failure. 5. Chronic hypoxic respiratory failure secondary to pulmonary hypertension, Pickwickian syndrome, hypoventilation. 6. History of bradycardia. 7. Severe generalized weakness. PLAN: 1. Continue to monitor the patient's diabetes with Accu-Cheks a.c. and at bedtime. 2. Continue to monitor the patient's blood pressure closely and adjust medications as needed. 3. Continue to monitor the patient's respiratory status. 4. Ancef is stopped. 5. Monitor the patient's heart rate for bradycardia. 6. Decubitus precautions. 7. Stress ulcer prophylaxis. 8. DVT prophylaxis. 9. Continue physical therapy and occupational therapy. Job ID: [id number]
[2019-03-22] MEDS: Atorvastatin Calcium 10 MG TAB PO SCH (20:49)
[2019-03-23] MEDS: Potassium Chloride 20 MEQ TAB PO SCH (08:55)
[2019-03-23] MEDS: Isosorbide Mononitrate (ER) 30 MG TAB PO SCH (09:06)
[2019-03-23] MEDS: pyridOXINE 50 MG (B6) TAB PO SCH (09:07)
[2019-03-23] MEDS: Amlodipine 5 MG TAB PO SCH (09:08)
[2019-03-23] MEDS: Folic Acid 1 MG TAB PO SCH (09:08)
[2019-03-23] MEDS: Acetaminophen 500 MG TAB PO PRN (09:10)
[2019-03-23] MEDS: HumuLIN 70/30 (300 UNITS/3 ML VIAL) SC SCH ×2 (09:13→21:23)
[2019-03-23] MEDS: Folic Acid/Vit B Comp W-C PO SCH (09:55)
[2019-03-23] MEDS: Polyethylene Glycol 3350 17 GM Packet PO SCH (09:56)
--- NOTE | 2019-03-23 16:33 | PRG ---
DATE OF SERVICE: 03/23/2019 SUBJECTIVE: Ms. Gustafson is a very pleasant 79-year-old white female admitted to [facility] with hypoglycemic episode. Unfortunately, she took her insulin and did not eat lunch and skipped lunch. She was brought to the hospital and stabilized, but found to be in acute congestive heart failure along with volume overload. She eventually was transferred to [facility] for physical therapy, occupational therapy, and continued management of her diabetes. The patient states she had a fair day today, but not as good as yesterday. OBJECTIVE: VITAL SIGNS: Today reveal blood pressure slightly elevated at 160/68, pulse 72 to 78, respirations 20, O2 saturation 94% to 97% on 2 L nasal cannula, T-max 97. GENERAL: This is a well-developed, well-nourished, morbidly obese white female, in no apparent distress at this time. HEENT: Reveals normocephalic and nontraumatic cranium. The pupils are equally round and reactive. Extraocular movements intact. Nose and throat are slightly dry, but clear. NECK: Supple without masses, nodes, bruits. CHEST: Clear to auscultation. HEART: Reveals a regular rate and rhythm without murmurs, gallops, or rubs. ABDOMEN: Obese, soft, nontender without organomegaly. Normal bowel sounds are noted in all 4 quadrants. No rebound or guarding is noted. GENITOURINARY: Exam is deferred. EXTREMITIES: Reveal no clubbing, cyanosis, or edema. LABORATORY DATA: No labs were done today, except for her sugars. Sugars reveal, last night sugar was 115, 1 o'clock in the morning 156, 3 o'clock in the morning 154, this morning fasting 168 11 o'clock, and 162 before lunch. ASSESSMENT: 1. Anemia with prior consultation with Dr. Quijano, the supermarket manager felt that the patient probably is not a good candidate for colonoscopy because of her multiple comorbidities including her heart and respiratory status. 2. Diabetes type 2, which fluctuates a lot because she does not have a consistent carbohydrate intake. 3. Urinary tract infection with Klebsiella. The patient has finished Ancef. 4. Chronic diastolic heart failure. 5. Chronic hypoxic respiratory failure secondary to pulmonary hypertension, Pickwickian syndrome, and hypoventilation. 6. History of bradycardia. 7. Severe generalized weakness. PLAN: 1. Continue to monitor the patient's blood pressure closely and adjust medications as needed. 2. Continue to monitor the patient's diabetes with Accu-Cheks a.c. and at bedtime. 3. Continue to monitor the patient's respiratory status. 4. Continue to monitor the patient's heart rate for bradycardia. 5. Decubitus precautions. 6. Stress ulcer prophylaxis. 7. Continue physical therapy and occupational therapy at this time. Job ID: [id number]
[2019-03-23] MEDS: Atorvastatin Calcium 10 MG TAB PO SCH (21:22)
[2019-03-24 06:07] LABS: ALT (SGPT) 23 U/L (8-55); AST (SGOT) 28 U/L (5-34); Albumin 3.1 g/dL (3.4-4.8); Alkaline Phosphatase 253 U/L (40-150); Anion Gap 12 mmol/L (10-20); BUN (Urea Nitrogen) 14 mg/dL (9.8-20.1); Bilirubin, Total 0.5 mg/dL (0.2-1.2); Calc. Creatinine Clearance 86 mL/min (70-130); Carbon Dioxide 27 mmol/L (23-31); Chloride 109 mmol/L (98-107); Estimated GFR-MDRD 57; Glucose 93 mg/dL (83-110); Potassium 4.9 mmol/L (3.5-5.1); Protein, Total 6.1 g/dL (6.0-8.3); Sodium 143 mmol/L (136-145)
[2019-03-24 06:12] LABS: #Eosinphils 0.1 thou/uL (0.0-0.7); #Monocytes 0.3 thou/uL (0.11-0.59); #Neutrophils 2.5 thou/uL (1.40-6.50); %Eosinophils 2.6 % (0.0-10.0); %Lymphocytes 24.4 % (21.0-51.0); %Monocytes 8.7 % (0.0-10.0); %Neutrophils 63.2 % (42.0-75.0); Anisocytosis SLIGHT = 6-15 cells (100X) (0-5/hpf); Hemoglobin 7.5 g/dL (12.0-16.0); Hypochromia SLIGHT = 6-15 cells (100X) (0-5/hpf); MDiff Complete? YES; Mean Corpuscular HGB CONC 30.5 g/dL (32.0-36.0); Mean Corpuscular Hemoglobin 27.2 pg (27.0-31.0); Mean Corpuscular Volume 89.3 fL (78.0-98.0); Mean Platelet Volume 7.8 fL (7.4-10.4); Platelet Count 102 thou/uL (130-400); Platelet Morphology Comment Appears Decreased; RBC Distribution Width 17.9 % (11.5-14.5); Red Blood Cell (RBC) Count 2.76 mill/uL (4.20-5.40); White Blood Cell (WBC) Count 3.9 thou/uL (4.8-10.8)
[2019-03-24] MEDS: Isosorbide Mononitrate (ER) 30 MG TAB PO SCH (08:22)
[2019-03-24] MEDS: pyridOXINE 50 MG (B6) TAB PO SCH (08:23)
[2019-03-24] MEDS: Potassium Chloride 20 MEQ TAB PO SCH (08:24)
[2019-03-24] MEDS: Folic Acid 1 MG TAB PO SCH (08:25)
[2019-03-24] MEDS: Polyethylene Glycol 3350 17 GM Packet PO SCH (08:25)
[2019-03-24] MEDS: Amlodipine 5 MG TAB PO SCH (08:25)
[2019-03-24] MEDS: HumuLIN 70/30 (300 UNITS/3 ML VIAL) SC SCH ×2 (08:25→21:24)
[2019-03-24] MEDS: Folic Acid/Vit B Comp W-C PO SCH (08:27)
[2019-03-24] MEDS: Acetaminophen 500 MG TAB PO PRN ×2 (08:33→23:28)
--- NOTE | 2019-03-24 19:53 | PRG ---
DATE OF SERVICE: 03/24/2019 SUBJECTIVE: Ms. Gustafson is a very pleasant 79-year-old white female, who unfortunately took her insulin, but then did not eat her lunch. She became very hypoglycemic, was picked by the EMS and brought to [facility]. While she was there, she was found to be in acute congestive heart failure, along with volume overload. She eventually was diuresed and transferred to [facility] for PT and OT. The patient states she is doing well, but this morning she decided that she just did not want to do therapy anymore. I told her that she would have to go home since she has continued to be refusing her therapy or it was not convenient for her. OBJECTIVE: VITAL SIGNS: Today reveal blood pressure 150/69, pulse 71, respirations 26, O2 saturations 96% on 2 L, T-max 98.1. GENERAL: On physical exam, this is a well-developed, well-nourished, pleasant, but morbidly obese 79-year-old white female, in no apparent distress at this time. When asked why she refused therapy, she said she just did not want to do it. HEENT: Normocephalic and nontraumatic cranium. Pupils are equal, round, and reactive. Extraocular movements are intact. Nose and throat are dry, but clear. NECK: Supple without masses, nodes, or bruits. CHEST: Clear to auscultation. No rales, rhonchi, or wheezes are heard. HEART: Reveals a regular rate and rhythm without murmurs, gallops, or rubs. ABDOMEN: Soft, obese, nontender without organomegaly. Normal bowel sounds are noted in all 4 quadrants. No rebound or guarding is noted. : Deferred. EXTREMITIES: Reveal no clubbing, cyanosis, or edema. ASSESSMENT: 1. Anemia with prior consultation with Dr. Quijano, well logging captain, who felt that the patient was not a good candidate for colonoscopy because of her multiple heart comorbidities and respiratory problems. 2. She has also been very noncompliant in the past. 3. Diabetes type 2, which fluctuates a lot because she does not have a consistent carbohydrate intake, sometimes she eats carbs and sometimes she does not eat any at all. 4. Urinary tract infection with Klebsiella. The patient has finished Ancef. 5. Chronic diastolic congestive heart failure. 6. Chronic hypoxic respiratory failure secondary to pulmonary hypertension, Pickwickian syndrome, and hypoventilation. 7. History of bradycardia. 8. Severe generalized weakness. PLAN: 1. Continue to monitor the patient's blood pressure closely, adjust medications as needed. 2. Continue to monitor the patient's diabetes with Accu-Cheks a.c. and at bedtime. 3. Monitor the patient's respiratory status. 4. Continue to monitor the patient's heart rate for bradycardia. 5. Decubitus precautions. 6. Stress ulcer precautions. 7. Continue physical therapy as able, but the patient is being discharged on Thursday. Job ID: [id number]
[2019-03-24] MEDS: Atorvastatin Calcium 10 MG TAB PO SCH (21:24)
[2019-03-25] MEDS: Potassium Chloride 20 MEQ TAB PO SCH (08:57)
[2019-03-25] MEDS: Acetaminophen 500 MG TAB PO PRN (09:05)
[2019-03-25] MEDS: pyridOXINE 50 MG (B6) TAB PO SCH (09:07)
[2019-03-25] MEDS: Folic Acid/Vit B Comp W-C PO SCH (09:07)
[2019-03-25] MEDS: Polyethylene Glycol 3350 17 GM Packet PO SCH (09:10)
[2019-03-25] MEDS: Folic Acid 1 MG TAB PO SCH (09:11)
[2019-03-25] MEDS: Isosorbide Mononitrate (ER) 30 MG TAB PO SCH (09:11)
[2019-03-25] MEDS: Amlodipine 5 MG TAB PO SCH (09:12)
[2019-03-25] MEDS: HumuLIN 70/30 (300 UNITS/3 ML VIAL) SC SCH (09:13)
[2019-03-25 17:13] VITALS: BP 184/77; TEMP 97.9
--- NOTE | 2019-03-26 03:32 | DIS ---
DATE OF ADMISSION: 03/11/2019 DATE OF DISCHARGE: 03/25/2019 HOSPITAL COURSE: Ms. Gustafson is a 79-year-old white female who took her insulin, then decided not to eat her lunch. She became hypoglycemic, was picked up and brought to [facility]. While she was there, she was found to be in congestive heart failure along with volume overload. She was stabilized and diuresed and sent to [facility] because of extreme weakness. She has been actually at this hospital multiple times and typically takes therapy per several ways, starts getting better then refuses therapy. Unfortunately, the patient started refusing her therapy today, so her states he would take her home this evening. Vital signs today reveal blood pressure 151/66, pulse 66, respirations 22, O2 saturation of 97% on 2 L nasal cannula, T-max 98. Her laboratory today revealed white count 3900, hemoglobin 7.5, hematocrit 24.7, platelet count 102,000. Sodium 143, potassium 4.9, chloride 109, carbon dioxide 29, creatinine 0.095, sugars 93. PHYSICAL EXAMINATION: GENERAL: This is a well-developed, morbidly obese, white female, in no apparent distress at this time. HEENT: Normocephalic and nontraumatic cranium. Pupils are equal, round, and reactive. Extraocular movements are intact. Nose and throat are slightly dry. NECK: Supple without masses, nodes, or bruits. CHEST: Clear to auscultation. No rales, rhonchi, or wheezes are heard. HEART: Reveals a regular rate and rhythm without murmurs, gallops, or rubs. ABDOMEN: Soft and nontender without organomegaly. Normal bowel sounds are noted in all 4 quadrants. No rebound or guarding is noted. : Deferred. EXTREMITIES: Reveal no clubbing, cyanosis, or edema. ASSESSMENT: 1. The patient has had significant anemia with prior consultation with Dr. Quijano, but is presently stable. She stays in the 7th and 8th. 2. She had been determined in the past and not to be a good candidate for colonoscopy because she refuses it and then also because of her multiple heart comorbidities and respiratory problems. We did talk about it and she decided to have it done and then she decided not to have it done this hospitalization. 3. The patient has also been very noncompliant with her diet and her insulin in the past. 4. She does have type 2 diabetes which fluctuates a lot because she does not have consistent carbs. Sometimes she will eat only carbs and sometimes she eats only protein in meals. We have discussed this at length with her multiple times. She also only checks her sugar once or twice or sometimes not at all. 5. The patient did have urinary tract infection with Klebsiella and finished her Ancef. 6. Chronic diastolic congestive heart failure. 7. Chronic hypoxic respiratory failure secondary to pulmonary hypertension, Pickwickian syndrome, and hypoventilation. 8. History of bradycardia. 9. Severe generalized weakness. PLAN: 1. The patient actually is much better at this time. 2. She started refusing therapy this morning, so she and her decided that she will go home this evening. 3. The patient will see me in followup in 1 to 2 weeks. 4. The patient is to continue taking her diabetes with Accu-Cheks a.c. and at bedtime. We will continue to monitor the patient's respiratory status. 5. Continue to monitor patient's heart rate for bradycardia. 6. Decubitus precautions. 7. Stress ulcer prophylaxis. 8. We will reinstate her Home Health for physical therapy and occupational therapy. 9. The patient's states she would come back with his son this afternoon to pick her up. TIME SPENT: It take me more than 40 minutes to go through all this patient's paperwork and explaining everything to her and herself. Job ID: [id number]
== END 2019-03-25 18:15 | disposition home health service (06) | DRG 638 ==
LOC: NAV ACUTE 16:13
PROVIDERS: ADMIT Family Medicine; ATTEND Family Medicine
DX: E11.649 Type 2 diabetes mellitus with hypoglycemia without coma (principal); I50.32 Chronic diastolic (congestive) heart failure; I13.0 Hypertensive heart and chronic kidney disease with heart failure and stage 1 through stage 4 chronic kidney disease, or unspecified chronic kidney disease; N39.0 Urinary tract infection, site not specified; E66.2 Morbid (severe) obesity with alveolar hypoventilation; J96.11 Chronic respiratory failure with hypoxia; Z68.41 Body mass index [BMI] 40.0-44.9, adult; E11.40 Type 2 diabetes mellitus with diabetic neuropathy, unspecified; E11.22 Type 2 diabetes mellitus with diabetic chronic kidney disease; Z96.653 Presence of artificial knee joint, bilateral; B96.1 Klebsiella pneumoniae [K. pneumoniae] as the cause of diseases classified elsewhere; E11.65 Type 2 diabetes mellitus with hyperglycemia; R26.89 Other abnormalities of gait and mobility; N17.9 Acute kidney failure, unspecified; R00.1 Bradycardia, unspecified; D64.9 Anemia, unspecified; I27.20 Pulmonary hypertension, unspecified; Z99.81 Dependence on supplemental oxygen; Z79.4 Long term (current) use of insulin; Z88.0 Allergy status to penicillin; Z91.013 Allergy to seafood; Z91.041 Radiographic dye allergy status; Z88.2 Allergy status to sulfonamides; Z88.8 Allergy status to other drugs, medicaments and biological substances; Z79.899 Other long term (current) drug therapy; Z90.49 Acquired absence of other specified parts of digestive tract
CPT/HCPCS: 36415; 36416; 72040; 80048; 80053; 81001; 82274; 83880; 85025; J0690; J1815; J3490; J7620

== ENCOUNTER 2019-04-20 15:33 | Emergency (ER) | payer MEDICARE, OTHER ==
[2019-04-20 16:31] LABS: #Basophils 0.1 thou/uL (0.0-0.2); #Eosinphils 0.1 thou/uL (0.0-0.7); #Monocytes 0.5 thou/uL (0.11-0.59); #Neutrophils 4.3 thou/uL (1.40-6.50); %Lymphocytes 16.6 % (21.0-51.0); %Monocytes 8.1 % (0.0-10.0); %Neutrophils 72.3 % (42.0-75.0); Hemoglobin 9.1 g/dL (12.0-16.0); Mean Corpuscular Hemoglobin 26.8 pg (27.0-31.0); Mean Corpuscular Volume 86.5 fL (78.0-98.0); Platelet Count 130 thou/uL (130-400); RBC Distribution Width 14.6 % (11.5-14.5); Red Blood Cell (RBC) Count 3.39 mill/uL (4.20-5.40)
--- NOTE | 2019-04-20 16:42 | RAD ---
SINGLE VIEW OF THE CHEST: 04/20/19 COMPARISON: 03/08/19 HISTORY: Cough and congestion for one week. FINDINGS: Single view of the chest shows a cardiomediastinal silhouette which is upper limits of normal in size with atherosclerotic calcifications in the aorta. There is no evidence of consolidation, mass or ple ural effusion. IMPRESSION: No evidence of acute cardiopulmonary disease. POS: TPC
[2019-04-20 16:44] LABS: ALT (SGPT) 23 U/L (8-55); AST (SGOT) 22 U/L (5-34); Albumin 3.6 g/dL (3.4-4.8); Alkaline Phosphatase 139 U/L (40-110); Anion Gap 19 mmol/L (10-20); BUN (Urea Nitrogen) 28 mg/dL (9.8-20.1); Bilirubin, Total 0.5 mg/dL (0.2-1.2); CK (CPK) 48 U/L (29-168); Calc. Creatinine Clearance 0 mL/min (70-130); Calcium 9.3 mg/dL (7.8-10.44); Carbon Dioxide 26 mmol/L (23-31); Chloride 97 mmol/L (98-107); Estimated GFR-MDRD 28; Globulin 3.4 g/dL (2.4-3.5); Glucose 198 mg/dL (83-110); Potassium 4.2 mmol/L (3.5-5.1); Sodium 138 mmol/L (136-145)
[2019-04-20] MEDS ORDERED: Acetaminophen 500 MG TAB ONE (18:18)
[2019-04-20 18:46] LABS: Bacteria/HPF 2+ HPF (None Seen); Bilirubin Negative (Negative); Blood, Urine Trace (Negative); Clarity Clear (Clear); Glucose, Urine (Dipstick) Negative (Negative); Leukocyte Large (Negative); Nitrite Positive (Negative); Protein, Urine (Dipstick) Negative (Neg-Trace); RBC/HPF 0-3 HPF (0-3); Urobilinogen 0.2 mg/dL (Less than 2)
[2019-04-20] MEDS ORDERED: levETIRAcetam 500 MG TAB ONE (19:15)
[2019-04-20] MEDS ORDERED: Cephalexin 250 MG CAP ONE (19:16)
== END 2019-04-20 19:44 | disposition home or self-care (01) ==
LOC: NAV ERS 15:33
DX: J44.9 Chronic obstructive pulmonary disease, unspecified (principal); N39.0 Urinary tract infection, site not specified; K59.00 Constipation, unspecified; I11.0 Hypertensive heart disease with heart failure; I50.9 Heart failure, unspecified; I25.10 Atherosclerotic heart disease of native coronary artery without angina pectoris; E11.9 Type 2 diabetes mellitus without complications; K21.9 Gastro-esophageal reflux disease without esophagitis; E78.5 Hyperlipidemia, unspecified; M19.90 Unspecified osteoarthritis, unspecified site; F41.9 Anxiety disorder, unspecified; F32.9 Major depressive disorder, single episode, unspecified; Z95.5 Presence of coronary angioplasty implant and graft; Z79.899 Other long term (current) drug therapy
CPT/HCPCS: 71045; 80053; 81003; 81015; 82550; 83605; 83880; 84484; 85025; 87804; 93005

== ENCOUNTER 2019-05-19 15:00 | Inpatient (IN) | payer MEDICARE, OTHER ==
[2019-05-19 15:47] LABS: Bilirubin Negative (Negative); Blood, Urine Trace (Negative); Glucose, Urine (Dipstick) Negative (Negative); Leukocyte Small (Negative); Nitrite Negative (Negative); Protein, Urine (Dipstick) Negative (Neg-Trace); Urobilinogen 0.2 mg/dL (Less than 2)
[2019-05-19 15:48] LABS: Clarity SL HAZY (Clear)
--- NOTE | 2019-05-19 15:54 | RAD ---
Exam: Chest one view HISTORY:Lethargy and altered mental status Comparison: 04/20/2019 FINDINGS: Lungs: Bilateral interstitial prominence Cardiac silhouette:Stable enlargement Pulmonary vessels: Vascular congestion is similar in appearance Pleural Spaces: Clear Pneumothorax: None Osseous abnormalities: None of acuity. IMPRESSION: Stable chest, with evidence of CHF.
[2019-05-19 15:57] LABS: Bacteria/HPF 3+ HPF (None Seen); Squamous Epithelial 0-3 HPF (0-3)
--- NOTE | 2019-05-19 15:58 | CT ---
Exam: Head CT without contrast HISTORY: Altered mental status COMPARISON: 04/21/2011, 11/10/2010 FINDINGS: Limited evaluation due to motion degradation Hemorrhage: No intraparenchymal hemorrhage or extra-axial hematoma. Brain parenchyma: Remote insult involving the left frontal and temporal region. There is associated m ild gliosis. Remaining cortical escobar-white matter differentiation is preserved. No mass effect or midline shift. Basilar cisterns are patent.Age-appropriate atrophy. White matter hypodensities are re demonstrated and are compatible with chronic small vessel ischemic change. Additionally, there is hypoattenuation in left lentiform nucleus and left thalamus. Ventricular system: Asymmetric prominence of the frontal horn of the left lateral ventricle likely du e to ex vacuo dilatation. Calvarium: Intact. Sinuses and mastoid air cells: Mucous retention cyst or polyp in the left maxillary sinus. IMPRESSION: 1. Limited evaluation by motion degradation. No definite acute intracranial process. 2. Chronic small vessel ischemic changes white matter. 3. Remote insult involving the left temporal lobe. 4. Remote insult involving the left deep escobar matter structures.
[2019-05-19 16:31] LABS: #Lymphocytes 1.1 thou/uL (1.20-3.40); #Monocytes 0.7 thou/uL (0.11-0.59); #Neutrophils 4.7 thou/uL (1.40-6.50); %Basophils 0.7 % (0.0-1.0); %Eosinophils 0.3 % (0.0-10.0); %Neutrophils 71.9 % (42.0-75.0); Hemoglobin 9.6 g/dL (12.0-16.0); Mean Corpuscular HGB CONC 32.4 g/dL (32.0-36.0); Mean Corpuscular Hemoglobin 27.2 pg (27.0-31.0); Mean Corpuscular Volume 83.7 fL (78.0-98.0); Mean Platelet Volume 11.2 fL (7.4-10.4); Platelet Count 76 thou/uL (130-400); RBC Distribution Width 13.8 % (11.5-14.5); Red Blood Cell (RBC) Count 3.53 mill/uL (4.20-5.40); White Blood Cell (WBC) Count 6.5 thou/uL (4.8-10.8)
[2019-05-19 16:34] LABS: ALT (SGPT) 23 U/L (8-55); AST (SGOT) 16 U/L (5-34); Albumin 3.5 g/dL (3.4-4.8); Alkaline Phosphatase 161 U/L (40-110); Anion Gap 16 mmol/L (10-20); BUN (Urea Nitrogen) 16 mg/dL (9.8-20.1); Bilirubin, Total 0.8 mg/dL (0.2-1.2); Calc. Creatinine Clearance 0 mL/min (70-130); Calcium 8.9 mg/dL (7.8-10.44); Carbon Dioxide 30 mmol/L (23-31); Chloride 97 mmol/L (98-107); Estimated GFR-MDRD 44; Glucose 189 mg/dL (83-110); Potassium 3.6 mmol/L (3.5-5.1); Protein, Total 6.5 g/dL (6.0-8.3); Sodium 139 mmol/L (136-145)
[2019-05-19] MEDS ORDERED: cefTRIAXone\\ROCEPHIN 2 GM VIAL ONE (17:15)
[2019-05-19] MEDS ORDERED: Sodium Chloride 0.9% 100 ML ONE (17:18)
[2019-05-19] MEDS ORDERED: Ondansetron PF 4 MG/2 ML Vial IVP PRN (19:03)
[2019-05-19] MEDS ORDERED: Acetaminophen 325 MG TAB PO PRN (19:03)
[2019-05-19] MEDS ORDERED: Ondansetron ODT 4 MG TAB SL PRN (19:03)
[2019-05-19] MEDS ORDERED: Melatonin 3 MG TAB PO PRN (20:50)
[2019-05-19] MEDS ORDERED: Senokot S 8.6-50 MG TAB PO PRN (20:50)
[2019-05-19] MEDS ORDERED: Nitroglycerin 0.4 MG TAB (25 Tab Bottle) SL PRN (20:50)
[2019-05-19] MEDS ORDERED: Dextrose 5% in Water 1,000 ML IV PRN (20:55)
[2019-05-19] MEDS ORDERED: HumaLOG 300 UNITS/3 ML VIAL SC PRN (20:55)
[2019-05-19] MEDS ORDERED: Dextrose 50% Abboject 50 ML SYRINGE SLOW IVP PRN (20:55)
[2019-05-19] MEDS ORDERED: Loperamide HCl 2 MG CAP PO PRN (20:55)
[2019-05-19] MEDS ORDERED: traMADol HCl 50 MG TAB PO PRN (21:59)
[2019-05-19] MEDS: valACYclovir 500 MG TAB PO SCH (21:59)
[2019-05-19] MEDS: Amiodarone 200 MG TAB PO SCH (21:59)
[2019-05-19] MEDS: Furosemide 40 MG TAB PO SCH (22:00)
[2019-05-19] MEDS: HumuLIN 70/30 (300 UNITS/3 ML VIAL) SC SCH (22:00)
[2019-05-19] MEDS: Acetaminophen 500 MG TAB PO PRN (22:20)
[2019-05-20 05:28] LABS: #Lymphocytes 1.1 thou/uL (1.20-3.40); #Monocytes 0.6 thou/uL (0.11-0.59); #Neutrophils 3.5 thou/uL (1.40-6.50); %Basophils 0.7 % (0.0-1.0); %Eosinophils 0.8 % (0.0-10.0); %Lymphocytes 21.3 % (21.0-51.0); %Monocytes 10.7 % (0.0-10.0); %Neutrophils 66.6 % (42.0-75.0); Hemoglobin 8.7 g/dL (12.0-16.0); Mean Corpuscular HGB CONC 30.9 g/dL (32.0-36.0); Mean Corpuscular Hemoglobin 26.6 pg (27.0-31.0); Mean Corpuscular Volume 85.9 fL (78.0-98.0); Mean Platelet Volume 7.6 fL (7.4-10.4); Platelet Count 111 thou/uL (130-400); Platelet Morphology Comment Appears Decreased; RBC Distribution Width 14.1 % (11.5-14.5); RBC Morphology Normal; Red Blood Cell (RBC) Count 3.27 mill/uL (4.20-5.40); White Blood Cell (WBC) Count 5.3 thou/uL (4.8-10.8)
[2019-05-20 05:42] LABS: ALT (SGPT) 23 U/L (8-55); AST (SGOT) 17 U/L (5-34); Albumin 3.1 g/dL (3.4-4.8); Alkaline Phosphatase 152 U/L (40-110); Anion Gap 13 mmol/L (10-20); BUN (Urea Nitrogen) 14 mg/dL (9.8-20.1); Bilirubin, Total 0.6 mg/dL (0.2-1.2); Calc. Creatinine Clearance 71 mL/min (70-130); Calcium 8.6 mg/dL (7.8-10.44); Carbon Dioxide 33 mmol/L (23-31); Chloride 99 mmol/L (98-107); Estimated GFR-MDRD 49; Globulin 2.8 g/dL (2.4-3.5); Glucose 88 mg/dL (83-110); Protein, Total 5.9 g/dL (6.0-8.3); Sodium 142 mmol/L (136-145)
[2019-05-20 05:46] LABS: Manual Diff?? NO
--- NOTE | 2019-05-20 06:11 | PRG ---
DATE OF SERVICE: 05/20/2019 SUBJECTIVE: Ms. Gustafson is a very unusual 79-year-old white female, who presented to the emergency room with her with him complaining of altered mental status. She recently was seen at [facility], admitted to the hospital with shingles. She was discharged home because she did not want rehab or physical therapy. She also has multiple history of urinary tract infection. She presents to the ER and found to have slightly altered mental status and a urinary tract infection. She was started on Rocephin and was admitted to inpatient. She was slightly dehydrated, so we are giving her a small bolus of 500 normal saline. This morning, the patient states she slept well last night. She states she feels a little stronger and little better, but certainly weak. We did admit her to active care and she will be seen today for physical therapy and occupational therapy to start mobilizing her. Her cultures and sensitivities for both blood and urine are pending. VITAL SIGNS: This morning reveal blood pressure 133/79, pulse 74, respirations 18, O2 saturation 94% on 2 L, T-max 96.6. LABORATORY DATA: Reveals white count this morning 5300 with hemoglobin 8.7, hematocrit 28.1, platelet count 111,000. Patient has 21 lymphs, 10.7 monos, and her neutrophils are pending. PHYSICAL EXAMINATION: GENERAL: This is a well-developed, well-nourished, morbidly obese white female, in no apparent distress at this time. HEENT: Normocephalic and nontraumatic cranium. Pupils are equal, round, and reactive. Extraocular movements are intact. Nose and throat are slightly dry. NECK: Supple without masses, nodes, or bruits. CHEST: Clear to auscultation. No rales are noted. No rhonchi. No wheezes, and no cough is noted. HEART: Reveals a regular rate and rhythm without murmurs, gallops, or rubs. ABDOMEN: Morbidly obese, soft, nontender. Organomegaly is not able to be appreciated because it is so big. Normal bowel sounds are noted. No rebound or guarding is noted. GENITOURINARY: Deferred. EXTREMITIES: Reveal no clubbing or cyanosis with trace edema. ASSESSMENT: 1. Urinary tract infection. Culture and sensitivities of blood and urine are pending. 2. The patient is presently on Rocephin 1 g IV q.24 hours. 3. Chronic diastolic congestive heart failure. 4. Coronary artery disease. 5. Diabetes type 2, typically uncontrolled because the patient does not monitor her sugars. 6. Hyperlipidemia. 7. Hypothyroidism. 8. Chronic myalgia and chronic pain. 9. Arthritis. 10. Generalized weakness. PLAN: 1. Rocephin will continue daily about noon 1 g IV. 2. Continue to await blood cultures and urine cultures. 3. Continue present home medications. 4. Follow the patient's blood pressure closely. 5. Follow the patient for signs and symptoms of congestive heart failure. 6. Encourage the patient to get out of bed with therapy and to participate well in therapy because she typically is noncompliant with therapy when she comes in. 7. Encourage the patient to follow diabetic, consistent carb diet. 8. Diabetes teaching with Dietary. 9. Evaluation with Physical Therapy and Occupational Therapy today. 10. Dr. Green will see the patient tomorrow in my absence. Job ID: [id number]
--- NOTE | 2019-05-20 06:13 | HP ---
HISTORY OF PRESENT ILLNESS: Ms. Gustafson is a well-developed, well-nourished, pleasant 79-year-old white female, who presented to the emergency room with complaints of mental status changes. Apparently, the patient had some confusion yesterday and spouse was concerned that she had not been taking her antibiotics. She had no fever, but there was concern for urinary tract infection. There is a long history of noncompliance with medications. It is noted that the patient was admitted on 03/13 to [facility] in [place] and found to have shingles given Valtrex and tramadol. The patient has not been very compliant with her medications as usual. She did come in, was found to have urinary tract infection. Dr. Parker Titus started the patient on Rocephin, admitted her until blood cultures and urine cultures could come back. PAST MEDICAL HISTORY: 1. Positive for chronic diastolic congestive heart failure. 2. Coronary artery disease involving [place] artery. 3. Diabetes type 2, uncontrolled. 4. Hyperlipidemia. 5. Edema. 6. Hypothyroidism. 7. Myalgias. 8. Arthritis. 9. Hyperlipidemia. 10. Generalized weakness. 11. Anxiety and depressive disorder. 12. Gastroesophageal reflux disease. 13. Multiple urinary tract infections. 14. Coronary heart artery disease. 15. Neuropathy. 16. Shingles. PAST SURGICAL HISTORY: 1. Bilateral total knee replacement. 2. Left femur ORIF. 3. Right foot surgery. 4. Cholecystectomy. 5. Coronary angiogram, status post PTCA and stents x3. 6. Bilateral cataract surgery. FAMILY HISTORY: Reveals the patient's father and had diagnosis of diabetes. SOCIAL HISTORY: Reveals patient does not smoke, does not drink. The patient lives with her and they are poorly able to care for each other. ALLERGIES: REVEALS THE PATIENT IS ALLERGIC TO PENICILLIN AND BACTRIM. PENICILLIN GIVES HER ANGIOEDEMA. BACTRIM GIVES HER RASH. REVIEW OF SYSTEMS: CONSTITUTIONAL: Reveals the patient had weakness and fatigue and significant noncompliance in the past. Denies any fever, chills, or night sweats. Denies headaches or change in vision or hearing. RESPIRATORY: The patient denies respiratory problems including cough, cold, congestion, dyspnea on exertion, hemoptysis, or productive sputum. CARDIOVASCULAR: The patient denies chest pain, dyspnea on exertion, claudication, orthopnea or paroxysmal nocturnal dyspnea. EXTREMITIES: The patient does have some edema in her lower extremities and does have a history of CHF. GI: The patient denies nausea, vomiting, diarrhea, melena, dysphagia, hematemesis, hematochezia or bowel changes. : Reveals the patient denies nocturia, hematuria, frequency, urgency, or incontinence. The patient was noted to have urinary tract infection with labs here in the ER and that is why she was admitted. MUSCULOSKELETAL: The patient complains of weakness that she is barely able to get up and move around and she aches all over, which is normal for her. ENDOCRINE: Denies any hot or cold. She has had noncompliance with her insulin and does not do her sliding scale insulin. NEUROLOGIC: She denies dizziness, syncope. She does have some neuropathy from her diabetes. PSYCHOLOGIC: The patient is noncompliant most likely because her memory is poor and her is unable to help much. PRESENT MEDICATIONS: Reveals the patient is on the following per my last medical record, because she does not remember which she is on: 1. Amiodarone 200 mg b.i.d. 2. Carvedilol 6.25 b.i.d. 3. Ramipril 2.5 mg daily. 4. Isosorbide extended release 120 mg daily. 5. Metolazone 2.5 mg daily. 6. Furosemide 40 mg daily. 7. Potassium chloride 20 mEq daily. 8. Humulin 70/30. She states she is on 26 units b.i.d. 9. Humalog aggressive sliding scale at each meal. 10. Sertraline 50 mg daily. 11. Pantoprazole 40 mg daily. 12. DuoNebs q.6 hours p.r.n. 13. Folic acid 1 mg daily. 14. Pyridoxine 25 mg daily. 15. Nitroglycerin 0.4 mg sublingual p.r.n. chest pain as directed. 16. Tylenol 500 mg q.6 hours p.r.n. PHYSICAL EXAMINATION: GENERAL: Reveals a well-developed, morbidly obese white female, in no apparent distress at this time. HEENT: Normocephalic, nontraumatic cranium. Pupils equally round and reactive. Extraocular movements are intact. Nose and throat are dry, but clear. NECK: Supple without masses, nodes, or bruits. CHEST: Clear to auscultation. No rales, no rhonchi, no wheezes are heard. The patient does have some very fine crackles in her bases. HEART: Reveals a regular rate and rhythm without murmurs gallops or rubs. ABDOMEN: Soft, morbidly obese, nontender without organomegaly. Normal bowel sounds are noted in all 4 quadrants. EXTREMITIES: Reveal no clubbing or cyanosis with trace to 1+ edema. NEUROLOGIC: The patient has generalized weakness. ASSESSMENT: 1. Urinary tract infection. 2. Recent shingles. 3. Diabetes, out of control. 4. Hypertension. 5. Coronary artery disease. 6. Chronic diastolic congestive heart failure, stable. 7. Hyperlipidemia. 8. Hypothyroidism. 9. Myalgias. 10. Arthritis. 11. Generalized weakness. PLAN: 1. The patient is admitted to the hospital for expected 2-3 day stay until her blood cultures and urine cultures come back. 2. We will continue Rocephin 1 g q. 24 hours until the cultures come back. 3. Continue saline lock and encourage the patient to eat healthy. 4. We will continue patient's home medications. 5. Continue to follow the patient's Accu-Cheks before meals and at bedtime. 6. Stress ulcer prophylaxis. 7. Decubitus precautions. 8. Deep venous thrombosis prophylaxis per Primary Service. Job ID: [id number]
[2019-05-20] MEDS ORDERED: Metolazone 2.5 MG TAB PO SCH (08:30)
[2019-05-20] MEDS: Amiodarone 200 MG TAB PO SCH ×2 (08:30→20:45)
[2019-05-20] MEDS: Isosorbide Mononitrate (ER) 30 MG TAB PO SCH (08:30)
[2019-05-20] MEDS: Carvedilol 6.25 MG TAB PO SCH ×2 (08:31→17:13)
[2019-05-20] MEDS: Furosemide 40 MG TAB PO SCH ×2 (08:31→20:45)
[2019-05-20] MEDS: HumuLIN 70/30 (300 UNITS/3 ML VIAL) SC SCH ×2 (08:31→20:45)
[2019-05-20] MEDS: Potassium Chloride 20 MEQ TAB PO SCH (08:31)
[2019-05-20] MEDS: valACYclovir 500 MG TAB PO SCH ×3 (08:31→20:46)
[2019-05-20] MEDS: Folic Acid 1 MG TAB PO SCH (08:32)
[2019-05-20] MEDS ORDERED: FLU VACC QS2019-20(6MOS UP)/PF 60 MCG/0.5 ML SYRINGE IM ONE (09:00)
[2019-05-20] MEDS ORDERED: Metolazone 5 MG TAB PO SCH (11:15)
[2019-05-20] MEDS ORDERED: cefTRIAXone\\ROCEPHIN 1 GM in Sodium Chloride 0.9% 100 ML IVPB SCH (12:05)
--- NOTE | 2019-05-21 08:22 | PRG ---
DATE OF SERVICE: 05/21/2019 SUBJECTIVE: The patient is a 79-year-old female, who was admitted for altered mental status secondary to UTI. She has been started on Rocephin, for the most part has been doing well. She is afebrile overnight. The patient still complains of lower abdominal pain this morning. OBJECTIVE: VITAL SIGNS: Temperature 98.2, pulse 60, respiration rate 18, O2 saturation 95% on 2 L, and blood pressure 126/58. GENERAL: The patient is awake, alert, and in no acute distress. CARDIOVASCULAR: Regular rate and rhythm without murmurs, gallops, or rubs. LUNGS: Clear to auscultation bilaterally without wheezing or rhonchi. ABDOMEN: Soft and nondistended with tenderness to palpation in the suprapubic region. No guarding or rebound tenderness is present. EXTREMITIES: There is no clubbing or cyanosis. The patient does have trace lower extremity edema. LABORATORY DATA: 1. Accu-Cheks: 134, 106, 119, 87. 2. Blood cultures negative x2. 3. Urine cultures growing Enterococcus. ASSESSMENT AND PLAN: 1. Urinary tract infection: The patient is growing Enterococcus and there are no sensitivities available for cephalosporins. The bacteria are sensitive to vancomycin and I will swab the patient over to this today. The patient has allergies to penicillin and sulfa, and the Enterococcus is resistant to fluoroquinolones; therefore, we will use vancomycin for now as the patient is still symptomatic. 2. Chronic diastolic congestive heart failure: Monitor fluid status closely. The patient is on her home O2 requirement and does not appear to have any increased edema. 3. Type 2 diabetes: The patient's sugars have been stable overnight. Continue to monitor. 4. Generalized weakness: Continue therapy is indicated. 5. Chronic pain: Continue current medications. 6. The patient's blood pressure that was checked when I was in the room was 172/72; however, overnight yesterday blood pressures were pretty good except the very first reading in the morning. We will repeat blood pressure after she gets her morning medications. Job ID: [id number]
[2019-05-21] MEDS: Carvedilol 6.25 MG TAB PO SCH ×2 (08:25→17:34)
[2019-05-21] MEDS: Potassium Chloride 20 MEQ TAB PO SCH (08:26)
[2019-05-21] MEDS: Metolazone 5 MG TAB PO SCH (08:27)
[2019-05-21] MEDS: Amiodarone 200 MG TAB PO SCH ×2 (08:27→21:02)
[2019-05-21] MEDS: Folic Acid 1 MG TAB PO SCH (08:28)
[2019-05-21] MEDS: Isosorbide Mononitrate (ER) 30 MG TAB PO SCH (08:28)
[2019-05-21] MEDS: HumuLIN 70/30 (300 UNITS/3 ML VIAL) SC SCH ×2 (08:28→21:02)
[2019-05-21] MEDS: Furosemide 40 MG TAB PO SCH ×2 (08:28→21:02)
[2019-05-21] MEDS: valACYclovir 500 MG TAB PO SCH ×3 (08:30→21:01)
[2019-05-21] MEDS: Vancomycin HCl 1 GM in Sodium Chloride 0.9% 250 ML 250 ML IVPB SCH (09:15)
[2019-05-21 09:21] LABS: Anion Gap 15 mmol/L (10-20); BUN (Urea Nitrogen) 20 mg/dL (9.8-20.1); Calc. Creatinine Clearance 49 mL/min (70-130); Calcium 9.1 mg/dL (7.8-10.44); Carbon Dioxide 32 mmol/L (23-31); Chloride 93 mmol/L (98-107); Estimated GFR-MDRD 32; Glucose 131 mg/dL (83-110); Potassium 3.3 mmol/L (3.5-5.1); Sodium 137 mmol/L (136-145)
[2019-05-21] MEDS ORDERED: Sodium Chloride 0.9% 10 ML ONE (09:59)
[2019-05-22 05:33] LABS: #Eosinphils 0.1 thou/uL (0.0-0.7); #Lymphocytes 0.9 thou/uL (1.20-3.40); #Monocytes 0.4 thou/uL (0.11-0.59); #Neutrophils 3.1 thou/uL (1.40-6.50); %Eosinophils 2.8 % (0.0-10.0); %Lymphocytes 20.1 % (21.0-51.0); Hemoglobin 8.7 g/dL (12.0-16.0); Manual Diff?? NO; Mean Corpuscular HGB CONC 32.3 g/dL (32.0-36.0); Mean Corpuscular Hemoglobin 27.4 pg (27.0-31.0); Mean Corpuscular Volume 84.8 fL (78.0-98.0); Platelet Count 115 thou/uL (130-400); Red Blood Cell (RBC) Count 3.16 mill/uL (4.20-5.40); White Blood Cell (WBC) Count 4.6 thou/uL (4.8-10.8)
[2019-05-22 05:48] LABS: Anion Gap 16 mmol/L (10-20); BUN (Urea Nitrogen) 26 mg/dL (9.8-20.1); Calc. Creatinine Clearance 49 mL/min (70-130); Calcium 9.1 mg/dL (7.8-10.44); Carbon Dioxide 32 mmol/L (23-31); Chloride 93 mmol/L (98-107); Estimated GFR-MDRD 32; Glucose 72 mg/dL (83-110); Sodium 138 mmol/L (136-145)
[2019-05-22 06:02] LABS: Platelet Morphology Comment Appears Decreased; RBC Morphology Normal
[2019-05-22 06:03] LABS: Potassium 2.9 mmol/L (3.5-5.1)
[2019-05-22] MEDS ORDERED: Potassium Chloride 20 MEQ TAB PO SCH ×2 (07:00→07:30)
[2019-05-22] MEDS ORDERED: Sodium Chloride 0.9% 10 ML ONE (08:04)
[2019-05-22] MEDS: Potassium Chloride 20 MEQ TAB PO SCH (08:25)
[2019-05-22] MEDS: Amiodarone 200 MG TAB PO SCH ×2 (08:26→21:35)
[2019-05-22] MEDS: Metolazone 5 MG TAB PO SCH (08:26)
[2019-05-22] MEDS: Folic Acid 1 MG TAB PO SCH (08:27)
[2019-05-22] MEDS: HumuLIN 70/30 (300 UNITS/3 ML VIAL) SC SCH ×2 (08:27→21:36)
[2019-05-22] MEDS: Furosemide 40 MG TAB PO SCH ×2 (08:27→21:35)
[2019-05-22] MEDS: Isosorbide Mononitrate (ER) 30 MG TAB PO SCH (08:28)
[2019-05-22] MEDS: Vancomycin HCl 1 GM in Sodium Chloride 0.9% 250 ML 250 ML IVPB SCH (08:30)
[2019-05-22] MEDS: valACYclovir 500 MG TAB PO SCH ×3 (08:30→21:35)
[2019-05-22] MEDS: Carvedilol 6.25 MG TAB PO SCH ×2 (08:31→17:35)
[2019-05-22] MEDS ORDERED: valACYclovir 500 MG TAB ONE ×2 (21:16)
--- NOTE | 2019-05-22 22:31 | PRG ---
DATE OF SERVICE: 05/22/2019 SUBJECTIVE: Ms. Gustafson is a 79-year-old white female, who was brought to the emergency room by her complaining of altered mental status. She was found to have slightly altered mental status and urinary tract infection. She was started on Rocephin. She was dehydrated, so give a small bolus of normal saline. She was doing very well. Her cultures came back showing enterococcus and there are no sensitivities available for cephalosporin. Dr. Marlena Green was seeing the patient in my absence since she switched the patient over to vancomycin. She has gotten a gram of vancomycin on Thursday morning and Thursday morning. We will continue that for a full 7 days. OBJECTIVE: VITAL SIGNS: Today reveal blood pressure slightly elevated at 184/71, pulse 56, respirations 20, O2 saturation 94% on 2 L nasal cannula. Last blood pressure was 140/63 at 1954 hours. GENERAL: This is a well-developed, well-nourished, morbidly obese white female, in no apparent distress at this time. She has been refusing her SCDs. She states she does not like them, so we will start her on Lovenox. The patient has not been out of her bed all weekend and states she does not want to get out of bed. HEENT: Normocephalic and nontraumatic cranium. Pupils equally round and reactive. Extraocular movements are intact. Nose and throat are clear. NECK: Supple without masses, nodes, or bruits. CHEST: Clear to auscultation. No rales, rhonchi, wheezes, or cough are noted. HEART: Reveals a regular rate and rhythm without murmurs, gallops, or rubs. ABDOMEN: Obese, soft, nondistended, without organomegaly. No rebound or guarding noted. : Deferred. EXTREMITIES: Reveal trace edema. LABORATORY DATA: Accu-Cheks have been remaining fairly good. Blood cultures negative and urine culture shows Enterococcus. ASSESSMENT: 1. The patient has been switched over to vancomycin 1 g q.a.m. and she has had 2 doses and is tolerating that very well. 2. The patient does have chronic diastolic congestive heart failure. 3. Type 2 diabetes, which has been stable. 4. Generalized weakness. 5. Chronic pain. 6. Blood pressure that is labile. 7. Arthritis. 8. Generalized weakness. PLAN: 1. Continue vancomycin 1 g daily. 2. Continue present medications. 3. Continue to follow the patient's blood pressure closely. 4. Encourage the patient to get out of bed and participate well with therapy. 5. Encourage the patient to follow a diabetic carb consistent diet. 6. Continue Physical Therapy and Occupational Therapy. 7. We will finish full 7 days of her antibiotics. Job ID: [id number]
[2019-05-23 06:36] LABS: Potassium 2.9 mmol/L (3.5-5.1)
[2019-05-23] MEDS ORDERED: Potassium Chloride 20 MEQ TAB PO SCH (07:15)
[2019-05-23] MEDS ORDERED: valACYclovir 500 MG TAB ONE ×2 (08:40)
[2019-05-23] MEDS: Metolazone 5 MG TAB PO SCH (09:06)
[2019-05-23] MEDS: Potassium Chloride 20 MEQ TAB PO SCH ×2 (09:08→17:27)
[2019-05-23] MEDS: Isosorbide Mononitrate (ER) 30 MG TAB PO SCH (09:08)
[2019-05-23] MEDS: Folic Acid 1 MG TAB PO SCH (09:09)
[2019-05-23] MEDS: Carvedilol 6.25 MG TAB PO SCH ×2 (09:09→17:28)
[2019-05-23] MEDS: Amiodarone 200 MG TAB PO SCH ×2 (09:09→20:28)
[2019-05-23] MEDS: Furosemide 40 MG TAB PO SCH ×2 (09:09→20:28)
[2019-05-23] MEDS: valACYclovir 500 MG TAB PO SCH ×3 (09:10→17:27)
[2019-05-23] MEDS: Vancomycin HCl 1 GM in Sodium Chloride 0.9% 250 ML 250 ML IVPB SCH (09:10)
[2019-05-23] MEDS: HumuLIN 70/30 (300 UNITS/3 ML VIAL) SC SCH ×2 (09:14→20:29)
[2019-05-23] MEDS ORDERED: Sodium Chloride 0.9% 10 ML ONE (09:20)
--- NOTE | 2019-05-23 19:31 | PRG ---
DATE OF SERVICE: 05/23/2019 SUBJECTIVE: Ms. Gustafson is a well-developed, well-nourished 79-year-old white female, who presented to the emergency room with altered mental status. She was found to have urinary tract infection, was admitted to the hospital, started on Rocephin. Her culture and sensitivities came back growing Enterococcus and she was switched over to vancomycin by Dr. Green, who made rounds on Thursday. The patient last night seemed to be much more awake and alert; this afternoon, seems very sleepy. I did call the patient's , Jefferson at [phone] to discuss her progress. I told him that if she is unable to participate in physical therapy and occupational therapy, then she her last antibiotics. We did discuss assisted placement versus coming home. The patient told one of the nurses today that she felt that she may would need to go on hospice because she is just ready to . I did address that with the patient, she did well, she is not really ready to go yet, but she has been thinking about it. OBJECTIVE: VITAL SIGNS: Today reveal blood pressure this afternoon 142/74, this morning 132/63; pulse 61 to 62, respirations 18, O2 saturation 95% on 2 L. LABORATORY DATA: Laboratory today reveals the patient's potassium is still 2.9. We will continue her present potassium. Point of care glucose reveals sugar this morning 75, before lunch 123, before supper 125. Last night at bedtime 156. PHYSICAL EXAMINATION: GENERAL: This is a well-developed, well-nourished, morbidly obese white female, who is awake and responsive, but very sleepy. HEENT: Normocephalic and nontraumatic cranium. The pupils are equally round and reactive. Extraocular movements are intact. Nose and throat are slightly dry. NECK: Supple without masses, nodes, or bruits. CHEST: Clear to auscultation. No rales, rhonchi, wheezes, or cough is noted. HEART: Reveals a regular rate and rhythm without murmurs, gallops, or rubs. ABDOMEN: Obese, soft, nontender without organomegaly. No rebound or guarding is noted. : Deferred. EXTREMITIES: Reveal no clubbing or cyanosis with trace edema. ASSESSMENT: 1. The patient is on vancomycin 1 g q.a.m. and the patient has had 3 doses and tolerating well. 2. Chronic diastolic congestive heart failure. 3. Diabetes type 2. 4. Chronic pain. 5. Arthritis. 6. Labile hypertension. 7. Coronary artery disease. 8. Uncontrolled diabetes. 9. Hypothyroidism. 10. Gastroesophageal reflux disease. 11. History of multiple urinary tract infections. 12. Neuropathy. 13. Shingles, which is dry and clear. 14. Generalized weakness. PLAN: 1. Continue vancomycin 1 g q.24 hours. 2. Continue the patient's home medications. 3. Follow the patient's Accu-Cheks before meals and at bedtime. 4. Stress ulcer prophylaxis. 5. Decubitus precautions. 6. Continue DVT prophylaxis with SVTs. The patient states she would try SVTs rather than Lovenox. Job ID: [id number]
[2019-05-24 05:52] LABS: Anion Gap 15 mmol/L (10-20); BUN (Urea Nitrogen) 31 mg/dL (9.8-20.1); Calc. Creatinine Clearance 43 mL/min (70-130); Calcium 8.7 mg/dL (7.8-10.44); Carbon Dioxide 32 mmol/L (23-31); Chloride 95 mmol/L (98-107); Estimated GFR-MDRD 28; Glucose 88 mg/dL (83-110); Potassium 3.1 mmol/L (3.5-5.1); Sodium 139 mmol/L (136-145)
[2019-05-24 06:09] VITALS: BMI 39.0
[2019-05-24] MEDS: Carvedilol 6.25 MG TAB PO SCH ×2 (08:47→17:24)
[2019-05-24] MEDS: valACYclovir 500 MG TAB PO SCH ×3 (08:47→20:33)
[2019-05-24] MEDS: Furosemide 40 MG TAB PO SCH ×2 (08:48→20:37)
[2019-05-24] MEDS: Metolazone 5 MG TAB PO SCH (08:48)
[2019-05-24] MEDS: Potassium Chloride 20 MEQ TAB PO SCH ×2 (08:48→17:24)
[2019-05-24] MEDS: Amiodarone 200 MG TAB PO SCH ×2 (08:48→20:34)
[2019-05-24] MEDS: Isosorbide Mononitrate (ER) 30 MG TAB PO SCH (08:48)
[2019-05-24] MEDS: Folic Acid 1 MG TAB PO SCH (08:48)
[2019-05-24] MEDS: Vancomycin HCl 1 GM in Sodium Chloride 0.9% 250 ML 250 ML IVPB SCH (08:49)
[2019-05-24] MEDS: HumuLIN 70/30 (300 UNITS/3 ML VIAL) SC SCH ×2 (08:49→20:33)
[2019-05-24] MEDS: Acetaminophen 500 MG TAB PO PRN (14:24)
--- NOTE | 2019-05-24 19:48 | PRG ---
DATE OF SERVICE: 05/24/2019 SUBJECTIVE: Ms. Gustafson is a well-developed, morbidly obese 79-year-old white female, who presented to the emergency room with altered mental status. She had a urinary tract infection and admitted to the hospital. She was started on Rocephin. Sensitivity came back growing Enterococcus, so she was switched over to vancomycin by Dr. Green. The patient seemed to be doing better, but continues to not want to get out of bed. She states she just does not want to get out of bed anymore. We did talk about her being admitted to the assisted versus going home. She states she would rather go home with her . She states she might consider also going on the hospice. The patient is doing well and receiving her vancomycin every morning. The patient is not eating well and at times refusing her therapy. OBJECTIVE: VITAL SIGNS: Today reveal blood pressure 142/74, pulse 60, respirations 18, O2 saturation of 97% on 2 L nasal cannula, T-max 97.3. GENERAL: This is a well-developed, well-nourished, very pleasant 79-year-old white female, in no apparent distress at this time. HEENT: Normocephalic and nontraumatic cranium. Pupils are equal, round, and reactive. Extraocular movements are intact. Nose and throat are dry, but clear. NECK: Supple without masses, nodes, or bruits. CHEST: Clear to auscultation. Breath sounds are shallow. HEART: Reveals a regular rate and rhythm without murmurs, gallops, or rubs. ABDOMEN: Soft and nontender without organomegaly. Normal bowel sounds are noted. No rebound or guarding is noted. Abdomen is morbidly obese. GENITOURINARY: Deferred. EXTREMITIES: Reveal no clubbing or cyanosis with trace edema. ASSESSMENT: 1. Urinary tract infection. Continue vancomycin 1 g q.a.m. with four doses done. The patient should finish on Thursday morning. 2. Chronic diastolic congestive heart failure. 3. Diabetes type 2. 4. Chronic pain. 5. Arthritis. 6. Labile hypertension. 7. Coronary artery disease. 8. Uncontrolled diabetes. 9. Hypothyroidism. 10. Gastroesophageal reflux. 11. History of multiple urinary tract infections. 12. Neuropathy. 13. Shingles, which is clearing. 14. Generalized weakness. 15. Noncompliance. PLAN: 1. Continue full seven doses of vancomycin. 2. Continue the patient's present medications. 3. Follow Accu-Cheks before meals and at bedtime. 4. Stress ulcer prophylaxis. 5. Decubitus precautions. 6. DVT prophylaxis with SCDs. 7. Discharge planning for Thursday. Job ID: [id number]
[2019-05-25] MEDS ORDERED: Sodium Chloride 0.9% 0 ML ONE (05:53)
[2019-05-25] MEDS: Carvedilol 6.25 MG TAB PO SCH (07:35)
[2019-05-25 08:04] LABS: #Lymphocytes 1.4 thou/uL (1.20-3.40); #Monocytes 0.6 thou/uL (0.11-0.59); #Neutrophils 10.3 thou/uL (1.40-6.50); %Basophils 0.3 % (0.0-1.0); %Eosinophils 0.1 % (0.0-10.0); %Lymphocytes 11.2 % (21.0-51.0); %Monocytes 4.8 % (0.0-10.0); %Neutrophils 83.6 % (42.0-75.0); Hemoglobin 9.2 g/dL (12.0-16.0); Mean Corpuscular HGB CONC 32.2 g/dL (32.0-36.0); Mean Corpuscular Hemoglobin 27.3 pg (27.0-31.0); Mean Corpuscular Volume 84.7 fL (78.0-98.0); Platelet Count 127 thou/uL (130-400); RBC Distribution Width 15.2 % (11.5-14.5); Red Blood Cell (RBC) Count 3.37 mill/uL (4.20-5.40); White Blood Cell (WBC) Count 12.3 thou/uL (4.8-10.8)
[2019-05-25 08:18] LABS: Vancomycin, Trough 27.4 ug/mL
[2019-05-25 08:20] LABS: Anion Gap 17 mmol/L (10-20); Globulin 2.8 g/dL (2.4-3.5)
[2019-05-25 08:36] LABS: Potassium 3.6 mmol/L (3.5-5.1); Sodium 136 mmol/L (136-145)
[2019-05-25 08:37] LABS: ALT (SGPT) 38 U/L (8-55); AST (SGOT) 45 U/L (5-34); Alkaline Phosphatase 214 U/L (40-110); BUN (Urea Nitrogen) 44 mg/dL (9.8-20.1); Bilirubin, Total 0.8 mg/dL (0.2-1.2); Calc. Creatinine Clearance 25 mL/min (70-130); Calcium 8.7 mg/dL (7.8-10.44); Carbon Dioxide 29 mmol/L (23-31); Chloride 94 mmol/L (98-107); Estimated GFR-MDRD 15; Glucose 124 mg/dL (83-110); Protein, Total 5.8 g/dL (5.8-8.1)
[2019-05-25] MEDS ORDERED: Vancomycin HCl 1 GM in Sodium Chloride 0.9% 250 ML 250 ML IVPB SCH (09:00)
[2019-05-25] MEDS: Isosorbide Mononitrate (ER) 30 MG TAB PO SCH (09:05)
[2019-05-25] MEDS: Folic Acid 1 MG TAB PO SCH (09:05)
[2019-05-25] MEDS: Potassium Chloride 20 MEQ TAB PO SCH (09:05)
[2019-05-25] MEDS: valACYclovir 500 MG TAB PO SCH ×2 (09:05→09:20)
[2019-05-25] MEDS: HumuLIN 70/30 (300 UNITS/3 ML VIAL) SC SCH (09:07)
[2019-05-25] MEDS: Furosemide 40 MG TAB PO SCH (09:08)
[2019-05-25] MEDS: Amiodarone 200 MG TAB PO SCH (09:08)
[2019-05-25] MEDS: Metolazone 5 MG TAB PO SCH (09:09)
[2019-05-25 14:32] VITALS: TEMP 98.7
[2019-05-25 15:50] VITALS: BP 112/54
--- NOTE | 2019-05-25 16:18 | DIS ---
DATE OF ADMISSION: 05/19/2019 DATE OF DISCHARGE: 05/25/2019 HOSPITAL COURSE: Ms. Gustafson is a 79-year-old white female, who presented to the emergency room complaining of mental status changes. She had some confusion and was concerned that she was not taking her medicines per her spouse. She is not febrile, but there was concern for urinary tract infection. She had a long history of noncompliance with medications. The patient was also found to have shingles prior to admission here and was at [facility] in [place] and was on Valtrex and tramadol for that. The patient was found to have urinary tract infection in the ER. Dr. Parker Titus started the patient on Rocephin and admitted her until blood cultures and urine cultures would come back. The patient's urine culture came back enterococcus, not sensitive to Rocephin, and her blood cultures were negative. Dr. Green made rounds on Thursday and saw the patient and switched the patient to vancomycin. Since then, she has been on the vancomycin and gradually getting better until yesterday when she became somewhat more lethargic and not wanting to eat, not wanting to drink, and not wanting to take her medications. Labs were drawn this morning, and the patient seemed to be a little bit more alert, but it was noted that her white count went from 4600 to 12,300. Her creatinine went from 1.56 to 1.58 to 1.77 yesterday and then this morning it was 3.09. Her MDRD estimated GFR went from 32 to 28 to 15 this morning. The patient's sugars have been stable. It was felt that the patient was becoming septic, even though she is on the vancomycin that we may need to repeat sepsis workup on her. It was felt after significant discussion with the that they would like the patient transferred to [facility] for further evaluation and more aggressive treatment. I was able to talk with Dr. Osborne, the accepting physician, at [facility] and he agreed to have the patient transferred to [facility]. PHYSICAL EXAMINATION: VITAL SIGNS: This morning, reveal blood pressure 113 to 122 systolic and 60 to 98 diastolic. The patient's respiratory rate is 18 and O2 saturation is 95% to 98% on 2 L nasal cannula. The patient is dependent on oxygen at home. The patient's pulse has been 60 to 63. The patient has remained afebrile, and today, her temperature has fluctuated between 98.1 to 98.7. GENERAL: This is a well-developed, morbidly obese white female, in no apparent distress at this time. She is much more awake and alert and answers questions, but at times gets a little confused. Yesterday, she was much more confused. HEENT: Reveals normocephalic and nontraumatic cranium. Pupils are equally round and reactive. Extraocular movements are intact. Nose and throat are dry. The patient has not been eating very much or drinking much over the last 36 hours. NECK: Supple without masses, nodes, or bruits. CHEST: Clear to auscultation. No rales, rhonchi, wheezes, or cough is heard. HEART: Reveals a regular rate and rhythm without murmurs, gallops, or rubs. ABDOMEN: Morbidly obese, soft, and nontender. The patient does complain of some slight epigastric tenderness. Normal bowel sounds are noted in all 4 quadrants. No rebound or guarding is noted. The patient did have a smear of blood in her diaper this morning, but her H and H has remained normal. : Deferred. EXTREMITIES: Reveal no clubbing, cyanosis, and only trace of lower extremity edema. ASSESSMENT: 1. Urinary tract infection, growing Enterococcus, which had no sensitivities for cephalosporins, so the patient was switched to vancomycin last Thursday. The patient is noted to be allergic to sulfa and penicillin. 2. Chronic diastolic congestive heart failure, for which the patient is presently stable, and the patient does have oxygen requirements at home of typically 2 to 3 L per nasal cannula. 3. Diabetes, type 2, which have actually been actually pretty stable. 4. Generalized weakness, which is worsening over the last 2 days. 5. Chronic pain. The patient complains of pain in all her joints and in her back. 6. Chronic stage 3 renal insufficiency, but this morning it has moved to stage 4. 7. History of coronary artery disease in the distant past. 8. Hypothyroidism. 9. Arthritis. 10. Hyperlipidemia. 11. History of gastroesophageal reflux disease. 12. Anxiety and depressive disorder. 13. Recent history of shingles. 14. Neuropathy. PLAN: 1. The patient is going to be transferred to [facility] up in [place]. We will continue her present medications, so that they know what she is on and they will adjust her medications. 2. This morning, her carvedilol, her ramipril, her isosorbide, her metolazone, and furosemide were held. 3. The patient will be transferred to MICU and the accepting doctor is Dr. Osborne. 4. Suspect that the patient will be seen by Cardiology, Nephrology, and Infectious Disease. I did spend greater than an hour and a half getting the patient transferred. Job ID: [id number]
== END 2019-05-25 16:10 | disposition short-term general hospital (02) | DRG 690 ==
LOC: NAV ERS 15:00 → OBSVTOIN 17:06 → NAV ACUTE 17:06 → UNDOADMOB 17:06
PROVIDERS: ADMIT Family Medicine; ATTEND Family Medicine
DX: N39.0 Urinary tract infection, site not specified (principal); I50.32 Chronic diastolic (congestive) heart failure; E11.65 Type 2 diabetes mellitus with hyperglycemia; I11.0 Hypertensive heart disease with heart failure; E78.5 Hyperlipidemia, unspecified; E03.9 Hypothyroidism, unspecified; M19.91 Primary osteoarthritis, unspecified site; R53.1 Weakness; K21.9 Gastro-esophageal reflux disease without esophagitis; I25.10 Atherosclerotic heart disease of native coronary artery without angina pectoris; E11.40 Type 2 diabetes mellitus with diabetic neuropathy, unspecified; Z96.653 Presence of artificial knee joint, bilateral; E66.01 Morbid (severe) obesity due to excess calories; B02.9 Zoster without complications; E86.0 Dehydration; G89.29 Other chronic pain; B95.2 Enterococcus as the cause of diseases classified elsewhere; Z91.14 Patient's other noncompliance with medication regimen; Z90.49 Acquired absence of other specified parts of digestive tract; Z98.42 Cataract extraction status, left eye; Z98.41 Cataract extraction status, right eye; Z88.0 Allergy status to penicillin; Z88.8 Allergy status to other drugs, medicaments and biological substances; Z68.39 Body mass index [BMI] 39.0-39.9, adult; Z88.2 Allergy status to sulfonamides
CPT/HCPCS: 36415; 36416; 51701; 70450; 71045; 80048; 80053; 80202; 81003; 81015; 83605; 84132; 84484; 85025; 87040; 87077; 87086; 87186; 93005; 96361; 96374; A4353; J0696; J1815; J3370; J3490; J7050

== ENCOUNTER 2019-06-02 18:16 | Inpatient (IN) | payer MEDICARE, OTHER ==
[2019-06-02 19:34] VITALS: BMI 43.0
[2019-06-02] MEDS ORDERED: Senokot S 8.6-50 MG TAB PO PRN (20:24)
[2019-06-02] MEDS ORDERED: Nitroglycerin 0.4 MG TAB (25 Tab Bottle) SL PRN (20:24)
[2019-06-02] MEDS ORDERED: Melatonin 3 MG TAB PO PRN (20:24)
[2019-06-02] MEDS ORDERED: Budesonide 0.5 MG/2 ML NEB NEB PRN (20:24)
[2019-06-02] MEDS ORDERED: Ondansetron ODT 4 MG TAB PO PRN (20:34)
[2019-06-02] MEDS ORDERED: HumuLIN 70/30 (300 UNITS/3 ML VIAL) SC SCH (21:00)
[2019-06-02] MEDS: Loperamide HCl 2 MG CAP PO PRN (21:19)
[2019-06-02] MEDS: Amiodarone 200 MG TAB PO SCH (21:19)
[2019-06-02] MEDS: Atorvastatin Calcium 10 MG TAB PO SCH (21:19)
[2019-06-02] MEDS: Furosemide 40 MG TAB PO SCH (21:19)
[2019-06-02] MEDS ORDERED: Dextrose 5% in Water 1,000 ML IV PRN (21:46)
[2019-06-02] MEDS ORDERED: HumaLOG 300 UNITS/3 ML VIAL SC PRN ×2 (21:46)
[2019-06-02] MEDS ORDERED: Dextrose 50% Abboject 50 ML SYRINGE IVP PRN (21:48)
--- NOTE | 2019-06-02 23:14 | HP ---
HISTORY OF PRESENT ILLNESS: Ms. Gustafson is a 79-year-old morbidly obese white female, who returns from [facility] after being transferred there for altered mental status and possible sepsis. The patient was initially admitted to [facility] on 05/19 after she was found to have urinary tract infection, which grew out enterococcus. She was switched over to Rocephin, and seemed to do fairly well, then her white count increased and she became altered. She was transferred to [facility], has seen multiple consultants there. The patient was seen in consultation by Dr. Robles Eddy, Kitchen Runner, Dr. Lucio Byers, Infectious Disease, Dr. Cheng Copeland, Urologist, Dr. Eros Nieves, Dialysis Equipment Technician and Dr. Jonathan Schmidt, Surgeon. The patient was determined to have multiple problems, but not be a surgical candidate, and basically her antibiotics were stopped. She is actually feeling much better and was transferred to [facility] for physical therapy for several days until she can get stronger, so she can go home. They have had a consultation also from Palliative Care and she may want to choose to do palliative care or hospice care when she goes home. PAST MEDICAL HISTORY: Significant for multiple medical problems including; 1. Chronic diastolic congestive heart failure. 2. Coronary artery disease involving [place] artery. 3. Diabetes type 2, most of the time uncontrolled because of noncompliance. 4. Hypothyroidism. 5. Hyperlipidemia. 6. Edema. 7. Myalgias. 8. Arthritis. 9. Gastroesophageal reflux. 10. History of multiple urinary tract infections. 11. Neuropathy. 12. Recent history of shingles. 13. Generalized weakness. 14. New T11 fracture by CT scan. 15. Recent splenic infarct by CT scan. 16. Inflammatory changes of the distal sigmoid and rectum with circumferential wall thickening and fat stranding. 17. Hypoxic hypoventilation syndrome. 18. Pulmonary hypertension. 19. Hypoxemia with hypercapnia. 20. Sleep apnea. 21. Mobility impairment. 22. Polypharmacy. 23. Morbid obesity. 24. Urinary retention. 25. Altered mental status. PAST SURGICAL HISTORY: Reveals; 1. Bilateral total knee replacement. 2. Left femur ORIF. 3. Right foot surgery. 4. Cholecystectomy. 5. PTCA and stents x3. 6. Bilateral cataract surgery. FAMILY HISTORY: Reveals the patient's father had diabetes and from that. SOCIAL HISTORY: The patient has never smoked and does not drink. She lives with her and they are unable to care for each other. ALLERGIES: REVEALS THE PATIENT IS ALLERGIC TO PENICILLIN AND BACTRIM. REVIEW OF SYSTEMS: CONSTITUTIONAL: The patient this evening reveals that she denies fever, chills, night sweats. She does complain of weakness and feeling fatigued. RESPIRATORY: The patient denies respiratory problems including cough, cold, congestion, shortness of breath, hemoptysis, or productive sputum. CARDIOVASCULAR: The patient denies chest pain, RAMIREZ, claudication, orthopnea, or PND. GASTROINTESTINAL: The patient denies nausea, vomiting, diarrhea, melena, dysphagia, hematemesis, or bowel changes. GENITOURINARY: The patient does admit to some urinary frequency and occasionally retention, but denies nocturia, hematuria, dysuria or incontinence. MUSCULOSKELETAL: The patient complains of generalized weakness and is unable to get up and move around. ENDOCRINE: She denies hot or cold intolerance. Unfortunately, she is not very compliant with her sliding scale insulin. NEUROLOGIC: She denies any focal findings, although she does complain of neuropathy from her diabetes. PSYCHOLOGICAL: The patient most likely is somewhat depressed because of her multiple medical problems, but she has a very poor memory. Unfortunately, her is not much help for her. PRESENT MEDICATIONS: Reveals she is presently on the following medications, which includes; 1. Tylenol 650 q.4 hours p.r.n. 2. DuoNeb nebulizers q.6 hours p.r.n. 3. Amiodarone 200 mg b.i.d. scheduled. 4. Norvasc 5 mg daily. 5. Lipitor 10 mg at bedtime. 6. Pulmicort neb treatments daily p.r.n. 7. Bentyl 10 mg q.i.d. p.r.n. abdominal pain. 8. Folic acid 1 mg daily. 9. Lasix 40 mg b.i.d. 10. The patient to have her influenza vaccine, 06/03/2019. 11. Sliding scale insulin, mild. 12. Isosorbide 120 mg daily. 13. Imodium 2 mg p.r.n. diarrhea, loose stools. 14. Melatonin 6 mg at bedtime. 15. Nitroglycerin 0.4 mg sublingual q.5 minutes p.r.n. chest pain. 16. Zofran 4 mg q.6 hours p.r.n. 17. Protonix 40 mg daily. 18. Potassium 20 mEq q.a.m. with meals. 19. Ramipril 2.5 mg daily. 20. Senokot 2 tabs b.i.d. p.r.n. constipation. 21. Zoloft 50 mg daily. 22. Tamsulosin 0.4 mg daily. 23. Tramadol 50 mg q.4 hours p.r.n. PHYSICAL EXAMINATION: GENERAL: This is a well-developed, well-nourished, pleasant white female, who is awake and alert, oriented to person and place today. HEENT: Reveals normocephalic and nontraumatic cranium. The pupils are equally round and reactive. Extraocular movements are intact. Nose and throat are dry, but clear. NECK: Supple without masses, nodes, or bruits. CHEST: Clear to auscultation. No rales, no rhonchi, no wheezes are heard. The patient does have shallow breath sounds. HEART: Reveals a regular rate and rhythm without murmurs, gallops, or rubs. ABDOMEN: Obese, soft, nontender without organomegaly. Normal bowel sounds are noted all over patient. Ellington catheter still in place, which has clear urine. EXTREMITIES: The patient has large, but no significant edema in her lower extremities. She has 1+ dorsalis pedis. Cap refills presently normal. NEUROLOGIC: The patient recognizes me, knows her name and knows that she is in the hospital. Does not know the date. ASSESSMENT: 1. Multiple medical problems, but mainly hypoventilation syndrome. 2. Hypoxemia with hypercapnia. 3. Sleep apnea. 4. Mobility impairment. 5. Coronary artery disease. 6. Type 2 diabetes. 7. Polypharmacy. 8. Recent altered mental status. 9. Osteoarthritis. 10. Recent urinary tract infection, which is adequately treated. 11. Chronic diastolic congestive heart failure. 12. Diabetes, type 2. 13. Generalized weakness. 14. Chronic pain. The patient complains of pain in all her joints. 15. Chronic stage 3 renal insufficiency. 16. Coronary artery disease, [place] artery. 17. Hypothyroidism. 18. Arthritis. 19. Hyperlipidemia. 20. Gastroesophageal reflux disease. 21. Anxiety and depressive disorder. 22. Recent shingles. 23. Neuropathy. 24. Generalized weakness. PLAN: The patient has been transferred to [facility], where she will get restarted on her physical therapy and occupational therapy. Our hope is that she will be able to get somewhat stronger, so when she goes home she will be able to transfer and her will be able to help her somewhat. I spent over 1 hour going over this with the patient, reviewing her records, etc. Job ID: [id number]
[2019-06-03 00:28] LABS: Bilirubin Small (Negative); Blood, Urine Moderate (Negative); Clarity Slightly Cloudy (Clear); Glucose, Urine (Dipstick) Negative (Negative); Leukocyte Moderate (Negative); Nitrite Negative (Negative); Protein, Urine (Dipstick) 30 mg/dL (Neg-Trace); Urobilinogen 0.2 mg/dL (Less than 2)
[2019-06-03 00:38] LABS: RBC/HPF Greater than 50 HPF (0-3); WBC/HPF Greater than 50 HPF (0-3)
[2019-06-03 00:39] LABS: Bacteria/HPF 3+ HPF (None Seen); Yeast-Budding 2+ HPF (None Seen)
[2019-06-03] MEDS: traMADol HCl 50 MG TAB PO PRN ×4 (05:03→23:54)
[2019-06-03 05:21] LABS: Band 1 % (5-11); Eosinophils 2 % (0-10); Hemoglobin 8.1 g/dL (12.0-16.0); Hypochromia SLIGHT = 6-15 cells (100X) (0-5/hpf); Lymphocytes 10 % (21-51); MDiff Complete? YES; Mean Corpuscular HGB CONC 31.2 g/dL (32.0-36.0); Mean Corpuscular Hemoglobin 27.4 pg (27.0-31.0); Mean Corpuscular Volume 87.8 fL (78.0-98.0); Mean Platelet Volume 8.9 fL (7.4-10.4); Monocytes 9 % (0-10); Neutrophil 78 % (42-75); Platelet Count 107 thou/uL (130-400); Platelet Morphology Comment Appears Decreased; Poikilocytosis SLIGHT = 6-15 cells (100X) (0-5/hpf); RBC Distribution Width 16.6 % (11.5-14.5); Red Blood Cell (RBC) Count 2.94 mill/uL (4.20-5.40); White Blood Cell (WBC) Count 5.7 thou/uL (4.8-10.8)
[2019-06-03 05:25] LABS: ALT (SGPT) 29 U/L (8-55); AST (SGOT) 24 U/L (5-34); Albumin 2.8 g/dL (3.4-4.8); Alkaline Phosphatase 223 U/L (40-110); Anion Gap 13 mmol/L (10-20); BUN (Urea Nitrogen) 6 mg/dL (9.8-20.1); Bilirubin, Total 0.4 mg/dL (0.2-1.2); Calc. Creatinine Clearance 90 mL/min (70-130); Calcium 8.5 mg/dL (7.8-10.44); Carbon Dioxide 33 mmol/L (23-31); Chloride 99 mmol/L (98-107); Estimated GFR-MDRD 57; Globulin 2.5 g/dL (2.4-3.5); Glucose 118 mg/dL (83-110); Potassium 3.9 mmol/L (3.5-5.1); Protein, Total 5.3 g/dL (6.0-8.3); Sodium 141 mmol/L (136-145)
[2019-06-03] MEDS ORDERED: Sodium Chloride 0.9% 10 ML ONE (07:49)
[2019-06-03] MEDS: Amiodarone 200 MG TAB PO SCH ×2 (08:18→20:32)
[2019-06-03] MEDS: Amlodipine 5 MG TAB PO SCH (08:18)
[2019-06-03] MEDS: Furosemide 40 MG TAB PO SCH ×2 (08:19→20:32)
[2019-06-03] MEDS: Isosorbide Mononitrate (ER) 30 MG TAB PO SCH (08:19)
[2019-06-03] MEDS: Tamsulosin HCl 0.4 MG CAP PO SCH (08:20)
[2019-06-03] MEDS: Potassium Chloride 20 MEQ TAB PO SCH (08:20)
[2019-06-03] MEDS: Folic Acid 1 MG TAB PO SCH (08:20)
[2019-06-03] MEDS ORDERED: FLU VACC QS2019-20(6MOS UP)/PF 60 MCG/0.5 ML SYRINGE IM ONE (09:00)
[2019-06-03] MEDS: Acetaminophen 325 MG TAB PO PRN ×2 (10:46→18:01)
[2019-06-03] MEDS: Loperamide HCl 2 MG CAP PO PRN (20:32)
[2019-06-03] MEDS: Atorvastatin Calcium 10 MG TAB PO SCH (20:32)
[2019-06-04] MEDS: traMADol HCl 50 MG TAB PO PRN ×4 (05:09→20:32)
[2019-06-04] MEDS: Amlodipine 5 MG TAB PO SCH (08:07)
[2019-06-04] MEDS: Potassium Chloride 20 MEQ TAB PO SCH (08:07)
[2019-06-04] MEDS: Amiodarone 200 MG TAB PO SCH ×2 (08:07→20:32)
[2019-06-04] MEDS: Folic Acid 1 MG TAB PO SCH (08:08)
[2019-06-04] MEDS: Isosorbide Mononitrate (ER) 30 MG TAB PO SCH (08:08)
[2019-06-04] MEDS: Furosemide 40 MG TAB PO SCH ×2 (08:08→20:32)
[2019-06-04] MEDS: Tamsulosin HCl 0.4 MG CAP PO SCH (08:09)
[2019-06-04] MEDS: Dicyclomine 20 MG TAB PO PRN (17:38)
[2019-06-04] MEDS: Atorvastatin Calcium 10 MG TAB PO SCH (20:32)
--- NOTE | 2019-06-04 21:15 | PRG ---
DATE OF SERVICE: 06/04/2019 SUBJECTIVE: The patient feels well lying in bed, her today and is ready to do therapy. She has recently had urinary tract infection, which resolved, but she became very weak and now she is transferred back to [place] for therapy of her chronic diastolic heart failure, uncontrolled diabetes secondary to noncompliance, generalized weakness. OBJECTIVE: VITAL SIGNS: At this time shows blood pressure is 152/67, temperature 96, pulse 66, respirations 20, O2 sats 97% on room air. LABORATORY DATA: Accu-Cheks ranged from 125-163. Hematocrit is 25, hemoglobin 8.1, white count 5700. Urinalysis showed greater than 50 red cells, greater than 50 white cells. ASSESSMENT: Recurrent urinary tract infection, asymptomatic at this time. We will determine need for antibiotics from previous admission. PLAN: Continue PT/OT. Continue to monitor. The patient is colonized with enterococcus for possible recurrent urinary tract infection, has felt that her altered mental status is related to her medications, hypoglycemia and hypercapnia. Consider palliative care if patient does not respond to PT/OT. Continue to monitor multiple medical problems. Continue Accu-Cheks to monitor and titrate and control diabetes. Continue to wean down off polypharmacy. Job ID: [id number]
[2019-06-05] MEDS: Potassium Chloride 20 MEQ TAB PO SCH (09:26)
[2019-06-05] MEDS: Amlodipine 5 MG TAB PO SCH (09:26)
[2019-06-05] MEDS: Amiodarone 200 MG TAB PO SCH ×2 (09:26→20:39)
[2019-06-05] MEDS: Folic Acid 1 MG TAB PO SCH (09:27)
[2019-06-05] MEDS: Furosemide 40 MG TAB PO SCH ×2 (09:27→20:39)
[2019-06-05] MEDS: Isosorbide Mononitrate (ER) 30 MG TAB PO SCH (09:27)
[2019-06-05] MEDS: Tamsulosin HCl 0.4 MG CAP PO SCH (09:28)
[2019-06-05] MEDS: Acetaminophen 325 MG TAB PO PRN (12:39)
[2019-06-05] MEDS: Dicyclomine 20 MG TAB PO PRN (12:39)
[2019-06-05] MEDS: Atorvastatin Calcium 10 MG TAB PO SCH (20:39)
[2019-06-06] MEDS: traMADol HCl 50 MG TAB PO PRN ×4 (02:43→20:18)
--- NOTE | 2019-06-06 08:30 | PRG ---
DATE OF SERVICE: 06/05/2019 SUBJECTIVE: The patient feels well lying in bed. No complaints, but unable to get up to the bathroom and therefore still has a chronic indwelling Ellington. She has had a recent urinary tract infection, resolving, in fact was diagnosed with chronic colonization of bladder and catheter and no need for further antibiotics. She is admitted for therapy although generalized weakness in a patient with chronic diastolic heart failure, uncontrolled diabetes, secondary to noncompliance. She is in no distress, lying in the bed at this time. OBJECTIVE: VITAL SIGNS: Blood pressure is 155/67, temperature 95.5, pulse 68, respirations 20, O2 sats 94% on 2 L. Accu-Chek ranged from 121-191. LUNGS: Show decreased breath sounds at bases. CARDIAC: Examination showed regular rhythm. ABDOMEN: Shows morbid obesity. Urine culture is positive for Josephine. ASSESSMENT: 1. Morbid obesity, stable. 2. Deconditioning, stable. 3. Chronic urinary retention with chronic colonization now with Josephine in an asymptomatic patient. We will defer treatment until Dr. Michael returns and possibly discuss with Infectious Disease, Dr. Byers. 4. Previous history of uncontrolled diabetes, controlled very well. Good compliance to diet in the hospital. 5. Diastolic heart failure, compensated with no symptoms at rest. PLAN: 1. Continue PT/OT. 2. Continue Accu-Chek to monitor and titrate and control diabetes. 3. Withhold treatment for Josephine until discussed with Infectious Disease. 4. Continue to monitor for signs of decompensation, congestive heart failure. Job ID: [id number]
[2019-06-06] MEDS: Potassium Chloride 20 MEQ TAB PO SCH (08:44)
[2019-06-06] MEDS: Amiodarone 200 MG TAB PO SCH ×2 (08:44→20:17)
[2019-06-06] MEDS: Isosorbide Mononitrate (ER) 30 MG TAB PO SCH (08:45)
[2019-06-06] MEDS: Furosemide 40 MG TAB PO SCH ×2 (08:46→20:17)
[2019-06-06] MEDS: Folic Acid 1 MG TAB PO SCH (08:46)
[2019-06-06] MEDS: Tamsulosin HCl 0.4 MG CAP PO SCH (08:46)
[2019-06-06] MEDS: Amlodipine 5 MG TAB PO SCH (08:47)
--- NOTE | 2019-06-06 11:18 | PRG ---
DATE OF SERVICE: 06/06/2019 SUBJECTIVE: Ms. Gustafson is a 79-year-old morbidly obese white female returns from [facility] after being transferred there for altered mental status and possible sepsis. She was admitted to [facility] on 05/19 and found to have urinary tract infection which grew out E coli. Switched over to Rocephin, seemed to do fairly well, but her white count increased. She was transferred back to [facility] with multiple consultants there. She was seen by multiple consultants by Dr. Eddy, property administrator; Dr. Byers; Dr. Copeland; Dr. Nieves; Dr. Schmidt. She eventually was stabilized and transferred to swing bed for physical therapy and occupational therapy so she could go home. She stated she would have a trial of 7 days here. Today, the patient is refusing therapy, saying she just does not feel good. She states she could get up and stand. She was sitting in the wheelchair, was able to stand with minimal assist and get into her bed, but she will not do therapy at this time. She states she wants to be a DNR, which she is. She states she wants to go to the group home for a while and then to go home with hospice. OBJECTIVE: VITAL SIGNS: Today reveal blood pressure slightly elevated at 199/83, and she is not taking her medicines yet this morning. Pulse 70, respirations 20, O2 saturation 94% to 97% on 3 L nasal cannula, T-max 96. GENERAL: This is a well-developed, morbidly obese white female, in no apparent distress at this time. HEENT: Reveals normocephalic and nontraumatic cranium. The pupils are equally round and reactive. Extraocular movements are intact. Nose and throat are slightly dry. NECK: Supple without masses, nodes, or bruits. CHEST: Clear to auscultation. HEART: Reveals a regular rate and rhythm without murmurs, gallops, or rubs. ABDOMEN: Soft, nontender without organomegaly. Normal bowel sounds are noted. No rebound or guarding is noted. : Deferred. EXTREMITIES: Reveal no clubbing, cyanosis, or edema. ASSESSMENT: 1. Recurrent urinary tract infection. 2. Culture and sensitivity returned as Josephine yeast. With her previous history, we will place her on Diflucan 100 mg daily for 7 days. 3. Multiple medical problems. 4. Hypoxemia with hypercapnia. 5. Sleep apnea. 6. Mobility, impaired. 7. Coronary artery disease. 8. Diabetes type 2. 9. Polypharmacy. 10. Recent altered mental status. 11. Recent urinary tract infection, presently Josephine. 12. Chronic diastolic congestive heart failure. 13. Chronic stage 3 renal insufficiency. 14. Coronary artery disease, [place] artery. 15. Hypothyroidism. 16. Gastroesophageal reflux disease. 17. Anxiety and depressive disorder. 18. Neuropathy. 19. Generalized weakness. PLAN: 1. We will continue to encourage the patient to eat, but almost she is not wanting to eat very much today. 2. The patient request discharge to the group home, so we will have case management work on that. 3. Continue to monitor the patient's blood pressure closely. 4. Monitor the patient's electrolytes. 5. Start Diflucan 100 mg p.o. daily for 7 days. 6. Physical therapy and occupational therapy. Job ID: [id number]
[2019-06-06] MEDS ORDERED: FLU VACC QS2019-20(6MOS UP)/PF 60 MCG/0.5 ML SYRINGE IM ONE (14:00)
[2019-06-06] MEDS: Atorvastatin Calcium 10 MG TAB PO SCH (20:17)
[2019-06-06] MEDS: Dicyclomine 20 MG TAB PO PRN (20:19)
[2019-06-07] MEDS: Dicyclomine 20 MG TAB PO PRN ×2 (04:31→19:40)
[2019-06-07 05:38] LABS: #Eosinphils 0.1 thou/uL (0.0-0.7); #Monocytes 0.4 thou/uL (0.11-0.59); #Neutrophils 3.5 thou/uL (1.40-6.50); %Basophils 0.8 % (0.0-1.0); %Eosinophils 2.6 % (0.0-10.0); %Lymphocytes 19.1 % (21.0-51.0); %Monocytes 7.4 % (0.0-10.0); %Neutrophils 70.2 % (42.0-75.0); Hemoglobin 8.7 g/dL (12.0-16.0); Mean Corpuscular HGB CONC 31.4 g/dL (32.0-36.0); Mean Corpuscular Hemoglobin 27.5 pg (27.0-31.0); Mean Corpuscular Volume 87.8 fL (78.0-98.0); Mean Platelet Volume 9.3 fL (7.4-10.4); Platelet Count 116 thou/uL (130-400); RBC Distribution Width 17.2 % (11.5-14.5); Red Blood Cell (RBC) Count 3.15 mill/uL (4.20-5.40)
[2019-06-07 05:58] LABS: ALT (SGPT) 24 U/L (8-55); AST (SGOT) 23 U/L (5-34); Alkaline Phosphatase 223 U/L (40-110); Anion Gap 14 mmol/L (10-20); BUN (Urea Nitrogen) 8 mg/dL (9.8-20.1); Bilirubin, Total 0.6 mg/dL (0.2-1.2); Calc. Creatinine Clearance 70 mL/min (70-130); Calcium 8.5 mg/dL (7.8-10.44); Carbon Dioxide 34 mmol/L (23-31); Chloride 92 mmol/L (98-107); Estimated GFR-MDRD 43; Globulin 2.8 g/dL (2.4-3.5); Glucose 104 mg/dL (83-110); Potassium 3.4 mmol/L (3.5-5.1); Protein, Total 5.8 g/dL (6.0-8.3); Sodium 137 mmol/L (136-145)
[2019-06-07] MEDS: Isosorbide Mononitrate (ER) 30 MG TAB PO SCH (08:20)
[2019-06-07] MEDS: Potassium Chloride 20 MEQ TAB PO SCH (08:20)
[2019-06-07] MEDS: Amiodarone 200 MG TAB PO SCH ×2 (08:20→19:39)
[2019-06-07] MEDS: Amlodipine 5 MG TAB PO SCH (08:21)
[2019-06-07] MEDS: Fluconazole 100 MG TAB PO SCH (08:21)
[2019-06-07] MEDS: Folic Acid 1 MG TAB PO SCH (08:21)
[2019-06-07] MEDS: Furosemide 40 MG TAB PO SCH ×2 (08:21→19:39)
[2019-06-07] MEDS: Tamsulosin HCl 0.4 MG CAP PO SCH (08:22)
[2019-06-07] MEDS: Atorvastatin Calcium 10 MG TAB PO SCH (19:39)
[2019-06-07] MEDS: traMADol HCl 50 MG TAB PO PRN (19:40)
--- NOTE | 2019-06-07 21:33 | PRG ---
DATE OF SERVICE: 06/07/2019 SUBJECTIVE: Ms. Gustafson is a well-developed, well-nourished, morbidly obese 79-year-old white female, who was seen at [facility] for altered mental status and possible sepsis. She was transferred to [facility] after multiple consultants saw the patient, including Dr. Eddy, Dr. Byers, Dr. Copeland, Dr. Nieves, and Dr. Schmidt. She stabilized, was transferred here for physical therapy and occupational therapy. She apparently is unwilling to cooperate with Physical Therapy. She states she would like to be transferred to a longterm, but the patient's states he does not agree and the patient's power of state attorney daughter does not agree also. The patient states she wants to be a DNR but in the past, she has been somewhat confused and unable to make that decision. We put in a consult for ethics committee to confer the case and they recommended that we have a meeting again with the , director of nurses, RN, myself, and the patient. That was done this morning and the patient's states he could not afford a longterm, but he could not take care of the patient at home. We addressed the to go to the longterm and see what kind of arrangements he could make. He states he would be willing to do that and report back to us later. OBJECTIVE: VITAL SIGNS: Today reveal blood pressure 145/77, pulse 97, respirations 18, O2 saturation of 97% on 2-3 L, and T-max 98.1. GENERAL: This is a well-developed, well-nourished, morbidly obese white female, in no apparent distress at this time. HEENT: Normocephalic and nontraumatic cranium. Pupils are equal, round, and reactive. Extraocular movements are intact. Nose and throat are slightly dry. NECK: Supple without masses, nodes, or bruits. CHEST: Clear to auscultation. HEART: Reveals a regular rate and rhythm without murmurs, gallops, or rubs. ABDOMEN: Soft, obese, nontender without organomegaly. Normal bowel sounds are noted. No rebound or guarding is noted. : Deferred. EXTREMITIES: Reveal generalized weakness but no clubbing, cyanosis, or edema. ASSESSMENT: 1. Recurrent urinary tract infection. 2. Culture and sensitivity most recent Josephine yeast. 3. Multiple medical problems. 4. Hypoxemia with hypercapnia. 5. Sleep apnea. 6. Mobility, impaired. 7. Coronary artery disease. 8. Diabetes type 2. 9. Polypharmacy. 10. Recent altered mental status. 11. Recurrent urinary tract infection, presently Josephine. 12. Chronic diastolic congestive heart failure. 13. Chronic stage 3 renal insufficiency. 14. Coronary artery disease of [place] artery. 15. Hypothyroidism. 16. Gastroesophageal reflux disease. 17. Anxiety and depressive disorder. 18. Neuropathy. 19. Generalized weakness. PLAN: 1. After meeting today, the patient's will go the longterm to see if we can make arrangements for transfer there. 2. The patient states she does not want to be here and take therapy. 3. The patient states she would like to go to the longterm to take therapy. 4. She states when she is getting ready to , she would like to be at home to . 5. Continue present therapy and try to make arrangements for this patient's care. Job ID: [id number]
[2019-06-08] MEDS: Fluconazole 100 MG TAB PO SCH (08:24)
[2019-06-08] MEDS: Potassium Chloride 20 MEQ TAB PO SCH (08:24)
[2019-06-08] MEDS: Tamsulosin HCl 0.4 MG CAP PO SCH (08:24)
[2019-06-08] MEDS: Folic Acid 1 MG TAB PO SCH (08:26)
[2019-06-08] MEDS: Amiodarone 200 MG TAB PO SCH ×2 (08:26→20:15)
[2019-06-08] MEDS: Isosorbide Mononitrate (ER) 30 MG TAB PO SCH (08:26)
[2019-06-08] MEDS: Amlodipine 5 MG TAB PO SCH (08:26)
[2019-06-08] MEDS: Furosemide 40 MG TAB PO SCH ×2 (08:27→20:16)
[2019-06-08] MEDS: traMADol HCl 50 MG TAB PO PRN (08:52)
--- NOTE | 2019-06-08 12:51 | PRG ---
DATE OF SERVICE: 06/08/2019 SUBJECTIVE: Ms. Gustafson is a well-developed, well-nourished, 79-year-old white female, transferred from [facility] with altered mental status and possible sepsis. She was transferred to [facility] for Physical Therapy and Occupational Therapy to increase her strength and stamina. Unfortunately, the patient states that she is tired and does not want to do therapy, although she did minimal amount today. Yesterday, did meet with myself, the charge nurse, and the director of nurses with Mr. Gustafson and Ms. Gustafson. Apparently, we are working on our discharge plan since she does not want to do therapy. She would like to go to our usp. Mr. Gustafson went to the usp yesterday and told them that he could not afford the usp and did not want to do that. He had a meeting with his children and their solution is to transfer the patient to [facility] in [place] or another hospital over there. We tried to explain to him that she is presently in the swing bed and we could not transfer her from a lower staffing to a higher cost hospital unless she actually needed it. Just because she does not want to do therapy is not an indication for doing that. He wanted to know if he could just load her in his car and bring into the emergency room over there and we told him if she does not have a diagnosis to admit, she does not need to be in the hospital. He then asked about hospice and said yes we could discharge her home to hospice, but we have to re-evaluate her, but they would not be in her home 24 hours a day. He most likely will have to hire someone to help stay with her during the day or during the night because he cannot take care of her all the time. He states that he would talk with his children again. OBJECTIVE: VITAL SIGNS: Today reveal blood pressure 137/82 this morning, pulse rate 71, respirations are 18, O2 saturation 98% on 3 L, and T-max 98.6. The patient did have some physical therapy this morning with PT assistance. It was pretty much maximal assist with any exercises, any rolling over in bed, etc. The therapist noted that she basically demonstrates no real motivation to help with her therapy. The last time the patient was using a rolling walker was on May 26. Since then, she has been nonambulatory. The patient also complains of just not wanting to eat and does not care to do anything. PHYSICAL EXAMINATION: GENERAL: This is a well-developed, well-nourished, morbidly obese white female, in no apparent distress at this time. HEENT: Normocephalic and nontraumatic cranium. Pupils are equal, round, and reactive. Extraocular movements are intact. Nose and throat are dry, but clear. NECK: Supple without masses, nodes, or bruits. CHEST: Clear to auscultation. No rales, rhonchi, wheezes, or cough is noted. HEART: Reveals a regular rate and rhythm without murmurs, gallops, or rubs. ABDOMEN: Obese, soft, and nontender without organomegaly. Normal bowel sounds are noted in all 4 quadrants. No rebound or guarding is noted. GENITOURINARY: Exam is deferred. EXTREMITIES: Reveal just generalized weakness. The patient is again found lying in bed today, but her states that she did have some exercises with therapy today. ASSESSMENT: 1. Chronic diastolic congestive heart failure. 2. Chronic stage 3 renal insufficiency. 3. Coronary artery disease of [place] artery. 4. Gastroesophageal reflux. 5. Hypothyroidism. 6. Neuropathy. 7. Anxiety and depressive disorder. Recently altered mental status, but back to normal. 8. Diabetes type 2. 9. Hypoxemia with hypercapnia. 10. Sleep apnea. 11. Josephine urinary tract infection. 12. Mobility, impaired. 13. Generalized weakness. PLAN: 1. The patient and I discussed options again today and still thinks that we could transfer her directly to [facility] in [place]. The patient will talk with the director of nurses today and see if we can help to understand medical processes. 2. Continue with present therapy and encourage the patient best we can to participate with physical therapy and occupational therapy. Job ID: [id number]
[2019-06-08] MEDS: Atorvastatin Calcium 10 MG TAB PO SCH (20:16)
[2019-06-09] MEDS: Potassium Chloride 20 MEQ TAB PO SCH (08:20)
[2019-06-09] MEDS: Folic Acid 1 MG TAB PO SCH (08:21)
[2019-06-09] MEDS: Amlodipine 5 MG TAB PO SCH (08:21)
[2019-06-09] MEDS: Fluconazole 100 MG TAB PO SCH (08:21)
[2019-06-09] MEDS: Furosemide 40 MG TAB PO SCH ×2 (08:21→20:14)
[2019-06-09] MEDS: Amiodarone 200 MG TAB PO SCH ×2 (08:21→20:15)
[2019-06-09] MEDS: Isosorbide Mononitrate (ER) 30 MG TAB PO SCH (08:22)
[2019-06-09] MEDS: Tamsulosin HCl 0.4 MG CAP PO SCH (08:23)
[2019-06-09 10:30] LABS: #Basophils 0.1 thou/uL (0.0-0.2); #Eosinphils 0.1 thou/uL (0.0-0.7); #Lymphocytes 0.7 thou/uL (1.20-3.40); #Monocytes 0.5 thou/uL (0.11-0.59); #Neutrophils 3.9 thou/uL (1.40-6.50); %Basophils 1.4 % (0.0-1.0); %Eosinophils 1.7 % (0.0-10.0); %Lymphocytes 12.8 % (21.0-51.0); %Monocytes 9.8 % (0.0-10.0); %Neutrophils 74.3 % (42.0-75.0); Hemoglobin 8.8 g/dL (12.0-16.0); Mean Corpuscular Hemoglobin 27.5 pg (27.0-31.0); Mean Corpuscular Volume 88.7 fL (78.0-98.0); Mean Platelet Volume 9.3 fL (7.4-10.4); Platelet Count 139 thou/uL (130-400); Red Blood Cell (RBC) Count 3.19 mill/uL (4.20-5.40); White Blood Cell (WBC) Count 5.2 thou/uL (4.8-10.8)
[2019-06-09 10:49] LABS: ALT (SGPT) 35 U/L (8-55); AST (SGOT) 39 U/L (5-34); Alkaline Phosphatase 222 U/L (40-110); Anion Gap 15 mmol/L (10-20); BUN (Urea Nitrogen) 10 mg/dL (9.8-20.1); Bilirubin, Total 0.6 mg/dL (0.2-1.2); Calc. Creatinine Clearance 66 mL/min (70-130); Calcium 8.5 mg/dL (7.8-10.44); Carbon Dioxide 33 mmol/L (23-31); Chloride 94 mmol/L (98-107); Estimated GFR-MDRD 40; Globulin 2.7 g/dL (2.4-3.5); Glucose 139 mg/dL (83-110); Potassium 3.5 mmol/L (3.5-5.1); Protein, Total 5.7 g/dL (6.0-8.3); Sodium 138 mmol/L (136-145)
--- NOTE | 2019-06-09 20:08 | PRG ---
DATE OF SERVICE: 06/09/2019 SUBJECTIVE: Ms. Gustafson is a well-developed, well-nourished 79-year-old morbidly obese white female, who was transferred from [facility] with altered mental status and possible sepsis. She was transferred to [facility] for physical therapy and occupational therapy to increase her strength and stamina. Unfortunately, the patient has been very consistant about doing her therapy. Somedays, she will skilled nursing participate; most day, she will notparticipate well; and somedays, she will just flat-out refuse to go to therapt I had multiple discussions with the patient and her . She tends to wax and wane with her mental abilities. Yesterday, she was very realistic and just said she did want to participate in therapy and this morning, she was confused again. We did order some labs this morning, which reveal sodium 138, potassium 3.5, creatinine 1.28, which is slowly increasing because she is not eating or drinking with a GFR of 40. Her sugars have been fairly stable, fluctuating between 113 and 166. Liver enzymes fairly stable. Her white count this morning was 5000 with a hemoglobin 8.8, hematocrit 28.3, and platelet count of 139,000. PHYSICAL EXAMINATION: GENERAL: This is a well-developed, well-nourished, morbidly obese white female who is confused this morning. HEENT: Reveals normocephalic and nontraumatic cranium. Pupils are equal, round , and reactive. Extraocular movements are intact. Nose and throat are slightly dry, but clear. NECK: Supple without masses, nodes, or bruits. CHEST: Clear to auscultation. No rales, rhonchi, or wheezes are heard. No cough is noted. HEART: Reveals a regular rate and rhythm without murmurs, gallops, or rubs. ABDOMEN: Obese, soft, and nontender. Normal bowel sounds noted in all 4 quadrants. No rebound or guarding is noted. : Deferred. EXTREMITIES: Reveal generalized weakness. The patient is mainly in bed today, is unable to participate in therapy. ASSESSMENT: 1. Chronic diastolic congestive heart failure. 2. Hypoxemia with hypercapnia. 3. Chronic stage 3 renal insufficiency. 4. Coronary artery disease. 5. Gastroesophageal reflux disease. 6. Hypothyroidism. 7. Neuropathy. 8. Diabetes, type 2. 9. Anxiety and depressive disorder. 10. Altered mental status. 11. Josephine urinary tract infection. 12. Sleep apnea. 13. Mobility impaired. 14. Generalized weakness. PLAN: 1. The patient's and I discussed our plans for getting her better and most likely getting her home. He did ask that I call his daughter, which I will attempt to do this evening after she gets off work since she has a brand new job, and he did not want to be disturbed during the daytime. 2. Continue to encourage the patient to try physical therapy and occupational therapy. 3. Continue to encourage the patient to eat and drink. 4. Labs were done, which have been returned and actually basically within normal limits. 5. Continue with case management to see if we can have this lady placed appropriately. Job ID: [id number] [facility]
[2019-06-09] MEDS: traMADol HCl 50 MG TAB PO PRN (20:14)
[2019-06-09] MEDS: Atorvastatin Calcium 10 MG TAB PO SCH (20:15)
[2019-06-10] MEDS: Potassium Chloride 20 MEQ TAB PO SCH (08:52)
[2019-06-10] MEDS: Amiodarone 200 MG TAB PO SCH ×2 (08:53→20:13)
[2019-06-10] MEDS: Tamsulosin HCl 0.4 MG CAP PO SCH (08:53)
[2019-06-10] MEDS: Furosemide 40 MG TAB PO SCH (08:53)
[2019-06-10] MEDS: Folic Acid 1 MG TAB PO SCH (08:53)
[2019-06-10] MEDS: Amlodipine 5 MG TAB PO SCH (08:53)
[2019-06-10] MEDS: Fluconazole 100 MG TAB PO SCH (08:53)
[2019-06-10] MEDS: Isosorbide Mononitrate (ER) 30 MG TAB PO SCH (08:53)
--- NOTE | 2019-06-10 15:40 | PRG ---
DATE OF SERVICE: 06/10/2019 SUBJECTIVE: Ms. Gustafson is a well-developed, well-nourished 79-year-old white female, who was admitted to [facility] with probable urinary tract infection. She was here and placed on antibiotics and doing well, but then she became not very responsive to her vancomycin and she was transferred to [facility] in [place] for a higher level of care and evaluation by a urologist, fractionating still operator, and infectious disease specialist. She was transferred up there and felt to not have had a significant urinary tract infection and her medications were switched around. She was taken off antibiotics and transferred back to [facility] for physical therapy and occupational therapy. On arrival here, she had a urinalysis which was done, which revealed 50+ wbc's per high-power field, which grew out Josephine, but no specific bacteria. She was started on Diflucan. She seemed to get a little bit better and participated for 1 or 2 days in therapy, but since then has continued to have mental status changes that tend to fluctuate on a daily basis. Her labs were rechecked and they were basically within normal limits. We had a difficult time getting her to participate in therapy because at times she does not participate well and makes the therapist do all the work; at other times, when she is on her own, she will try to get out of bed and try to stand; and other times, she just completely refuses to even go to therapy. She and I have had a significant discussion about this that if she does not participate, then she is unable to stay here because she is in swing bed for physical therapy and occupational therapy and not just to stay here. We have discussed this in detail with the patient's and he has talked with case management about the options of going to a retirement, hospice, or taking her home. did call me today and states he would like to have his discharged, and most likely, he would have her further evaluated for second opinion on her mental status changes. OBJECTIVE: VITAL SIGNS: Today, reveal the patient's blood pressure early this morning is 113/53 and later it was 126/80 and then 151/54. Pulse is 74. Saturation is 95% on 2 L. It is noted that when the patient takes her nasal cannula out, then her oxygen saturation goes down to the 70s, which is pretty frequently because she frequently pulls her nasal cannula out and we have to replace it. That may be some of the difficulty with the patient's mental status because she has also noted to have hypoxemia with hypercapnia. GENERAL: This is a well-developed, well-nourished, obese white female, presently confused, but knows her name, but not her place or the date. HEENT: Reveals normocephalic and nontraumatic cranium. The pupils are equally round and reactive. Extraocular movements are intact. Nose and throat are dry, but clear. NECK: Supple without masses, nodes, or bruits. CHEST: Clear to auscultation. No rales, no rhonchi, no wheezes, and no cough is noted. HEART: Reveals a regular rate and rhythm without any significant murmurs, gallops, or rubs. ABDOMEN: Obese, soft, and nontender. Normal bowel sounds in all 4 quadrants is noted. No rebound or guarding is noted. : Deferred. EXTREMITIES: Reveal generalized weakness. The patient is mainly in bed and states she is unable to participate in therapy. LABORATORY DATA: Last laboratories reveal white count is 5200, hemoglobin 8.8 and improving, hematocrit 28.3 and improving, platelet count 139,000 and much improved. Chemistries reveal sodium 138, potassium 3.5, chloride 94, carbon dioxide 33 with a BUN 10, and creatinine 1.28. Creatinine slowly had been creeping up because the patient has not been drinking well. Serum albumin is 3.0. The patient's last pre-albumin on 06/07/2019 was 12.0, with the normal range 14 to 37. We have been encouraging the patient to eat, but she states she is not hungry. ASSESSMENT: 1. Chronic diastolic congestive heart failure. 2. Hypoxemia with hypercapnic respiratory failure, presently on continuous O2. 3. Chronic stage 3 renal insufficiency. 4. Coronary artery disease. 5. Hypothyroidism. 6. Gastroesophageal reflux. 7. Diabetes, type 2, under fairly good control. 8. Diabetic neuropathy. 9. Recent Josephine urinary tract infection. 10. Sleep apnea. 11. Anxiety and depressive disorder. 12. Mobility impairment. 13. Generalized weakness. PLAN: 1. The patient unfortunately does not qualify for physical therapy here at the swing bed anymore because she is unable to participate and show progression. 2. The patient's has called me today and states that over the weekend he would like to have his discharged to the care of he and his son. 3. Their intention is to most likely bring her to another hospital for second opinion re-evaluation. 4. It is my opinion that the patient does not have an admittable acute diagnosis and really should be in palliative care. 5. The patient's certainly agrees that she may benefit from palliative care and would like a second opinion. 6. While the patient is here, we will continue to encourage the patient to eat and drink well. 7. Dr. Junito Tejada is on-call this weekend and I will discuss with him plans for discharge sometimes over the weekend. MEDICATIONS: Present medications include the followin. Tylenol 650 q.4 p.r.n. 2. Albuterol neb treatments daily and p.r.n. shortness of breath or wheezing. 3. Amiodarone 200 mg b.i.d. 4. Amlodipine 5 mg daily. 5. Lipitor 10 mg at bedtime. 6. Pulmicort 1 mg neb treatment daily. 7. Bentyl 10 mg q.i.d. p.r.n. 8. Fluconazole 100 mg daily and the last starting date was 06/07/2019 with the end date 06/14/2019. 9. Folic acid 1 mg daily. 10. Lasix 40 mg daily. 11. Mild sliding scale Humalog. 12. Isosorbide mononitrate 120 mg daily. 13. Melatonin 6 mg at bedtime p.r.n. insomnia. 14. Nitrostat 0.4 mg subcu q.5 minutes p.r.n. chest pain. 15. Zofran 4 mg q.6 hours p.r.n. nausea and vomiting. 16. Protonix 40 mg daily. 17. Potassium chloride 20 mEq with meal each morning. 18. Ramipril 2.5 mg daily. 19. Senokot b.i.d. p.r.n. 20. Zoloft 50 mg daily. 21. Flomax 0.4 mg scheduled daily. 22. Tramadol 50 mg q.4 p.r.n. significant pain, but the patient only receives one or possibly two pills each day and has not been using them frequently at all. Job ID: [id number]
[2019-06-10] MEDS: Atorvastatin Calcium 10 MG TAB PO SCH (20:13)
[2019-06-11 08:07] VITALS: TEMP 98
[2019-06-11] MEDS: Potassium Chloride 20 MEQ TAB PO SCH (08:20)
[2019-06-11] MEDS: Folic Acid 1 MG TAB PO SCH (08:21)
[2019-06-11] MEDS: Amlodipine 5 MG TAB PO SCH (08:21)
[2019-06-11] MEDS: Amiodarone 200 MG TAB PO SCH (08:21)
[2019-06-11] MEDS: Isosorbide Mononitrate (ER) 30 MG TAB PO SCH (08:21)
[2019-06-11] MEDS: Tamsulosin HCl 0.4 MG CAP PO SCH (08:21)
[2019-06-11 08:22] VITALS: BP 146/60
[2019-06-11] MEDS: Fluconazole 100 MG TAB PO SCH (08:22)
[2019-06-11] MEDS ORDERED: Furosemide 40 MG TAB PO SCH (09:00)
--- NOTE | 2019-06-14 04:04 | PQF ---
[employer] Human Service Worker Crystal Reports Winform ViewerOpal Gustafson Jim GARZA MD [id number] CLINICAL DOCUMENTATION CLARIFICATION FORM: POST DISCHARGE Addendum to original discharge summary date: ____ Late entry note date: __ DATE: 06/14/2019 ATTN: Jim GARZA MD Please exercise your independent, professional judgment in responding to the clarification form. Clinical indicators are provided on the bottom of this form for your review Please check appropriate box(s): [ ] Acute Respiratory Failure with Hypoxia and Hypercapnia [ ] Acute On Chronic Respiratory Failure with Hypoxia and Hypercapnia [ ] Chronic Respiratory Failure with Hypoxia and Hypercapnia [ ] Other diagnosis [ ] Unable to determine In addition, please specify: Present on Admission (POA): [ ] Yes [ ] No [ ] Unable to determine For continuity of documentation, please document condition throughout progress notes and discharge summary. Thank You. CLINICAL INDICATORS - SIGNS / SYMPTOMS / LABS O2 Saturation 91 on 06/09 - Documented in Vital Signs RR 22 on 06/03 - Documented in Vital Signs Respiratory Failure with Hypoxia and Hypercapnia presently on continuous O2 - Documented in PNs on 06/10 by Jim GARZA MD RISK FACTORS Chronic Diastolic CHF - Documented in H&P on 06/02 by Jim GARZA MD Hypoxic Ventilation Syndrome - Documented in H&P on 06/02 by Jim GARZA MD Hypoxemia and hypercapnia - Documented in H&P on 06/02 by Jim GARZA MD Generalized weakness - Documented in H&P on 06/02 by Jim GARZA MD TREATMENTS: O2 Delivery - Nasal Cannula (This form is maintained as a part of the permanent medical record) [employer] Human Service Worker Crystal Reports Win[id number]. All Rights Reserved [email or web address] [not provided] MTDD
--- NOTE | 2019-06-14 04:21 | PQF ---
[employer] Director Of Dietary Crystal Reports [employer] Opal Flaherty Jim GARZA MD [id number] CLINICAL DOCUMENTATION CLARIFICATION FORM: POST DISCHARGE Addendum to original discharge summary date: ____ Late entry note date: __ DATE: 06/14/2019 ATTN: Jim GARZA MD Please exercise your independent, professional judgment in responding to the clarification form. Clinical indicators are provided on the bottom of this form for your review Please check appropriate box(s): [ ] Encephalopathy: Type: [ ] Acute [ ] Subacute [ ] Chronic Etiology: [ ] Hypertensive [ ] Metabolic [ ] Toxic [ ] Drug induced: [ ] Unspecified [ ] Other (please specify) [ ] Transient Alteration of Awareness [ ] Other diagnosis [ ] Unable to determine In addition, please specify: Present on Admission (POA): [ ] Yes [ ] No [ ] Unable to determine For continuity of documentation, please document condition throughout progress notes and discharge summary. Thank You. CLINICAL INDICATORS - SIGNS / SYMPTOMS / LABS Altered mental status is related to her medications,hypoglycemia & hypercapnia - Documented in PNs on 06/04 by Junito Tejada MD Unfortunately pt has been very consistent about doing her therapy - Documented in PNs on 06/09 by Jim GARZA MD she has been somewhat confused and unable to make that decision - Documented in PNs on 06/07 by Jim GARZA MD she was confused again - Documented in PNs on 06/09 by Jim GARZA MD RISK FACTORS Recurrent UTI - Documented in PNs on 06/04 by Junito Tejada MD TREATMENTS: We will determine need for antibiotics from previous admission - Documented in PNs on 06/04 by Junito Tejada MD Continue to monitor Continue to wean down to polypharmacy [employer] Director Of Dietary Crystal Reports Winform Viewer (This form is maintained as a part of the permanent medical record) 2014 [employer]. All Rights Reserved [email or web address] [email or web address] [not provided] MTDD
== END 2019-06-11 09:51 | disposition home or self-care (01) | DRG 947 ==
LOC: NAV ACUTE 18:16
PROVIDERS: ADMIT Family Medicine; ATTEND Family Medicine
DX: R53.1 Weakness (principal); J96.91 Respiratory failure, unspecified with hypoxia; J96.92 Respiratory failure, unspecified with hypercapnia; I50.32 Chronic diastolic (congestive) heart failure; I13.0 Hypertensive heart and chronic kidney disease with heart failure and stage 1 through stage 4 chronic kidney disease, or unspecified chronic kidney disease; E66.2 Morbid (severe) obesity with alveolar hypoventilation; Z68.41 Body mass index [BMI] 40.0-44.9, adult; B37.41 Candidal cystitis and urethritis; E03.9 Hypothyroidism, unspecified; E78.5 Hyperlipidemia, unspecified; M19.91 Primary osteoarthritis, unspecified site; K21.9 Gastro-esophageal reflux disease without esophagitis; E11.40 Type 2 diabetes mellitus with diabetic neuropathy, unspecified; M79.10 Myalgia, unspecified site; G47.00 Insomnia, unspecified; Z96.653 Presence of artificial knee joint, bilateral; Z98.61 Coronary angioplasty status; Z98.42 Cataract extraction status, left eye; Z98.41 Cataract extraction status, right eye; Z88.0 Allergy status to penicillin; Z88.8 Allergy status to other drugs, medicaments and biological substances; Z79.899 Other long term (current) drug therapy; N18.3 Chronic kidney disease, stage 3 (moderate); F41.9 Anxiety disorder, unspecified; F32.9 Major depressive disorder, single episode, unspecified; G89.29 Other chronic pain; E11.22 Type 2 diabetes mellitus with diabetic chronic kidney disease; Z91.14 Patient's other noncompliance with medication regimen; R53.81 Other malaise; Z66 Do not resuscitate
CPT/HCPCS: 36415; 36416; 80053; 81001; 83880; 84134; 85007; 85025; 85027; 87086; 90471; 90686; G0008; J1815